=== PATIENT | male | born 1940 | race Caucasian/White ===

== ENCOUNTER 2017-04-06 21:56 | Inpatient (IN) | payer MEDICARE, OTHER, SELFPAY ==
[2017-04-06 21:58] VITALS: BP 147/92; PULSE 63; RESP 14; TEMP 36.4; O2SAT 99; BMI 20.2
--- NOTE | 2017-04-06 22:24 | CT_ITS ---
STUDY: CT ABDOMEN AND PELVIS WITHOUT CONTRAST REASON FOR EXAM: Male, 76 years old. Left flank pain. Kidney stones. RADIATION DOSAGE (If Supplied By Facility): CTDIvol = ( 6.77 ) mGy, DLP = ( 329.99 ) mGycm TECHNIQUE: Transaxial images were obtained from the dome of the diaphragm to the symphysis pubis without oral contrast, and without intravenous contrast. Sagittal and coronal images were reconstructed. COMPARISON: CT November 23, 2015 FINDINGS: The visualized lung bases are unremarkable. The visualized portions of the heart are within normal limits. Normal liver. Normal gallbladder and extrahepatic biliary system. Normal spleen. Normal pancreas. Normal bilateral adrenal glands. 3 calculi in the mid right kidney. These measure 6.1 mm. These are in the right renal calyx. Moderate hydronephrosis and hydroureter caused by 3.4 mm mid ureteral stone and 3 mm mid ureteral stone. Third smaller 1 to 2 mm stone in the right ureter. Moderate hydronephrosis and left hydroureter caused by 9.8 mm left urinary bladder stone. 6.4 mm left renal parenchyma stones. Normal visualized stomach. Normal small intestine. Stool throughout the colon. There is non-visualization of the appendix. There are calcifications of the abdominal aorta and vascular structures. This is consistent for atherosclerotic disease. There is no abdominal aortic aneurysm. Normal inferior vena cava. Subcentimeter mesenteric lymph nodes. Normal urinary bladder. Normal abdominal wall. There are degenerative changes of the osseous structures. Degenerative findings of the hips. Loss of intervertebral disc height at L5-S1. Vacuum disc phenomenon at L5-S1. Compression deformity of T12. This appears old. However, is new since the CT of 2015. CT/Abdomen/Pelvis without Cont IMPRESSION: Moderate hydronephrosis and hydroureter caused by 3.4 mm mid ureteral stone and 3 mm mid ureteral stone. Third smaller 1 to 2 mm stone in the right ureter. Moderate hydronephrosis and hydroureter caused by 9.8 mm left urinary bladder stone. Other findings as above. Electronically Signed: Chinmay Cook MD at 23:43 EST , Service support ,
--- NOTE | 2017-04-06 22:28 | ED.DCSUM_ITS ---
- ER Visit Summary Date of Service: 04/06/17 Chief Complaint: [] Flank pain History of Present Illness: The patient is a 76 M [] complaining of left flank pain with a history of kidney stones and medullary sponge kidneys. Patient denies nausea, vomiting, dysuria, hematuria. Patient reports similar symptoms with previous kidney stones. Reports he sees Dr. Ignacio and Dr. Andrew as his urologist's. Physical Examination: [] Afebrile, vital signs stable. Cardiovascular exam is regular rate and rhythm. Lungs are clear to auscultation. Abdomen is soft with mild left lower quadrant/ left CVA tenderness. Remainder of exam is unremarkable. Test Results: [] CBC normal. BMP normal with exception of a BUN and creatinine of 24 and 1.69, respectively. Urinalysis was not analyzed secondary to the patient provided a sample. CT of the flank reveals right mid ureter 3.4 mm stone with moderate hydro-nephrosis. 9.8 mm stone in the urinary bladder causing left-sided hydronephrosis. Emergency Department Course and Treatment: [] Patient received intravenous morphine and intravenous Phenergan and normal saline bolus upon arrival. On serial exam he was having continued pain and given single dose of intravenous Dilaudid. He was in continued pain and did not feel that he would fare well if he was discharged home. Case was discussed with the on-call urologist Dr. Andrew. The urologist will accept the patient on his service and provide further treatment and evaluation. Patient was counseled regarding his diagnostic and auditory findings and is amenable to admission. Treatment Plan: [] Admission to medical floor. Disposition: [] Admit, stable. Impression: [] Ureterolithiasis History of kidney stones This note was generated with [employer] dictation software. It may contain incorrect words, spelling, and punctuation that were not noted in review of the chart prior to signing ED Disposition - Plan for ED Patient: Chief Complaint: Flank Pain Referrals: Care Physician,No Primary [Primary Care Provider] -
[2017-04-06 22:38] LABS: Absolute Lymphocyte Count 1.71 X10^3/ul (0.83-4.51); Absolute Neutrophil Count 3.3 X10^3/uL (2.0-7.7); Basophil# 0.04 X10^3/uL; Basophil% 0.6 % (0-1); Eosinophil# 0.37 X10^3/uL; Eosinophils% 5.8 % (0-5); Hematocrit 39.6 % (40-54); Hemoglobin 13.1 g/dl (13.0-16.5); Lymphocyte # 1.71 X10^3/ul (4.0); Lymphocyte % 26.9 % (19-41); Mean Corp Hgb Conc 33.1 g/gl (32-36); Mean Corpuscular Hgb 29.4 pg (27.0-32.0); Mean Platelet Vol. 9.7 fl (6.2-12.0); Monocyte# 0.91 X10^3/uL; Monocyte% 14.3 % (0-10); Neutrophil # 3.32 X10^3/uL (2.7-7.7); Neutrophil % 52.2 % (47-70); POSITIVE COUNT NO; POSITIVE DIFFERENTIAL NO; POSITIVE MORPHOLOGY NO; Platelet Count 265 K/mm3 (150-450); RBC Distribution Width CV 14.2 % (11.6-14.6); RBC Distribution Width SD 46.7 fl (35.1-43.9); Red Blood Count 4.45 M/mm3 (4.6-6.2); White Blood Count 6.4 K/mm3 (4.4-11.0)
[2017-04-06 22:46] LABS: Anion Gap 6 (5-15); BUN 24 mg/dL (7-18); BUN/Creat Ratio 14.2 RATIO (10-20); Calcium,Total 7.9 mg/dL (8.5-10.1); Chloride 110 mmol/L (98-107); Creatinine, Serum 1.69 mg/dL (0.70-1.30); EST Glomerular Filtration Rate 42 mL/min (>60); Est Glom Filt Rate - Afr Amer 51 mL/min (>60); Estimated Creatinine Clearance 34.19 ml/min; Glucose 104 mg/dL (74-106); Sodium Level 140 mmol/L (136-145)
[2017-04-06] MEDS: 0.9% Normal Saline 1,000 ML 1000 ML IV (22:52)
[2017-04-06] MEDS: HYDROmorphone 1 MG/ML Syringe 0.5 MG IV (23:40)
[2017-04-07] VITALS (13 sets, daily range): BP systolic 92–143; BP diastolic 64–88; PULSE 71–85; RESP 16–18; TEMP 36.6–37.7; O2SAT 92–100; BMI 20.2; BMI 20.3
[2017-04-07 01:00] LABS: Mucous, Urine 0 SEEN /hpf (<or=2+); Red Blood Cells-Urine 0 SEEN /hpf (0-5); Squamous Epithelial Cells - UA 0 SEEN /hpf (0-5)
[2017-04-07 01:02] LABS: Color, Urine Yellow (Yellow); Glucose, Dipstick Normal (Normal); Ketone-Dipstick Negative (Negative); Leukocyte Esterase-Dipstick 500 /ul (Negative); Nitrite-Dipstick Positive (Negative); Occult Blood-Urine 25 /ul (Negative); Protein-Dipstick 15 mg/dl (Negative); Specific Gravity, Urine 1.015 (1.002-1.030); Urine Bilirubin Dipstick Negative (Negative); Urine Clarity Sl. Cloudy (Clear); Urine Urobilinogen Normal (Normal)
[2017-04-07 01:10] LABS: Bacteria 3+ /hpf (None Seen); White Blood Cells >100 SEEN /hpf (0-5)
[2017-04-07] MEDS: 0.9% Normal Saline 1,000 ML 75 ML IV (01:45)
--- NOTE | 2017-04-07 07:35 | PCM.HP.STD ---
Problem List (1) Intractable pain Status: Acute (2) Bilateral kidney stones Status: Acute (3) Bilateral hydronephrosis Status: Acute (4) Acute renal insufficiency Status: Acute History of Present Illness Date of Admission: 04/06/17 Chief Complaint: 76-year-old male presents to the hospital with bilateral kidney stones, acute renal insufficiency and intractable pain. The emergency room called me states that could not get his pain under control and recommended admission, patient was admitted to the hospital for pain control and his kidney stones renal insufficiency and hydronephrosis. The patient is a 76 year old M [] Past Medical History Past Medical History (Chronic Problems): Chronic Problems Hypertension (Chronic) Allergies No Known Allergies Allergy (Verified 11/23/15 15:41) Home Medications: Ambulatory Orders Medication Instructions Recorded Atenolol [Tenormin (beta mayda)] 25 mg PO DAILY 09/05/14 Doxycycline 50 mg PO DAILY 04/06/17 Simvastatin [Zocor] 20 mg PO QHS 04/07/17 Surgical History: - - Radical prostatectomy Psychiatric History: No pertinent psych hx Lives: Spouse/ Significant Other Smoking Status: Never smoker Tobacco Use: Non-smoker Alcohol: None Drugs: None - *Family History Maternal History Items: No pertinent history, - - No coronary artery disease Paternal History Items: - - No coronary artery disease Review of Systems Constitutional: Denies: Chills, Fever, Weight Change HEENT: Denies: Head Aches, Sinus Congestion, Sinus Drainage Cardiovascular: Denies: Chest Pain, Palpitations Respiratory: Denies: Cough, Shortness of breath at rest, Sputum production Gastrointestinal: Reports: Abdominal Pain. Denies: Nausea, Vomiting Genitourinary: Denies: Dysuria Musculoskeletal: Reports: Back Pain. Denies: Joint Pain, Joint Tenderness Skin: Denies: Rash, Wounds Neurological: Denies: Numbness, Tingling, Focal weakness Psychiatric: Denies: Anxiety, Depression, Homicidal Ideations, Suicidal Ideations Hematologic/ Lymphatic: Denies: Easy Bruising, Easy Bleeding VTE Information - Inpt Only VTE Present on Admission: No VTE Mechan Device Prophylaxis: SCD's Patient Problems: Active and Suspected Problems Intractable pain (Acute) Bilateral kidney stones (Acute) Bilateral hydronephrosis (Acute) Acute renal insufficiency (Acute) - Physical Exam General: Alert, Oriented x3, Cooperative HEENT: Atraumatic, PERRLA, EOMI, Normocephalic Neck: Supple, No JVD, Negative Carotid Bruits Lungs: Clear to auscultation, Normal air movement Cardiovascular: Regular rate, No murmurs Abdomen: Bowel Sounds Present, Soft, Non Tender Extremities: No edema, Capillary Refill Less than 3 Seconds Skin: No rashes, No breakdown Musculoskeletal: No Tenderness to Palpation of Joints or Extremities Neurological: Cranial nerves II-XII grossly intact Psych/Mental Status: Normal Affect, Appropriate Vital Signs Temp Pulse Resp BP Pulse Ox 99.0 F 84 18 101/64 98 04/07/17 07:25 04/07/17 07:25 04/07/17 07:25 04/07/17 07:25 04/07/17 07:25 Oxygen Delivery Method Room Air Weight: 64.1 kg Body Mass Index (BMI) 20.2 Intake and Output for Last 24 Hours 04/05/17 04/06/17 04/07/17 23:59 23:59 23:59 Intake Total 337 / 337 Output Total 650 / 650 Balance -313 / -313 Assessment/Plan Active and Suspected Problems Intractable pain (Acute) Bilateral kidney stones (Acute) Bilateral hydronephrosis (Acute) Acute renal insufficiency (Acute) Admit the patient for pain control, may have to take the surgery for placement of the stent will see if the stones will pass. He does have a fairly significantly large stone on the one side probably will not pass.
--- NOTE | 2017-04-07 07:46 | PCM.PROGNOTE ---
Patient Problems: Active and Suspected Problems Intractable pain (Acute) Bilateral kidney stones (Acute) Bilateral hydronephrosis (Acute) Acute renal insufficiency (Acute) Subjective: 76-year-old male admitted for bilateral kidney stones this morning he did pass a very large stone probably the stone on the left side in the distal left ureter.He still has some stones on the right ureter causing obstruction of the right kidney is also some stones up in both kidneys. - Physical Exam General: Alert, Oriented x3, Cooperative HEENT: Atraumatic, PERRLA, EOMI, Normocephalic Neck: Supple, No JVD, Negative Carotid Bruits Lungs: Clear to auscultation, Normal air movement Cardiovascular: Regular rate, No murmurs Abdomen: Bowel Sounds Present, Soft, Non Tender Extremities: No edema, Capillary Refill Less than 3 Seconds Skin: No rashes, No breakdown Musculoskeletal: No Tenderness to Palpation of Joints or Extremities Neurological: Cranial nerves II-XII grossly intact Psych/Mental Status: Normal Affect, Appropriate Vital Signs Temp Pulse Resp BP Pulse Ox 99.0 F 84 18 101/64 98 04/07/17 07:25 04/07/17 07:25 04/07/17 07:25 04/07/17 07:25 04/07/17 07:25 Oxygen Delivery Method Room Air Weight: 64.1 kg Body Mass Index (BMI) 20.2 Intake and Output for Last 24 Hours 04/05/17 04/06/17 04/07/17 23:59 23:59 23:59 Intake Total 337 / 337 Output Total 650 / 650 Balance -313 / -313 Assessment/Plan Active and Suspected Problems Intractable pain (Acute) Bilateral kidney stones (Acute) Bilateral hydronephrosis (Acute) Acute renal insufficiency (Acute) N.p.o. for surgery planted taken to surgery today for stent placement on the right side and left retrograde. Wide amount of the surgery scheduled then in about a week and a half to go and laser stones on both sides may play stents on both sides.
--- NOTE | 2017-04-07 07:50 | RAD_ITS ---
STUDY: X-RAY - ABDOMEN/PELVIS REASON FOR EXAM: Male, 76 years old. History of bilateral renal calculi and medullary screws in the. Acute renal failure. TECHNIQUE: Two AP supine views of the abdomen and pelvis. COMPARISON: Comparison is made with prior study dated December 30, 2016. FINDINGS: Mild increased markings at the lung bases suggesting scarring slightly worse on the left side. Gas and fecal material are seen throughout the colon. Mildly distended small bowel loops in the abdomen. This marrow present in the ileus pattern. Stable calcifications in the left kidney. The visualized liver, spleen and kidneys are grossly normal in size and morphology. Normal soft tissue structures. There are diffuse degenerative changes of the visualized lumbar spine. Levoscoliosis. RAD/Abdomen Single View IMPRESSION: Findings suggestive of an ileus gas pattern. Stable left renal calculi. Electronically Signed: Dragan Ansari MD at 8:43 EST Tel [phone], Service support ,
[2017-04-07] MEDS: 0.9% NaCl Peripheral Flush Adult/Peds IV ×2 (07:57→08:34)
[2017-04-07] MEDS: Atenolol 25 MG Tablet PO (08:34)
--- NOTE | 2017-04-07 11:03 | EKG12_ITS ---
Test Reason : PRE OP Blood Pressure : / mmHG Vent. Rate : 068 BPM Atrial Rate : 068 BPM P-R Int : 160 ms QRS Dur : 116 ms QT Int : 412 ms P-R-T Axes : 023 262 048 degrees QTc Int : 438 ms Normal sinus rhythm Right bundle branch block Abnormal ECG Confirmed by MODE JIMÉNEZ, NII ([id number]), medical editor GADIEL REECE ([id number] on 04/09/2017 2:52:20 PM Referred By: Confirmed By:NII COELLO MD
[2017-04-07] MEDS: Lidocaine Jelly 2% 20 ML Syringe (URO-JET) 20 APPLIC (12:12)
--- NOTE | 2017-04-07 12:30 | OP.PCM_ITS ---
Problem List (1) Intractable pain Status: Acute (2) Bilateral kidney stones Status: Acute (3) Bilateral hydronephrosis Status: Acute (4) Acute renal insufficiency Status: Acute Report of Operation Date of Procedure: 04/07/17 Pre-Operative Diagnosis: Left renal calculi and ureteral calculi, right renal calculi and renal calculi. Post-Operative Diagnosis: Same Surgery/Procedure Performed:: Cystoscopy and bilateral stent placement, left side and right side Description of Surgical Findings:: Patient was taken back to the operating room after smooth induction of general anesthesia he was placed in dorsal lithotomy position went into the bladder with a 21 [place] rigid cystourethroscope the entire length of the urethra is normal the sphincter was normal and intact he still had the Maria E but prostate was missing I then cannulated the left ureteral orifice looked like the stone in the distal left ureter had passed a stone there was still fairly large stone in the left kidney, so I placed a stent in anticipation of treat his large stone. Then went to the right side place a wire up the right ureter looked at the wire coiled in the proximal ureter but was beyond area of stones and then advanced a stent on the right side and left stent coil proximal ureter and distal ureter and in the bladder drain the bladder patient anesthetic was reversed plan to see him on Friday for shockwave treatment of the stones. Type of Anesthesia:: Local MAC - Admit VTE Documentation VTE Present on Admission: No VTE Mechan Device Prophylaxis: SCD's VTE Pharm Prophylaxis ordered?: No Reason prophylaxis not ordered:: Treatment Not Indicated
--- NOTE | 2017-04-07 12:32 | DCINST_ITS ---
Discharge Diet: Light diet - advance as tolerated Discharge Activity: May not drive while taking narcotic pain medications. Allergies/Adverse Reactions: Allergies No Known Allergies Allergy (Verified 11/23/15 15:41) Medications to take at Discharge Atenolol [Tenormin (beta mayda)] 25 mg PO DAILY 09/05/14 Doxycycline 50 mg PO DAILY 04/06/17 Ciprofloxacin [Cipro] 500 mg PO BID #6 tab 04/07/17 Hydrocodone/Acetaminophen [[place] 5-325 Tablet] 1 ea PO Q4H PRN PRN 5 Days #20 tab 04/07/17 Simvastatin [Zocor] 20 mg PO QHS 04/07/17 The following prescriptions were given: Hydrocodone/Acetaminophen [[facility] [place] 5-325 Tablet] 1 ea PO Q4H PRN PRN 5 Days #20 tab PRN Reason: Pain Ciprofloxacin [Cipro] 500 mg PO BID #6 tab Primary Care Physician: Care Physician,No Primary [Primary Care Provider] - Please Follow Up With: Rene Andrew MD When: surgery this friday for stones
--- NOTE | 2017-04-07 12:33 | PCM.DC.SUM ---
Discharge Date and Diagnosis - Problem List Patient Problems: Active and Suspected Problems Intractable pain (Acute) Bilateral kidney stones (Acute) Bilateral hydronephrosis (Acute) Acute renal insufficiency (Acute) Date of Admission: 04/06/17 Date of Discharge: 04/07/17 - Primary Discharge Diagnosis Active and Suspected Problems Intractable pain (Acute) Bilateral kidney stones (Acute) Bilateral hydronephrosis (Acute) Acute renal insufficiency (Acute) - Secondary Discharge Diagnosis Chronic Problems Hypertension (Chronic) Hospital Course and Treatment Imaging Results: 04/07/17 07:50 KUB [Abdomen Single View] [RAD] Urgent 04/07/17 12:00 O.R. Fluoro for C-Arm [RAD] Urgent Operations: - - Cystoscopy and bilateral stent placement Procedures: None Summary of Care Provided: The patient is a 76 year old male admitted for large ureteral calculi and bilateral kidney stones. He did pass a fragment while in the hospital. Today were taken to the operating room placed stents on both sides. Plan to treat the stones as an outpatient. His pain is now under control will discharge her home. Discharge Diet: Light diet - advance as tolerated Discharge Activity: May not drive while taking narcotic pain medications. Home Medications: Medications to take at Discharge Atenolol [Tenormin (beta mayda)] 25 mg PO DAILY 09/05/14 Doxycycline 50 mg PO DAILY 04/06/17 Ciprofloxacin [Cipro] 500 mg PO BID #6 tab 04/07/17 Hydrocodone/Acetaminophen [[place] 5-325 Tablet] 1 ea PO Q4H PRN PRN 5 Days #20 tab 04/07/17 Simvastatin [Zocor] 20 mg PO QHS 04/07/17 Following Prescrptions Were Given to Patient: Hydrocodone/Acetaminophen [[place] 5-325 Tablet] 1 ea PO Q4H PRN PRN 5 Days #20 tab PRN Reason: Pain Ciprofloxacin [Cipro] 500 mg PO BID #6 tab Primary Care Physician: Care Physician,No Primary [Primary Care Provider] - Please Follow Up With: Rene Andrew MD When: surgery this friday for stones Meaningful Use Info Meaningful Use Diagnoses (Choose all that apply): None applicable
--- NOTE | 2017-04-07 13:12 | CASEMGMT ---
RN AMY Face to Face with patient for initial transition planning/care coordination assessment. RN CM introduced self and role at [facility]. Patient lying in bed, alert and oriented. Patient willing to participate in assessment and is able to answer all questions appropriately. Care providers, pharmacy, and demographics verified. See link attached. Patient wishes to discharge home, denies need for home health at this time. Patient states he has no further needs or concerns at this time. CM to follow for discharge planning needs that may arise. Disposition Plan: Patient to discharge home with family support and follow-up plans in place.
== END 2017-04-07 14:46 | disposition home or self-care (01) | DRG 694 ==
LOC: ED 22:31 → MS3 04-07 00:15
PROVIDERS: Admitting Provider Urology; Emergency Provider Emergency Medicine; Visit Provider Urology
PROC: 0T788DZ Dilation of Bilateral Ureters with Intraluminal Device, Via Natural or Artificial Opening Endoscopic (ICD-10-PCS; principal; 2017-04-07 11:50)
DX: N13.2 Hydronephrosis with renal and ureteral calculous obstruction (principal); I10 Essential (primary) hypertension; Z87.442 Personal history of urinary calculi; N21.0 Calculus in bladder; Z90.79 Acquired absence of other genital organ(s); N28.9 Disorder of kidney and ureter, unspecified
CPT/HCPCS: 74018; 74176; 76000; 80048; 81001; 85025; 93005; 99285; J7030; A4216; C1769; C2617

== ENCOUNTER 2017-04-11 07:02 | Day surgery (SDC) | payer MEDICARE, OTHER, SELFPAY ==
[2016-07-16 11:15] VITALS: BP 94/61
[2017-04-07 09:09] VITALS: BMI 20.2
[2017-04-07 13:23] VITALS: BP 103/66
--- NOTE | 2017-04-11 06:50 | RAD_ITS ---
STUDY: X-RAY - ABDOMEN/PELVIS REASON FOR EXAM: Male, 76 years old. Pain. Kidney stones TECHNIQUE: Two AP supine views of the abdomen and pelvis. COMPARISON: X-ray of the abdomen on April 07, [address] of the abdomen on April 06, 2017. FINDINGS: Normal visualized lung bases. There are bilateral JJ ureteral stents since last examination There is mild intestinal dilatation consistent with adynamic ileus There is no demonstrated free abdominal air. Again noted are bilateral renal calculi unchanged in position since the prior study . Right ureteral calculus at the level of the right sacroiliac joint is noted unchanged in position from the prior examination. Second right ureteral calculus I believe has migrated distally Normal soft tissue structures. There is osteoporosis and degenerative disease of the lumbar spine with levoscoliosis RAD/Abdomen Single View IMPRESSION: Bilateral renal calculi and right ureteral calculi as described above. Status post bilateral JJ stents. Adynamic ileus. Electronically Signed: Luis Antonio Christiansen MD, FACR at 7:17 EST , Service support ,
[2017-04-11 07:24] VITALS: BP 108/76; PULSE 62; RESP 16; TEMP 37.3; O2SAT 99; BMI 19.7
--- NOTE | 2017-04-11 09:47 | PCM.DC.URO ---
Discharge Diet: Light diet - advance as tolerated Discharge Activity: Return to Normal Activity, May not drive while taking narcotic pain medications. Call your doctor if your incision/area has: Continuous Slow Oozing, Sudden Increased Bleeding, Increased Pain/ Swelling, Increased Redness, Foul Smelling Discharge, Swelling at the incision site Suture Line Care: Avoid Pulling/Pushing, Avoid Pinching/Bending Instructions: Shock Wave Lithotripsy Allergies/Adverse Reactions: Allergies ciprofloxacin [From Cipro] Allergy (Verified 04/11/17 07:29) sweating, n/v Medications to take at Discharge Atenolol [Tenormin (beta mayda)] 12.5 mg PO DAILY 09/05/14 Doxycycline 50 mg PO DAILY 04/06/17 Hydrocodone/Acetaminophen [[place] 5-325 Tablet] 1 ea PO Q4H PRN PRN 5 Days #20 tab 04/07/17 Simvastatin [Zocor] 20 mg PO QHS 04/07/17 Cephalexin [Keflex] 500 mg PO Q8 #15 cap 04/11/17 Hydrocodone/Acetaminophen [[place] 5-325 Tablet] 1 ea PO Q4H PRN PRN 5 Days #20 tab 04/11/17 The following prescriptions were given: Hydrocodone/Acetaminophen [[place] 5-325 Tablet] 1 ea PO Q4H PRN PRN 5 Days #20 tab PRN Reason: Pain Cephalexin [Keflex] 500 mg PO Q8 #15 cap Primary Care Physician: Care Physician,No Primary [Primary Care Provider] - Please Follow Up With: Rene Andrew MD When: FridayApr 28 at 8:30 am, get xray before appt.
--- NOTE | 2017-04-11 09:53 | DCINST_ITS ---
Discharge Diet: Light diet - advance as tolerated Discharge Activity: Return to Normal Activity, May not drive while taking narcotic pain medications. Call your doctor if your incision/area has: Continuous Slow Oozing, Sudden Increased Bleeding, Increased Pain/ Swelling, Increased Redness, Foul Smelling Discharge, Swelling at the incision site Suture Line Care: Avoid Pulling/Pushing, Avoid Pinching/Bending Instructions: Shock Wave Lithotripsy Allergies/Adverse Reactions: Allergies ciprofloxacin [From Cipro] Allergy (Verified 04/11/17 07:29) sweating, n/v Medications to take at Discharge Atenolol [Tenormin (beta mayda)] 12.5 mg PO DAILY 09/05/14 Doxycycline 50 mg PO DAILY 04/06/17 Hydrocodone/Acetaminophen [[place] 5-325 Tablet] 1 ea PO Q4H PRN PRN 5 Days #20 tab 04/07/17 Simvastatin [Zocor] 20 mg PO QHS 04/07/17 Cephalexin [Keflex] 500 mg PO Q8 #15 cap 04/11/17 Hydrocodone/Acetaminophen [[place] 5-325 Tablet] 1 ea PO Q4H PRN PRN 5 Days #20 tab 04/11/17 The following prescriptions were given: Hydrocodone/Acetaminophen [[place] 5-325 Tablet] 1 ea PO Q4H PRN PRN 5 Days #20 tab PRN Reason: Pain Cephalexin [Keflex] 500 mg PO Q8 #15 cap Primary Care Physician: Care Physician,No Primary [Primary Care Provider] - Please Follow Up With: Rene Andrew MD When: FridayApr 28 at 8:30 am, get xray before appt.
[2017-04-11 11:44] VITALS: BP 108/76; BP 122/89; PULSE 65; RESP 20; TEMP 35.8; O2SAT 100
[2017-04-11 12:00] VITALS: BP 108/76; BP 136/86; PULSE 73; RESP 16; O2SAT 95
[2017-04-11 12:15] VITALS: BP 108/76; BP 117/80; PULSE 82; RESP 16; O2SAT 100
--- NOTE | 2017-04-11 12:15 | OP.PCM_ITS ---
Problem List (1) Bilateral kidney stones Status: Acute (2) Bilateral hydronephrosis Status: Acute Report of Operation Date of Procedure: 04/11/17 Pre-Operative Diagnosis: Left renal calculi, right ureteral calculi, right hydronephrosis and tortuous ureter, right renal calculi Post-Operative Diagnosis: . Same Surgery/Procedure Performed:: left ESWL left stent removal, right ureteroscopy laser of stone and right stent placement and right ESWL Description of Surgical Findings:: 76-year-old male taken back to the operating room, After smooth induction of general anesthesia we then positioned the patient supine on the lithotripter table, we found a stone in the lower pole of the left kidney and treated this with shockwave lithotripsy and then removed the stent from the left side. We then went to the right side and there was some stones in the distal right ureter I tried to manipulate and move the stones up in the kidney but the ureter was too tortuous and dilated and had some areas of narrowing so after performing cystoscopy and retrograde pyelogram and attempted stone manipulation was unable to do this so I put a wire in place I went next to the wire first with a flexible ureteroscope was able to get into the distal ureter and found the stones and use a laser 270 ?m laser fiber and laser the stones and the little tiny pieces. Had some difficulty in reaching the stones with the flexible ureteroscope so I then switched over to the semirigid ureteroscope and then was able to get into the stones in the distal ureter quite more easily. I then lasered some more the stones we then used the basket to basket out these fragments. I then put a wire up into the kidney very tortuous ureter dilated tortuous ureter finding the ureter straightened out and advanced a stent 6 [place] by 28 cm stent on the right side once stent was in good position then we treated the stones in the kidney with shockwave lithotripsy stones were treated with 3000 shockwaves at a rate of 90 power up to 6 and 7. At the end of the treatment cycle stones in the kidney lipids are broken up well stone in the mid right ureter was treated with laser and the stone in the left kidney was all treated with shockwave broken up well he only had a right stent in place plan to see him back in a few weeks with a KUB and possibly get the stent out. Type of Anesthesia:: General Drains: Right stent - Admit VTE Documentation VTE Present on Admission: No VTE Mechan Device Prophylaxis: SCD's
[2017-04-11 12:33] VITALS: BP 108/62; BP 108/76; PULSE 82; RESP 16; TEMP 36.6; O2SAT 93
[2017-04-11 13:51] VITALS: BP 108/76
== END 2017-04-11 14:06 | disposition home or self-care (01) ==
LOC: SDC 07:04 → AC 07:04
PROVIDERS: Visit Provider Urology
PROC: (CPT 50590; principal; 2017-04-11 08:40)
DX: N13.2 Hydronephrosis with renal and ureteral calculous obstruction (principal); N13.8 Other obstructive and reflux uropathy; N28.9 Disorder of kidney and ureter, unspecified; Q61.5 Medullary cystic kidney; I10 Essential (primary) hypertension; I25.10 Atherosclerotic heart disease of native coronary artery without angina pectoris; I45.10 Unspecified right bundle-branch block; E78.00 Pure hypercholesterolemia, unspecified; Z79.899 Other long term (current) drug therapy
CPT/HCPCS: 50590; 52356; 74018; J7120; C1769; J2405

== ENCOUNTER → 2017-04-25 08:09 | Outpatient (CLI) | payer MEDICARE, OTHER, SELFPAY | PROVIDERS: Visit Provider Urology | DX: N20.0 Calculus of kidney (principal) ==

== ENCOUNTER → 2017-04-28 07:45 | Outpatient (CLI) | payer MEDICARE, OTHER, SELFPAY ==
[2016-07-16 11:15] VITALS: BP 94/61
[2017-04-11 07:24] VITALS: BMI 19.7
[2017-04-11 12:33] VITALS: BP 108/62
--- NOTE | 2017-04-28 07:50 | RAD_ITS ---
STUDY: X-RAY - ABDOMEN/PELVIS REASON FOR EXAM: Male, 76 years old. History of kidney stones following ESWL. TECHNIQUE: Two AP supine views of the abdomen and pelvis. COMPARISON: Comparison is made with prior examination dated April 11, 2017. FINDINGS: Normal visualized lung bases. There is a moderate amount of colonic fecal material. Slightly dilated small bowel loops in the right mid abdomen. The left-sided double-J stent catheter is not seen at this time. Stable appearance of the right double-J stent catheter. The previously seen bilateral renal calcifications have decreased in size and have become fragmented. Normal soft tissue structures. There are diffuse degenerative changes of the visualized lumbar spine. Levoscoliosis. RAD/Abdomen Single View IMPRESSION: The previously seen bilateral renal calcifications are smaller in size and fragment. The left double ureteral stent catheter has been removed. Electronically Signed: Dragan Ansari MD at 13:47 EST Tel [phone], Service support ,
== END ==
PROVIDERS: Visit Provider Urology
DX: N20.0 Calculus of kidney (principal)
CPT/HCPCS: 74018

== ENCOUNTER 2017-05-30 08:56 | Day surgery (SDC) | payer MEDICARE, OTHER, SELFPAY ==
[2017-05-30 09:11] VITALS: BP 127/82; PULSE 58; RESP 16; TEMP 36.1; O2SAT 99; BMI 19.3
--- NOTE | 2017-05-30 11:06 | COLBX_PTH ---
PATIENT: ADEEL POST LOC: EN U#:[id number] AGE/SX: 76/M ROOM: RE05/30/[address]: Dr. Sami Jones MD : [id number] BED: DIS: 05/30/2017 SPEC #: [id number] RECD: 05/30/17 12:19 STATUS: JEAN CARLOS SHAHID #: [id number] KOKO: 05/30/17 11:[address]: Sami Jones DEPT: SURGICAL PATHOLOGY RECD BY: Tim Crane ENTERED: 05/30/17 12:34 SP TYPE: COLON BX OTHR DR: No Primary Care Phys Tissues: A - Transverse colon B - Transverse colon C - Descending colon D - Descending colon Procedures: Surgery Specimen Level IV HEADER OPERATION: Colonoscopy PRE-OP DIAGNOSIS: Screening TISSUE SUBMITTED: A. Proximal transverse polyps, B. Mid transverse polyp, C. Proximal descending polyp, D. Mid descending polyp MICROSCOPIC DIAGNOSIS A. Proximal transverse colon polyp, biopsy: Fragments of tubular adenoma. B. Mid transverse colon polyp, biopsy: Fragments of tubular adenoma. C. Proximal descending colon polyp, biopsy: Fragments of tubular adenoma. D. Mid descending colon polyp, biopsy: Fragments of tubular adenoma. SJ:michell 06/02/17 MICROSCOPIC DESCRIPTION Slides are reviewed. GROSS DESCRIPTION A - Received in fixative is one container labeled with the patient's name and designated proximal transverse polyp. The specimen consists of a pedroza-pink polyp measuring 1.2 x 1 x 0.6 cm. The polyp is bisected. Also present in the container are multiple fragments of pedroza soft tissue that in aggregate measure 1.5 x 0.5 x 0.1 cm. The entire specimen is submitted in one cassette. B - Received in fixative is one container labeled with the patient's name and designated mid transverse polyp. The specimen consists of multiple irregular fragments of light pedroza soft tissue that in aggregate measure 0.6 x 0.3 x 0.1 cm. The specimen is totally submitted in one cassette. C - Received in fixative is one container labeled with the patient's name and designated proximal descending polyp. The specimen consists of a piece of pedroza-pink polyp measuring 0.6 x 0.5 x 0.3 cm. Also present in the container is a small piece of pedroza-pink soft tissue measuring 0.2 x 0.2 x 0.1 cm. The entire specimen is submitted in one cassette. D - Received in fixative is one container labeled with the patient's name and designated mid descending polyp. The specimen consists of multiple irregular fragments of light pedroza soft tissue that in aggregate measure 0.5 x 0.5 x 0.1 cm. The specimen is totally submitted in one cassette. / PAIGE:michell 05/30/17 TC:1 CPT: 32406 x4
--- NOTE | 2017-05-30 11:34 | PCM.OPRPT ---
Problem List (1) Screen for colon cancer Status: Acute (2) History of colon polyps Status: Acute Report of Operation Date of Procedure: 05/30/17 Pre-Operative Diagnosis: Screening colonoscopy and history of colon polyps Post-Operative Diagnosis: Several polyps. Diverticulosis. Hemorrhoids Surgery/Procedure Performed:: Colonoscopy with 7 snare polypectomies Specimen's removed: See pathology sheet Description of Procedure: The major risks and benefits associated with the procedure were explained to the patient in detail. The patient verbalized understanding and agreement with the same. The patient was brought to the endoscopy suite. After adequate sedation was achieved, the patient was placed in the left lateral decubitus position and a digital rectal exam was performed. This examination was within normal limits. A well-lubricated colonoscope was then inserted into the rectum and advanced under direct visualization to the level of the cecum. The bowel prep was good. The cecum was identified by both visual and anatomic landmarks. A photograph was taken of the end of the cecum. The scope was then fully withdrawn while examining the color, texture, anatomy and integrity of the mucosa from the cecum to the anal canal. The patient had several polyps. He had 3 polyps in the ascending colon which were taken with cautery snare. These were sent together as they were in the same area of the colon. The patient also had a proximal colon polyp and mid transverse colon polyp. These were both taken with cautery snare. The patient also had several descending colon polyps. These were also taken with cautery snare. All of these polyps appeared small and angulated with no cancerous features. Otherwise, the findings were consistent with normal colonic mucosa. The patient did have sigmoid diverticulosis. Over 6 minutes were taken to examine the colonic mucosa. Upon reaching the rectum the scope was retroflexed to examine the distal rectal vault. The scope was then straightened and was completely retrieved upon exiting the anal canal and the procedure was terminated. The patient was then transferred to the recovery room in stable condition. Recommendations for follow up: Dependent on pathology
[2017-05-30 11:36] VITALS: BP 115/83; BP 127/82; PULSE 62; RESP 16; TEMP 35.9; O2SAT 97
[2017-05-30 11:40] VITALS: BP 111/71; BP 127/82; PULSE 52; RESP 16; O2SAT 99
[2017-05-30 11:45] VITALS: BP 122/87; BP 127/82; PULSE 54; RESP 16; O2SAT 99
[2017-05-30 11:50] VITALS: BP 116/92; BP 127/82; PULSE 54; RESP 18; TEMP 36.6; O2SAT 99
[2017-05-30 12:10] VITALS: BP 127/82
== END 2017-05-30 12:15 | disposition home or self-care (01) ==
LOC: EN 08:56 → AC 08:57
PROVIDERS: Visit Provider Surgery
PROC: 0DJD8ZZ Inspection of Lower Intestinal Tract, Via Natural or Artificial Opening Endoscopic (ICD-10-PCS; CPT 45378; principal; 2017-05-30 09:55)
DX: D12.4 Benign neoplasm of descending colon (principal); K57.30 Diverticulosis of large intestine without perforation or abscess without bleeding; K64.9 Unspecified hemorrhoids; D12.3 Benign neoplasm of transverse colon; I10 Essential (primary) hypertension; E78.5 Hyperlipidemia, unspecified; N13.2 Hydronephrosis with renal and ureteral calculous obstruction; Q61.5 Medullary cystic kidney; I45.10 Unspecified right bundle-branch block; Z87.440 Personal history of urinary (tract) infections; Z87.891 Personal history of nicotine dependence; Z79.899 Other long term (current) drug therapy; Z79.891 Long term (current) use of opiate analgesic
CPT/HCPCS: 45380; 88305; J7120

== ENCOUNTER → 2017-06-14 07:12 | Outpatient (CLI) | payer MEDICARE, OTHER, SELFPAY ==
[2017-06-14 08:43] LABS: AST(SGOT) 36 U/L (15-37); Alanine Aminotransfer ALT/SGPT 36 U/L (16-61); Albumin, Serum 3.3 g/dL (3.2-5.0); Alkaline Phosphatase 156 U/L (45-117); Bilirubin, Direct 0.21 mg/dL (0.00-0.30); Cholesterol 97 mg/dL (200); Globulin 3.9 g/dL (2.2-4.2); High Density Lipoprotein 27 mg/dL; Protein, Total 7.2 g/dL (6.4-8.2); Triglycerides 92 mg/dL; Very Low Density Lipoprotein 18 mg/dL (5-40)
== END ==
PROVIDERS: Visit Provider Internal Medicine Cardiovascular Disease
DX: E78.5 Hyperlipidemia, unspecified (principal); Z79.899 Other long term (current) drug therapy
CPT/HCPCS: 80061; 80076

== ENCOUNTER → 2017-08-21 07:43 | Outpatient (CLI) | payer MEDICARE, OTHER, SELFPAY ==
--- NOTE | 2017-08-21 07:45 | ECHOD_ITS ---
Reason For Study: CAD/ASHD Procedure This was a 2D Doppler, Color Flow transthoracic echocardiogram. The exam was of adequate technical quality. Exam performed in department. Left Ventricle Normal LV size. Left ventricular systolic function is normal. The estimated ejection fraction is 65 %. Normal diastology for age. No regional wall motion abnormalities noted. Right Ventricle Normal RV size. Normal systolic function. Atria The left atrium is mildly enlarged. Normal right atrium. No doppler evidence for ASD. Mitral Valve There is no mitral annular calcification. Mild diffuse mitral valve thickening. Mild mitral valve prolapse. Mild (1+) eccentric mitral valve insufficiency. Tricuspid Valve Myxomatous appearing tricuspid valve. Mild diffuse thickening of the tricuspid valve. Mild tricuspid valve insufficiency. Aortic Valve Trisinus/trileaflet aortic valve. Mild focal aortic valve thickening. Pulmonic Valve The pulmonic valve is not well visualized. Great Vessels Normal sized aortic root. Pericardium/Pleural No pericardial effusion. MMode/2D Measurements & Calculations LVIDd: 4.1 cm IVSd: 0.88 cm Ao root diam: 3.7 cm LVIDs: 2.2 cm LVPWd: 1.2 cm LA dimension: 4.0 cm FS: 45.5 % LAV(MOD-bp): 64.0 ml LA A4 area: 20.0 cm2 RA A4 area: 15.3 cm2 LAV(MOD-bp) Indexed: 36.2 ml/m2 LAV(MOD-sp2): 67.3 ml LAV(MOD-sp4): 57.1 ml Time Measurements MV dec time: 0.25 sec Doppler Measurements & Calculations MV E max guy: 79.8 cm/sec Lat Peak E' Guy: 6.0 cm/sec Med Peak E' Guy: 7.5 cm/sec MV A max guy: 101.9 cm/sec E/E' lat: 13.2 E/E' med: 10.7 MV E/A: 0.78 MV V2 max: 109.1 cm/sec MV P1/2t max guy: 82.2 cm/sec Ao V2 max: 105.2 cm/sec MV max P.8 mmHg MV P1/2t: 132.3 msec Ao max P.4 mmHg MV V2 mean: 54.4 cm/sec MV dec slope: 182.0 cm/sec2 Ao V2 mean: 75.2 cm/sec MV mean P.4 mmHg MVA(P1/2t): 1.7 cm2 Ao mean P.4 mmHg MV V2 VTI: 37.9 cm Ao V2 VTI: 23.0 cm LV V1 max: 68.4 cm/sec PA V2 max: 53.1 cm/sec LV V1 max P.9 mmHg LV V1 mean P.1 mmHg LV V1 mean: 49.9 cm/sec LV V1 VTI: 17.2 cm Interpretation Summary Left ventricular systolic function is normal. The estimated ejection fraction is 65 %. The left atrium is mildly enlarged. Mild mitral valve prolapse. Mild diffuse mitral valve thickening. Mild (1+) eccentric mitral valve insufficiency. Myxomatous appearing tricuspid valve. Mild diffuse thickening of the tricuspid valve. Mild tricuspid valve insufficiency. Mild focal aortic valve thickening. Normal diastology for age. 2D echocardiographic images c/w mobile objects and linear echodensities in the subtricuspid valve area c/w redundant chordae tendonae. Ordering Physician: Julio Cesar Hope Referring Physician: Julio Cesar Hope Performed By: Theo Porter RCS
== END ==
PROVIDERS: Visit Provider Internal Medicine Cardiovascular Disease
DX: I25.10 Atherosclerotic heart disease of native coronary artery without angina pectoris (principal)
CPT/HCPCS: 93306

== ENCOUNTER → 2018-01-30 10:59 | Outpatient (CLI) | payer MEDICARE, OTHER, SELFPAY ==
[2018-01-30 10:59] VITALS: BMI 19.7
[2018-01-30 11:44] LABS: Mucous, Urine 0 SEEN /hpf (<or=2+); Red Blood Cells-Urine 0 SEEN /hpf (0-5)
[2018-01-30 12:45] LABS: Color, Urine Yellow (Yellow); Glucose, Dipstick Normal (Normal); Ketone-Dipstick Negative (Negative); Leukocyte Esterase-Dipstick 500 /ul (Negative); Nitrite-Dipstick Positive (Negative); Occult Blood-Urine 10 /ul (Negative); Protein-Dipstick 30 mg/dl (Negative); Specific Gravity, Urine 1.015 (1.002-1.030); Urine Bilirubin Dipstick Negative (Negative); Urine Clarity Sl. Cloudy (Clear); Urine Urobilinogen Normal (Normal)
[2018-01-30 12:55] LABS: Bacteria RARE /hpf (None Seen); Squamous Epithelial Cells - UA 0-5 SEEN /hpf (0-5); White Blood Cells 25-50 SEEN /hpf (0-5)
[2018-01-30 13:22] LABS: Anion Gap 8 (5-15); BUN 18 mg/dL (7-18); Calcium,Total 8.3 mg/dL (8.5-10.1); Chloride 108 mmol/L (98-107); Creatinine, Serum 1.63 mg/dL (0.70-1.30); EST Glomerular Filtration Rate 44 mL/min (>60); Est Glom Filt Rate - Afr Amer 53 mL/min (>60); Glucose 83 mg/dL (74-106); PSA,Total- Diagnostic < 0.01 ng/mL (0.0-4.0); Potassium 4.1 mmol/L (3.5-5.1); Sodium Level 139 mmol/L (136-145)
--- OUTSIDE RECORDS SUMMARY | 2018-03-27 09:00 | XMS RPT_ITS ---
:1940 Author Organization OHIP Support Name Relationship Address Phone SEJALANA CRISTINA PartidaTAMMY Unavailable [address] + [place] [address] R Unavailable Unavailable Unavailable SEJAL, TAMMY Unavailable [address] + [place] [address] R Unavailable Unavailable Unavailable SEJAL, TAMMY Unavailable [address] + [place] [address] R Unavailable Unavailable Unavailable SEJAL, TAMMY Unavailable [address] + [place] [address] R Unavailable Unavailable Unavailable SEJAL, TAMMY Unavailable [address] + [place] [address] R Unavailable Unavailable Unavailable SEJAL, TAMMY Unavailable [address] + [place] [address] R Unavailable Unavailable Unavailable SEJAL, TAMMY Unavailable [address] + [place] [address] R Unavailable Unavailable Unavailable SEJAL, TAMMY Unavailable [address] + [place] [address] R Unavailable Unavailable Unavailable SEJAL, Tammy Unavailable [address] + [place] [address] R Unavailable Unavailable Unavailable SEJAL, CORRIE Unavailable [address] + [place] [address] R Unavailable Unavailable Unavailable SEJAL, CORRIE Unavailable [address] + [place] [address] R Unavailable Unavailable Unavailable SEJAL, CORRIE Unavailable [address] + [place] [address] R Unavailable Unavailable Unavailable SEJAL, TAMMY Unavailable [address] + [place] [address] R Unavailable Unavailable Unavailable SEJAL, CORRIE Unavailable [address] + [place] [address] R Unavailable Unavailable Unavailable Care Team Providers Name Role Phone Primay Care Physicia, No Primary Care Unavailable Lorrie, Rene Burris Admitting Unavailable Lorrie, Rene Burris Attending Unavailable Lorrie, Rene Burris Attending Unavailable Lorrie, Rene Burris Referring Unavailable Primay Care Physicia, No Primary Care Unavailable Lorrie, Rene Burris Attending Unavailable Primay Care Physicia, No Primary Care Unavailable [place], Rene Burris Referring Unavailable Lorrie, Rene Burris Attending Unavailable Primay Care Physicia, No Primary Care Unavailable Calabretta, Sami Attending Unavailable Primay Care Physicia, No Referring Unavailable Primay Care Physicia, No Primary Care Unavailable Calab[place], Sami Attending Unavailable [place], Sami Referring Unavailable Primay Care Physicia, No Primary Care Unavailable Calabretta, Sami Attending Unavailable Calab[place], Sami Referring Unavailable Primay Care Physicia, No Primary Care Unavailable Cal[place], Sami Consulting Unavailable [place], Julio Cesar Attending Unavailable [place], Rene Burris Referring Unavailable [place], Julio Cesar Attending Unavailable [place], Julio Cesar Referring Unavailable Primay Care Physicia, No Primary Care Unavailable Shweta Kenney Attending Unavailable [place], Julio Cesar Attending Unavailable Primay Care Physicia, No Referring Unavailable Primay Care Physicia, No Primary Care Unavailable [place], Julio Cesar Attending Unavailable [place], Julio Cesar Referring Unavailable Primay Care Physicia, No Primary Care Unavailable [place], Julio Cesar Attending Unavailable [place], Rene Burrsi Attending Unavailable [place], Rene Burris Referring Unavailable Primay Care Physicia, No Primary Care Unavailable PROBLEMS PROBLEMS DATE TYPE CONDITION / CODE ATTENDING STATUS SOURCE 08/13/2017 Unknown I25.10 - [place], Active [place] Atherosclerotic heart [facility] disease [facility] coronary artery Repository without angina pectoris / I25.10(ICD-10) 08/12/2017 Unknown E78.5 - [place], Active [place] Hyperlipidemia, [facility] unspecified / Hospital E78.5(ICD-10) Repository 05/26/2017 Unknown Z86.010 - Personal Calabretta, Active [place] history of colonic Sami [facility] polyps / Hospital Z86.010(ICD-10) Repository 04/11/2017 Unknown Z87.442 - Personal Rene Andrew Active [place] history of urinary [place] [facility] calculi / Hospital Z87.442(ICD-10) Repository 06/04/2017 Unknown R94.31 - Abnormal [place], Active [place] electrocardiogram [facility] [ECG] [EKG] / Hospital R94.31(ICD-10) Repository PROCEDURES PROCEDURES No Procedure Records FoundRESULTS RESULTS URINALYSIS, COMPLETE Collected: 01/30/2018 Status: F Source: [place] 11:42 AM [facility] REPOSITORY Order Comment: How was Urine Obtained? CLEAN CATCH TYPE CODE TESTS RESULT OUT OF RANGE REFERENCE UNITS LAB L400.3000 Yellow COLOR Normal Yellow LAB L400.3050 Clear Normal CLARITY Sl. Cloudy LAB L400.3200 Normal mg/dl Normal GLUCOSE, UR Normal LAB L400.3300 Negative mg/dL Normal BILIRUBIN URINE Negative LAB L400.3400 Negative mg/dl Normal KETONE UR Negative LAB L400.3465 1.002-1.030 Normal SP.GR. DIPSTX 1.015 LAB L400.3550 5.0 - 8.0 pH UR Normal 6.0 LAB L400.3600 Negative mg/dl High PROT 30 DIPSTX LAB L400.3700 Normal mg/dl Normal UROBILI Normal LAB L400.3750 Negative High NITRITE UR Positive LAB L400.3780 Negative /ul High 10 OCCULT BLOOD-UR LAB L400.3800 Negative /ul High LEUK ESTERASE 500 LAB L400.4050 0-5 /hpf WBC Normal 25-50 SEEN LAB L400.4100 0-5 /hpf 0 Normal RBC-UA SEEN LAB L400.4150 0-5 /hpf SQUAM Normal EPI 0-5 SEEN LAB L400.4300 None Seen /hpf Normal BACTERIA RARE LAB L400.4350 <or=2+ /hpf 0 Normal MUCUS, URINE SEEN Performed By: #### L400.0001 #### [facility] [address] [place], [place], [id number] BASIC METABOLIC Collected: 01/30/2018 Status: F Source: [place] PROFILE (BMP) 11:42 AM [facility] REPOSITORY TYPE CODE TESTS RESULT OUT OF RANGE REFERENCE UNITS LAB L501.0100 74-106 mg/dL Normal GLU 83 Result Comment: Please note revised GLUCOSE reference range effective 2017. LAB L501.1000 7-18 mg/dL Normal BUN 18 LAB L501.1100 0.70-1.30 mg/dL High CREAT,SERUM 1.63 Result Comment: The validity of the calculated GFR AND GFRAA in patients over 70 years has not been determined. Clinical correlation is essential. LAB L501.1110 >60 mL/min Low EST GFR 44 Result Comment: Non- GFR Calc LAB L501.1115 >60 mL/min Low EST GFR - AA 53 Result Comment: GFR Calc LAB L501.1300 10-20 RATIO Normal BUN/CRE 11.0 LAB L501.2200 8.5-10.1 mg/dL Low CA 8.3 LAB L501.5300 136-145 mmol/L NA Normal 139 LAB L501.5600 3.5-5.1 mmol/L K Normal 4.1 LAB L501.5900 98-107 mmol/L High CL 108 LAB L501.6100 21.0-32.0 mmol/L Normal CO2 23.0 LAB L501.6200 5-15 Normal GAP 8 Performed By: #### L500.2500, L501.9940 #### [facility] [address] [facility] [place], [place], [address] PSA,TOTAL- DIAGNOSTIC Collected: 01/30/2018 Status: F Source: [place] 11:42 AM [facility] REPOSITORY TYPE CODE TESTS RESULT OUT OF RANGE REFERENCE UNITS LAB L501.9940 0.0-4.0 ng/mL PSA, Normal DIAGNOSTIC < 0.01 Result Comment: This test was performed using the TPSA assay method for the [employer] chemistry system. Values obtained with different assay methods cannot be used interchangably. When changing PSA assays in the course of monitoring a patient, additional sequential testing should be carried out to confirm baseline values. Performed By: #### L500.2500, L501.9940 #### [facility] [address] [place], [address] Observed: 01/30/2018 Status: F Source: [place] CULTURE, URINE 11:42 AM [facility] REPOSITORY Urine Culture ORGANISM 1: Escherichia coli [place] Count 11,000-25,000 Escherichia coli: REACTION Amoxacillin/Clavulanic Acid $ 8 S Ampicillin $ >=32 R Ampicillin/Sulbactam $ 16 I Cefazolin $ <=4 S Cefepime $ <=1 S Ceftriaxone $ <=1 S Ciprofloxacin $ 1 S ESBL - Ertapenim $$$ <=0.5 S Gentamicin $ >=16 R Imipenem *NF <=0.25 S Levofloxacin $ 1 S Nitrofurantoin $ <=16 S Piperacillin/Tazobactam $$ <=4 S Tobramycin $ >=16 R Trimethoprim/Sulfametho $ >=320 R (NF) indicates non-formulary drug at [facility]. Approval by Infectious Disease Specialist required before non-formulary drugs may be ordered and/or dispensed. Performed By: #### M100.0650 #### [facility] [address] [place], [address] ECHOCARDIOGRAM COMPLETE Observed: 08/25/2017 Status: F Source: [place] 8:23 AM [facility] REPOSITORY [facility] Cardiovascular Services [address] [place] [address] Echo Complete 08/21/17 0802 MR#: [id number] Acct: [id number] Name: KIMANI POST Rep #: [id number] : 1940 76 From: Julio Cesar Coello MD Attending Dr: Julio Cesar Coello MD Status: REG CLI Ordering Dr: Julio Cesar Coello MD Date: 08/21/17 Location: [facility] Sex: M C Admitted: Reason For Study: CAD/ASHD Procedure This was a 2D Doppler, Color Flow transthoracic echocardiogram. The exam was of adequate technical quality. Exam performed in department. Left Ventricle Normal LV size. Left ventricular systolic function is normal. The estimated ejection fraction is 65 %. Normal diastology for age. No regional wall motion abnormalities noted. Right Ventricle Normal RV size. Normal systolic function. Atria The left atrium is mildly enlarged. Normal right atrium. No doppler evidence for ASD. Mitral Valve There is no mitral annular calcification. Mild diffuse mitral valve thickening. Mild mitral valve prolapse. Mild (1+) eccentric mitral valve insufficiency. Tricuspid Valve Myxomatous appearing tricuspid valve. Mild diffuse thickening of the tricuspid valve. Mild tricuspid valve insufficiency. Aortic Valve Trisinus/trileaflet aortic valve. Mild focal aortic valve thickening. Pulmonic Valve The pulmonic valve is not well visualized. Great Vessels Normal sized aortic root. Pericardium/Pleural No pericardial effusion. MMode/2D Measurements AND Calculations LVIDd: 4.1 cm IVSd: 0.88 cm Ao root diam: 3.7 cm LVIDs: 2.2 cm LVPWd: 1.2 cm LA dimension: 4.0 cm FS: 45.5 % LAV(MOD-bp): 64.0 ml LA A4 area: 20.0 cm2 RA A4 area: 15.3 cm2 LAV(MOD-bp) Indexed: 36.2 ml/m2 LAV(MOD-sp2): 67.3 ml LAV(MOD-sp4): 57.1 ml Time Measurements MV dec time: 0.25 sec Doppler Measurements AND Calculations MV E max guy: 79.8 cm/sec Lat Peak E' Guy: 6.0 cm/sec Med Peak E' Guy: 7.5 cm/sec MV A max guy: 101.9 cm/sec E/E' lat: 13.2 E/E' med: 10.7 MV E/A: 0.78 MV V2 max: 109.1 cm/sec MV P1/2t max guy: 82.2 cm/sec Ao V2 max: 105.2 cm/sec MV max P.8 mmHg MV P1/2t: 132.3 msec Ao max P.4 mmHg MV V2 mean: 54.4 cm/sec MV dec slope: 182.0 cm/sec2 Ao V2 mean: 75.2 cm/sec MV mean P.4 mmHg MVA(P1/2t): 1.7 cm2 Ao mean P.4 mmHg MV V2 VTI: 37.9 cm Ao V2 VTI: 23.0 cm LV V1 max: 68.4 cm/sec PA V2 max: 53.1 cm/sec LV V1 max P.9 mmHg LV V1 mean P.1 mmHg LV V1 mean: 49.9 cm/sec LV V1 VTI: 17.2 cm Interpretation Summary Left ventricular systolic function is normal. The estimated ejection fraction is 65 %. The left atrium is mildly enlarged. Mild mitral valve prolapse. Mild diffuse mitral valve thickening. Mild (1+) eccentric mitral valve insufficiency. Myxomatous appearing tricuspid valve. Mild diffuse thickening of the tricuspid valve. Mild tricuspid valve insufficiency. Mild focal aortic valve thickening. Normal diastology for age. 2D echocardiographic images c/w mobile objects and linear echodensities in the subtricuspid valve area c/w redundant chordae tendonae. Ordering Physician: Julio Cesar Coello Referring Physician: Julio Cesar Coello Performed By: Theo Porter RCS 08/25/17821 Date Julio Cesar Coello MD CC: No Primary Care Physician; Julio Cesar Coello MD Date Dictated: 08/21/17 0802 Date Transcribed: 08/25/17821 Tap Grinder: Signed CARDIOLOGY VISIT Observed: 08/15/2017 Status: F Source: [place] REPORT 5:13 PM [facility] REPOSITORY [facility] [address] [place] [place] [address] OFFICE VISIT Date of Service: 08/13/17 MR#: [id number] Acct: [id number] Name: KIMANI POST Rep #: [id number] : 1940 Provider: Julio Cesar Coello MD Age/Sex: 76/M Location: 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 Overall since his last visit of 12/13/2016 he states he has been doing well. He is not complaining of any ongoing symptoms of classic angina pectoris at rest or with activity. There is been no episodes of acute CHF or pulmonary edema. There has been no near syncope or syncope. His lipid labs have been evaluated. They appear to be under good control. Intake Vital Signs08/13/17 Height 5 ft 10 in 08/13/17 Weight: 132 lb 08/13/17 Body Mass Index (BMI) 18.9 08/13/17 Blood Pressure 100/60 Intake Visit Reasons: 6 M FU Allergies ciprofloxacin [From Cipro] Allergy (Verified 08/13/17 15:23) sweating, n/v wheat Adverse Reaction (Severe, Verified 08/13/17 15:23) Unknown Medications Atenolol [Tenormin (beta mayda)] 12.5 mg PO DAILY 09/05/14 [History Confirmed 08/13/17] Simvastatin [Zocor] 20 mg PO QHS 04/07/17 [History Confirmed 08/13/17] nitroglycerin 0.4 mg sublingual tablet 0.4 mg SUBLINGUAL Q5- 15M PRN 08/12/17 [History Confirmed 08/13/17] doxycycline monohydrate 100 mg capsule 50 mg PO DAILY PRN 08/13/17 [History Confirmed 08/13/17] PFSH Medical History Atherosclerotic heart disease of [place] coronary artery without angina pectoris (Chronic) Nonrheumatic mitral valve disorder (Chronic) Nonrheumatic tricuspid valve regurgitation (Chronic) Bilateral hydronephrosis (Acute) Bilateral kidney stones (Acute) Recurrent right inguinal hernia (Acute) Right bundle branch block (Acute) Hypertension (Chronic) Hyperlipidemia (Chronic) Ureteral stone with hydronephrosis (Acute) Acute renal insufficiency (Inactive) Intractable pain (Inactive) UTI (urinary tract infection) (Inactive) Surgical History History of prostatectomy (Resolved) History of right inguinal hernia repair (Resolved) history lithrotripsy for kidney stones (Resolved) Family History Father CAD (coronary artery disease) Hx of CABG Brother Hypertension Social History Smoking Status: Never smoker alcohol intake: never substance use type: does not use ROS Const Const: Negative for fatigue, weakness, weight gain, weight loss, frequent falls or excessive sweating Eyes Eyes: Negative for change in vision, blurry vision or transient loss of vision ENT ENT: Negative for dizziness or balance problems Cardio Chest Pain: No Palpitations: No Edema: None Muscle aches with walking: None Resp Respiratory: Negative for SOB with activity or SOB at rest GI GI: Negative vomiting or vomiting blood/hematemesis : Negative for hematuria Musc Musc: Negative for balance problems, muscle aches/ myalgia, muscle weakness or joint pain Skin Skin: Negative non-healing lesions or rash Neuro Neuro: Negative for weakness, blurry vision, dizziness, lightheadedness, frequent falls or orthostatic symptoms Jefry Hematologic/Lymphatic: Negative for easy bleeding Endo Endo: Negative for fatigue or excessive sweating Psych Psych: Negative for anxiety or depression Allergy Allergy/Immunology: Negative for hives, Negative for rash Cardiology Exam Const Appearance: cooperative, comfortable, no acute distress, well developed and well groomed Nutritional Appearance: thin Orientation: alert, awake and oriented x3 Head Head: normal to inspection and normocephalic Ears: hearing grossly normal bilaterally Nose: external nose normal Face and Sinus: face symmetric Mouth: oral mucosae normal Eyes Eyelids: eyelids normal Conjunctivae: conjunctivae normal Pupils: PERRL EOM: EOM intact bilaterally Neck Neck: normal visual inspection and full ROM Carotids: normal carotid upstroke Chest Chest inspection: normal inspection of the chest Auscultation: Bilateral: Clear to Auscultation Cardio Palpation: normal PMI Rate: regular rate Rhythm: regular rhythm Heart sounds: S1 normal and S2 normal GI GI: normal to inspection, bowel sounds present, soft and no hepatosplenomegaly Neuro General: alert, awake, oriented x3 and moves all extremities Skin Skin: no rashes or lesions noted Extremities Pulses: Normal: Right Radial Pulse, Left Radial Pulse Lower Extremity Edema: None: Bilateral Psych Psychological: normal affect Assessment AND Plan 1. Atherosclerosis of [place] coronary artery of [place] heart without angina pectoris I25.10 Plan At the present time he appears to be doing well. He will continue risk factor modification and medical management. Orders Orders: 2. Nonrheumatic mitral valve disorder I34.9 Plan He does have a history of mitral valve prolapse/regurgitation. He will be followed with echocardiographic studies. 3. 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 Again this can be followed noninvasively with echocardiographic studies. 4. Hyperlipidemia E78.5 Plan His lipid labs have been reviewed. They appear to be under good control. He will continue medical management and follow-up. 5. Hypertension I10 Plan His blood pressure is been reviewed as well. It appears well- controlled at this time. He will continue his antihypertensive therapy. Plan Detail Additional Comments He will be scheduled for future outpatient follow-up. He will notify us of any concerns in the interim. Thank you for allowing me to participate in the care of your patient. Please don't hesitate to call if any issues arise. This note was generated using a voice recognition system and there may be incorrect words, spelling or punctuation that were not noted when reviewing the office note prior to saving. Follow Up 9 Months Coding Level of Care Code Off vis,est,level 4 Diagnoses Atherosclerosis of [place] coronary artery of [place] heart without angina pectoris I25.10 [place] vs. 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 TYPE CODE TESTS RESULT OUT OF RANGE REFERENCE UNITS LAB L501.1500 6.4-8.2 g/dL Normal T PROT 7.2 LAB L501.1800 3.2-5.0 g/dL Normal ALB 3.3 LAB L501.1950 2.2-4.2 g/dL Normal GLOB 3.9 LAB L501.4100 15-37 U/L Normal AST 36 LAB L501.4305 45-117 U/L High ALK P 156 LAB L501.4405 16-61 U/L Normal ALT 36 LAB L501.4600 0.20-1.00 mg/dL Normal T BILI 0.80 LAB L501.4700 0.00-0.30 mg/dL Normal D BILI 0.21 Performed By: #### L500.3400 #### [facility] [address] [place], [address] LIPID PROFILE Collected: 06/14/2017 Status: F Source: [place] 7:39 AM [facility] REPOSITORY Order Comment: Order Date: 12/10/16 Order Info: [id number] - *Hepatic Function Panel Order Info: [id number] - *Lipid Profile CC PCP Comments: 12 hours fasting, may have water. TYPE CODE TESTS RESULT OUT OF RANGE REFERENCE UNITS LAB L501.4900 200 mg/dL Normal CHOL 97 Result Comment: <200 mg/dL Desirable 200-240 mg/dL Borderline >240 mg/dL High Risk LAB L501.5000 mg/dL Normal TRIG 92 Result Comment: The drugs N-Acetylcysteine and Metamizole may falsely depress this assay. Serum Triglycerides Reference Interval Normal <150 mg/dL Borderline high 150 - 199 mg/dL High 200 - 499 mg/dL Very High > or = 500 mg/dL LAB L501.6400 mg/dL Low HDL 27 Result Comment: The drugs N-Acetylcysteine and Metamizole may falsely depress this assay. Reference Range HDL <40 mg/dL Low HDL Cholesterol HDL >or= 60 mg/dL High HDL Cholesterol LAB L501.6500 0-130 mg/dL Normal LDL 52 LAB L501.6600 5-40 mg/dL Normal VLDL 18 Performed By: #### L500.4100 #### [facility] [address] [place], [address] OPERATIVE REPORT Observed: 05/30/2017 Status: F Source: [place] 11:37 AM [facility] REPOSITORY [facility] Medical Records Department [address] [place] [address] Operative Report 05/30/17 1134 MR#: [id number] Acct: [id number] Name: KIMANI POST Rep #: [id number] : 1940 76 From: Sami Jones MD PCP: Care Physician, No Primary Status: REG [facility] Location: [place] [address] Problem List (1) Screen for colon cancer Status: Acute (2) History of colon polyps Status: Acute Report of Operation Date of Procedure: 05/30/17 Pre-Operative Diagnosis: Screening colonoscopy and history of colon polyps Post-Operative Diagnosis: Several polyps. Diverticulosis. Hemorrhoids Surgery/Procedure Performed:: Colonoscopy with 7 snare polypectomies Specimen's removed: See pathology sheet Description of Procedure: The major risks and benefits associated with the procedure were explained to the patient in detail. The patient verbalized understanding and agreement with the same. The patient was brought to the endoscopy suite. After adequate sedation was achieved, the patient was placed in the left lateral decubitus position and a digital rectal exam was performed. This examination was within normal limits. A well- lubricated colonoscope was then inserted into the rectum and advanced under direct visualization to the level of the cecum. The bowel prep was good. The cecum was identified by both visual and anatomic landmarks. A photograph was taken of the end of the cecum. The scope was then fully withdrawn while examining the color, texture, anatomy and integrity of the mucosa from the cecum to the anal canal. The patient had several polyps. He had 3 polyps in the ascending colon which were taken with cautery snare. These were sent together as they were in the same area of the colon. The patient also had a proximal colon polyp and mid transverse colon polyp. These were both taken with cautery snare. The patient also had several descending colon polyps. These were also taken with cautery snare. All of these polyps appeared small and angulated with no cancerous features. Otherwise, the findings were consistent with normal colonic mucosa. The patient did have sigmoid diverticulosis. Over 6 minutes were taken to examine the colonic mucosa. Upon reaching the rectum the scope was retroflexed to examine the distal rectal vault. The scope was then straightened and was completely retrieved upon exiting the anal canal and the procedure was terminated. The patient was then transferred to the recovery room in stable condition. Recommendations for follow up: Dependent on pathology 05/30/17 1137 <Electronically signed by Sami Jones MD> Date Sami Jones MD CC: No Primary Care Physician; Sami Jones MD Signed COLON BIOPSY (CHOOSE Observed: 05/30/2017 Status: F Source: [place] SITE) 11:06 AM [facility] REPOSITORY Patient: KIMANI POST : 1940 (76/M) Acct Num: [id number] Phys: Karen JIMÉNEZ,Sami Unit Num: [id number] Loc: EN Specimen: [id number] Received: 05/30/171218 Spec Type: COLON BX TISSUES TISSUES: A. Transverse colon B. Transverse colon C. Descending colon D. Descending colon GROSS DESCRIPTION A - Received in fixative is one container labeled with the patient's name and designated proximal transverse polyp. The specimen consists of a pedroza-pink polyp measuring 1.2 x 1 x 0.6 cm. The polyp is bisected. Also present in the container are multiple fragments of pedroza soft tissue that in aggregate measure 1.5 x 0.5 x 0.1 cm. The entire specimen is submitted in one cassette. B - Received in fixative is one container labeled with the patient's name and designated mid transverse polyp. The specimen consists of multiple irregular fragments of light pedroza soft tissue that in aggregate measure 0.6 x 0.3 x 0.1 cm. The specimen is totally submitted in one cassette. C - Received in fixative is one container labeled with the patient's name and designated proximal descending polyp. The specimen consists of a piece of pedroza -pink polyp measuring 0.6 x 0.5 x 0.3 cm. Also present in the container is a small piece of pedroza-pink soft tissue measuring 0.2 x 0.2 x 0.1 cm. The entire specimen is submitted in one cassette. D - Received in fixative is one container labeled with the patient's name and designated mid descending polyp. The specimen consists of multiple irregular fragments of light pedroza soft tissue that in aggregate measure 0.5 x 0.5 x 0.1 cm. The specimen is totally submitted in one cassette. / PAIGE:michell 05/30/17 TC:1 CPT: 17156 x4 HEADER OPERATION: Colonoscopy PRE-OP DIAGNOSIS: Screening TISSUE SUBMITTED: A. Proximal transverse polyps, B. Mid transverse polyp, C. Proximal descending polyp, D. Mid descending polyp MICROSCOPIC DESCRIPTION Slides are reviewed. MICROSCOPIC DIAGNOSIS A. Proximal transverse colon polyp, biopsy: Fragments of tubular adenoma. B. Mid transverse colon polyp, biopsy: Fragments of tubular adenoma. C. Proximal descending colon polyp, biopsy: Fragments of tubular adenoma. D. Mid descending colon polyp, biopsy: Fragments of tubular adenoma. PAIGE:michell 06/02/17 Signed Robert Amin 06/02/17 <signature on file> Performed By: #### PCOLBX #### [facility] [address] [place], [address] SURGERY VISIT REPORT Observed: 05/26/2017 Status: F Source: [place] 8:40 AM [facility] REPOSITORY [facility] [address] [place] [address] OFFICE VISIT Date of Service: 05/26/17 MR#: [id number] Acct: [id number] Name: KIMANI POST Rep #: [id number] : 1940 Provider: Sami Jones MD Age/Sex: 76/M Location: [facility] Status: Signed Intake Vital Signs05/26/17 Height 5 ft 10 in 05/26/17 Weight: 138 lb Intake Visit Reasons: C-SCOPE Screening Chief Complaint: kidney stone Allergies ciprofloxacin [From Cipro] Allergy (Verified 05/26/17 08:39) sweating, n/v Medications Atenolol [Tenormin (beta mayda)] 12.5 mg PO DAILY 09/05/14 [History Confirmed 04/08/17] Doxycycline 50 mg PO DAILY 04/06/17 [History Confirmed 04/08/17] Hydrocodone/Acetaminophen [Arlington 5-325 Tablet] 1 ea PO Q4H PRN PRN 5 Days #20 tab 04/07/17 [Rx Confirmed 04/08/17] Simvastatin [Zocor] 20 mg PO QHS 04/07/17 [History Confirmed 04/08/17] Cephalexin [Keflex] 500 mg PO Q8 #15 cap 04/11/17 [Rx] Hydrocodone/Acetaminophen [Arlington 5-325 Tablet] 1 ea PO Q4H PRN PRN 5 Days #20 tab 04/11/17 [Rx] PFSH Medical History Bilateral hydronephrosis (Acute) Bilateral kidney stones (Acute) Intractable pain (Acute) Acute renal insufficiency (Acute) Recurrent right inguinal hernia (Acute) Right bundle branch block (Acute) Hypertension (Chronic) Hyperlipidemia (Acute) Ureteral stone with hydronephrosis (Acute) UTI (urinary tract infection) (Acute) Surgical History History of prostatectomy (Acute) History of right inguinal hernia repair (Acute) history lithrotripsy for kidney stones (Acute) Social History Smoking Status: Former smoker alcohol intake: never substance use type: does not use HPI HPI HPI: KIMANI POST, is a 76 M who presents to the office today for colonoscopy. The patient has a history of colon polyps on his last colonoscopy. The patient does not remember exactly when his last colonoscopy was be says it was over 10 years ago. He is not having any abdominal pain or blood in his stools. He is not having any unintentional weight loss. ROS General General: No weight change, appetite, fatigue, colon cancer, breast cancer or weakness HEENT HEENT: No difficulty swallowing, eye injury, eye surgery, swollen glands or hoarseness Endo Endocrine: No thyroid disease, diabetes mellitus, thyroid cancer, Hair loss, heat intolerance or cold intolerance Skin Skin: No rash or changing moles Breast Breast: No left breast lump, right breast lump, nipple discharge, breast pain, abnormal mammogram, abnormal US or breast enlargement Musc Musculoskeletal: No back problems, arthritis, rheumatoid arthritis, gout or joint pain Cardio Cardiovascular: Yes heart disease; no murmur, pacemaker, atrial fibrillation, high blood pressure, heart attack, heart stent, palpitations, shortness of breat with exertion or chest pain Additional Details: high cholesterol Psych Psychiatric: No depression, anxiety or hearing voices Resp Respiratory: No shortness of breath, Yes sleep apnea, No cough, No COPD, No asthma, No emphysema, No wheezing Gastro Gastrointestinal: No abdominal pain, No nausea or vomiting, No diarrhea, No constipation, No blood in stool, No acid reflux, No hemorrhoids, No ulcers, No gallbladder problem, No black,tarry stools Jefry Hematologic: No blood thinners, No blood disorders, No bleeding, No anemia, No blood clots Neuro Neurologic: No system reviewed and no additional complaints, except as docu, No as per HPI, No abnormal walking, No abnormal hearing, No abnormal movements, No abnormal speech, No behavioral changes, No burning sensations, No confusion, No seizure-like activity, No unsteadiness, No dizziness, No localized weakness, No frequent falls, No headache(s), No lack of coordination, No loss of vision, No memory loss, No numbness, No other visual disturbances, No radiating pain, No restless legs, No sensory deficit, No fainting, No tingling, No tremor(s), No weakness, No other Exam Const General: cooperative, comfortable Orientation: oriented x3, alert Chest Breast Palpation: No nipple discharge Resp Effort AND Inspection: normal respiratory effort Auscultation: clear to auscultation bilaterally Cardio Rate: regular rate Rhythm: regular rhythm Heart Sounds: no murmurs GI Inspection: normal to inspection, non-distended Palpation: soft, nontender Assessment AND Plan Problems 1. History of colon polyps Z86.010 Plan 1. Patient reports his last colonoscopy was over 10 years ago and there were polyps present. He does not murmur who or where the procedure was done. He is not having any issues at this time. 2. Patient has an artificial heart valve but he is not on any anticoagulation and reports that he does not need cardiac clearance before procedures. His field secretary is Dr. Coello. 3. I explained endoscopy in detail to the patient. I explained the risks including but not limited to stroke or heart attack with anesthesia, perforation of the GI tract, bleeding, infection. I explained that any of these could necessitate further emergency surgery. The patient understands and all questions were answered sufficiently. The patient wishes to proceed with procedure. Sami Jones MD Pager: [facility] [address] [place] [address] Office: Orders Orders: Coding Level of Care Code Off vis,est,level 2 Diagnoses History of colon polyps Z86.010 05/26/17 0840 <Electronically signed by Sami Jones MD> Date Sami Jones MD Cosigner Signature: Date (if applicable) CC: ABDOMEN SINGLE VIEW Observed: 04/28/2017 Status: F Source: [place] 7:50 AM [facility] REPOSITORY [facility] Imaging Services [address] [place] [address] Abdomen Single View MR#: [id number] Acct: [id number] Name: KIMANI POST Rep #: [id number] : 1940 M 76 From: Dragan Ansari MD PCP: Care Physician, No Primary Status: REG CLI Study: Abdomen Single View Date of Exam: 04/28/17 Exam# [id number] Ordering Dr: Rene Andrew MD STUDY: X-RAY - ABDOMEN/PELVIS REASON FOR EXAM: Male, 76 years old. History of kidney stones following ESWL. TECHNIQUE: Two AP supine views of the abdomen and pelvis. COMPARISON: Comparison is made with prior examination dated April 11, 2017. FINDINGS: Normal visualized lung bases. There is a moderate amount of colonic fecal material. Slightly dilated small bowel loops in the right mid abdomen. The left-sided double-J stent catheter is not seen at this time. Stable appearance of the right double-J stent catheter. The previously seen bilateral renal calcifications have decreased in size and have become fragmented. Normal soft tissue structures. There are diffuse degenerative changes of the visualized lumbar spine. Levoscoliosis. RAD/Abdomen Single View IMPRESSION: The previously seen bilateral renal calcifications are smaller in size and fragment. The left double ureteral stent catheter has been removed. Electronically Signed: Dragan Ansari MD at 13:47 EST Tel [phone], Service support , CC: No Primary Care Physician; Rene Andrew MD Tap Grinder: Signed OPERATIVE REPORT Observed: 04/11/2017 Status: F Source: [place] 12:15 PM [facility] REPOSITORY [facility] Medical Records Department [facility] [place] [address] Operative Report 04/11/17 1209 MR#: [id number] Acct: [id number] Name: KIMANI POST Rep #: [id number] : 1940 76 From: Rene Andrew MD PCP: Care Physician, No Primary Status: REG SDC Y Location: [place] [address] Problem List (1) Bilateral kidney stones Status: Acute (2) Bilateral hydronephrosis Status: Acute Report of Operation Date of Procedure: 04/11/17 Pre-Operative Diagnosis: Left renal calculi, right ureteral calculi, right hydronephrosis and tortuous ureter, right renal calculi Post-Operative Diagnosis: . Same Surgery/Procedure Performed:: left ESWL left stent removal, right ureteroscopy laser of stone and right stent placement and right ESWL Description of Surgical Findings:: 76-year-old male taken back to the operating room, After smooth induction of general anesthesia we then positioned the patient supine on the lithotripter table, we found a stone in the lower pole of the left kidney and treated this with shockwave lithotripsy and then removed the stent from the left side. We then went to the right side and there was some stones in the distal right ureter I tried to manipulate and move the stones up in the kidney but the ureter was too tortuous and dilated and had some areas of narrowing so after performing cystoscopy and retrograde pyelogram and attempted stone manipulation was unable to do this so I put a wire in place I went next to the wire first with a flexible ureteroscope was able to get into the distal ureter and found the stones and use a laser 270 m laser fiber and laser the stones and the little tiny pieces. Had some difficulty in reaching the stones with the flexible ureteroscope so I then switched over to the semirigid ureteroscope and then was able to get into the stones in the distal ureter quite more easily. I then lasered some more the stones we then used the basket to basket out these fragments. I then put a wire up into the kidney very tortuous ureter dilated tortuous ureter finding the ureter straightened out and advanced a stent 6 Togolese by 28 cm stent on the right side once stent was in good position then we treated the stones in the kidney with shockwave lithotripsy stones were treated with 3000 shockwaves at a rate of 90 power up to 6 and 7. At the end of the treatment cycle stones in the kidney lipids are broken up well stone in the mid right ureter was treated with laser and the stone in the left kidney was all treated with shockwave broken up well he only had a right stent in place plan to see him back in a few weeks with a KUB and possibly get the stent out. Type of Anesthesia:: General Drains: Right stent - Admit VTE Documentation VTE Present on Admission: No VTE Mechan Device Prophylaxis: SCD's 04/11/17 1215 <Electronically signed by Rene Andrew MD> Date Rene Andrew MD CC: No Primary Care Physician; Rene Andrew MD Signed DISCHARGE INSTRUCTION Observed: 04/11/2017 Status: F Source: [place] 9:53 AM [facility] REPOSITORY [facility] Medical Records Department [address] [place] [address] Instructions for Home/Discharge Instructions 04/11/17 0947 MR#: [id number] Acct: [id number] Name: KIMANI POST Rep #: [id number] : 1940 76 From: Rene Andrew MD PCP: Care Physician, No Primary Status: REG [facility] Discharge Diet: Light diet - advance as tolerated Discharge Activity: Return to Normal Activity, May not drive while taking narcotic pain medications. Call your doctor if your incision/area has: Continuous Slow Oozing, Sudden Increased Bleeding, Increased Pain/ Swelling, Increased Redness, Foul Smelling Discharge, Swelling at the incision site Suture Line Care: Avoid Pulling/Pushing, Avoid Pinching/Bending Instructions: Shock Wave Lithotripsy Allergies/Adverse Reactions: Allergies ciprofloxacin [From Cipro] Allergy (Verified 04/11/17 07:29) sweating, n/v Medications to take at Discharge Atenolol [Tenormin (beta mayda)] 12.5 mg PO DAILY 09/05/14 Doxycycline 50 mg PO DAILY 04/06/17 Hydrocodone/Acetaminophen [Ar[place] 5-325 Tablet] 1 ea PO Q4H PRN PRN 5 Days #20 tab 04/07/17 Simvastatin [Zocor] 20 mg PO QHS 04/07/17 Cephalexin [Keflex] 500 mg PO Q8 #15 cap 04/11/17 Hydrocodone/Acetaminophen [Ar[place] 5-325 Tablet] 1 ea PO Q4H PRN PRN 5 Days #20 tab 04/11/17 The following prescriptions were given: Hydrocodone/Acetaminophen [Arlington 5-325 Tablet] 1 ea PO Q4H PRN PRN 5 Days #20 tab PRN Reason: Pain Cephalexin [Keflex] 500 mg PO Q8 #15 cap Primary Care Physician: Care Physician,No Primary [Primary Care Provider] - Please Follow Up With: Rene Andrew MD When: FridayApr 28 at 8:30 am, get xray before appt. 04/11/17 0953 <Electronically signed by Rene Andrew MD> Date Rene Andrew MD CC: No Primary Care Physician ABDOMEN SINGLE VIEW Observed: 04/11/2017 Status: F Source: [place] 12:00 AM [facility] REPOSITORY [facility] Imaging Services [address] [place] [address] Abdomen Single View MR#: [id number] Acct: [id number] Name: KIMANI POST Rep #: [id number] : 1940 M 76 From: Luis Antonio Christiansen MD PCP: Care Physician, No Primary Status: REG [facility] Study: Abdomen Single View Date of Exam: 04/11/17 Exam# [id number] Ordering Dr: Rene Andrew MD STUDY: X-RAY - ABDOMEN/PELVIS REASON FOR EXAM: Male, 76 years old. Pain. Kidney stones TECHNIQUE: Two AP supine views of the abdomen and pelvis. COMPARISON: X-ray of the abdomen on April 07, [address] of the abdomen on April 06, 2017. FINDINGS: Normal visualized lung bases. There are bilateral JJ ureteral stents since last examination There is mild intestinal dilatation consistent with adynamic ileus There is no demonstrated free abdominal air. Again noted are bilateral renal calculi unchanged in position since the prior study . Right ureteral calculus at the level of the right sacroiliac joint is noted unchanged in position from the prior examination. Second right ureteral calculus I believe has migrated distally Normal soft tissue structures. There is osteoporosis and degenerative disease of the lumbar spine with levoscoliosis RAD/Abdomen Single View IMPRESSION: Bilateral renal calculi and right ureteral calculi as described above. Status post bilateral JJ stents. Adynamic ileus. Electronically Signed: Luis Antonio Christiansen MD, FACR at 7:17 EST , Service support , CC: No Primary Care Physician; Rene Andrew MD Tap Grinder: Signed 12 LEAD ELECTROCARDIOGRAM Observed: 04/09/2017 Status: F Source: [place] 2:52 PM [facility] REPOSITORY [facility] Cardiovascular Services [address] [place] [address] 12 Lead EKG 04/07/17 1139 MR#: [id number] Acct: [id number] Name: KIMANI POST Rep #: [id number] : 1940 76 From: Julio Cesar Coello MD Attending Dr: Lorrie JIMÉNEZ,Rene Burris Status: DIS IN Ordering Dr: Carlos Bakre MD Date: 04/07/17 Location: [facility] Sex: M C Admitted: 04/06/17 Test Reason : PRE OP Blood Pressure : / mmHG Vent. Rate : 068 BPM Atrial Rate : 068 BPM P-R Int : 160 ms QRS Dur : 116 ms QT Int : 412 ms P-R-T Axes : 023 262 048 degrees QTc Int : 438 ms Normal sinus rhythm Right bundle branch block Abnormal ECG Confirmed by MODE JIMÉNEZ, JULIO CESAR ([id number]), proposal editor GADIEL REECE ([id number]) on 04/09/2017 2:52:20 PM Referred By: Confirmed By:JULIO CESAR COELLO MD 04/09/17 1452 Date Julio Cesar Coello MD CC: No Primary Care Physician; Carlos Baker MD Signed DISCHARGE SUMMARY Observed: 04/07/2017 Status: F Source: [place] 12:34 PM [facility] REPOSITORY [facility] Medical Records Department [address] [place] [address] Discharge Summary 04/07/17 1233 MR#: [id number] Acct: [id number] Name: KIMANI POST Rep #: [id number] : 1940 76 From: Rene Andrew MD PCP: Care Physician, No Primary Status: ADM IN Y Location: [facility] HQ472-3 Discharge Date and Diagnosis - Problem List Patient Problems: Active and Suspected Problems Intractable pain (Acute) Bilateral kidney stones (Acute) Bilateral hydronephrosis (Acute) Acute renal insufficiency (Acute) Date of Admission: 04/06/17 Date of Discharge: 04/07/17 - Primary Discharge Diagnosis Active and Suspected Problems Intractable pain (Acute) Bilateral kidney stones (Acute) Bilateral hydronephrosis (Acute) Acute renal insufficiency (Acute) - Secondary Discharge Diagnosis Chronic Problems Hypertension (Chronic) Hospital Course and Treatment Imaging Results: 04/07/17 07:50 KUB [Abdomen Single View] [RAD] Urgent 04/07/17 12:00 O.R. Fluoro for C-Arm [RAD] Urgent Operations: - - Cystoscopy and bilateral stent placement Procedures: None Summary of Care Provided: The patient is a 76 year old male admitted for large ureteral calculi and bilateral kidney stones. He did pass a fragment while in the hospital. Today were taken to the operating room placed stents on both sides. Plan to treat the stones as an outpatient. His pain is now under control will discharge her home. Discharge Diet: Light diet - advance as tolerated Discharge Activity: May not drive while taking narcotic pain medications. Home Medications: Medications to take at Discharge Atenolol [Tenormin (beta mayda)] 25 mg PO DAILY 09/05/14 Doxycycline 50 mg PO DAILY 04/06/17 Ciprofloxacin [Cipro] 500 mg PO BID #6 tab 04/07/17 Hydrocodone/Acetaminophen [Ar[place] 5-325 Tablet] 1 ea PO Q4H PRN PRN 5 Days #20 tab 04/07/17 Simvastatin [Zocor] 20 mg PO QHS 04/07/17 Following Prescrptions Were Given to Patient: Hydrocodone/Acetaminophen [Ar[place] 5-325 Tablet] 1 ea PO Q4H PRN PRN 5 Days #20 tab PRN Reason: Pain Ciprofloxacin [Cipro] 500 mg PO BID #6 tab Primary Care Physician: Care Physician,No Primary [Primary Care Provider] - Please Follow Up With: Rene Andrew MD When: surgery this friday for stones Meaningful Use Info Meaningful Use Diagnoses (Choose all that apply): None applicable 04/07/17 1234 <Electronically signed by Rene Andrew MD> Date Rene Andrew MD Cosigner Signature (if applicable): Date CC: No Primary Care Physician; Rene Andrew MD Signed DISCHARGE INSTRUCTION Observed: 04/07/2017 Status: F Source: [place] 12:32 PM [facility] REPOSITORY [facility] Medical Records Department [address] [place] [address] Instructions for Home/Discharge Instructions 04/07/17 1230 MR#: [id number] Acct: [id number] Name: KIMANI POST Rep #: [id number] : 1940 76 From: Rene Andrew MD PCP: Care Physician, No Primary Status: ADM IN Discharge Diet: Light diet - advance as tolerated Discharge Activity: May not drive while taking narcotic pain medications. Allergies/Adverse Reactions: Allergies No Known Allergies Allergy (Verified 11/23/15 15:41) Medications to take at Discharge Atenolol [Tenormin (beta mayda)] 25 mg PO DAILY 09/05/14 Doxycycline 50 mg PO DAILY 04/06/17 Ciprofloxacin [Cipro] 500 mg PO BID #6 tab 04/07/17 Hydrocodone/Acetaminophen [Ar[place] 5-325 Tablet] 1 ea PO Q4H PRN PRN 5 Days #20 tab 04/07/17 Simvastatin [Zocor] 20 mg PO QHS 04/07/17 The following prescriptions were given: Hydrocodone/Acetaminophen [Ar[place] 5-325 Tablet] 1 ea PO Q4H PRN PRN 5 Days #20 tab PRN Reason: Pain Ciprofloxacin [Cipro] 500 mg PO BID #6 tab Primary Care Physician: Care Physician,No Primary [Primary Care Provider] - Please Follow Up With: Rene Andrew MD When: surgery this friday for stones 04/07/17 1232 <Electronically signed by Rene Andrew MD> Date Rene Andrew MD CC: No Primary Care Physician OPERATIVE REPORT Observed: 04/07/2017 Status: F Source: [place] 12:30 PM [facility] REPOSITORY [facility] Medical Records Department [address] [place] [address] Operative Report 04/07/17 1227 MR#: [id number] Acct: [id number] Name: KIMANI POST Rep #: [id number] : 1940 76 From: Rene Andrew MD PCP: Care Physician, No Primary Status: ADM IN Location: [address] Problem List (1) Intractable pain Status: Acute (2) Bilateral kidney stones Status: Acute (3) Bilateral hydronephrosis Status: Acute (4) Acute renal insufficiency Status: Acute Report of Operation Date of Procedure: 04/07/17 Pre-Operative Diagnosis: Left renal calculi and ureteral calculi, right renal calculi and renal calculi. Post-Operative Diagnosis: Same Surgery/Procedure Performed:: Cystoscopy and bilateral stent placement, left side and right side Description of Surgical Findings:: Patient was taken back to the operating room after smooth induction of general anesthesia he was placed in dorsal lithotomy position went into the bladder with a 21 Togolese rigid cystourethroscope the entire length of the urethra is normal the sphincter was normal and intact he still had the Maria E but prostate was missing I then cannulated the left ureteral orifice looked like the stone in the distal left ureter had passed a stone there was still fairly large stone in the left kidney, so I placed a stent in anticipation of treat his large stone. Then went to the right side place a wire up the right ureter looked at the wire coiled in the proximal ureter but was beyond area of stones and then advanced a stent on the right side and left stent coil proximal ureter and distal ureter and in the bladder drain the bladder patient anesthetic was reversed plan to see him on Friday for shockwave treatment of the stones. Type of Anesthesia:: Local MAC - Admit VTE Documentation VTE Present on Admission: No VTE Mechan Device Prophylaxis: SCD's VTE Pharm Prophylaxis ordered?: No Reason prophylaxis not ordered:: Treatment Not Indicated 04/07/17 1230 <Electronically signed by Rene Andrew MD> Date Rene Andrew MD CC: No Primary Care Physician; Rene Andrew MD Signed ABDOMEN SINGLE VIEW Observed: 04/07/2017 Status: F Source: [place] 7:50 AM [facility] REPOSITORY [facility] Imaging Services [address] [place] [address] Abdomen Single View MR#: [id number] Acct: [id number] Name: KIMANI POST Rep #: [id number] : 1940 M 76 From: Dragan Ansari MD PCP: Care Physician, No Primary Status: ADM IN Study: Abdomen Single View Date of Exam: 04/07/17 Exam# [id number] Ordering Dr: Rene Andrew MD STUDY: X-RAY - ABDOMEN/PELVIS REASON FOR EXAM: Male, 76 years old. History of bilateral renal calculi and medullary screws in the. Acute renal failure. TECHNIQUE: Two AP supine views of the abdomen and pelvis. COMPARISON: Comparison is made with prior study dated December 30, 2016. FINDINGS: Mild increased markings at the lung bases suggesting scarring slightly worse on the left side. Gas and fecal material are seen throughout the colon. Mildly distended small bowel loops in the abdomen. This marrow present in the ileus pattern. Stable calcifications in the left kidney. The visualized liver, spleen and kidneys are grossly normal in size and morphology. Normal soft tissue structures. There are diffuse degenerative changes of the visualized lumbar spine. Levoscoliosis. RAD/Abdomen Single View IMPRESSION: Findings suggestive of an ileus gas pattern. Stable left renal calculi. Electronically Signed: Dragan Ansari MD at 8:43 EST Tel [phone], Service support , CC: No Primary Care Physician; Rene Andrew MD Tap Grinder: Signed HISTORY AND PHYSICAL Observed: 04/07/2017 Status: F Source: [place] EXAM 7:38 AM [facility] REPOSITORY [facility] Medical Records Department [address] [place] [address] History and Physical 04/07/17 0735 MR#: [id number] Acct: [id number] Name: KIMANI POST Rep #: [id number] : 1940 76 From: Rene Andrew MD PCP: Care Physician, No Primary Status: ADM [place] Location: [address] Problem List (1) Intractable pain Status: Acute (2) Bilateral kidney stones Status: Acute (3) Bilateral hydronephrosis Status: Acute (4) Acute renal insufficiency Status: Acute History of Present Illness Date of Admission: 04/06/17 Chief Complaint: 76-year-old male presents to the hospital with bilateral kidney stones, acute renal insufficiency and intractable pain. The emergency room called ca states that could not get his pain under control and recommended admission, patient was admitted to the hospital for pain control and his kidney stones renal insufficiency and hydronephrosis. The patient is a 76 year old M [] Past Medical History Past Medical History (Chronic Problems): Chronic Problems Hypertension (Chronic) Allergies No Known Allergies Allergy (Verified 11/23/15 15:41) Home Medications: Ambulatory Orders Medication Instructions Recorded Atenolol [Tenormin (beta mayda)] 25 mg PO DAILY 09/05/14 Doxycycline 50 mg PO DAILY 04/06/17 Simvastatin [Zocor] 20 mg PO QHS 04/07/17 Surgical History: - - Radical prostatectomy Psychiatric History: No pertinent psych hx Lives: Spouse/ Significant Other Smoking Status: Never smoker Tobacco Use: Non-smoker Alcohol: None Drugs: None - *Family History Maternal History Items: No pertinent history, - - No coronary artery disease Paternal History Items: - - No coronary artery disease Review of Systems Constitutional: Denies: Chills, Fever, Weight Change HEENT: Denies: Head Aches, Sinus Congestion, Sinus Drainage Cardiovascular: Denies: Chest Pain, Palpitations Respiratory: Denies: Cough, Shortness of breath at rest, Sputum production Gastrointestinal: Reports: Abdominal Pain. Denies: Nausea, Vomiting Genitourinary: Denies: Dysuria Musculoskeletal: Reports: Back Pain. Denies: Joint Pain, Joint Tenderness Skin: Denies: Rash, Wounds Neurological: Denies: Numbness, Tingling, Focal weakness Psychiatric: Denies: Anxiety, Depression, Homicidal Ideations, Suicidal Ideations Hematologic/ Lymphatic: Denies: Easy Bruising, Easy Bleeding VTE Information - Inpt Only VTE Present on Admission: No VTE Mechan Device Prophylaxis: SCD's Patient Problems: Active and Suspected Problems Intractable pain (Acute) Bilateral kidney stones (Acute) Bilateral hydronephrosis (Acute) Acute renal insufficiency (Acute) - Physical Exam General: Alert, Oriented x3, Cooperative HEENT: Atraumatic, PERRLA, EOMI, Normocephalic Neck: Supple, No JVD, Negative Carotid Bruits Lungs: Clear to auscultation, Normal air movement Cardiovascular: Regular rate, No murmurs Abdomen: Bowel Sounds Present, Soft, Non Tender Extremities: No edema, Capillary Refill Less than 3 Seconds Skin: No rashes, No breakdown Musculoskeletal: No Tenderness to Palpation of Joints or Extremities Neurological: Cranial nerves II-XII grossly intact Psych/Mental Status: Normal Affect, Appropriate Vital Signs Temp Pulse Resp BP Pulse Ox 99.0 F 84 18 101/64 98 04/07/17 07:25 04/07/17 07:25 04/07/17 07:25 04/07/17 07:25 04/07/17 07:25 Oxygen Delivery Method Room Air Weight: 64.1 kg Body Mass Index (BMI) 20.2 Intake and Output for Last 24 Hours Intake Total 337 / 337 Output Total 650 / 650 Balance -313 / -313 Assessment/Plan Active and Suspected Problems Intractable pain (Acute) Bilateral kidney stones (Acute) Bilateral hydronephrosis (Acute) Acute renal insufficiency (Acute) Admit the patient for pain control, may have to take the surgery for placement of the stent will see if the stones will pass. He does have a fairly significantly large stone on the one side probably will not pass. 04/07/17 0738 <Electronically signed by Rene Andrew MD> Date Rene Andrew MD Cosigner Signature: Date (if applicable) CC: No Primary Care Physician; Rene Andrew MD Signed EMERGENCY DEPARTMENT Observed: 04/07/2017 Status: F Source: [place] SUMMARY 12:06 AM [facility] REPOSITORY [facility] Medical Records Department [address] [place] [address] Emergency Department Summary 04/06/17 2227 MR#: [id number] Acct: [id number] Name: KIMANI POST Rep #: [id number] : 1940 76 From: Antonieta Darnell DO PCP: Care Physician, No Primary Status: REG ER - ER Visit Summary Date of Service: 04/06/17 Chief Complaint: [] Flank pain History of Present Illness: The patient is a 76 M [] complaining of left flank pain with a history of kidney stones and medullary sponge kidneys. Patient denies nausea, vomiting, dysuria, hematuria. Patient reports similar symptoms with previous kidney stones. Reports he sees Dr. Ignacio and Dr. Andrew as his urologist's. Physical Examination: [] Afebrile, vital signs stable. Cardiovascular exam is regular rate and rhythm. Lungs are clear to auscultation. Abdomen is soft with mild left lower quadrant/left CVA tenderness. Remainder of exam is unremarkable. Test Results: [] CBC normal. BMP normal with exception of a BUN and creatinine of 24 and 1.69, respectively. Urinalysis was not analyzed secondary to the patient provided a sample. CT of the flank reveals right mid ureter 3.4 mm stone with moderate hydro- nephrosis. 9.8 mm stone in the urinary bladder causing left-sided hydronephrosis. Emergency Department Course and Treatment: [] Patient received intravenous morphine and intravenous Phenergan and normal saline bolus upon arrival. On serial exam he was having continued pain and given single dose of intravenous Dilaudid. He was in continued pain and did not feel that he would fare well if he was discharged home. Case was discussed with the on-call urologist Dr. Andrew. The urologist will accept the patient on his service and provide further treatment and evaluation. Patient was counseled regarding his diagnostic and auditory findings and is amenable to admission. Treatment Plan: [] Admission to medical floor. Disposition: [] Admit, stable. Impression: [] Ureterolithiasis History of kidney stones This note was generated with [employer] dictation software. It may contain incorrect words, spelling, and punctuation that were not noted in review of the chart prior to signing ED Disposition - Plan for ED Patient: Chief Complaint: Flank Pain Referrals: Care Physician,No Primary [Primary Care Provider] - What to do if you have Problems For any increased pain, shortness of breath, bleeding, nausea or vomiting, chest pain, or any unexpected problems, contact your Primary Care Provider. Call [facility] ([phone]) or report to the closest Emergency Room. Call 911 if necessary. 04/07/17 0006 <Electronically signed by Antonieta Darnell DO> Date Antonieta Darnell DO Cosigner Signature (If Indicated): Date CC: No Primary Care Physician ABDOMEN/PELVIS WITHOUT Observed: 04/06/2017 Status: F Source: [place] CONT 10:26 PM [facility] REPOSITORY [facility] Imaging Services [facility] [place] [address] Abdomen/Pelvis without Cont MR#: [id number] Acct: [id number] Name: KIMANI POST Rep #: [id number] : 1940 M 76 From: Chinmay Cook MD PCP: Care Physician, No Primary Status: REG ER Study: Abdomen/Pelvis without Cont Date of Exam: 04/06/17 Exam# [id number] Ordering Dr: Antonieta Darnell DO STUDY: CT ABDOMEN AND PELVIS WITHOUT CONTRAST REASON FOR EXAM: Male, 76 years old. Left flank pain. Kidney stones. RADIATION DOSAGE (If Supplied By Facility): CTDIvol = ( 6.77 ) mGy, DLP = ( 329.99 ) mGycm TECHNIQUE: Transaxial images were obtained from the dome of the diaphragm to the symphysis pubis without oral contrast, and without intravenous contrast. Sagittal and coronal images were reconstructed. COMPARISON: CT November 23, 2015 FINDINGS: The visualized lung bases are unremarkable. The visualized portions of the heart are within normal limits. Normal liver. Normal gallbladder and extrahepatic biliary system. Normal spleen. Normal pancreas. Normal bilateral adrenal glands. 3 calculi in the mid right kidney. These measure 6.1 mm. These are in the right renal calyx. Moderate hydronephrosis and hydroureter caused by 3.4 mm mid ureteral stone and 3 mm mid ureteral stone. Third smaller 1 to 2 mm stone in the right ureter. Moderate hydronephrosis and left hydroureter caused by 9.8 mm left urinary bladder stone. 6.4 mm left renal parenchyma stones. Normal visualized stomach. Normal small intestine. Stool throughout the colon. There is non-visualization of the appendix. There are calcifications of the abdominal aorta and vascular structures. This is consistent for atherosclerotic disease. There is no abdominal aortic aneurysm. Normal inferior vena cava. Subcentimeter mesenteric lymph nodes. Normal urinary bladder. Normal abdominal wall. There are degenerative changes of the osseous structures. Degenerative findings of the hips. Loss of intervertebral disc height at L5-S1. Vacuum disc phenomenon at L5-S1. Compression deformity of T12. This appears old. However, is new since the CT of 2015. CT/Abdomen/Pelvis without Cont IMPRESSION: Moderate hydronephrosis and hydroureter caused by 3.4 mm mid ureteral stone and 3 mm mid ureteral stone. Third smaller 1 to 2 mm stone in the right ureter. Moderate hydronephrosis and hydroureter caused by 9.8 mm left urinary bladder stone. Other findings as above. Electronically Signed: Chinmay Cook MD at 23:43 EST , Service support , CC: No Primary Care Physician; Antonieta Darnell DO Tap Grinder: Signed CBC W/DIFF, AUTOMATED Collected: 04/06/2017 Status: F Source: [place] 10:10 PM [facility] REPOSITORY TYPE CODE TESTS RESULT OUT OF RANGE REFERENCE UNITS LAB L100.1000 4.4-11.0 K/mm3 Normal WBC 6.4 LAB L100.1200 4.6-6.2 M/mm3 Low RBC 4.45 LAB L100.1300 13.0-16.5 g/dl Normal HGB 13.1 LAB L100.1400 40-54 % Low HCT 39.6 LAB L100.1500 80-94 fL Normal MCV 89.0 LAB L100.1600 27.0-32.0 pg Normal MCH 29.4 LAB L100.1700 32-36 g/gl Normal MCHC 33.1 LAB L100.1810 11.6-14.6 % Normal RDW CV 14.2 LAB L100.1820 35.1-43.9 fl High RDW SD 46.7 LAB L100.1900 150-450 K/mm3 Normal PLT 265 LAB L100.2000 6.2-12.0 fl Normal MPV 9.7 LAB L100.2100 47-70 % Normal NEUT% 52.2 LAB L100.2200 19-41 % Normal LY% 26.9 LAB L100.2300 0-10 % High MONO% 14.3 LAB L100.2400 0-5 % High EO% 5.8 LAB L100.2500 0-1 % Normal BASO% 0.6 LAB L100.2550 0.0-0.9 % Normal IM GRAN % 0.200 Result Comment: IG% - Immature Granulocytes (promyelocytes, myelocytes and metamyelocytes) > 1% indicates that a LEFT SHIFT is Present. LAB L100.2620 2.0-7.7 X10 3/uL Normal Absolute Neut 3.3 LAB L100.2720 0.83-4.51 X10 3/ul Normal Absolute Lymph 1.71 Performed By: #### L100.0100 #### [facility] [address] [place], [address] BASIC METABOLIC Collected: 04/06/2017 Status: F Source: [place] PROFILE (BMP) 10:10 PM [facility] REPOSITORY TYPE CODE TESTS RESULT OUT OF RANGE REFERENCE UNITS LAB L501.0100 74-106 mg/dL Normal GLU 104 LAB L501.1000 7-18 mg/dL High BUN 24 LAB L501.1100 0.70-1.30 mg/dL High 1.69 CREAT,SERUM Result Comment: The validity of the calculated GFR AND GFRAA in patients over 70 years has not been determined. Clinical correlation is essential. LAB L501.1110 >60 mL/min Low EST GFR 42 Result Comment: Non- GFR Calc LAB L501.1115 >60 mL/min Low EST GFR - AA 51 Result Comment: GFR Calc LAB L501.1255 ml/min Normal Estimated CRCL 34.19 LAB L501.1300 10-20 RATIO Normal BUN/CRE 14.2 LAB L501.2200 8.5-10 mg/dL Low .1 CA 7.9 LAB L501.5300 136-14 mmol/L Normal 5 NA 140 LAB L501.5600 3.5-5. mmol/L Normal 1 K 4.0 LAB L501.5900 98-107 mmol/L High CL 110 LAB L501.6100 21.0-3 mmol/L Normal 2.0 CO2 24.0 LAB L501.6200 5-15 Normal GAP 6 Performed By: #### L500.2500 #### [facility] [address] [place], [address] URINALYSIS, COMPLETE Collected: 04/06/2017 Status: F Source: [place] 12:56 AM [facility] REPOSITORY Order Comment: How was Urine Obtained? CLEAN CATCH TYPE CODE TESTS RESULT OUT OF RANGE REFERENCE UNITS LAB L400.3000 Yellow COLOR Normal Yellow LAB L400.3050 Clear Normal CLARITY Sl. Cloudy LAB L400.3200 Normal mg/dl Normal GLUCOSE, UR Normal LAB L400.3300 Negative mg/dL Normal BILIRUBIN URINE Negative LAB L400.3400 Negative mg/dl Normal KETONE UR Negative LAB L400.3465 1.002-1.030 Normal SP.GR. DIPSTX 1.015 LAB L400.3550 5.0 - 8.0 pH UR Normal 6.0 LAB L400.3600 Negative mg/dl High PROT 15 DIPSTX LAB L400.3700 Normal mg/dl Normal UROBILI Normal LAB L400.3750 Negative High NITRITE UR Positive LAB L400.3780 Negative /ul High 25 OCCULT BLOOD-UR LAB L400.3800 Negative /ul High LEUK ESTERASE 500 LAB L400.4050 0-5 /hpf WBC Normal >100 SEEN LAB L400.4100 0-5 /hpf 0 Normal RBC-UA SEEN LAB L400.4150 0-5 /hpf SQUAM 0 Normal EPI SEEN LAB L400.4300 None Seen /hpf 3+ Normal BACTERIA LAB L400.4350 <or=2+ /hpf 0 Normal MUCUS, URINE SEEN Performed By: #### L400.0001 #### [facility] [address] [place], [place] [address]jes[address]s [address]. [place], [place], [address] ALLERGIES ALLERGIES DATE TYPE / CODE NAME / CODE REACTION SEVERITY SOURCE 08/13/2017 Drug ciprofloxacin sweating, n/v Unknown [facility] Allergy/4160 /[id number](R Hospital 07379(SNOMED XNORM) Repository CT) 08/13/2017 Drug wheat/[id number] Unknown SV [facility] Allergy/4160 412(RXNORM) Hospital 94274(SNOMED Repository CT) 11/23/2015 Drug No Known Unknown [facility] Allergy/4160 Allergies/F00 Hospital 59122(SNOMED 1431936(RXNOR Repository CT) M) ENCOUNTERS ENCOUNTERS ADMIT/DISCHARGE ACCOUNT ADMITTING ENCOUNTER LOCATION SOURCE NUMBER CLASS 01/30/2018 [id number] Ambulatory [facility] 7 [facility] ing:LAB Repository 08/21/2017 [id number] Ambulatory [facility] 0 [facility] ing:[facility] Repository 08/21/2017 [id number] Ambulatory BMSBuilding:W [place] 2 [facility] Repository 08/13/2017/ [id number] Ambulatory BMSBuilding:B [place] 8 1 [facility] Repository 08/12/2017 [id number] Ambulatory BMSBuilding:B [place] 9 MS.[facility] Repository 06/14/2017 [id number] Ambulatory [place] 1 [facility] ing:LAB Repository 05/30/2017/ [id number] Ambulatory [place] 8 5 [facility] ing:EN Repository 05/30/2017 [id number] Ambulatory BMSBuilding:B [place] 0 MS.[facility] Repository 05/26/2017/ [id number] Ambulatory BMSBuilding:B [place] 8 7 [facility] Repository 04/28/2017 [id number] Ambulatory [place] 4 [facility] ing:RAD.FUTUR Repository E 04/25/2017 [id number] Ambulatory [place] 4 [facility] ing:RAD.FUTUR Repository E 04/11/2017/ [id number] Ambulatory [place] 8 2 [facility] ing:SDCRoom: Repository AC05 04/07/2017/ [id number] Ambulatory BMSBuilding:W [place] 8 4 [facility] Repository 04/06/2017/ [id number] Rene Andrew Inpatient [place] 8 3 [facility] ing:ZH2Wksa: Repository YZ663Hsq: 1 PAYERS PAYERS ENCOUNTER GUARANTOR PAYER SUBSCRIBER SOURCE 01/30/2018 MAX G [id number] Primary MAX G HORSTDOB: [place] [address] Insurance:MEDICARE [id number] [address]Bax: (419) Number: Repository [phone] (HP) [id number] Date:2018-01-30 01/30/2018 Secondary MAX G HORSTDOB: [place] Insurance:AARPPolicy [id number] [facility] Number: Hospital [id number] Repository Date:2528-83-75YN [address], [place] [address]VJ: 01/30/2018 Tertiary NOT GIVENUNK [place] Insurance:SELF PAY [facility]: Effective Repository Date:2018-01-30 08/21/2017 MAX G [id number] Primary MAX G HORSTDOB: [place] [address] Insurance:MEDICARE [id number] [address]Jdr: (419) Number: Repository [phone] () [id number] Date:2017-08-13 08/21/2017 Secondary MAX G HORSTDOB: [place] Insurance:AARPPolicy [id number] [facility] Number: Hospital [id number] Repository Date:1358-82-52[address], [place] [address]PI: 08/21/2017 Tertiary NOT GIVENUNK [place] Insurance:SELF PAY [facility] Number: Effective Repository Date:2017-08-13 08/21/2017 MAX G [id number] Primary MAX G HORSTDOB: [place] [address] Insurance:MEDICARE [id number] [address]Flc: (419) Number: Repository [phone] () [id number] Date:2017-08-13 08/21/2017 Secondary MAX G HORSTDOB: [place] Insurance:AARPPolicy [id number] [facility] Number: Hospital [id number] Repository Date:2910-65-28JT [address], [place] [address]YP: 08/21/2017 Tertiary NOT GIVENUNK [place] Insurance:SELF PAY Community [facility] Number: Effective Repository Date:2017-08-21 08/13/2017 MAX G [id number] Primary MAX G HORSTDOB: [place] [address] Insurance:MEDICARE [id number] [address]Fbt: (419) Number: Repository [phone] () [id number] Date:2017-02-20 08/13/2017 Secondary MAX G HORSTDOB: [place] Insurance:AARPPolicy [id number] Community Number: Hospital [id number] Repository Date:1473-27-12GF [facility] [address], [place] [address]CB: 08/13/2017 Tertiary NOT GIVENUNK [place] Insurance:SELF PAY [facility] Number: Effective Repository Date:2017-02-20 08/12/2017 MAX G [id number] Primary MAX G HORSTDOB: [place] [address] Insurance:MEDICARE [id number] [facility] [address]Ipr: (419) Number: Repository [phone] () [id number] Date:2017-08-12 08/12/2017 Secondary MAX G HORSTDOB: [place] Insurance:AARPPolicy [id number] Community Number: Hospital [id number] Repository Date:4116-14-41VQ [facility] [address], [place] [address]XD: 08/12/2017 Tertiary NOT GIVENUNK [place] Insurance:SELF PAY [facility] Number: Effective Repository Date:2017-08-12 06/14/2017 MAX G [id number] Primary MAX G HORSTDOB: [place] [address] Insurance:MEDICARE [id number] [facility] [address]Sye: (419) Number: Repository [phone] () [id number] Date:2017-06-14 06/14/2017 Secondary MAX G HORSTDOB: [place] Insurance:AARPPolicy [id number] Community Number: Hospital [id number] Repository Date:3811-34-60IO [address], [place] [address]DI: 06/14/2017 Tertiary NOT GIVENUNK [place] Insurance:SELF PAY [facility] Number: Effective Repository Date:2017-06-14 05/30/2017 MAX G [id number] Primary MAX G HORSTDOB: [place] [address] Insurance:MEDICARE [id number] [facility] Medical [facility] [address]Bxv: (419) Number: Repository [phone] () [id number] Date:2017-05-26 05/30/2017 Secondary MAX G HORSTDOB: [place] Insurance:AARPPolicy [id number] Community Number: Hospital [id number] Repository Date:0338-14-98XN [address], [place] [address]BR: 05/30/2017 Tertiary NOT GIVENUNK [place] Insurance:SELF PAY [facility] Number: Effective Repository Date:2017-05-26 05/30/2017 MAX G [id number] Primary MAX G HORSTDOB: [place] [address] Insurance:MEDICARE [id number] [facility] [address]Bae: (419) Number: Repository [phone] () [id number] Date:2017-05-26 05/30/2017 Secondary MAX G HORSTDOB: [place] Insurance:AARPPolicy [id number] Community Number: Hospital [id number] Repository Date:8542-26-66PP [address]FT, [place] [address]FG: 05/30/2017 Tertiary NOT GIVENUNK [place] Insurance:SELF PAY [facility] Number: Effective Repository Date:2017-05-30 05/26/2017 MAX G [id number] Primary MAX G HORSTDOB: [place] [address] Insurance:MEDICARE [id number] [facility] Medical [facility] [address]Kqe: (419) Number: Repository [phone] () [id number] Date:2017-05-13 05/26/2017 Secondary MAX G HORSTDOB: [place] Insurance:AARPPolicy [id number] Community Number: Hospital [id number] Repository Date:3496-75-66XS [facility] [address], [place] [address]JE: 05/26/2017 Tertiary NOT GIVENUNK [place] Insurance:SELF PAY Community [facility] Number: Effective Repository Date:2017-05-26 04/28/2017 Max G [id number] Primary Max G HorstDOB: [place] [address] Insurance:MEDICARE [id number] [facility] [address]Yot: (419) Number: Repository [phone] () [id number] Date:2017-04-11 04/28/2017 Secondary Max G HorstDOB: [place] Insurance:AARPPolicy [id number] [facility] Number: [facility] [id number] Repository Date:3872-99-51IF [facility] [address], [place] [address]HU: 04/28/2017 Tertiary NOT GIVENUNK [place] Insurance:SELF PAY [facility] Number: Effective Repository Date:2017-04-11 04/25/2017 Max G [id number] Primary Max G HorstDOB: [place] [address] Insurance:MEDICARE [id number] [facility] [address]Xes: Number: Repository [phone] [id number] (HP) Date:2017-04-25 04/25/2017 Secondary Max G HorstDOB: [place] Insurance:AARPPolicy [id number] Community Number: [facility] [id number] Repository Date:9425-35-86JY [address]BRGG, [place] [address]VI: 04/25/2017 Tertiary NOT GIVENUNK [place] Insurance:SELF PAY [facility] Number: Effective Repository Date:2017-04-25 04/11/2017 Max G [id number] Primary Max G HorstDOB: [place] [address] Insurance:MEDICARE [id number] PART [place] [facility] [address]Lvq: Number: Repository [phone] [id number] (HP) Date:2017-04-07 04/11/2017 Secondary Max G HorstDOB: [place] Insurance:AARPPolicy [id number] Community Number: Hospital [id number] Repository Date:4522-38-10HY [address], [place] [address]KY: 04/11/2017 Tertiary NOT GIVENUNK [place] Insurance:SELF PAY Community [facility] Number: Effective Repository Date:2017-04-07 04/07/2017 KIMANI [id number] Primary MAX G HORSTDOB: [place] [address] Insurance:MEDICARE [id number] [facility] [address]Ixh: (419) Number: Repository [id number] () [id number] Date:2017-04-06 04/07/2017 Secondary MAX G HORSTDOB: [place] Insurance:AARPPolicy [id number] Community Number: Hospital [id number] Repository Date:4567-11-50FL [facility] [id number], [place] [address]CB: 04/07/2017 Tertiary NOT GIVENUNK [place] Insurance:SELF PAY [facility]: Effective Repository Date:2017-04-07 04/06/2017 Kimani Costello [id number] Primary Kimani Costello HorstDOB: [place] [address] Insurance:MEDICARE [id number] [id number]: Number: Repository [phone]~[facility] [id number] () Date:2017-04-06 04/06/2017 Secondary Max G HorstDOB: [place] Insurance:AARPPolicy [id number] Community Number: Hospital [id number] Repository Date:4233-19-11ZB [facility] [id number], [place] [address]RP: 04/06/2017 Tertiary NOT GIVENUNK [place] Insurance:SELF PAY [facility] Number: Effective Repository Date:2017-04-06
== END ==
PROVIDERS: Referring Provider Urology; Visit Provider Urology
DX: C61 Malignant neoplasm of prostate (principal); R82.998 Other abnormal findings in urine
CPT/HCPCS: 80048; 81001; 84153; 87077; 87086; 87088; 87186

== ENCOUNTER → 2018-05-09 07:35 | Outpatient (CLI) | payer MEDICARE, OTHER, SELFPAY ==
[2018-05-07 16:00] VITALS: BMI 19.7
[2018-05-09 10:05] LABS: AST(SGOT) 25 U/L (15-37); Alanine Aminotransfer ALT/SGPT 25 U/L (16-61); Albumin, Serum 3.5 g/dL (3.2-5.0); Alkaline Phosphatase 171 U/L (45-117); Bilirubin, Direct 0.15 mg/dL (0.00-0.30); Cholesterol 120 mg/dL (200); Globulin 3.7 g/dL (2.2-4.2); High Density Lipoprotein 32 mg/dL; Protein, Total 7.2 g/dL (6.4-8.2); Triglycerides 106 mg/dL; Very Low Density Lipoprotein 21 mg/dL (5-40)
== END ==
PROVIDERS: Referring Provider Nurse Practitioner Family; Visit Provider Nurse Practitioner Family
DX: E78.5 Hyperlipidemia, unspecified (principal)
CPT/HCPCS: 36415; 80061; 80076

== ENCOUNTER → 2018-06-15 | Outpatient (CLI) | payer MEDICARE, OTHER, SELFPAY ==
[2018-06-09 15:44] VITALS: BMI 19.7
--- NOTE | 2018-06-15 13:00 | RAD_ITS ---
STUDY: X-RAY - ABDOMEN/PELVIS REASON FOR EXAM: Male, 77 years old. Flank pain TECHNIQUE: Single AP view of the abdomen / pelvis. COMPARISON: 04/28/2017 FINDINGS: There are multiple dilated loops of small bowel which likely represents a small bowel obstruction. The visualized osseous structures are within normal limits. RAD/Abdomen Single View IMPRESSION: Multiple dilated loops of small bowel which likely represents an obstruction. Further evaluation with CT is recommended. Electronically Signed: James Ram, at 14:12 EDT Tel , Service support ,
--- NOTE | 2018-06-15 14:08 | CT_ITS ---
STUDY: CT ABDOMEN AND PELVIS WITHOUT CONTRAST REASON FOR EXAM: Male, 77 years old. Right lower quadrant pain. Hematuria. History of stones. Status post prostatectomy. RADIATION DOSAGE (If Supplied By Facility): CTDIvol = ( 6.36 ) mGy, DLP = ( 308.19 ) mGycm TECHNIQUE: Transaxial images were obtained from the dome of the diaphragm to the symphysis pubis without oral contrast, and without intravenous contrast. Sagittal and coronal images were reconstructed. Individualized dose optimization techniques were used for this CT. COMPARISON: Comparison is made with prior study dated April 06, 2017. FINDINGS: Stable minimal degree of increased markings at the lung bases suggestive mild scarring and/or atelectasis. The visualized portions of the heart are within normal limits. Normal liver. There are multiple small gallstones. There is a benign calcified granuloma of the spleen. Normal pancreas. Normal bilateral adrenal glands. Normal right kidney. There are 2 nonobstructive calculi in the lower pole calyx of the left kidney. The larger measures 3.3 mm. Normal visualized stomach. Normal small intestine. Moderate amount of fecal material is seen in the colon. There is non-visualization of the appendix. Normal abdominal aorta. Normal inferior vena cava. Normal retroperitoneum. Diffusely thickened urinary bladder wall. Normal abdominal wall. There are diffuse degenerative changes of the visualized lumbar spine. Levoscoliosis. 50% loss of height of the T12 vertebrae. CT/Abdomen/Pelvis without Cont IMPRESSION: Moderate amount of fecal material is seen in the colon. 2. Nonobstructive left intrarenal calculi. Multiple small gallstones. Electronically Signed: Dragan Ansari, at 14:59 EDT , Service support ,
== END | disposition home or self-care (01) ==
PROVIDERS: Referring Provider Nurse Practitioner Adult Health; Visit Provider Nurse Practitioner Adult Health
DX: N20.0 Calculus of kidney (principal); R31.9 Hematuria, unspecified; R10.9 Unspecified abdominal pain
CPT/HCPCS: 74018; 74176

== ENCOUNTER 2018-06-16 08:47 | Inpatient (IN) | payer MEDICARE, OTHER, SELFPAY ==
[2018-06-09 15:44] VITALS: BMI 19.7
[2018-06-16] VITALS (12 sets, daily range): BP systolic 84–104; BP diastolic 48–73; PULSE 56–95; RESP 13–18; TEMP 36.3–37; O2SAT 93–99; BMI 20.3; BMI 19.3
--- NOTE | 2018-06-16 | COL_PTH ---
PATIENT: ADEEL POST LOC: MS3 U#:[id number] AGE/SX: 77/M ROOM: IN322 RE06/16/[address]: Dr. Sami Jones MD : [id number] BED: 1 DIS: 06/22/2018 SPEC #: [id number] RECD: 06/17/18 07:19 STATUS: JEAN CARLOS REQ #: [id number] KOKO: 06/16/18 00:[address]: Sami Jones DEPT: SURGICAL PATHOLOGY RECD BY: Israel Gore ENTERED: 06/17/18 14:19 SP TYPE: COLON OTHR DR: Kathy Primary Care Phys JORGE Hathaway Tissues: Colon, NOS Procedures: Surgery Specimen Level V HEADER OPERATION: Laparoscopic converted to open right hemicolectomy PRE-OP DIAGNOSIS: Ruptured appendix TISSUE SUBMITTED: Right colon MICROSCOPIC DIAGNOSIS Right colon, hemicolectomy: Appendix with marked periappendiceal acute and chronic and reactive changes, minimal acute mucosal inflammation. Donut, no pathologic diagnosis. One lymph node with reactive changes. SJ:rg 06/22/18 COMMENT Obvious area of the ruptured in the appendix is not identified in the sections examined. Inflammation predominantly is noted in the periappendiceal tissue. The entire appendix is submitted. Case has been reviewed in consultation with Dr. Borrero who concurs with the above diagnosis. IDC:HAROON MICROSCOPIC DESCRIPTION Slides are reviewed. GROSS DESCRIPTION Received in fixative is one container labeled with the patient's name and designated right colon. The specimen consists of a right hemicolectomy specimen consisting of cecum with ascending colon and attached segment of small intestine. The cecum with ascending colon measures 24?cm in length and up to 9 cm in diameter and segment of small intestine measures 8 cm in length and 4?cm in diameter. . The appendix including periappendiceal adipose tissue is markedly indurated and forming a mass which measures 6 x 4 x 3 cm. Sectioning of this area reveals an appendix measuring 6 cm in length and 1 cm in diameter. The serosal surface of the appendix is congested, dusky and hemorrhagic Sections will be submitted after overnight fixation. / SJ:rg 06/17/18 Also present in the container is a donut-shaped piece of tissue previously opened measuring 3 x 3 x 0.5 cm. Multiple marlene are noted. No fecalith is identified in the appendicular lumen. The mucosal fold in the cecum and ascending colon is markedly flattened. No mucosal lesion is identified. Sections of pericolonic adipose tissue reveal one lymph node measuring 1.5 cm in greatest dimension. [employer] sections are submitted in ten cassettes as follows: 1 - donut, 2 - proximal and distal resection margins, 3-5 - appendix (3 contains the tip and most proximal portion), 6 & 7 - cecum adjacent to the appendicular opening, 8 - ileocecal valve, 9 - [employer] sections of small and large intestine, 10 - lymph node and pericolonic adipose tissue. / SJ:rg 06/18/18 More sections are submitted in cassettes 11-15 - rest of the appendix and adjacent periappendiceal tissue . / 06/19/18 TC: CPT: 03422
--- NOTE | 2018-06-16 09:05 | CT_ITS ---
STUDY: CT ABDOMEN AND PELVIS WITH CONTRAST REASON FOR EXAM: Male, 77 years old. Right lower quadrant and right flank pain. History of medullary sponge kidneys. RADIATION DOSAGE (If Supplied By Facility): CTDIvol = ( 11.48 ) mGy, DLP = ( 1015.89 ) mGycm TECHNIQUE: Transaxial images were obtained from the dome of the diaphragm to the symphysis pubis without oral contrast. 75mL IV Isovue 370 was administered. Sagittal and coronal images were reconstructed. Individualized dose optimization techniques were used for this CT. COMPARISON: Comparison is made with prior study dated June 15, 2018. FINDINGS: Increased markings at the lung bases suggest bibasilar atelectasis and/or infiltrates. This has progressed as compared to prior study. The visualized portions of the heart are within normal limits. Small amount of perihepatic and perisplenic fluid. Fluid is also seen in the pararenal space as well as the paracolic gutters. There is evidence of a 5.6 cm x 5.1 cm x 7.8 cm complex solid and cystic mass/inflammatory process in the region of the cecum and terminal ileum. A neoplastic mass should be ruled out. This may also represent complicated ruptured appendicitis. Mild degree of the dilated intrahepatic biliary ducts. There are multiple small gallstones. Normal spleen. Normal pancreas. Normal bilateral adrenal glands. Normal right kidney. There are 2 small nonobstructive calculi in the lower pole cortex of left kidney. Cortical thinning in the inferior pole of the left kidney. Normal visualized stomach. Mild degree of edema seen in the distal small bowel loops although they are not adequately distended with oral contrast. Sigmoid diverticulosis. Normal abdominal aorta. Normal inferior vena cava. Normal retroperitoneum. Diffuse bladder wall thickening. The patient is status post prostatectomy. Normal abdominal wall. There are diffuse degenerative changes of the visualized lumbar spine. Stable loss of height of the T12 vertebrae. Levoconvex scoliosis. CT/Abdomen/Pelvis WITH Contrast IMPRESSION: Bibasilar atelectasis. Dilated intrahepatic biliary ducts. Multiple gallstones. Perisplenic fluid as well as perihepatic and fluid in the paracolic gutters. Complex mass in the right lower quadrant as described. The differential diagnosis should include either a colonic mass or complicated ruptured appendicitis. N.B. : The above information has been verbally conveyed by Dragan Ansari to Dr Karen MD, on 06/16/2018 12:37:33 (ET). Electronically Signed: Dragan Ansari, at 12:38 EDT , Service support ,
[2018-06-16] MEDS: Ondansetron 4 MG/2 ML Vial IV (09:18)
[2018-06-16] MEDS: Morphine 4 MG/ML Syringe IV (09:18)
[2018-06-16] MEDS: 0.9% Normal Saline 1,000 ML 125 ML IV ×3 (09:18→21:31)
[2018-06-16 09:20] LABS: Absolute Lymphocyte Count 1.14 X10^3/ul (0.83-4.51); Absolute Neutrophil Count 6.6 X10^3/uL (2.0-7.7); Basophil# 0.02 X10^3/uL; Basophil% 0.2 % (0-1); Eosinophil# 0.04 X10^3/uL; Eosinophils% 0.5 % (0-5); Hematocrit 39.6 % (40-54); Hemoglobin 13.4 g/dl (13.0-16.5); Lymphocyte # 1.14 X10^3/ul (4.0); Lymphocyte % 14.1 % (19-41); Mean Corp Hgb Conc 33.8 g/gl (32-36); Mean Corpuscular Hgb 30.5 pg (27.0-32.0); Mean Corpuscular Volume 90.2 fL (80-94); Mean Platelet Vol. 8.9 fl (6.2-12.0); Monocyte% 3.7 % (0-10); Neutrophil # 6.59 X10^3/uL (2.7-7.7); Neutrophil % 81.3 % (47-70); Platelet Count 379 K/mm3 (150-450); RBC Distribution Width CV 14.4 % (11.6-14.6); RBC Distribution Width SD 47.2 fl (35.1-43.9); Red Blood Count 4.39 M/mm3 (4.6-6.2); White Blood Count 8.1 K/mm3 (4.4-11.0)
[2018-06-16 09:22] LABS: POSITIVE COUNT NO; POSITIVE DIFFERENTIAL NO; POSITIVE MORPHOLOGY NO
[2018-06-16 09:35] LABS: ALB/GLOB Ratio 0.7 RATIO (0.9-2.4); AST(SGOT) 24 U/L (15-37); Alanine Aminotransfer ALT/SGPT 21 U/L (16-61); Alkaline Phosphatase 187 U/L (45-117); Anion Gap 7 (5-15); BUN 25 mg/dL (7-18); BUN/Creat Ratio 13.2 RATIO (10-20); Chloride 105 mmol/L (98-107); Creatinine, Serum 1.89 mg/dL (0.70-1.30); EST Glomerular Filtration Rate 37 mL/min (>60); Est Glom Filt Rate - Afr Amer 45 mL/min (>60); Estimated Creatinine Clearance 29.44 ml/min; Globulin 4.4 g/dL (2.2-4.2); Glucose 148 mg/dL (74-106); Potassium 3.5 mmol/L (3.5-5.1); Protein, Total 7.4 g/dL (6.4-8.2); Sodium Level 134 mmol/L (136-145)
[2018-06-16] MEDS: 0.9% Normal Saline 1,000 ML 999 ML IV ×2 (09:38→10:38)
--- NOTE | 2018-06-16 09:43 | ED.VISSUMM ---
- ER Visit Summary Date of Service: 06/16/18 Chief Complaint: Abdominal pain History of Present Illness: The patient is a 77 M who presents the emergency department with right lower quadrant abdominal pain. Patient has seen Dr. Oliva from general surgery in the past. He saw him about 2 weeks ago with pain near his inguinal hernia repair site. He states that on Friday he thought maybe he was developing a kidney stone on the right. He states that Friday evening he began to have worsening right lower quadrant pain and went to see urology on Friday (yesterday). He has had a history of ureterolithiasis and felt that this was similar. A KUB was ordered but indeterminant and a CT flank was ordered. This did not demonstrate any obvious source for the patient's right lower quadrant pain. Noted that there was no hydronephrosis or hydroureter. There is also nonvisualization of the appendix. Family states he did not have much to eat or drink yesterday. Patient states that 3 hours prior to arrival all hell broke loose and his pain became severe. No vomiting but continued anorexia. Patient states the pain is continued and he came to the emergency department because of the pain. Patient states that anything he does makes the abdomen hurt worse including walking and adjusting in the bed. Patient states his blood pressure usually runs low around 95-100 systolic. Physical Examination: Initial blood pressure 85/48 temperature 97.5 heart rate of 86 respirations are 18 pulse ox is 95% on room air. Gen: Well-nourished well-developed Head: Normocephalic atraumatic Eyes: Perrl EOMI ENT: TMs clear no rhinorrhea moist mucous membranes Neck: Supple no lymphadenopathy no JVD nontender CVS: Regular rate rhythm no murmurs normal S1-S2 Respiratory: No distress clear to auscultation bilaterally chest nontender Abdomen: Patient's abdomen is firm and he has guarding and rebound in the right lower quadrant. There are hypoactive but tympanitic like bowel sounds. Back: Nontender Extremity: Nontender no edema Skin: Normal color no rash I specifically do not see any herpetic-like rash in the area of pain. Neuro: alert orientated ?3 CN II-XII intact normal strength sensation Psych: Patient appears uncomfortable in the bed. Test Results: White count 8.1 with 81.3 segs. BUN [address] the abdomen pelvis with oral and IV contrast is concerning for ruptured appendicitis. Emergency Department Course and Treatment: Patient received IV fluids morphine and Zofran. I spoke with on-call surgery Dr. Sloan. A CT of the abdomen pelvis with p.o. and IV contrast was ordered. Patient received a dose of Zosyn. Dr. Jones has come to the emergency department evaluated the patient. Plan will be to take him to the operating room. EKG and coags were asked to be obtained by surgery and ordered. Impression: 1. Perforated appendicitis This note was generated with [employer] dictation software. It may contain incorrect words, spelling, and punctuation that were not noted in review of the chart prior to signing ED Disposition - Plan for ED Patient: Referrals: Care Physician,No Primary [Primary Care Provider] -
[2018-06-16] MEDS: HYDROmorphone 0.5 MG/0.5 ML SYRINGE IV ×2 (10:42→12:59)
--- NOTE | 2018-06-16 10:53 | HP.PCM_ITS ---
<Zora Sloan - Last Filed: 06/16/18 10:53> History of Present Illness Date of Admission: 06/16/18 The patient is a 77 year old M presented to the ER due to right lower quadrant pain. Patient states this started on Friday and he thought it was a kidney stone so he did see Dr. Jacques on had a CAT scan without contrast yesterday which only showed left nonobstructing kidney stone, the appendix was not visualized. Patient states that the right lower quadrant pain has gotten worse denies any nausea, vomiting, fever, chills. Patient did have a decreased appetite yesterday was only able to eat a little bit of vegetable soup at 7 PM. Patient did have some diarrhea this morning. Patient's white blood count is 8 with left shift 81% neutrophils. Patient's systolic blood pressure is 85 on admit up to 92 and currently is 101 patient is on a beta-mayda and states he normally runs in the 90s-100s. Patient has a CT abdomen pelvis with PO contrast pending. Patient's last colonoscopy was in May [address] Jones and he also had previously seen Dr. Jones last week for some right groin pain however no recurrent hernia was detected on exam. 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) Hypertension (Chronic) Hyperlipidemia (Chronic) Medical History: Medical History (Last Reviewed 06/09/18 @ 15:42 by Farida East) Atherosclerotic heart disease of [place] coronary artery without angina pectoris (Chronic) I25.10 Nonrheumatic mitral valve disorder (Chronic) I34.9 Nonrheumatic tricuspid valve regurgitation (Chronic) I36.1 Bilateral hydronephrosis (Acute) N13.30 Bilateral kidney stones (Acute) N20.0 Recurrent right inguinal hernia (Acute) K40.91 Right bundle branch block (Acute) I45.10 Hypertension (Chronic) I10 Hyperlipidemia (Chronic) E78.5 Ureteral stone with hydronephrosis (Acute) N13.2 Acute renal insufficiency (Inactive) N28.9 Intractable pain (Inactive) R52 UTI (urinary tract infection) (Inactive) N39.0 Allergies ciprofloxacin [From Cipro] Allergy (Verified 06/16/18 08:51) sweating, n/v wheat Adverse Reaction (Severe, Verified 06/16/18 08:51) Unknown Home Medications: Ambulatory Orders Medication Instructions Recorded Atenolol [Tenormin (beta mayda)] 12.5 mg PO DAILY 09/05/14 simvastatin 20 mg tablet 20 mg PO QHS #90 tab 05/07/18 Surgical History: Surgical History (Last Reviewed 06/09/18 @ 15:42 by Farida East) History of prostatectomy Z90.79 History of right inguinal hernia repair Z98.890, Z87.19 history lithrotripsy for kidney stones Surgical History: - - Radical prostatectomy Psychiatric History: No pertinent psych hx Smoking Status: Never smoker - *Family History Maternal Family History: Family History (Last Reviewed 06/09/18 @ 15:42 by Farida East) Father CAD (coronary artery disease) Hx of CABG Brother Hypertension History Items: No pertinent history, - - No coronary artery disease Paternal Family History: Family History (Last Reviewed 06/09/18 @ 15:42 by Farida East) Father CAD (coronary artery disease) Hx of CABG Brother Hypertension History Items: - - No coronary artery disease Review of Systems Constitutional: Reports: Anorexia. Denies: Fever HEENT: Denies: Difficulty Swallowing Cardiovascular: Denies: Chest Pain Respiratory: Denies: Shortness of breath at rest Gastrointestinal: Reports: Abdominal Pain, Diarrhea. Denies: Nausea, Vomiting VTE Information - Inpt Only VTE Present on Admission: Yes VTE Mechan Device Prophylaxis: SCD's - Physical Exam General: Alert, Oriented x3, Cooperative Lungs: Normal air movement Cardiovascular: Regular rate Abdomen: Soft, Distended - Moderate, Tender - Right lower quadrant, voluntary guarding, mild rebound Extremities: No clubbing, No cyanosis, No edema Neurological: Cranial nerves II-XII grossly intact Psych/Mental Status: Normal Affect Vital Signs Temp Pulse Resp BP Pulse Ox 97.4 F L 56 L 18 92/43 L 94 06/16/18 09:24 06/16/18 09:24 06/16/18 09:24 06/16/18 09:24 06/16/18 09:24 Oxygen Delivery Method Room Air Weight: 138 lb Body Mass Index (BMI) 20.3 Laboratory Tests Past 24 Hrs 06/16/18 06/16/18 09:10 09:10 WBC 8.1 RBC 4.39 L Hgb 13.4 Hct 39.6 L MCV 90.2 MCH 30.5 MCHC 33.8 RDW 14.4 RDW Differential 47.2 H Plt Count 379 MPV 8.9 Immature Gran % (Auto) 0.200 Neut % (Auto) 81.3 H Lymph % (Auto) 14.1 L [place] % (Auto) 3.7 Eos % (Auto) 0.5 Baso % (Auto) 0.2 Absolute Neuts (auto) 6.6 Absolute Lymphs (auto) 1.14 Total Counted Not Reportable Sodium 134 L Potassium 3.5 Chloride 105 Carbon Dioxide 22.0 Anion Gap 7 BUN 25 H Creatinine 1.89 H Estim Creat Clear Calc 29.44 Est GFR (MDRD) Af Amer 45 L Est GFR (MDRD) Non-Af 37 L BUN/Creatinine Ratio 13.2 Glucose 148 H Calcium 8.0 L Total Bilirubin 0.90 AST 24 ALT 21 Alkaline Phosphatase 187 H Total Protein 7.4 Albumin 3.0 L Globulin 4.4 H Albumin/Globulin Ratio 0.7 L Assessment/Plan All Active Problems (Last Reviewed 06/09/18 @ 15:42 by Farida East) Screen for colon cancer (Acute) History of colon polyps (Acute) Bilateral hydronephrosis (Acute) Bilateral kidney stones (Acute) Recurrent right inguinal hernia (Acute) Right bundle branch block (Acute) Ureteral stone with hydronephrosis (Acute) 77-year-old male with right lower quadrant pain, possible appendicitis 1. Will review CT abdomen pelvis with p.o. contrast. Patient and family did request Dr. Jones surgery was needed, this has been discussed with Dr. Jones as well will await CAT scan results. Zora Sloan M.D. Pager: [phone] [facility] [address] [place] [address], Outpatient [facility], [address] [place] [id number] Office: [phone] <Sami Jones - Last Filed: 06/16/18 13:43> History of Present Illness The patient is a 77 year old M [] Past Medical History Medical History: Medical History (Last Reviewed 06/09/18 @ 15:42 by Farida East) Atherosclerotic heart disease of [place] coronary artery without angina pectoris (Chronic) I25.10 Nonrheumatic mitral valve disorder (Chronic) I34.9 Nonrheumatic tricuspid valve regurgitation (Chronic) I36.1 Bilateral hydronephrosis (Acute) N13.30 Bilateral kidney stones (Acute) N20.0 Recurrent right inguinal hernia (Acute) K40.91 Right bundle branch block (Acute) I45.10 Hypertension (Chronic) I10 Hyperlipidemia (Chronic) E78.5 Ureteral stone with hydronephrosis (Acute) N13.2 Acute renal insufficiency (Inactive) N28.9 Intractable pain (Inactive) R52 UTI (urinary tract infection) (Inactive) N39.0 Allergies ciprofloxacin [From Cipro] Allergy (Verified 06/16/18 08:51) sweating, n/v wheat Adverse Reaction (Severe, Verified 06/16/18 08:51) Unknown Surgical History: Surgical History (Last Reviewed 06/09/18 @ 15:42 by Farida East) History of prostatectomy Z90.79 History of right inguinal hernia repair Z98.890, Z87.19 history lithrotripsy for kidney stones - *Family History Maternal Family History: Family History (Last Reviewed 06/09/18 @ 15:42 by Farida East) Father CAD (coronary artery disease) Hx of CABG Brother Hypertension Paternal Family History: Family History (Last Reviewed 06/09/18 @ 15:42 by Farida East) Father CAD (coronary artery disease) Hx of CABG Brother Hypertension - Physical Exam Vital Signs Temp Pulse Resp BP Pulse Ox 97.4 F L 95 13 95/73 93 06/16/18 09:24 06/16/18 12:11 06/16/18 12:11 06/16/18 12:11 06/16/18 12:11 Oxygen Delivery Method Room Air Weight: 135 lb Body Mass Index (BMI) 19.3 Laboratory Tests Past 24 Hrs 06/16/18 06/16/18 06/16/18 09:10 09:10 11:35 WBC 8.1 RBC 4.39 L Hgb 13.4 Hct 39.6 L MCV 90.2 MCH 30.5 MCHC 33.8 RDW 14.4 RDW Differential 47.2 H Plt Count 379 MPV 8.9 Immature Gran % (Auto) 0.200 Neut % (Auto) 81.3 H Lymph % (Auto) 14.1 L [place] % (Auto) 3.7 Eos % (Auto) 0.5 Baso % (Auto) 0.2 Absolute Neuts (auto) 6.6 Absolute Lymphs (auto) 1.14 Total Counted Not Reportable Sodium 134 L Potassium 3.5 Chloride 105 Carbon Dioxide 22.0 Anion Gap 7 BUN 25 H Creatinine 1.89 H Estim Creat Clear Calc 29.44 Est GFR (MDRD) Af Amer 45 L Est GFR (MDRD) Non-Af 37 L BUN/Creatinine Ratio 13.2 Glucose 148 H Calcium 8.0 L Total Bilirubin 0.90 AST 24 ALT 21 Alkaline Phosphatase 187 H Total Protein 7.4 Albumin 3.0 L Globulin 4.4 H Albumin/Globulin Ratio 0.7 L Urine Color Yellow Urine Clarity Sl. Cloudy Urine pH 5.0 Ur Specific [place] 1.015 Urine Protein 30 H Urine Glucose (UA) Normal Urine Ketones Negative Urine Occult Blood 10 H Urine Nitrite Positive H Urine Bilirubin Negative Urine Urobilinogen Normal Ur Leukocyte Esterase 500 H Urine RBC 0-5 SEEN Urine WBC 25-50 SEEN Ur Squamous Epith Cells 0-5 SEEN Urine Bacteria 1+ Urine Mucus 0 SEEN Assessment/Plan I saw the patient and agree with Dr Sloan. Patient is very tender in the RLQ. CT shows fluid in the abdomen and inflammation in the RLQ. Recommend surgical exploration. I discussed laparoscopy, possible open, possible bowel resection. I believe he has perforated appendicitis but I discussed possible ileocecectomy if needed. I discussed the risks of surgery including bleeding, infection, injury to surrounding organs. I discussed that he would likely have a postoperative ileus. Patient appears to have UTI on UA. urine culture will be sent. Patient receiving abx in ER. Sami Jones MD
[2018-06-16 11:38] LABS: Mucous, Urine 0 SEEN /hpf (<or=2+)
--- NOTE | 2018-06-16 11:50 | EKG12_ITS ---
Test Reason : PREOP Blood Pressure : / mmHG Vent. Rate : 090 BPM Atrial Rate : 090 BPM P-R Int : 152 ms QRS Dur : 140 ms QT Int : 416 ms P-R-T Axes : 041 239 035 degrees QTc Int : 508 ms Normal sinus rhythm Right bundle branch block Abnormal ECG Confirmed by MALENA JIMÉNEZ, RAMY ([id number]), assignment desk editor GADIEL REECE ([id number]) on 06/18/2018 9:13:26 AM Referred By: Sami Jones Confirmed By:RAMY GUY MD
[2018-06-16 12:07] LABS: Color, Urine Yellow (Yellow); Glucose, Dipstick Normal (Normal); Ketone-Dipstick Negative (Negative); Leukocyte Esterase-Dipstick 500 /ul (Negative); Nitrite-Dipstick Positive (Negative); Occult Blood-Urine 10 /ul (Negative); Protein-Dipstick 30 mg/dl (Negative); Specific Gravity, Urine 1.015 (1.002-1.030); Urine Bilirubin Dipstick Negative (Negative); Urine Clarity Sl. Cloudy (Clear); Urine Urobilinogen Normal (Normal)
[2018-06-16 12:17] LABS: Bacteria 1+ /hpf (None Seen); Red Blood Cells-Urine 0-5 SEEN /hpf (0-5); Squamous Epithelial Cells - UA 0-5 SEEN /hpf (0-5); White Blood Cells 25-50 SEEN /hpf (0-5)
--- NOTE | 2018-06-16 12:31 | CASEMGMT ---
RN CM Assessment Introduced role of RN CM to patient, and family at bedside.? Patient is alert, oriented and able?to participate in RN CM Assessment. ?Care providers, pharmacy, and demographics verified. Presentation: RLQ Abd Pain, Seen Dr Jones x2 weeks ago with pain near his inguinal hernia repair site. Re-Admit: No Barriers/Issues: None PCP: None, States Dr Morris in the past, denies PCP list, states records were sent to [facility] a couple years ago and per will try to see if her PCP there is accepting new patients. Specialists: General Surgeon- Karen, Cardio- Dr Hope, Uro- Dr Andrew Preferred Pharmacy: [facility] Insurance: Medicare A&B, AARP Rx Benefit:?No ?LNOK: Rosibel Rose LW/HPOA: No, Declined offered Info Living Arrangements:?Lives with in a SS Home, 4-5 steps to enter. ADL?s: Independent with ambulation and ADL's Transportation: Drives, to transport on DC DME: None HHC: None SNF: None Goal: Home, does not anticipate needing any help. DC PLAN: Home with no anticipated needs identified at this time. Possible HH RN if surgery done. Leroy Avina RNCM
--- NOTE | 2018-06-16 12:47 | NURSING ---
Blair PERFORATED APPENDICITIS KATRIN
--- NOTE | 2018-06-16 17:12 | OP.PCM_ITS ---
Problem List (1) Perforated appendicitis Status: Acute Report of Operation Date of Procedure: 06/16/18 Pre-Operative Diagnosis: Perforated appendicitis Post-Operative Diagnosis: Perforated appendicitis with necrosis of the cecum Surgery/Procedure Performed:: Exploratory laparoscopy with conversion to laparotomy and right hemicolectomy Type of Anesthesia:: General Specimen's removed: Right hemicolon Estimated Blood Loss (mL): 50-100 Description of Procedure: The patient was brought back to the operating room and general anesthesia was induced. Abdomen was prepped and draped in the usual sterile fashion. An incision was made superior to the umbilicus and deepened to the fascia. The fascia was elevated and incised and a 12 mm port was placed into the abdomen. The abdomen was insufflated to 15 mmHg and the camera was placed into the abdomen. There is a copious amount of purulent material throughout the abdomen. The bowels were dilated and erythematous. In the right lower quadrant there was a necrotic appearing mass. This is likely the appendix but it is hard to decipher and the appendix was not easily identified. The culture of the fluid was performed. The fluid was suctioned and the right colon was followed down to the mass. This was unable to be removed from the abdominal sidewall. It appeared very necrotic and I was unable to determine if I was finding the appendix or getting into the colon. At that point I decided to convert to a laparotomy. The cameras were removed from the abdomen and a midline incision was made from the superior midline incision to the suprapubic area. The fascia was elevated and incised and a wound protector was placed into the abdomen. The abdomen was inspected and the patient had a firm mass in the right lower quadrant with necrosis and copious purulent material. The right colon was divided from its lateral attachments to the abdominal sidewall and then the dissection worked itself inferior using manual separation of tissue. Once the necrotic mass was delivered into the incision the colon was traced superiorly. As I was unable to determine if this was malignant or if it was appendicitis I decided to perform a right hemicolectomy instead of an ileocecectomy. The hepatic flexure was released from its attachments. The right middle colic was identified and just proximal to this a window was made in the colon and a 75 mm stapler was placed across the proximal transverse colon and this was divided. Next using the Enseal device the mesentery to the right hemicolon was taken to the right colic vessel. The right colic vessel was identified and suture- ligated with 2-0 silk suture. The mesenteric dissection continued with the Ense al until the terminal ileum was reached. The terminal ileum was divided in the same manner with the 75 JOEL stapler. The specimen was sent for pathology. Next the abdomen was copiously irrigated in all 4 quadrants with over 3 L of fluid. NG tube was then placed and confirmed in the stomach. Next an anastomosis was fashioned. The antimesenteric corner of the staple line of the small bowel was taken with scissors and a stapler was placed into the terminal ileum. Next the staple line in the transverse colon was incised with scissors and a stapler was placed into the transverse colon. These were approximated in an antimesenteric tenia fashion and the stapler was fired. A 3-0 silk crotch suture was placed. Next the enterotomy was closed in a transverse fashion with the 60 TL stapler. The staple line was inspected for bleeding and there was none. There was a good opening to the lumen. This was placed back into the abdomen and the abdomen was irrigated once more and suctioned. Next the wound retractor was removed and the staff changed gown and gloves. Next the midline fascia was reapproximated with running 0 PDS suture starting at either end and meeting in the middle. The w ound was then irrigated and Telfa chloe were placed into the incision and the skin was stapled around the Telfa chloe. There were 4 chloe placed. The left lower quadrant incision used for the 5 mm port was also closed with a staple. Bandages were then applied. At the end of the case a Espinosa catheter was placed. Patient was taken to PACU in stable condition with a Espinosa catheter and NG tube in place. - Admit VTE Documentation VTE Present on Admission: No VTE Mechan Device Prophylaxis: SCD's
[2018-06-16] MEDS: Morphine 2 MG/ML Syringe IV ×2 (19:10→23:19)
[2018-06-16] MEDS: 0.9% NaCl Peripheral Flush Adult/Peds IV (23:19)
[2018-06-17 05:17] VITALS: BP 122/68; PULSE 83; RESP 14; TEMP 36.6; O2SAT 95
[2018-06-17] MEDS: 0.9% NaCl Peripheral Flush Adult/Peds IV (05:24)
[2018-06-17] MEDS: Morphine 2 MG/ML Syringe IV ×3 (05:24→17:50)
[2018-06-17] MEDS: 0.9% Normal Saline 1,000 ML 125 ML IV ×2 (05:24→13:03)
[2018-06-17 06:23] LABS: Anion Gap 8 (5-15); BUN 26 mg/dL (7-18); BUN/Creat Ratio 14.5 RATIO (10-20); Calcium,Total 7.4 mg/dL (8.5-10.1); Chloride 115 mmol/L (98-107); Creatinine, Serum 1.79 mg/dL (0.70-1.30); EST Glomerular Filtration Rate 39 mL/min (>60); Est Glom Filt Rate - Afr Amer 48 mL/min (>60); Estimated Creatinine Clearance 30.41 ml/min; Glucose 95 mg/dL (74-106); Magnesium 2.1 mg/dL (1.6-2.6); Phosphorus 4.3 mg/dL (2.5-4.9); Potassium 4.5 mmol/L (3.5-5.1); Sodium Level 141 mmol/L (136-145)
[2018-06-17 06:42] LABS: Absolute Lymphocyte Count 0.63 X10^3/ul (0.83-4.51); Absolute Neutrophil Count 12.6 X10^3/uL (2.0-7.7); Basophil# 0.01 X10^3/uL; Basophil% 0.1 % (0-1); Hematocrit 37.2 % (40-54); Hemoglobin 12.6 g/dl (13.0-16.5); Lymphocyte # 0.63 X10^3/ul (4.0); Lymphocyte % 4.4 % (19-41); Mean Corp Hgb Conc 33.9 g/gl (32-36); Mean Corpuscular Hgb 29.9 pg (27.0-32.0); Mean Corpuscular Volume 88.2 fL (80-94); Mean Platelet Vol. 9.3 fl (6.2-12.0); Monocyte# 1.05 X10^3/uL; Monocyte% 7.3 % (0-10); Neutrophil # 12.56 X10^3/uL (2.7-7.7); Neutrophil % 87.6 % (47-70); Platelet Count 439 K/mm3 (150-450); RBC Distribution Width CV 14.4 % (11.6-14.6); RBC Distribution Width SD 45.6 fl (35.1-43.9); Red Blood Count 4.22 M/mm3 (4.6-6.2); White Blood Count 14.3 K/mm3 (4.4-11.0)
[2018-06-17 06:53] LABS: Differential Indicated SCAN CRITERIA MET; POSITIVE COUNT NO; POSITIVE DIFFERENTIAL NO; POSITIVE MORPHOLOGY YES
--- NOTE | 2018-06-17 09:15 | PCM.PN.SRG ---
Patient Problems: Active and Suspected Problems (Last Reviewed 06/09/18 @ 15:42 by Farida East) Perforated appendicitis (Acute) Subjective: Patient is doing well and sitting in the chair this morning. He complains of pain at his incision site. No flatus. No nausea or vomiting. - Physical Exam General: Alert, Oriented x3, Cooperative Neck: No JVD Lungs: Normal air movement Cardiovascular: Regular rate, Regular Rhythm Abdomen: Soft, Non-Distended, Tender, - - Incision clean dry and intact Vital Signs Temp Pulse Resp BP Pulse Ox 98 F 83 14 122/68 H 95 06/17/18 05:17 06/17/18 05:17 06/17/18 05:17 06/17/18 05:17 06/17/18 05:17 Oxygen Delivery Method Room Air Weight: 135 lb Body Mass Index (BMI) 19.3 Intake and Output for Last 24 Hours 06/15/18 06/16/18 06/17/18 23:59 23:59 23:59 Intake Total 2649 / 2649 834 / 834 Output Total 375 / 375 550 / 550 Balance 2274 / 2274 284 / 284 Laboratory Tests Past 24 Hrs 06/16/18 06/16/18 06/16/18 09:10 09:10 11:35 WBC 8.1 RBC 4.39 L Hgb 13.4 Hct 39.6 L MCV 90.2 MCH 30.5 MCHC 33.8 RDW 14.4 RDW Differential 47.2 H Plt Count 379 MPV 8.9 Immature Gran % (Auto) 0.200 Neut % (Auto) 81.3 H Lymph % (Auto) 14.1 L [place] % (Auto) 3.7 Eos % (Auto) 0.5 Baso % (Auto) 0.2 Absolute Neuts (auto) 6.6 Absolute Lymphs (auto) 1.14 Total Counted Not Reportable PT INR APTT Sodium 134 L Potassium 3.5 Chloride 105 Carbon Dioxide 22.0 Anion Gap 7 BUN 25 H Creatinine 1.89 H Estim Creat Clear Calc 29.44 Est GFR (MDRD) Af Amer 45 L Est GFR (MDRD) Non-Af 37 L BUN/Creatinine Ratio 13.2 Glucose 148 H Calcium 8.0 L Phosphorus Magnesium Total Bilirubin 0.90 AST 24 ALT 21 Alkaline Phosphatase 187 H Total Protein 7.4 Albumin 3.0 L Globulin 4.4 H Albumin/Globulin Ratio 0.7 L Urine Color Yellow Urine Clarity Sl. Cloudy Urine pH 5.0 Ur Specific [place] 1.015 Urine Protein 30 H Urine Glucose (UA) Normal Urine Ketones Negative Urine Occult Blood 10 H Urine Nitrite Positive H Urine Bilirubin Negative Urine Urobilinogen Normal Ur Leukocyte Esterase 500 H Urine RBC 0-5 SEEN Urine WBC 25-50 SEEN Ur Squamous Epith Cells 0-5 SEEN Urine Bacteria 1+ Urine Mucus 0 SEEN 06/16/18 06/17/18 06/17/18 14:10 05:30 05:30 WBC 14.3 H RBC 4.22 L Hgb 12.6 L Hct 37.2 L MCV 88.2 MCH 29.9 MCHC 33.9 RDW 14.4 RDW Differential 45.6 H Plt Count 439 MPV 9.3 Immature Gran % (Auto) 0.600 Neut % (Auto) 87.6 H Lymph % (Auto) 4.4 L [place] % (Auto) 7.3 Eos % (Auto) 0.0 Baso % (Auto) 0.1 Absolute Neuts (auto) 12.6 H Absolute Lymphs (auto) 0.63 L Total Counted Not Reportable PT Cancelled INR Cancelled APTT Cancelled Sodium 141 Potassium 4.5 Chloride 115 H Carbon Dioxide 18.0 L Anion Gap 8 BUN 26 H Creatinine 1.79 H Estim Creat Clear Calc 30.41 Est GFR (MDRD) Af Amer 48 L Est GFR (MDRD) Non-Af 39 L BUN/Creatinine Ratio 14.5 Glucose 95 Calcium 7.4 L Phosphorus 4.3 Magnesium 2.1 Total Bilirubin AST ALT Alkaline Phosphatase Total Protein Albumin Globulin Albumin/Globulin Ratio Urine Color Urine Clarity Urine pH Ur Specific [place] Urine Protein Urine Glucose (UA) Urine Ketones Urine Occult Blood Urine Nitrite Urine Bilirubin Urine Urobilinogen Ur Leukocyte Esterase Urine RBC Urine WBC Ur Squamous Epith Cells Urine Bacteria Urine Mucus Medical Necessity - Tobacco Use Smoking Status: Never smoker Assessment/Plan All Active Problems (Last Reviewed 06/09/18 @ 15:42 by Farida East) Perforated appendicitis (Acute) Screen for colon cancer (Acute) History of colon polyps (Acute) Bilateral hydronephrosis (Acute) Bilateral kidney stones (Acute) Recurrent right inguinal hernia (Acute) Right bundle branch block (Acute) Ureteral stone with hydronephrosis (Acute) 77-year-old male status post laparotomy and right demi-colectomy 1. Patient had perforated appendicitis with necrotic cecum. He had a right hemicolectomy. He is not passing any flatus and has a postoperative ileus. Continue NG tube. Patient is having good urine output and I will DC Espinosa. Continue antibiotics for perforation of right colon until WBC normalizes. 2. Encouraged ambulation. I will start Lovenox and PPI. Sami Jones MD Pager: [facility] [address] [place] [address] [address] [place] [address] Office:
[2018-06-17] MEDS: Enoxaparin 40 MG/0.4 ML Syringe SC (09:40)
[2018-06-17 11:17] VITALS: BP 106/66; PULSE 89; RESP 16; TEMP 36.8; O2SAT 96
[2018-06-17 16:52] VITALS: BP 143/96; PULSE 82; RESP 18; TEMP 36.7; O2SAT 97
[2018-06-17 21:10] VITALS: BP 137/87; PULSE 84; RESP 16; TEMP 36.6; O2SAT 95
[2018-06-18] MEDS: 0.9% Normal Saline 1,000 ML 125 ML IV ×3 (02:18→19:40)
[2018-06-18 02:19] VITALS: BP 132/82; PULSE 87; RESP 18; TEMP 37.1; O2SAT 94
[2018-06-18 06:31] LABS: Anion Gap 8 (5-15); BUN 28 mg/dL (7-18); BUN/Creat Ratio 16.2 RATIO (10-20); Calcium,Total 7.9 mg/dL (8.5-10.1); Chloride 120 mmol/L (98-107); Creatinine, Serum 1.73 mg/dL (0.70-1.30); EST Glomerular Filtration Rate 41 mL/min (>60); Est Glom Filt Rate - Afr Amer 50 mL/min (>60); Estimated Creatinine Clearance 31.45 ml/min; Glucose 77 mg/dL (74-106); Potassium 4.2 mmol/L (3.5-5.1); Sodium Level 147 mmol/L (136-145)
[2018-06-18 06:42] LABS: Absolute Lymphocyte Count 0.64 X10^3/ul (0.83-4.51); Absolute Neutrophil Count 12.5 X10^3/uL (2.0-7.7); Basophil# 0.01 X10^3/uL; Basophil% 0.1 % (0-1); Hematocrit 34.2 % (40-54); Hemoglobin 11.8 g/dl (13.0-16.5); Lymphocyte # 0.64 X10^3/ul (4.0); Lymphocyte % 4.5 % (19-41); Mean Corp Hgb Conc 34.5 g/gl (32-36); Mean Corpuscular Hgb 30.2 pg (27.0-32.0); Mean Corpuscular Volume 87.5 fL (80-94); Monocyte# 1.04 X10^3/uL; Monocyte% 7.3 % (0-10); Neutrophil # 12.54 X10^3/uL (2.7-7.7); Neutrophil % 87.5 % (47-70); Platelet Count 425 K/mm3 (150-450); RBC Distribution Width CV 14.6 % (11.6-14.6); RBC Distribution Width SD 46.1 fl (35.1-43.9); Red Blood Count 3.91 M/mm3 (4.6-6.2); White Blood Count 14.3 K/mm3 (4.4-11.0)
[2018-06-18 06:44] LABS: Differential Comment SCANNED; Differential Indicated SCAN CRITERIA MET; POSITIVE COUNT NO; POSITIVE DIFFERENTIAL NO; POSITIVE MORPHOLOGY YES
[2018-06-18 08:19] VITALS: BP 152/107; PULSE 85; RESP 16; TEMP 36.6; O2SAT 95
[2018-06-18] MEDS: Enoxaparin 40 MG/0.4 ML Syringe SC (09:34)
[2018-06-18 14:20] VITALS: BP 140/100; PULSE 83; RESP 16; TEMP 36.4; O2SAT 98
[2018-06-18] MEDS: Atenolol 25 MG Tablet 12.5 MG PO (17:26)
[2018-06-18 20:12] VITALS: BP 142/93; PULSE 66; RESP 18; TEMP 36.4; O2SAT 95
[2018-06-18] MEDS: Atorvastatin Calcium 10 MG Tablet PO (21:22)
[2018-06-19 02:25] VITALS: BP 130/82; PULSE 55; RESP 18; TEMP 37.1; O2SAT 96
[2018-06-19] MEDS: 0.9% Normal Saline 1,000 ML 125 ML IV ×3 (05:22→21:56)
[2018-06-19 05:57] LABS: Absolute Neutrophil Count 12.8 X10^3/uL (2.0-7.7); Basophil# 0.01 X10^3/uL; Basophil% 0.1 % (0-1); Hematocrit 34.4 % (40-54); Hemoglobin 11.5 g/dl (13.0-16.5); Lymphocyte % 4.1 % (19-41); Mean Corp Hgb Conc 33.4 g/gl (32-36); Mean Corpuscular Hgb 29.9 pg (27.0-32.0); Mean Corpuscular Volume 89.4 fL (80-94); Monocyte# 0.97 X10^3/uL; Monocyte% 6.7 % (0-10); Neutrophil # 12.84 X10^3/uL (2.7-7.7); Neutrophil % 88.6 % (47-70); Platelet Count 410 K/mm3 (150-450); RBC Distribution Width CV 15.1 % (11.6-14.6); RBC Distribution Width SD 49.1 fl (35.1-43.9); Red Blood Count 3.85 M/mm3 (4.6-6.2); White Blood Count 14.5 K/mm3 (4.4-11.0)
[2018-06-19 06:04] LABS: Anion Gap 10 (5-15); BUN 36 mg/dL (7-18); BUN/Creat Ratio 18.2 RATIO (10-20); Calcium,Total 8.1 mg/dL (8.5-10.1); Chloride 121 mmol/L (98-107); Creatinine, Serum 1.98 mg/dL (0.70-1.30); EST Glomerular Filtration Rate 35 mL/min (>60); Est Glom Filt Rate - Afr Amer 42 mL/min (>60); Estimated Creatinine Clearance 27.47 ml/min; Glucose 101 mg/dL (74-106); Sodium Level 150 mmol/L (136-145)
[2018-06-19 06:05] LABS: Differential Indicated SCAN CRITERIA MET; POSITIVE COUNT NO; POSITIVE DIFFERENTIAL YES; POSITIVE MORPHOLOGY NO
[2018-06-19 06:22] LABS: Differential Comment SCANNED
[2018-06-19 08:54] VITALS: BP 112/73; PULSE 60; RESP 18; TEMP 36.7; O2SAT 95
--- NOTE | 2018-06-19 08:54 | PN.SURG_ITS ---
Patient Problems: Active and Suspected Problems (Last Reviewed 06/09/18 @ 15:42 by Farida East) Perforated appendicitis (Acute) Subjective: Patient reports he is still belching and not having any flatus. He says his abdominal pain is well controlled and he has been getting up and walking several times a day. - Physical Exam General: Alert, Oriented x3 Neck: No JVD Lungs: Normal air movement Cardiovascular: Regular rate, Regular Rhythm Abdomen: Soft, Distended Vital Signs Temp Pulse Resp BP Pulse Ox 98.7 F 55 L 18 130/82 H 96 06/19/18 02:25 06/19/18 02:25 06/19/18 02:25 06/19/18 02:25 06/19/18 02:25 Oxygen Delivery Method Room Air Weight: 134 lb 14.766 oz Body Mass Index (BMI) 19.3 Intake and Output for Last 24 Hours 06/17/18 06/18/18 06/19/18 23:59 23:59 23:59 Intake Total 2555 / 2555 3965 / 3965 950 / 950 Output Total 2550 / 2550 3550 / 3550 900 / 900 Balance 5 / 5 415 / 415 50 / 50 Microbiology Past 72 Hours 06/16/18 15:23 Gram Stain - Final Wound Abcess - Abdominal Wound Culture - Final Escherichia coli Anaerobic Culture - Preliminary Checking for anaerobes, further studies to follow. 06/16/18 08:00 Urine Culture - Final Urine, Random Mixed Gram Pos & Gram Neg Org 06/16/18 11:35 Urine Culture - Final Urine, Clean Catch Mixed Gram Pos & Gram Neg Org Laboratory Tests Past 24 Hrs 06/19/18 06/19/18 05:35 05:35 WBC 14.5 H RBC 3.85 L Hgb 11.5 L Hct 34.4 L MCV 89.4 MCH 29.9 MCHC 33.4 RDW 15.1 H RDW Differential 49.1 H Plt Count 410 MPV 9.0 Immature Gran % (Auto) 0.500 Neut % (Auto) 88.6 H Lymph % (Auto) 4.1 L [place] % (Auto) 6.7 Eos % (Auto) 0.0 Baso % (Auto) 0.1 Absolute Neuts (auto) 12.8 H Absolute Lymphs (auto) 0.60 L Total Counted Not Reportable Differential Comment SCANNED Sodium 150 H Potassium 4.0 Chloride 121 H Carbon Dioxide 19.0 L Anion Gap 10 BUN 36 H Creatinine 1.98 H Estim Creat Clear Calc 27.47 Est GFR (MDRD) Af Amer 42 L Est GFR (MDRD) Non-Af 35 L BUN/Creatinine Ratio 18.2 Glucose 101 Calcium 8.1 L Medical Necessity - Tobacco Use Smoking Status: Never smoker Assessment/Plan All Active Problems (Last Reviewed 06/09/18 @ 15:42 by Farida East) Perforated appendicitis (Acute) Screen for colon cancer (Acute) History of colon polyps (Acute) Bilateral hydronephrosis (Acute) Bilateral kidney stones (Acute) Recurrent right inguinal hernia (Acute) Right bundle branch block (Acute) Ureteral stone with hydronephrosis (Acute) 77-year-old male status post right demi-colectomy for perforated appendicitis 1. Patient has a postoperative ileus. He has an NG tube in place and he is not having any bowel function yet. He seemed mildly distended this morning. I [place]ney [place] his dressing and remove the chloe from his incision. His incision is clean dry and intact with no erythema or purulent material. Patient has a persistent white count of 14 and he is still on Zosyn. Surgery was performed 3 days ago. If he gets a postoperative day [address] function [address] CT would be warranted. His NG output is nonbilious so I believe things are moving forward but he is s till distended with no flatus. Sami Jones MD Pager: [facility] [address] [place] [address], [address] [place] [address] Office:
[2018-06-19] MEDS: Atenolol 25 MG Tablet 12.5 MG PO (10:10)
[2018-06-19] MEDS: Enoxaparin 40 MG/0.4 ML Syringe SC (10:10)
[2018-06-19] MEDS: Morphine 2 MG/ML Syringe IV (11:21)
[2018-06-19] MEDS: 0.9% NaCl Peripheral Flush Adult/Peds IV (11:22)
[2018-06-19 16:00] VITALS: BP 113/76; PULSE 55; RESP 18; TEMP 36.8; O2SAT 98
[2018-06-19 20:45] VITALS: BP 110/75; PULSE 58; RESP 16; TEMP 36.6; O2SAT 98
[2018-06-19] MEDS: Atorvastatin Calcium 10 MG Tablet PO (21:02)
[2018-06-20 02:35] VITALS: BP 118/75; PULSE 57; RESP 18; TEMP 36.6; O2SAT 97
[2018-06-20] MEDS: 0.9% Normal Saline 1,000 ML 125 ML IV (05:59)
[2018-06-20] MEDS: Ibuprofen 400 MG Tablet 800 MG PO (05:59)
[2018-06-20 07:59] LABS: Absolute Lymphocyte Count 0.65 X10^3/ul (0.83-4.51); Absolute Neutrophil Count 10.4 X10^3/uL (2.0-7.7); Basophil# 0.02 X10^3/uL; Basophil% 0.2 % (0-1); Hematocrit 34.6 % (40-54); Hemoglobin 11.4 g/dl (13.0-16.5); Lymphocyte # 0.65 X10^3/ul (4.0); Lymphocyte % 5.3 % (19-41); Mean Corp Hgb Conc 32.9 g/gl (32-36); Mean Corpuscular Hgb 29.8 pg (27.0-32.0); Mean Corpuscular Volume 90.3 fL (80-94); Mean Platelet Vol. 9.3 fl (6.2-12.0); Monocyte# 1.05 X10^3/uL; Monocyte% 8.6 % (0-10); Neutrophil # 10.41 X10^3/uL (2.7-7.7); Neutrophil % 85.2 % (47-70); Platelet Count 430 K/mm3 (150-450); RBC Distribution Width CV 15.3 % (11.6-14.6); RBC Distribution Width SD 50.6 fl (35.1-43.9); Red Blood Count 3.83 M/mm3 (4.6-6.2); White Blood Count 12.2 K/mm3 (4.4-11.0)
[2018-06-20 08:00] LABS: POSITIVE COUNT NO; POSITIVE DIFFERENTIAL NO; POSITIVE MORPHOLOGY NO
[2018-06-20 08:20] VITALS: BP 115/82; PULSE 48; RESP 16; TEMP 36.8; O2SAT 98
[2018-06-20 08:34] LABS: Anion Gap 8 (5-15); BUN 43 mg/dL (7-18); BUN/Creat Ratio 21.1 RATIO (10-20); Calcium,Total 7.4 mg/dL (8.5-10.1); Chloride 127 mmol/L (98-107); Creatinine, Serum 2.04 mg/dL (0.70-1.30); EST Glomerular Filtration Rate 34 mL/min (>60); Est Glom Filt Rate - Afr Amer 41 mL/min (>60); Estimated Creatinine Clearance 26.67 ml/min; Glucose 103 mg/dL (74-106); Potassium 3.3 mmol/L (3.5-5.1); Sodium Level 153 mmol/L (136-145)
[2018-06-20] MEDS: Lactated Ringers 1,000 ML 100 ML IV ×2 (10:00→21:48)
--- NOTE | 2018-06-20 10:33 | PCM.PN.SRG ---
Patient Problems: Active and Suspected Problems (Last Reviewed 06/09/18 @ 15:42 by Farida East) Perforated appendicitis (Acute) Subjective: Significant improvement today. Patient has had small loose bowel movements his pain is fairly well controlled. He is tolerating ice chips and I will advance him to full liquids. Objective: Abdomen is soft incision is clean without signs of infection - Physical Exam Vital Signs Temp Pulse Resp BP Pulse Ox 97.9 F 57 L 18 118/75 97 06/20/18 02:35 06/20/18 02:35 06/20/18 02:35 06/20/18 02:35 06/20/18 02:35 Oxygen Delivery Method Room Air Weight: 134 lb 14.766 oz Body Mass Index (BMI) 19.3 Intake and Output for Last 24 Hours 06/18/18 06/19/18 06/20/18 23:59 23:59 23:59 Intake Total 3965 / 3965 2984 / 2984 1942 / 1942 Output Total 3550 / 3550 3075 / 3075 1100 / 1100 Balance 415 / 415 -91 / -91 842 / 842 Microbiology Past 72 Hours 06/16/18 15:23 Gram Stain - Final Wound Abcess - Abdominal Wound Culture - Final Escherichia coli Anaerobic Culture - Final Presumptive B. fragilis group 06/16/18 08:00 Urine Culture - Final Urine, Random Mixed Gram Pos & Gram Neg Org 06/16/18 11:35 Urine Culture - Final Urine, Clean Catch Mixed Gram Pos & Gram Neg Org Laboratory Tests Past 24 Hrs 06/20/18 06/20/18 07:01 07:01 WBC 12.2 H RBC 3.83 L Hgb 11.4 L Hct 34.6 L MCV 90.3 MCH 29.8 MCHC 32.9 RDW 15.3 H RDW Differential 50.6 H Plt Count 430 MPV 9.3 Immature Gran % (Auto) 0.700 Neut % (Auto) 85.2 H Lymph % (Auto) 5.3 L [place] % (Auto) 8.6 Eos % (Auto) 0.0 Baso % (Auto) 0.2 Absolute Neuts (auto) 10.4 H Absolute Lymphs (auto) 0.65 L Total Counted Not Reportable Sodium 153 H Potassium 3.3 L Chloride 127 H* Carbon Dioxide 18.0 L Anion Gap 8 BUN 43 H Creatinine 2.04 H Estim Creat Clear Calc 26.67 Est GFR (MDRD) Af Amer 41 L Est GFR (MDRD) Non-Af 34 L BUN/Creatinine Ratio 21.1 H Glucose 103 Calcium 7.4 L Medical Necessity - Tobacco Use Smoking Status: Never smoker Assessment/Plan All Active Problems (Last Reviewed 06/09/18 @ 15:42 by Farida East) Perforated appendicitis (Acute) Screen for colon cancer (Acute) History of colon polyps (Acute) Bilateral hydronephrosis (Acute) Bilateral kidney stones (Acute) Recurrent right inguinal hernia (Acute) Right bundle branch block (Acute) Ureteral stone with hydronephrosis (Acute) Patient is currently on appropriate antibiotics. Okay for him to get into a shower. I have adjusted his IV fluids to lactated Ringer's.
[2018-06-20] MEDS: Enoxaparin 40 MG/0.4 ML Syringe SC (10:45)
[2018-06-20] MEDS: 0.9% NaCl Peripheral Flush Adult/Peds IV (14:26)
[2018-06-20 15:50] VITALS: BP 126/74; PULSE 51; RESP 16; TEMP 36.3; O2SAT 96
[2018-06-20] MEDS: Atorvastatin Calcium 10 MG Tablet PO (21:44)
[2018-06-20 21:50] VITALS: BP 103/72; PULSE 50; RESP 16; TEMP 36.3; O2SAT 94
[2018-06-21 03:01] VITALS: BP 98/68; PULSE 45; RESP 16; TEMP 36.4; O2SAT 94
[2018-06-21 08:12] LABS: Absolute Lymphocyte Count 0.91 X10^3/ul (0.83-4.51); Absolute Neutrophil Count 5.8 X10^3/uL (2.0-7.7); Basophil# 0.02 X10^3/uL; Basophil% 0.3 % (0-1); Eosinophils% 1.3 % (0-5); Hematocrit 30.5 % (40-54); Hemoglobin 10.3 g/dl (13.0-16.5); Lymphocyte # 0.91 X10^3/ul (4.0); Lymphocyte % 11.4 % (19-41); Mean Corp Hgb Conc 33.8 g/gl (32-36); Mean Corpuscular Hgb 29.9 pg (27.0-32.0); Mean Corpuscular Volume 88.7 fL (80-94); Mean Platelet Vol. 9.2 fl (6.2-12.0); Monocyte# 1.03 X10^3/uL; Neutrophil # 5.78 X10^3/uL (2.7-7.7); Neutrophil % 72.6 % (47-70); Platelet Count 360 K/mm3 (150-450); RBC Distribution Width CV 14.9 % (11.6-14.6); Red Blood Count 3.44 M/mm3 (4.6-6.2)
[2018-06-21 08:13] LABS: POSITIVE COUNT NO; POSITIVE DIFFERENTIAL NO; POSITIVE MORPHOLOGY NO
[2018-06-21 08:20] VITALS: BP 95/68; PULSE 47; RESP 16; TEMP 36.4; O2SAT 97
--- NOTE | 2018-06-21 08:40 | PN.SURG_ITS ---
Patient Problems: Active and Suspected Problems (Last Reviewed 06/09/18 @ 15:42 by Farida East) Perforated appendicitis (Acute) Subjective: Patient feels more distended today. Still passing flatus. Objective: Abdomen is slightly distended but there is no rebound guarding or peritoneal signs identified. He has hypoactive bowel sounds. - Physical Exam Vital Signs Temp Pulse Resp BP Pulse Ox 97.6 F L 45 L 16 98/68 94 06/21/18 03:01 06/21/18 03:01 06/21/18 03:01 06/21/18 03:01 06/21/18 03:01 Oxygen Delivery Method Room Air Weight: 134 lb 14.766 oz Body Mass Index (BMI) 19.3 Intake and Output for Last 24 Hours 06/19/18 06/20/18 06/21/18 23:59 23:59 23:59 Intake Total 2984 / 2984 4263 / 4263 1770 / 1770 Output Total 3075 / 3075 1100 / 1100 Balance -91 / -91 3163 / 3163 1770 / 1770 Microbiology Past 72 Hours 06/16/18 15:23 Gram Stain - Final Wound Abcess - Abdominal Wound Culture - Final Escherichia coli Anaerobic Culture - Final Presumptive B. fragilis group Laboratory Tests Past 24 Hrs 06/21/18 06/21/18 08:04 08:04 WBC 8.0 RBC 3.44 L Hgb 10.3 L Hct 30.5 L MCV 88.7 MCH 29.9 MCHC 33.8 RDW 14.9 H RDW Differential 47.0 H Plt Count 360 MPV 9.2 Immature Gran % (Auto) 1.400 H Neut % (Auto) 72.6 H Lymph % (Auto) 11.4 L [place] % (Auto) 13.0 H Eos % (Auto) 1.3 Baso % (Auto) 0.3 Absolute Neuts (auto) 5.8 Absolute Lymphs (auto) 0.91 Total Counted Not Reportable Sodium Pending Potassium Pending Chloride Pending Carbon Dioxide Pending Anion Gap Pending BUN Pending Creatinine Pending Est GFR (MDRD) Af Amer Pending Est GFR (MDRD) Non-Af Pending BUN/Creatinine Ratio Pending Glucose Pending Calcium Pending Medical Necessity - Tobacco Use Smoking Status: Never smoker Assessment/Plan All Active Problems (Last Reviewed 06/09/18 @ 15:42 by Farida East) Perforated appendicitis (Acute) Screen for colon cancer (Acute) History of colon polyps (Acute) Bilateral hydronephrosis (Acute) Bilateral kidney stones (Acute) Recurrent right inguinal hernia (Acute) Right bundle branch block (Acute) Ureteral stone with hydronephrosis (Acute) We have made improvements in his white count. However I need to have his electrolytes rechecked. Unlikely he is ready for discharge today.
[2018-06-21 08:41] LABS: Anion Gap 6 (5-15); BUN 29 mg/dL (7-18); BUN/Creat Ratio 15.6 RATIO (10-20); Calcium,Total 6.9 mg/dL (8.5-10.1); Chloride 121 mmol/L (98-107); Creatinine, Serum 1.86 mg/dL (0.70-1.30); EST Glomerular Filtration Rate 38 mL/min (>60); Est Glom Filt Rate - Afr Amer 46 mL/min (>60); Estimated Creatinine Clearance 29.25 ml/min; Glucose 106 mg/dL (74-106); Potassium 3.3 mmol/L (3.5-5.1); Sodium Level 145 mmol/L (136-145)
[2018-06-21] MEDS: Ibuprofen 400 MG Tablet 800 MG PO (08:47)
[2018-06-21] MEDS: Enoxaparin 40 MG/0.4 ML Syringe SC (08:47)
[2018-06-21] MEDS: Lactated Ringers 1,000 ML 100 ML IV ×2 (11:07→23:04)
[2018-06-21 15:20] VITALS: BP 118/87; PULSE 47; RESP 16; TEMP 36.3; O2SAT 99
[2018-06-21 20:16] VITALS: BP 107/71; PULSE 46; RESP 16; TEMP 37.2; O2SAT 94
[2018-06-21] MEDS: Atorvastatin Calcium 10 MG Tablet PO (21:13)
[2018-06-22 02:16] VITALS: BP 102/67; PULSE 51; RESP 16; TEMP 36.7; O2SAT 95
[2018-06-22] MEDS: Ibuprofen 400 MG Tablet 800 MG PO (04:14)
[2018-06-22 08:16] VITALS: BP 109/72; PULSE 53; RESP 16; TEMP 36.6; O2SAT 94
[2018-06-22 08:21] VITALS: PULSE 53
[2018-06-22] MEDS: Enoxaparin 40 MG/0.4 ML Syringe SC (10:26)
[2018-06-22] MEDS: Lactated Ringers 1,000 ML 100 ML IV (10:26)
[2018-06-22] MEDS: Atenolol 25 MG Tablet 12.5 MG PO (10:26)
[2018-06-22 14:16] VITALS: BP 100/66; PULSE 54; RESP 16; TEMP 36.6; O2SAT 95
--- NOTE | 2018-06-22 18:32 | DCINST_ITS ---
Discharge Diet: Light diet - advance as tolerated - if you have questions about your diet instructions, please talk to you doctor. Discharge Activity: May Not Drive - for 3-5 days or while taking narcotic pain meds. May shower in (days): 1 Call your doctor if your incision/area has: Continuous Slow Oozing, Sudden Increased Bleeding, Increased Pain/ Swelling, Increased Redness, Foul Smelling Discharge Call your doctor if you observe: Fever of 101 or Higher Suture Line Care: Avoid Pulling/Pushing, Avoid Pinching/Bending Additional Dressing/Incision Instructions:: Keep dressing clean and dry. Change or remove dressing in 2 days. Leave steri strips for 1 week. May protect with a gauze bandaid. Medications to take at Discharge Atenolol [Tenormin (beta mayda)] 12.5 mg PO DAILY 09/05/14 simvastatin 20 mg tablet 20 mg PO QHS #90 tab 05/07/18 Allergies/Adverse Reactions: Allergies ciprofloxacin [From Cipro] Allergy (Verified 06/16/18 08:51) sweating, n/v wheat Adverse Reaction (Severe, Verified 06/16/18 08:51) Unknown Primary Care Physician: Care Physician,No Primary [Primary Care Provider] - Test Results: Test results from this visit will be discussed in further detail at your follow- up appointment, if applicable. Please Follow Up With: Ga Thornton MD - [phone] When: Call to make a follow up appointment with your doctor in 1 week.
--- NOTE | 2018-06-23 13:31 | CASEMGMT ---
CRIS ERYES DC PHONE CALL DC DATE: 06/22/18 DC Disposition: Home LACE/STRATA: 02/03 Intro role of CM to patient via phone. Pt states he does not have questions re: prescriptions, f/u or instructions. Pt had antibiotic ordered, is aware to take prescription until finished. Pt will be f/u with Dr. Jones. Appt is made. Call to Dr. Jones's office- verified pt has made appt. No care improvement suggestions were given. Donis FLORES RN ACM
--- NOTE | 2018-06-25 14:32 | PCM.DC.SUM ---
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 scan demonstrated complex mass in the right lower quadrant. Dr. Jones performed a Exploratory laparoscopy with conversion to laparotomy and right hemicolectomy on 06/16/18. Patient tolerated the procedure well. Patient had an uneventful hospitalization. Upon discharge, patient notes minimal amount of abdominal discomfort. Denies nausea, vomiting. Positive flatus, BM. - Physical Exam General: Alert, Oriented x3, Cooperative Abdomen: Bowel Sounds Present, Soft, Distended - slightly, Tender - generalized, - - Incisions c/d/i. No erythema or infection noted Vital Signs Temp Pulse Resp BP Pulse Ox 97.9 F 54 L 16 100/66 95 06/22/18 14:16 06/22/18 14:16 06/22/18 14:16 06/22/18 14:16 06/22/18 14:16 Oxygen Delivery Method Room Air Weight: 134 lb 14.766 oz Body Mass Index (BMI) 19.3 Discharge Diet: Light diet - advance as tolerated - if you have questions about your diet instructions, please talk to you doctor. Discharge Activity: May Not Drive - for 3-5 days or while taking narcotic pain meds. May shower in (days): 1 Call your doctor if your incision/area has: Continuous Slow Oozing, Sudden Increased Bleeding, Increased Pain/ Swelling, Increased Redness, Foul Smelling Discharge Call your doctor if you observe: Fever of 101 or Higher Suture Line Care: Avoid Pulling/Pushing, Avoid Pinching/Bending Additional Dressing/Incision Instructions:: Keep dressing clean and dry. Change or remove dressing in 2 days. Leave steri strips for 1 week. May protect with a gauze bandaid. Home Medications: Medications to take at Discharge Atenolol [Tenormin (beta mayda)] 12.5 mg PO DAILY 09/05/14 simvastatin 20 mg tablet 20 mg PO QHS #90 tab 05/07/18 Amoxicillin/Potassium Clav [Augmentin 875-125 Tablet] 1 ea PO BID #10 tab 06/22/18 Oxycodone HCl/Acetaminophen [Percocet 5/325] 1 - 2 tab PO Q4H PRN PRN 6 Days #30 tab 06/22/18 Following Prescrptions Were Given to Patient: Oxycodone HCl/Acetaminophen [Percocet 5/325] 1 - 2 tab PO Q4H PRN PRN 6 Days #30 tab PRN Reason: Pain Amoxicillin/Potassium Clav [Augmentin 875-125 Tablet] 1 ea PO BID #10 tab Primary Care Physician: Care Physician,No Primary [Primary Care Provider] - Please Follow Up With: Ga Thornton MD - [phone] When: Call to make a follow up appointment with your doctor in 1 week. Disposition: Home Patient Condition:: Stable Medical Necessity - Tobacco Use Smoking Status: Never smoker Meaningful Use Info Meaningful Use Diagnoses (Choose all that apply): None applicable Code Visit Inpatient E&M: 00545 Disch Hosp - No charge
--- NOTE | 2018-06-25 14:37 | DS.PCM_ITS ---
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 scan demonstrated complex mass in the right lower quadrant. Dr. Jones performed a Exploratory laparoscopy with conversion to laparotomy and right hemicolectomy on 06/16/18. Patient tolerated the procedure well. Patient had an uneventful hospitalization. Upon discharge, patient notes minimal amount of abdominal discomfort. Denies nausea, vomiting. Positive flatus, BM. - Physical Exam General: Alert, Oriented x3, Cooperative Abdomen: Bowel Sounds Present, Soft, Distended - slightly, Tender - generalized, - - Incisions c/d/i. No erythema or infection noted Vital Signs Temp Pulse Resp BP Pulse Ox 97.9 F 54 L 16 100/66 95 06/22/18 14:16 06/22/18 14:16 06/22/18 14:16 06/22/18 14:16 06/22/18 14:16 Oxygen Delivery Method Room Air Weight: 134 lb 14.766 oz Body Mass Index (BMI) 19.3 Discharge Diet: Light diet - advance as tolerated - if you have questions about your diet instructions, please talk to you doctor. Discharge Activity: May Not Drive - for 3-5 days or while taking narcotic pain meds. May shower in (days): 1 Call your doctor if your incision/area has: Continuous Slow Oozing, Sudden Increased Bleeding, Increased Pain/ Swelling, Increased Redness, Foul Smelling Discharge Call your doctor if you observe: Fever of 101 or Higher Suture Line Care: Avoid Pulling/Pushing, Avoid Pinching/Bending Additional Dressing/Incision Instructions:: Keep dressing clean and dry. Change or remove dressing in 2 days. Leave steri strips for 1 week. May protect with a gauze bandaid. Home Medications: Medications to take at Discharge Atenolol [Tenormin (beta mayda)] 12.5 mg PO DAILY 09/05/14 simvastatin 20 mg tablet 20 mg PO QHS #90 tab 05/07/18 Amoxicillin/Potassium Clav [Augmentin 875-125 Tablet] 1 ea PO BID #10 tab 06/22/18 Oxycodone HCl/Acetaminophen [Percocet 5/325] 1 - 2 tab PO Q4H PRN PRN 6 Days #30 tab 06/22/18 Following Prescrptions Were Given to Patient: Oxycodone HCl/Acetaminophen [Percocet 5/325] 1 - 2 tab PO Q4H PRN PRN 6 Days #30 tab PRN Reason: Pain Amoxicillin/Potassium Clav [Augmentin 875-125 Tablet] 1 ea PO BID #10 tab Primary Care Physician: Care Physician,No Primary [Primary Care Provider] - Please Follow Up With: Ga Thornton MD - [phone] When: Call to make a follow up appointment with your doctor in 1 week. Disposition: Home Patient Condition:: Stable Medical Necessity - Tobacco Use Smoking Status: Never smoker Meaningful Use Info Meaningful Use Diagnoses (Choose all that apply): None applicable Code Visit Inpatient E&M: 33139 Disch Hosp - No charge
== END 2018-06-22 19:50 | disposition home or self-care (01) | DRG 329 ==
LOC: ED 11:45 → SDC 12:03 → AC 12:05 → MS3 15:49 → SDC 17:23
PROVIDERS: Surgery; Admitting Provider Surgery; Emergency Provider Emergency Medicine; Referring Provider Surgery; Visit Provider Surgery
PROC: 0DTJ4ZZ Resection of Appendix, Percutaneous Endoscopic Approach (ICD-10-PCS; CPT 44970; principal; 2018-06-16 14:10)
DX: K35.32 Acute appendicitis with perforation, localized peritonitis, and gangrene, without abscess (principal); K55.049 Acute infarction of large intestine, extent unspecified; K56.7 Ileus, unspecified; E44.0 Moderate protein-calorie malnutrition; Z68.1 Body mass index [BMI] 19.9 or less, adult; Z53.31 Laparoscopic surgical procedure converted to open procedure; N20.0 Calculus of kidney; R31.9 Hematuria, unspecified; R10.9 Unspecified abdominal pain; I25.10 Atherosclerotic heart disease of native coronary artery without angina pectoris; I36.1 Nonrheumatic tricuspid (valve) insufficiency; E78.5 Hyperlipidemia, unspecified; I12.9 Hypertensive chronic kidney disease with stage 1 through stage 4 chronic kidney disease, or unspecified chronic kidney disease; N18.3 Chronic kidney disease, stage 3 (moderate)
CPT/HCPCS: 36415; 74018; 74176; 74177; 80048; 80053; 81001; 83735; 84100; 85025; 87070; 87075; 87077; 87086; 87088; 87186; 87205; 88307; 93005; 99285; 99406; J7030; J7040; J7120; Q9967; A4216; C1760; J2405

== ENCOUNTER 2018-08-12 06:02 | Day surgery (SDC) | payer MEDICARE, OTHER, SELFPAY ==
--- NOTE | 2018-07-31 02:36 | HP_ITS ---
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 (Chronic) Bilateral hydronephrosis (Acute) Bilateral kidney stones (Acute) Recurrent right inguinal hernia (Acute) Right bundle branch block (Acute) Hypertension (Chronic) Hyperlipidemia (Chronic) Ureteral stone with hydronephrosis (Acute) Acute renal insufficiency (Inactive) Intractable pain (Inactive) UTI (urinary tract infection) (Inactive) Surgical History History of prostatectomy (Resolved) History of right inguinal hernia repair (Resolved) history lithrotripsy for kidney stones (Resolved) Family History Father CAD (coronary artery disease) Hx of CABG Brother Hypertension Social History Smoking Status: Never smoker alcohol intake: never substance use type: does not use HPI HPI HPI: ADEEL POST, is a 77 M who presents to the office today for HPI HPI Surgical H&P: Yes HPI: ADEEL POST, is a 77 M who presents to the office today for left groin pain. Patient reports that for the last few weeks his left groin is been bulging and he has been pain. He is also been having lower abdominal cramping that started 3 hours ago. He describes no nausea or vomiting. He is having normal gas and has been having normal bowel movements. He has no right lower quadrant pain. ROS General General: No weight change, appetite, fatigue, colon cancer, breast cancer or weakness HEENT HEENT: No difficulty swallowing, eye injury, eye surgery, swollen glands or hoarseness Endo Endocrine: No thyroid disease, diabetes mellitus, thyroid cancer, Hair loss, heat intolerance or cold intolerance Skin Skin: No rash or changing moles Breast Breast: No left breast lump, right breast lump, nipple discharge, breast pain, abnormal mammogram, abnormal US or breast enlargement Musc Musculoskeletal: No back problems, arthritis, rheumatoid arthritis, gout or joint pain Cardio Cardiovascular: Yes heart disease; no murmur, pacemaker, atrial fibrillation, high blood pressure, heart attack, heart stent, palpitations, shortness of breat with exertion or chest pain Psych Psychiatric: No depression, anxiety or hearing voices Resp Respiratory: No shortness of breath, No sleep apnea, No cough, No COPD, No asthma, No emphysema, No wheezing Gastro Gastrointestinal: No abdominal pain, No nausea or vomiting, No diarrhea, No constipation, No blood in stool, No acid reflux, No hemorrhoids, No ulcers, No gallbladder problem, No black,tarry stools Additional Details: Right groin pain Jefry Hematologic: No blood thinners, No blood disorders, No bleeding, No anemia, No blood clots Neuro Neurologic: No weakness Exam Const General: cooperative Orientation: alert, oriented x3 Chest Breast Palpation: No nipple discharge Resp Effort & Inspection: normal respiratory effort Auscultation: clear to auscultation bilaterally Cardio Rate: regular rate Rhythm: regular rhythm Heart Sounds: no murmurs GI Other: Patient's abdomen is soft and nondistended. He is having some lower abdominal tenderness but he relates this to his hernia. It is not reproducible on palpation. He does have a reducible left inguinal hernia. Assessment & Plan Problems 1. Left inguinal hernia K40.90 Plan The patient has a left inguinal hernia which is bothering him. The may be the cause of his abdominal cramping or could be related to his recurrent UTIs. I explained that if he had any signs of bowel obstruction such as ongoing pain or nausea or vomiting or bloating that he should present to the emergency room as soon as possible. The patient does have a reducible left inguinal hernia. I offer the patient open left inguinal hernia repair with mesh. I explained the risks of the procedure including but not limited to bleeding, infection, chronic groin pain, spermatic cord injury. Patient accepts the risks and is willing to proceed. Sami Jones MD Pager: [facility] [address] [place] [address], [address] [place] [phone] Office: Coding Level of Care Code Global Post Op Diagnoses Left inguinal hernia K40.90 07/31/18 1436 <Electronically signed by Sami Jones MD> Date Sami Jones MD I have re-examined the patient. There are no clinical changes since date of exam.
[2018-07-31 14:02] VITALS: BMI 19.3
[2018-08-12 06:42] VITALS: BP 110/82; PULSE 63; RESP 18; TEMP 36.5; O2SAT 99; BMI 17.6
[2018-08-12 07:04] LABS: Anion Gap 6 (5-15); BUN 14 mg/dL (7-18); BUN/Creat Ratio 9.8 RATIO (10-20); Calcium,Total 8.2 mg/dL (8.5-10.1); Chloride 112 mmol/L (98-107); Creatinine, Serum 1.43 mg/dL (0.70-1.30); EST Glomerular Filtration Rate 51 mL/min (>60); Est Glom Filt Rate - Afr Amer 62 mL/min (>60); Estimated Creatinine Clearance 34.81 ml/min; Glucose 82 mg/dL (74-106); Potassium 4.5 mmol/L (3.5-5.1); Sodium Level 140 mmol/L (136-145)
[2018-08-12] MEDS: Cefazolin 2 GM in 0.9% Normal Saline 100 ML IV (07:25)
--- NOTE | 2018-08-12 07:30 | HERN_PTH ---
PATIENT: ADEEL POST LOC: [facility] [place] U#:[id number] AGE/SX: 77/M ROOM: RE08/12/[address]: Dr. Sami Jones MD : 1940 BED: DIS: 08/12/2018 SPEC #: [id number] RECD: 08/12/18 10:11 STATUS: JEAN CARLOS SHAHID #: [id number] KOKO: 08/12/18 07:[address]: Sami Jones DEPT: SURGICAL PATHOLOGY RECD BY: Brandin Mckinney ENTERED: 08/12/18 11:45 SP TYPE: Hernia OTHR DR: Dr. Raissa Rayo MD Tissues: HERNIA Procedures: Surgery Specimen Level II HEADER OPERATION: Open inguinal hernia repair with poss mesh PRE-OP DIAGNOSIS: Left inguinal hernia TISSUE SUBMITTED: Hernia sac MICROSCOPIC DIAGNOSIS Hernia sac: Mesothelial-lined fibroadipose and fibroconnective tissue, consistent with hernia sac with chronic inflammation, granulation tissue reaction and reactive changes. PAIGE:michell 08/13/18 MICROSCOPIC DESCRIPTION Slides are reviewed. GROSS DESCRIPTION Received in fixative is one container labeled with the patient's name and designated hernia sac. The specimen consists of a single irregular fragment of saccular pink-pedroza soft tissue measuring 3.2 x 1.5 x 0.5 cm. The specimen is sectioned and totally submitted in one cassette. / AM:michell 08/12/18 TC:5 CPT: 07304
[2018-08-12] MEDS: Bupivacaine Mpf 0.5% 30 ML VIAL (07:45)
--- NOTE | 2018-08-12 08:22 | OP.PCM_ITS ---
Problem List (1) Left inguinal hernia Status: Acute Report of Operation Date of Procedure: 08/12/18 Pre-Operative Diagnosis: Left inguinal hernia Post-Operative Diagnosis: Left inguinal hernia Surgery/Procedure Performed:: Left inguinal hernia repair with mesh Specimen's removed: Inguinal hernia sac Description of Procedure: Patient was brought back to the operating room and MAC anesthesia was induced. Patient was still moving so general anesthesia was induced. The left inguinal region was prepped and draped in the usual sterile fashion. An incision was m arked and then anesthetized with Marcaine. An incision was made with a scalpel and 2 superficial veins were ligated with 3-0 Vicryl ties. Dissection was carried down to the external aponeurosis using electrocautery. The external aponeurosis was incised with a scalpel and hemostats were used to elevated as it was incised with scissors down to the external ring. The inguinal canal was inspected and the spermatic cord was identified and elevated and a Norman was used to encircle and elevated. All contents were elevated including the vas. Spermatic cord was inspected and an indirect sac was located and dissected free. The sac was opened and contents were reduced into the abdomen. The sac was then suture ligated using a 2-0 silk suture. The remnant of the hernia sac was reduced back into the abdomen. Next keyhole mesh was tacked to the pubic tubercle using 2-0 PDS suture. It was then tacked to the shelving portion of the inguinal ligament using interrupted 2-0 PDS sutures. The mesh was then tacked to the conjoined tendon using interrupted 2-0 PDS sutures. The tails were wrapped around the spermatic cord and tacked to themselves using a 2-0 PDS suture allowing for the tip of the pinky finger to insert adjacent to the cord. The tails were then tucked under the external aponeurosis. The inguinal canal was inspected and irrigated and suctioned dry. There is good hemostasis. The external aponeurosis was closed with a running 3-0 Vicryl suture. The Alessandro's fascia was also closed with interrupted 3-0 Vicryl sutures. The skin was closed with a running 4-0 Monocryl suture as well as glue. Scrotum was inspected after the surgery and both testicles were present. Patient was awoken and taken to PACU in stable condition. Patient tolerated the procedure well. Grafts/Implants Used: Bard keyhole mesh - Admit VTE Documentation VTE Mechan Device Prophylaxis: SCD's
--- NOTE | 2018-08-12 08:25 | DCINST_ITS ---
Discharge Diet: Light diet - advance as tolerated Discharge Activity: Return to Normal Activity, May Not Drive - for 2-3 days or while taking narcotic pain meds., May Shower - tomorrow Lifting Restrictions: 20 pounds for 4-6 weeks. Additional Activity Instructions:: Climbing stairs is fine, walking is encouraged. Sitting in bed may be uncomfortable. Sitting up using your lateral muscles (sitting up sideways) is usually more comfortable. Do not drive, work heavy equipment of sign legal documents for 24 hours. If your hernia repair was an ingunial repair, you may have scrotal swelling, an ice pack and/or athletic support can provide more comfort. Pain medications may cause nausea, you should typically eat light foods as you take your pain medications. Pain medications may also cause constipation. If you have difficulty with this, discuss with your doctor. Call your doctor if your incision/area has: Continuous Slow Oozing, Sudden Increased Bleeding, Increased Pain/ Swelling, Increased Redness, Foul Smelling Discharge Call your doctor if you observe: Fever of 101 or Higher Suture Line Care: Avoid Pulling/Pushing, Avoid Pinching/Bending Cleanse incision/area with: Soap & Water Allergies/Adverse Reactions: Allergies ciprofloxacin [From Cipro] Allergy (Verified 08/07/18 09:58) sweating, n/v wheat Adverse Reaction (Severe, Verified 08/07/18 09:58) Unknown Medications to take at Discharge Atenolol [Tenormin (beta mayda)] 12.5 mg PO DAILY 09/05/14 simvastatin 20 mg tablet 20 mg PO QHS #90 tab 05/07/18 Nitrofurantoin Monohyd/M-Cryst [Macrobid 100 mg Capsule] 100 mg PO PRN PRN 08/07/18 Hydrocodone Bitart/Apap 5-325 [[place] 5MG-325MG] 1 tablet PO Q6H PRN PRN 2 Days #10 tablet 08/12/18 The following prescriptions were given: Hydrocodone Bitart/Apap 5-325 [[place] 5MG-325MG] 1 tablet PO Q6H PRN PRN 2 Days #10 tablet PRN Reason: Pain Primary Care Physician: Raissa Rayo MD [Primary Care Provider] - Test Results: Test results from this visit will be discussed in further detail at your follow- up appointment, if applicable. Please Follow Up With: Sami Jones MD When: Please call to schedule 2 week follow up appointment. [phone]
[2018-08-12 08:28] VITALS: BP 110/82; BP 125/96; PULSE 78; RESP 16; TEMP 36.5; O2SAT 100
[2018-08-12 08:30] VITALS: BP 110/82; BP 124/91; PULSE 76; RESP 16; O2SAT 100
[2018-08-12 08:44] VITALS: BP 110/82; BP 134/84; PULSE 75; RESP 16; O2SAT 99
[2018-08-12 09:00] VITALS: BP 110/82; BP 130/90; PULSE 72; RESP 16; TEMP 36.6; O2SAT 99
[2018-08-12] MEDS: HYDROcodone Bitartrate/Apap 5/325 Tablet PO (10:34)
[2018-08-12 11:15] VITALS: BP 110/82; BP 139/95; PULSE 76; RESP 16; TEMP 36.3; O2SAT 96
== END 2018-08-12 11:31 | disposition home or self-care (01) ==
LOC: SDC 06:03 → AC 06:03
PROVIDERS: Family Provider Family Medicine; PCP Family Medicine; Referring Provider Surgery; Visit Provider Surgery
PROC: (CPT 49505; principal; 2018-08-12 07:15)
DX: K40.90 Unilateral inguinal hernia, without obstruction or gangrene, not specified as recurrent (principal); I25.10 Atherosclerotic heart disease of native coronary artery without angina pectoris; I10 Essential (primary) hypertension; E78.5 Hyperlipidemia, unspecified; Z87.442 Personal history of urinary calculi; Z87.440 Personal history of urinary (tract) infections; Z79.899 Other long term (current) drug therapy
CPT/HCPCS: 00830; 49505; 36415; 80048; 88302; J7120; C1781; J2405

== ENCOUNTER → 2019-05-15 07:50 | Outpatient (CLI) | payer MEDICARE, OTHER, SELFPAY ==
[2019-05-12 14:46] VITALS: BMI 19.6
[2019-05-15 08:51] LABS: AST(SGOT) 25 U/L (15-37); Alanine Aminotransfer ALT/SGPT 26 U/L (16-61); Albumin, Serum 3.5 g/dL (3.2-5.0); Alkaline Phosphatase 144 U/L (45-117); Bilirubin, Direct 0.23 mg/dL (0.00-0.30); Cholesterol 101 mg/dL (200); Globulin 3.7 g/dL (2.2-4.2); High Density Lipoprotein 35 mg/dL; Protein, Total 7.2 g/dL (6.4-8.2); Triglycerides 74 mg/dL; Very Low Density Lipoprotein 15 mg/dL (5-40)
== END ==
PROVIDERS: Referring Provider Internal Medicine Cardiovascular Disease; Visit Provider Internal Medicine Cardiovascular Disease
DX: E78.00 Pure hypercholesterolemia, unspecified (principal)
CPT/HCPCS: 36415; 80061; 80076

== ENCOUNTER → 2019-06-29 12:55 | Outpatient (CLI) | payer MEDICARE, OTHER, SELFPAY ==
[2019-05-12 14:46] VITALS: BMI 19.6
--- NOTE | 2019-06-29 12:57 | ECHOD_ITS ---
Reason For Study: MVP Procedure This was a 2D Doppler, Color Flow transthoracic echocardiogram. The exam was of adequate technical quality. Exam performed in department. Left Ventricle Normal LV size. Left ventricular systolic function is normal. The estimated ejection fraction is 60 %. No evidence for diastolic dysfunction. No regional wall motion abnormalities noted. Right Ventricle Normal RV size. Normal systolic function. Atria The left atrium is mildly enlarged. Normal right atrium. No doppler evidence for ASD. Mitral Valve There is no mitral annular calcification. Mild diffuse mitral valve thickening. Myxomatous mitral valve. Mild mitral valve prolapse. Mild-Moderate (1-2+) mitral valve insufficiency. Tricuspid Valve Myxomatous appearing tricuspid valve. Mild tricuspid valve insufficiency. Right ventricular systolic pressure estimated to be 25 mmHg. Aortic Valve Trisinus/trileaflet aortic valve. Mild diffuse aortic valve thickening. Trivial aortic valve insufficiency. Pulmonic Valve The pulmonic valve is not well visualized. Great Vessels Normal sized aortic root. Pericardium/Pleural No pericardial effusion. MMode/2D Measurements & Calculations LVIDd: 4.5 cm IVSd: 0.91 cm Ao root diam: 3.6 cm LVIDs: 2.8 cm LVPWd: 0.92 cm RVDd: 3.1 cm FS: 36.0 % LAV(MOD-bp): 50.3 ml LA A4 area: 17.9 cm2 LA dimension(2D): 3.9 cm LAV(MOD-bp) Indexed: 28.3 ml/m2 LAV(MOD-sp2): 49.5 ml LAV(MOD-sp4): 49.4 ml RA A4 area: 13.8 cm2 Time Measurements MV dec time: 0.27 sec Doppler Measurements & Calculations MV E max guy: 58.1 cm/sec Lat Peak E' Guy: 5.4 cm/sec Med Peak E' Guy: 5.1 cm/sec MV A max guy: 98.9 cm/sec E/E' lat: 10.7 E/E' med: 11.4 MV E/A: 0.59 Ao V2 max: 116.0 cm/sec LV V1 max: 97.8 cm/sec PA V2 max: 56.0 cm/sec Ao max P.4 mmHg LV V1 max P.8 mmHg TR max guy: 235.9 cm/sec TR max P.3 mmHg Interpretation Summary Left ventricular systolic function is normal. The estimated ejection fraction is 60 %. The left atrium is mildly enlarged. Myxomatous mitral valve. Mild mitral valve prolapse. Mild diffuse mitral valve thickening. Mild-Moderate (1-2+) mitral valve insufficiency. Myxomatous appearing tricuspid valve. Mild tricuspid valve insufficiency. Mild diffuse aortic valve thickening. Right ventricular systolic pressure estimated to be 25 mmHg. No evidence for diastolic dysfunction. 2D echocardiographic images c/w mobile objects and linear echodensities in the subtricuspid valve area c/w redundant chordae tendonae. Ordering Physician: Julio Cesar Hope Referring Physician: Raissa Rayo Performed By: Farida Miller, CARLOS ALBERTO, RVT
== END ==
PROVIDERS: PCP Family Medicine; Referring Provider Internal Medicine Cardiovascular Disease; Visit Provider Internal Medicine Cardiovascular Disease
DX: I25.10 Atherosclerotic heart disease of native coronary artery without angina pectoris (principal)
CPT/HCPCS: 93306

== ENCOUNTER → 2019-09-13 14:17 | Outpatient (CLI) | payer MEDICARE, OTHER, SELFPAY ==
[2019-05-12 14:46] VITALS: BMI 19.6
[2019-09-13 15:49] LABS: PSA,Total- Diagnostic < 0.01 ng/mL (0.0-4.0)
== END ==
PROVIDERS: PCP Family Medicine; Referring Provider Urology; Visit Provider Urology
DX: Z85.46 Personal history of malignant neoplasm of prostate (principal)
CPT/HCPCS: 36415; 84153

== ENCOUNTER → 2019-11-06 08:07 | Outpatient (CLI) | payer MEDICARE, OTHER, SELFPAY ==
[2019-05-12 14:46] VITALS: BMI 19.6
[2019-11-06 08:35] LABS: Absolute Lymphocyte Count 1.41 X10^3/uL (0.83-4.51); Basophil# 0.06 X10^3/uL; Eosinophil# 0.57 X10^3/uL; Eosinophils% 9.5 % (0-5); Hematocrit 42.2 % (40-54); Hemoglobin 13.7 g/dL (13.0-16.5); Lymphocyte # 1.41 X10^3/ul (4.0); Lymphocyte % 23.6 % (19-41); Mean Corp Hgb Conc 32.5 g/dL (32-36); Mean Corpuscular Hgb 30.2 pg (27.0-32.0); Mean Corpuscular Volume 93.2 fL (80-94); Mean Platelet Vol. 9.6 fl (6.2-12.0); Monocyte% 15.1 % (0-10); NRBC Flagged by Analyzer 0 % (0-5); Neutrophil # 3.04 X10^3/uL (2.7-7.7); Neutrophil % 50.8 % (47-70); Platelet Count 300 K/mm3 (150-450); RBC Distribution Width CV 13.7 % (11.6-14.6); RBC Distribution Width SD 47.3 fl (35.1-43.9); Red Blood Count 4.53 M/mm3 (4.6-6.2)
[2019-11-06 08:57] LABS: ALB/GLOB Ratio 0.9 RATIO (0.9-2.4); AST(SGOT) 22 U/L (15-37); Alanine Aminotransfer ALT/SGPT 25 U/L (16-61); Albumin, Serum 3.7 g/dL (3.2-5.0); Alkaline Phosphatase 119 U/L (45-117); Anion Gap 4 (5-15); BUN 20 mg/dL (7-18); BUN/Creat Ratio 12.6 RATIO (10-20); Calcium,Total 8.6 mg/dL (8.5-10.1); Chloride 108 mmol/L (98-107); Cholesterol 138 mg/dL (200); Creatinine, Serum 1.59 mg/dL (0.70-1.30); EST Glomerular Filtration Rate 45 mL/min (>60); Est Glom Filt Rate - Afr Amer 54 mL/min (>60); Globulin 3.9 g/dL (2.2-4.2); Glucose 89 mg/dL (74-106); High Density Lipoprotein 39 mg/dL; Potassium 5.2 mmol/L (3.5-5.1); Protein, Total 7.6 g/dL (6.4-8.2); Sodium Level 139 mmol/L (136-145); Triglycerides 92 mg/dL; Very Low Density Lipoprotein 18 mg/dL (5-40)
== END ==
PROVIDERS: PCP Family Medicine; Referring Provider Family Medicine; Visit Provider Family Medicine
DX: N18.3 Chronic kidney disease, stage 3 (moderate) (principal); E78.5 Hyperlipidemia, unspecified
CPT/HCPCS: 36415; 80053; 80061; 85025

== ENCOUNTER 2020-05-01 16:48 | Outpatient (RCR) | payer MEDICARE, OTHER, SELFPAY ==
[2019-11-11 13:12] VITALS: BMI 19.2
== END 2020-05-01 23:59 ==
LOC: IMMUN 16:48
PROVIDERS: PCP Family Medicine; Visit Provider Family Medicine
DX: Z23 Encounter for immunization (principal)
CPT/HCPCS: 0011A; 0012A

== ENCOUNTER → 2020-10-25 08:48 | Outpatient (CLI) | payer MEDICARE, OTHER, SELFPAY ==
[2020-08-21 13:33] VITALS: BMI 19.4
[2020-10-25 09:45] LABS: PSA,Total- Diagnostic 0.01 ng/mL (0.0-4.0)
== END ==
PROVIDERS: PCP Family Medicine; Referring Provider Urology; Visit Provider Urology
DX: Z85.46 Personal history of malignant neoplasm of prostate (principal)
CPT/HCPCS: 36415; 84153

== ENCOUNTER → 2020-11-13 08:03 | Outpatient (CLI) | payer MEDICARE, OTHER, SELFPAY ==
[2020-11-13 09:27] LABS: Absolute Lymphocyte Count 1.39 X10^3/uL (0.83-4.51); Absolute Neutrophil Count 3.5 X10^3/uL (2.0-7.7); Basophil# 0.04 X10^3/uL; Basophil% 0.7 % (0-1); Eosinophil# 0.46 X10^3/uL; Eosinophils% 7.5 % (0-5); Hematocrit 41.8 % (40-54); Hemoglobin 13.5 g/dL (13.0-16.5); Lymphocyte # 1.39 X10^3/ul (0.83-4.51); Lymphocyte % 22.8 % (19-41); Mean Corp Hgb Conc 32.3 g/dL (32-36); Mean Corpuscular Hgb 30.3 pg (27.0-32.0); Mean Corpuscular Volume 93.9 fL (80-94); Mean Platelet Vol. 10.4 fl (6.2-12.0); Monocyte# 0.75 X10^3/uL; Monocyte% 12.3 % (0-10); NRBC Flagged by Analyzer 0 % (0-5); Neutrophil # 3.45 X10^3/uL (2.7-7.7); Neutrophil % 56.5 % (47-70); Platelet Count 265 K/mm3 (150-450); RBC Distribution Width CV 14.1 % (11.6-14.6); RBC Distribution Width SD 48.6 fl (35.1-43.9); Red Blood Count 4.45 M/mm3 (4.6-6.2); White Blood Count 6.1 K/mm3 (4.4-11.0)
[2020-11-13 10:07] LABS: ALB/GLOB Ratio 0.9 RATIO (0.9-2.4); AST(SGOT) 24 U/L (15-37); Alanine Aminotransfer ALT/SGPT 29 U/L (16-61); Albumin, Serum 3.2 g/dL (3.2-5.0); Alkaline Phosphatase 92 U/L (45-117); Anion Gap 7 (5-15); BUN 18 mg/dL (7-18); Calcium,Total 8.5 mg/dL (8.5-10.1); Chloride 108 mmol/L (98-107); Cholesterol 140 mg/dL (200); EST Glomerular Filtration Rate 48 mL/min (>60); Est Glom Filt Rate - Afr Amer 58 mL/min (>60); Globulin 3.7 g/dL (2.2-4.2); Glucose 88 mg/dL (74-106); High Density Lipoprotein 37 mg/dL; Potassium 3.8 mmol/L (3.5-5.1); Protein, Total 6.9 g/dL (6.4-8.2); Sodium Level 139 mmol/L (136-145); Triglycerides 86 mg/dL; Very Low Density Lipoprotein 17 mg/dL (5-40)
== END ==
PROVIDERS: PCP Family Medicine; Visit Provider Family Medicine
DX: N18.30 Chronic kidney disease, stage 3 unspecified (principal); E78.5 Hyperlipidemia, unspecified
CPT/HCPCS: 36415; 80053; 80061; 85025

== ENCOUNTER 2021-06-05 10:36 | Outpatient (CLI) | payer MEDICARE, OTHER, SELFPAY ==
--- NOTE | 2021-06-05 10:41 | ECHOD_ITS ---
Reason For Study: ASHD, MV DISORDER Procedure This was a 2D Doppler, Color Flow transthoracic echocardiogram. The exam was of adequate technical quality. Exam performed in department. Left Ventricle Normal LV size. Left ventricular systolic function is normal. The estimated ejection fraction is 65 %. No evidence for diastolic dysfunction. No regional wall motion abnormalities noted. Right Ventricle Normal RV size. Normal systolic function. Atria The left atrium is mildly enlarged. Normal right atrium. No doppler evidence for ASD. Mitral Valve There is no mitral annular calcification. Mild diffuse mitral valve thickening. Mild mitral valve prolapse. Mild-Moderate (1-2+) eccentric mitral valve insufficiency. Tricuspid Valve Myxomatous appearing tricuspid valve. Mild to moderate (1-2+) eccentric tricuspid valve insufficiency. Right ventricular systolic pressure estimated to be 26 mmHg. Aortic Valve Trisinus/trileaflet aortic valve. Mild diffuse aortic valve thickening. Pulmonic Valve The pulmonic valve is not well visualized. Trivial pulmonic valve insufficiency. Great Vessels Normal sized aortic root. Pericardium/Pleural No pericardial effusion. MMode/2D Measurements & Calculations LVIDd: 4.6 cm IVSd: 0.97 cm Ao root diam: 3.8 cm LVIDs: 2.8 cm LVPWd: 1.0 cm RVDd: 3.0 cm FS: 38.8 % LAV(MOD-bp): 54.0 ml LA A4 area: 18.4 cm2 LA dimension(2D): 4.3 cm LAV(MOD-bp) Indexed: 30.1 ml/m2 LAV(MOD-sp2): 52.2 ml LAV(MOD-sp4): 52.3 ml RA A4 area: 14.9 cm2 Time Measurements MV dec time: 0.27 sec Doppler Measurements & Calculations MV E max guy: 67.8 cm/sec Lat Peak E' Guy: 5.9 cm/sec Med Peak E' Ugy: 6.6 cm/sec MV A max guy: 109.0 cm/sec E/E' lat: 11.4 E/E' med: 10.2 MV E/A: 0.62 Ao V2 max: 110.6 cm/sec LV V1 max: 106.9 cm/sec PA V2 max: 57.1 cm/sec Ao max P.9 mmHg LV V1 max P.6 mmHg TR max guy: 241.5 cm/sec TR max P.3 mmHg ECHO/Echo Complete Interpretation Summary Left ventricular systolic function is normal. The estimated ejection fraction is 65 %. The left atrium is mildly enlarged. Mild diffuse mitral valve thickening. Mild mitral valve prolapse. Mild-Moderate (1-2+) eccentric mitral valve insufficiency. Myxomatous appearing tricuspid valve. Mild to moderate (1-2+) eccentric tricuspid valve insufficiency. Mild diffuse aortic valve thickening. Trivial pulmonic valve insufficiency. Right ventricular systolic pressure estimated to be 26 mmHg. No evidence for diastolic dysfunction. 2D echocardiographic images c/w mobile objects and linear echodensities in the subtricuspid valve area c/w redundant chordae tendonae. Ordering Physician: Julio Cesar Hope Referring Physician: Raissa Rayo Performed By: Farida Miller, CARLOS ALBERTO, RVT
== END 2021-06-05 23:59 | disposition home or self-care (01) ==
LOC: CVS 10:40
PROVIDERS: PCP Family Medicine; Referring Provider Internal Medicine Cardiovascular Disease; Visit Provider Internal Medicine Cardiovascular Disease
DX: I25.10 Atherosclerotic heart disease of native coronary artery without angina pectoris (principal); I34.9 Nonrheumatic mitral valve disorder, unspecified; I36.1 Nonrheumatic tricuspid (valve) insufficiency
CPT/HCPCS: 93306

== ENCOUNTER 2021-06-12 07:58 | Outpatient (CLI) | payer MEDICARE, OTHER, SELFPAY ==
[2021-06-12 08:32] LABS: AST(SGOT) 23 U/L (15-37); Alanine Aminotransfer ALT/SGPT 23 U/L (16-61); Albumin, Serum 3.6 g/dL (3.2-5.0); Alkaline Phosphatase 91 U/L (45-117); Bilirubin, Direct 0.23 mg/dL (0.00-0.30); Cholesterol 160 mg/dL (200); Globulin 3.7 g/dL (2.2-4.2); High Density Lipoprotein 39 mg/dL; Protein, Total 7.3 g/dL (6.4-8.2); Triglycerides 98 mg/dL; Very Low Density Lipoprotein 20 mg/dL (5-40)
== END 2021-06-12 23:59 | disposition home or self-care (01) ==
LOC: LAB 07:59
PROVIDERS: PCP Family Medicine; Referring Provider Internal Medicine Cardiovascular Disease; Visit Provider Internal Medicine Cardiovascular Disease
DX: E78.00 Pure hypercholesterolemia, unspecified (principal)
CPT/HCPCS: 36415; 80061; 80076

== ENCOUNTER → 2021-07-02 | Outpatient (CLI) | payer MEDICARE, OTHER, SELFPAY ==
--- NOTE | 2021-07-02 09:48 | CDU_ITS ---
Reason For Study: dizziness Rt. Velocities/BP Lt. Velocities/BP Prox CCA 109.9/23.9 cm/sec. Prox CCA 99.5/18.6 cm/sec. Mid CCA 70.8/17.3 cm/sec. Mid CCA 78.6/13.4 cm/sec. Dist CCA 85.2/22.6 cm/sec. Dist CCA 66.9/16.0. cm/sec. Prox ICA 66.9/14.7 cm/sec. Prox ICA 35.5/10.2 cm/sec. Mid ICA 48.6/17.3 cm/sec. Mid ICA 36.6/11.3 cm/sec. Dist ICA 69.5/22.6 cm/sec. Dist ICA 70.6/23.4 cm/sec. Rt. ICA/CCA = 1.0. Lt. ICA/CCA = .9. Prox ECA 70.8/12.1 cm/sec. Prox ECA 78.6/10.8 cm/sec. Rt. Vert. 44.7/14.7 cm/sec. Lt. Vert. 50.9/15.7 cm/sec. Right Extracranial There is intimal thickening but no significant atherosclerotic plaque noted in the right common carotid artery. There is intimal thickening but no significant atherosclerotic plaque noted in the right internal carotid artery. There is intimal thickening but no significant atherosclerotic plaque noted in the right external carotid artery. Antegrade flow is noted in the right vertebral artery. Left Extracranial There is intimal thickening but no significant atherosclerotic plaque noted in the left common carotid artery. There is intimal thickening but no significant atherosclerotic plaque noted in the left internal carotid artery. There is intimal thickening but no significant atherosclerotic plaque noted in the left external carotid artery. Antegrade flow is noted in the left vertebral artery. Procedure Carotid Duplex [id number]. This is a Carotid Duplex examination using B-mode, color flow and specral Doppler. The exam was diagnostic. Exam performed in department. VL/Carotid Duplex Ultrasound Interpretation Summary Mild (<50%) stenosis right extracranial internal carotid. Mild (<50%) stenosis left extracranial internal carotid. Flow within the vertebral arteries is antegrade bilaterally. Ordering Physician: Julio Cesar Hope Performed By: Jan Sosa RVT
== END | disposition home or self-care (01) ==
LOC: CVS 09:46
PROVIDERS: PCP Family Medicine; Referring Provider Internal Medicine Cardiovascular Disease; Visit Provider Internal Medicine Cardiovascular Disease
DX: R42 Dizziness and giddiness (principal); I10 Essential (primary) hypertension; E78.5 Hyperlipidemia, unspecified; I25.10 Atherosclerotic heart disease of native coronary artery without angina pectoris
CPT/HCPCS: 93880

== ENCOUNTER → 2021-08-02 | Outpatient (CLI) | payer MEDICARE, OTHER, SELFPAY ==
--- NOTE | 2021-08-02 09:05 | RAD_ITS ---
STUDY: X-RAY - RIGHT SHOULDER REASON FOR EXAM: Male, 80 years old. Lump over AC joint. TECHNIQUE: 4 view(s) of the shoulder. COMPARISON: None. FINDINGS: Osteopenia. Moderate arthrosis of the glenohumeral joint. Moderate arthrosis of the AC joint. Normal acromion. Normal humeral head and visualized proximal humerus. Focal soft tissue prominence of the distal clavicle. Normal visualized pulmonary apex. 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 Focal soft tissue prominence over the distal clavicle. No acute osseous abnormality. Electronically Signed: Oneal Villeda MD at 9:50 EDT ,
== END | disposition home or self-care (01) ==
LOC: MTRAD 09:01
PROVIDERS: PCP Family Medicine; Referring Provider Family Medicine; Visit Provider Family Medicine
DX: M24.9 Joint derangement, unspecified (principal)
CPT/HCPCS: 73030

== ENCOUNTER → 2021-08-04 | Outpatient (CLI) | payer MEDICARE, OTHER, SELFPAY ==
--- NOTE | 2021-08-04 08:49 | US_ITS ---
STUDY: SUPERFICIAL ULTRASOUND - SOFT TISSUE OVER THE RIGHT CLAVICLE REASON FOR EXAM: Male, 80 years old. Lump TECHNIQUE: A superficial ultrasound was performed with real-time and static meng-scale imaging. COMPARISON: None. FINDINGS: Sonographic evaluation of the subcutaneous tissue near the right clavicle shows 2 cystic nodules noted. One is a cyst with debris measuring 1.3 x 1.4 x 1.0 cm, the other is a complex cyst measuring 2.2 x 1.8 x 1.4 cm. Demonstrated blood flow within the structures or hyperemia around them, no connection to the skin is identified. US/Ext Non Vasc Limited/Soft Tiss IMPRESSION: Follow-up corresponds to 2 separate subcutaneous cystic structures, one has echogenic debris, the other is a complex cyst. No sinus tract to the skin visualized, no blood flow. Electronically Signed: Nick Morrissey MD at 12:04 EDT ,
== END | disposition home or self-care (01) ==
LOC: US 08:47
PROVIDERS: PCP Family Medicine; Referring Provider Family Medicine; Visit Provider Family Medicine
DX: M24.9 Joint derangement, unspecified (principal)
CPT/HCPCS: 76882

== ENCOUNTER 2021-08-11 08:41 | Emergency (ER) | payer MEDICARE, OTHER, SELFPAY ==
[2021-08-11 08:42] VITALS: BP 112/92; PULSE 58; RESP 14; TEMP 36.6; O2SAT 95; BMI 21.2
--- NOTE | 2021-08-11 09:34 | RAD_ITS ---
STUDY: X-RAY - RIGHT HAND, ATTENTION FOURTH FINGER REASON FOR EXAM: Male, 80 years old. pain and swelling since this morning right ring finger, no injury TECHNIQUE: 3 view(s) of the finger were obtained. COMPARISON: None. FINDINGS: Diffuse demineralization of the bony structures. No visualized acute fracture or displaced bony fragment. Mild to moderate narrowing of the IP joints with cortical spurring seen in the IP. Mild to moderate bulbous soft tissue swelling is present around the PIP joint of the fourth digit. Normal metacarpal head. Normal metacarpophalangeal joint. Normal proximal phalanx. Normal middle phalanx. Normal distal phalanx. RAD/Finger(s) Min 2 Views IMPRESSION: 1. Degenerative changes and mild to moderate soft tissue swelling around the fourth PIP joint. Electronically Signed: Armond Olivarez MD at 10:14 EDT ,
--- NOTE | 2021-08-11 09:34 | EX.ED.UPPERE ---
HPI History of Present Illness Chief Complaint: Upper Extremity Injury Detail of Chief Complaint: Pain and swelling to right ring finger for about 10 days. Informant: patient and spouse/S.O. Narrative Narrative: Patient presents with pain and swelling to right ring finger that started 10 days ago. Patient has not had any injury or trauma to the finger. Patient states pain was a 10 out of 10 last night. Patient states it swollen and difficult to move because of the pain. He has had no fevers. No cuts or puncture wound to the finger. PFSH [facility] Medical History (Updated 08/11/21 @ 10:[address] 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 Perforated appendicitis Recurrent right inguinal hernia Right bundle branch block Shingles Ureteral stone with hydronephrosis UTI (urinary tract infection) Home Medications simvastatin 20 mg tablet 20 mg PO QHS #90 tab 11/11/19 [Rx Last Taken Unknown] atenolol 25 mg tablet 12.5 mg PO DAILY #45 tab 03/09/21 [Rx Last Taken Unknown] valacyclovir 1 gram tablet 1,000 mg PO TID #21 tab 07/18/21 [Rx Last Taken Unknown] cephalexin 500 mg PO Q6 #40 capsule 08/11/21 [Rx Last Taken Unknown] hydrocodone-acetaminophen 1 tab PO Q4H PRN PRN 2 Days #10 tablet 08/11/21 [Rx Last Taken Unknown] prednisone 20 mg PO BID #20 tab 08/11/21 [Rx Last Taken Unknown] Allergy/AdvReac Type Severity Reaction Status Date / Time ciprofloxacin [From Cipro] Allergy sweating, Verified 08/11/21 08:44 n/v wheat AdvReac Severe Unknown Verified 08/11/21 08:44 Family History Father CAD (coronary artery disease) Hx of CABG Brother Hypertension Surgical History history lithrotripsy for kidney stones History of appendectomy History of left inguinal hernia repair (~08/2018) History of partial surgical removal of colon History of prostatectomy History of right inguinal hernia repair Social History Smoking Status: Never smoker alcohol intake: never substance use type: does not use ROS ROS ED Constitutional Constitutional ED: Reports systems reviewed and no addt'l complaints, except as documented; Denies body ache(s), change in weight or chills Eyes Eyes: Denies acute decrease in peripheral vision, change in vision, double vision or loss of vision ENT ENT ED: Reports none; Denies ear pain, lip swelling, loss taste/smell, neck pain, otalgia or sore throat Cardiovascular Cardiovascular: Reports none; Denies abdominal pain, chest pain with activity, leg edema, lightheadedness, palpitations, rapid heart rate or syncope Respiratory/Chest Respiratory/Chest: Reports none; Denies change in mental status, dry cough, dyspnea, hemoptysis, shortness of breath at rest or shortness of breath with exertion Gastrointestinal Gastrointestinal: Reports none; Denies abdominal pain, change in stool character, diarrhea, hematemesis, hematochezia, melena, rectal bleeding or vomiting Genitourinary Genitourinary ED: Reports none; Denies abdominal discomfort, anuria, dysuria, genital pain or polyuria Musculoskeletal Musculoskeletal: Reports none and other Details: Pain and swelling to the right ring finger ; Denies arthralgias, back pain, difficulty walking, extremity pain, muscle weakness or myalgias Integumentary Reports none; Denies abscess or rash Neurologic Neurologic: Reports none; Denies abnormal gait, confusion, focal weakness, frequent falls, headache(s), loss of vision, numbness, paresthesias, radicular pain, vertigo or weakness Psychiatric Psychiatric: Reports systems reviewed and no addt'l complaints, except as documented and none; Denies behavioral changes, confusion, difficulty concentrating, hallucinations, suicidal ideation, tactile hallucinations or visual hallucinations Endocrine Endocrinology: Denies none, cold intolerance, excessive sweating, fatigue or heat intolerance Hematologic/Lymphatic Hematologic/Lymphatic: Reports none; Denies anemia, easy bleeding or easy bruising Allergic/Immunologic Allergic/Immunologic ED: Denies as per HPI, none, lip swelling, mouth swelling, throat swelling, tongue swelling or hives EXAM Physical Exam Const Vital Signs: 08/11/21 08:42 Temperature 97.9 F Temperature Source Temporal Pulse Rate 58 L Respiratory Rate 14 Blood Pressure 112/92 H Blood Pressure Mean 98 Pulse Ox 95 Oxygen Delivery Method Room Air Positive well nourished and well developed General Appearance ED: well developed and NAD HEENT Reports TM's clear and moist mucous membranes normocephalic and atraumatic; Negative for trauma or tenderness Tympanic Membrane ED: Yes TM's clear Eyes PERRL and EOMs intact bilaterally General Eye ED: Negative for pale conjunctiva or scleral icterus Neck no lymphadenopathy, supple and no JVD General: Negative for tenderness Chest Wall inspection of chest normal and palpation of chest normal Chest: Negative for tenderness Resp normal respiratory effort and clear to auscultation bilaterally Effort and Inspection: Negative for respiratory distress or pain with movement Auscultation: Negative for rhonchi, wheezes or diminished lung sounds Cardio regular rate, regular rhythm, S1 normal heart sound, S2 normal heart sound and no murmurs Peripheral Pulses: pulses 2+ throughout GI normal to inspection, nondistended, normoactive bowel sounds, soft to palpation, non-tender, non-distended and no masses Back/Spine no CVA tenderness and no thoracic nor lumbar tenderness Extremity Extremity Narrative: Evaluation of the right ring finger does reveal diffuse soft tissue swelling over the PIP joint. Patient has some faint ecchymosis over the dorsal aspect of the PIP joint. Patient has some faint erythema to the volar aspect of the PIP joint. Patient has limited flexion secondary to pain and swelling. He is neurovascular intact distally. General Extremety ED: Negative for edema General Extremity: Negative for edema Neuro oriented x3, CN's II-XII intact bilaterally, no sensory deficits noted and gait normal Sensorium / Orientation: awake, alert, oriented to person, oriented to place and oriented to time Motor Exam: strength 5/5 throughout and strength abnormal Psych mental status grossly normal Skin no rashes or lesions noted and no wounds MDM MDM MDM Narrative Medical decision making narrative: X-rays of the right ring finger obtained 3 views interpreted by myself as no acute fractures or foreign bodies. Radiology felt there was degenerative changes otherwise some mild soft tissue swelling and nothing acute otherwise. Patient will be placed in aluminum splint. Patient will be given a prescription for prednisone and Keflex as well as a few [place] for pain. Etiology of the pain and swelling unclear. He has no history of gout. Patient advised to follow-up with primary care physician within next 3 to 5 days. Discharge Plan Triage Chief Complaint: Upper Extremity Injury ED Provider: Amanda Desai Dx/Rx/DC Orders Clinical Impression: Finger pain, right Instructions: ED Pain, Acute, Uncertain Cause Prescriptions: New cephalexin [cephalexin] 500 MG capsule 500 mg PO Q6 Qty: 40 RF: 0 prednisone 20 mg tablet 20 mg PO BID Qty: 20 RF: 0 hydrocodone-acetaminophen [hydrocodone-acetaminophen] 1 TABLET tablet 1 tab PO Q4H PRN PRN (Reason: Pain) 2 Days Qty: 10 RF: 0 No Action simvastatin 20 mg tablet 20 mg PO QHS Qty: 90 RF: 3 valacyclovir [Valtrex] 1 gram tablet 1,000 mg PO TID Qty: 21 RF: 0 atenolol 25 mg tablet 12.5 mg PO DAILY Qty: 45 RF: 3 Primary Care Provider: Raissa Rayo Referrals: Raissa Rayo MD [Primary Care Provider] - 3-5 Days Disposition Disposition: Home, Self Care
== END 2021-08-11 10:44 | disposition home or self-care (01) ==
PROVIDERS: Emergency Provider Emergency Medicine; PCP Family Medicine; Visit Provider Emergency Medicine
DX: M79.644 Pain in right finger(s) (principal); I10 Essential (primary) hypertension; I25.10 Atherosclerotic heart disease of native coronary artery without angina pectoris; Z79.899 Other long term (current) drug therapy
CPT/HCPCS: 73140; 99283

== ENCOUNTER → 2021-08-16 | Outpatient (CLI) | payer MEDICARE, OTHER, SELFPAY ==
--- NOTE | 2021-08-15 13:00 | FLU_PTH ---
PATIENT: ADEEL POST LOC: [facility] U#:[id number] AGE/SX: 80/M ROOM: RE08/16/[address]: Dr. Sami Jones MD : 1940 BED: DIS: 08/16/2021 SPEC #: [id number] RECD: 08/15/21 16:25 STATUS: JEAN CARLOS SHAHID #: [id number] KOKO: 08/15/21 13:[address]: Sami Jones DEPT: CYTOLOGY RECD BY: Sandy De ENTERED: 08/16/21 13:24 SP TYPE: Fluid OTHR DR: Dr. Raissa Rayo MD Tissues: Shoulder, NOS Procedures: Special Stain Group II Surgery Specimen Level IV Cytospin Fluid HEADER OPERATION: Right shoulder cyst, fine needle aspiration PRE-OP DIAGNOSIS: Right shoulder cyst TISSUE SUBMITTED: Right shoulder cyst DIAGNOSIS CYTOLOGY Right shoulder cyst, fine needle aspiration (cytospin and cell block): Negative for malignant cells. See comment. PAIGE:michell 08/17/2021 COMMENT Clinical correlation and appropriate follow up are necessary. CYTOLOGY STUDY Slides are reviewed. CYTOLOGY GROSS Received is 4 ml of thick red cloudy fluid labeled with the patient's name and and designated per the requisition as right shoulder cyst. Submitted for cytology preparation including cell block. / michell 08/16/2021 TC:5 CPT: 80711, 97437
== END | disposition home or self-care (01) ==
LOC: LABSPEC 13:10
PROVIDERS: PCP Family Medicine; Visit Provider Surgery
DX: L72.9 Follicular cyst of the skin and subcutaneous tissue, unspecified (principal)
CPT/HCPCS: 88108; 88305; 88313

== ENCOUNTER 2021-10-12 06:31 | Day surgery (SDC) | payer MEDICARE, OTHER, SELFPAY ==
[2021-10-12] VITALS (8 sets, daily range): BP systolic 90–123; BP diastolic 65–81; PULSE 48–55; RESP 16–18; TEMP 36–36.2; O2SAT 94–100; BMI 18.3
--- NOTE | 2021-10-12 06:47 | HP.PCM_ITS ---
History and Physical Date of Admission: 10/12/21 Intake Vital Signs ? 06/08/2213:37 08/12/2207:42 08/15/2212:07 Height 5 ft 10 in 5 ft 8 in 5 ft 10 in Weight: ? 140 lb 131 lb 6 oz BMI ? 21.2 18.8 BP ? 112/92 H 106/64 Blood Pressure Location ? ? Rt brachial Position ? ? Sitting Respiration ? 14 16 Pulse ? 58 L 61 Pulse Source ? ? Monitor Temp ? 97.9 F 97.8 F Temp Source ? Temporal Temporal Pulse Oximetry (%) ? 95 95 Oxygen Delivery Method ? ? room air Intake Visit Reasons:?CYST RIGHT SHOULDER Chief Complaint: cyst right shoulder Associate Store Manager Required: No Accompanied by: Is patient in pain?: No Allergies ciprofloxacin [From Cipro] Allergy (Verified 08/15/21 13:10) sweating, n/vwheat Adverse Reaction (Severe, Verified 08/15/21 13:10) Unknown Medications simvastatin 20 mg tablet 20 mg PO QHS cholesterol? #90 tabs 11/11/19 [Rx Confirmed 08/15/21] atenolol 25 mg tablet 12.5 mg PO DAILY heart rate #45 tabs 03/09/21 [Rx Confirmed 08/15/21] valacyclovir 1 gram tablet (Valtrex) 1,000 mg PO TID #21 tabs 07/18/21 [Rx Confirmed 08/15/21] cephalexin 500 mg capsule 500 mg PO Q6 #40 CAPSULES 08/11/21 [Rx Confirmed 08/15/21] hydrocodone-acetaminophen 5-325mg 5mg-325mg 1 tab PO Q4H PRN PRN Pain 2 days #10 TABLETS 08/11/21 [Rx Confirmed 08/15/21] prednisone 20 mg tablet 20 mg PO BID #20 tabs 08/11/21 [Rx Confirmed 08/15/21] PFSH Medical History?(Updated 08/15/21 @ 13:[address] 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 history lithrotripsy for kidney stones History of appendectomy History of left inguinal hernia repair (~08/2018) History of partial surgical removal of colon History of prostatectomy History of right inguinal hernia repair Family History? Father?? CAD (coronary artery disease) Hx of CABGBrother Hypertension Social History? Smoking Status:? Never smoker alcohol intake:? never substance use type:? does not use HPI HPI HPI: ADEEL POST, is a 80 M who presents to the office today for cyst on the right older.? The patient reports is been there for several months and is growing more firm and bothering him occasionally.? It is never drained.? He is not having fevers or chills.? There is no erythema.? Patient also notes that he is due for colonoscopy.? His last colonoscopy was in 2018 he had 7 polyps removed and was recommended to repeat in 3.? He is not having any abdominal pain or blood in the stool. ROS General General: No weight change, appetite, fatigue, colon cancer, breast cancer or weakness HEENT HEENT: No difficulty swallowing, eye injury, eye surgery, swollen glands or hoarseness Endo Endocrine: No thyroid disease, diabetes mellitus, thyroid cancer, Hair loss, heat intolerance or cold intolerance Skin Skin: No rash or changing moles Breast Breast: No left breast lump, right breast lump, nipple discharge, breast pain, abnormal mammogram, abnormal US or breast enlargement Musc Musculoskeletal: Yes arthritis; No back problems, rheumatoid arthritis, gout or joint pain Psych Psychiatric: No depression, anxiety or hearing voices Resp Respiratory: No shortness of breath, No sleep apnea, No cough, No COPD, No asthma, No emphysema and No wheezing Gastro Gastrointestinal: No abdominal pain, No nausea or vomiting, No diarrhea, No constipation, No blood in stool, No acid reflux, No hemorrhoids, No ulcers, No gallbladder problem and No black,tarry stools Jefry Hematologic: No blood thinners, No blood disorders, No bleeding, No anemia and No blood clots Neuro Neurologic: No system reviewed and no additional complaints, except as documented, No as per HPI, No abnormal gait, No abnormal hearing, No abnormal movements, No abnormal speech, No behavioral changes, No burning sensations, No confusion, No convulsions, No disequilibrium, No dizziness, No localized weakness, No frequent falls, No headache(s), No lack of coordination, No loss of vision, No memory loss, No numbness, No other visual disturbances, No radicular pain, No restless legs, No sensory deficit, No syncope, No tingling, No tremor(s), No weakness and No other Exam Const General: cooperative Orientation: alert and oriented x3 HENMT Head: normal to inspection Neck Neck: normal visual inspection and full ROM Chest Chest palpation & inspection: normal inspection of the chest Resp Effort & Inspection: normal respiratory effort Auscultation: clear to auscultation bilaterally Cardio Rate: regular rate Rhythm: regular rhythm GI Inspection: non-distended Palpation: soft and nontender Skin General: no rashes or lesions noted Neuro General: patient alert and patient oriented x3 Extrem General: full ROM Other: Patient has a cyst on the right shoulder Psych Appearance: grossly normal Mental Status: mental status grossly normal Plan The patient had a cyst in the right shoulder which I believed to be possibly related to the shoulder joint.? I did aspirate this and there was gelatinous material which was sent for pathology.? I advised him that if this did recur or get worse that he should follow-up with an orthopedic surgeon. The patient is overdue for surveillance colonoscopy due to multiple polyps on his last colonoscopy in 2018. I explained endoscopy in detail to the patient.? I explained the risks including but not limited to stroke or heart attack with anesthesia, perforation of the GI tract, bleeding, infection.? I explained that any of these could necessitate further emergency surgery.? The patient understands and all questions were answered sufficiently.? The patient wishes to proceed with procedure. Sami Jones MD Pager: [facility] [address] [place] [address], [address] [place] [address] Office: I have seen and reexamined the patient and there were no changes
[2021-10-12] MEDS: Lactated Ringers 1,000 ML 15 ML IV (07:11)
--- NOTE | 2021-10-12 07:47 | OP.COLON_ITS ---
Patient Name: Kimani Rose Procedure Date: 10/12/2021 7:21 AM Date of : 1940 Age: 80 Procedure: Colonoscopy Indications: High risk colon cancer surveillance: Personal history of colonic polyps Providers: Sami Jones MD Medicines: Monitored Anesthesia Care Patient Profile: This is a 80 year old male. Refer to note in patient chart for documentation of history and physical. Last Colonoscopy: 3 years ago. Complications: No immediate complications. Procedure: Pre-Anesthesia Assessment: - Prior to the procedure, a History and Physical was performed, and patient medications and allergies were reviewed. The patient's tolerance of previous anesthesia was also reviewed. The risks and benefits of the procedure and the sedation options and risks were discussed with the patient. All questions were answered, and informed consent was obtained. Prior Anticoagulants: The patient has taken no previous anticoagulant or antiplatelet agents. After reviewing the risks and benefits, the patient was deemed in satisfactory condition to undergo the procedure. After I obtained informed consent, the scope was passed under direct vision. Throughout the procedure, the patient's blood pressure, pulse, and oxygen saturations were monitored continuously. The colonoscope was introduced through the anus and advanced to the ileocolonic anastomosis. The colonoscopy was performed without difficulty. The patient tolerated the procedure well. The quality of the bowel preparation was good. Scope In: 7:30:05 AM Scope Withdrawal Time 0 hours 5 minutes 53 seconds Scope Out: 7:44:13 AM Total Procedure Duration Time 0 hours 14 minutes 8 seconds Findings: The entire examined colon appeared normal on direct and retroflexion views. Impression: - The entire examined colon is normal on direct and retroflexion views. - No specimens collected. Recommendation: - Discharge patient to home. - Resume previous diet. - Continue present medications. - Repeat colonoscopy is not recommended due to current age (66 years or older) for screening purposes. Procedure Code(s): --- Professional --- 63917, Colonoscopy, flexible; diagnostic, including collection of specimen(s) by brushing or washing, when performed (separate procedure) Diagnosis Code(s): --- Professional --- Z86.010, Personal history of colonic polyps CPT copyright 2017 [employer]. All rights reserved. The codes documented in this report are preliminary and upon roller operator review may be revised to meet current compliance requirements. Sami Jones MD 10/12/2021 7:46:59 AM This report has been signed electronically. Number of Addenda: 0 Note Initiated On: 10/12/2021 7:21 AM
--- NOTE | 2021-10-12 07:48 | OP.CCLET_ITS ---
10/12/2021 Raissa Rayo [place] [id number] [address] Re : Colonoscopy procedure for Kimani Rose Dear Dr. Rayo This procedure was performed on Tuesday, October 12, 2021. My impressions and recommendations are as follows: Impressions : - The entire examined colon is normal on direct and retroflexion views. - No specimens collected. Recommendations : - Discharge patient to home. - Resume previous diet. - Continue present medications. - Repeat colonoscopy is not recommended due to current age (66 years or older) for screening purposes. My findings are described in the full procedure note, which is enclosed. If I can be of further assistance, please feel free to contact me at Doctor phone number(s): , Work: . Sincerely, Sami Jones MD 10/12/2021 7:46:59 AM This report has been signed electronically.
== END 2021-10-12 08:42 | disposition home or self-care (01) ==
LOC: EN 06:33 → AC 06:34
PROVIDERS: PCP Family Medicine; Referring Provider Family Medicine; Visit Provider Surgery
PROC: 0DJD8ZZ Inspection of Lower Intestinal Tract, Via Natural or Artificial Opening Endoscopic (ICD-10-PCS; CPT 45378; principal; 2021-10-12 07:25)
DX: Z12.11 Encounter for screening for malignant neoplasm of colon (principal); I25.10 Atherosclerotic heart disease of native coronary artery without angina pectoris; I10 Essential (primary) hypertension; Z79.899 Other long term (current) drug therapy; Z86.010 Personal history of colon polyps
CPT/HCPCS: 45378; J7120; J2405

== ENCOUNTER → 2021-10-16 | Outpatient (CLI) | payer MEDICARE, OTHER, SELFPAY ==
[2021-10-16 11:52] LABS: PSA,Total- Diagnostic 0.02 ng/mL (0.0-4.0)
== END | disposition home or self-care (01) ==
PROVIDERS: PCP Family Medicine; Referring Provider Urology; Visit Provider Urology
DX: C61 Malignant neoplasm of prostate (principal); N30.00 Acute cystitis without hematuria
CPT/HCPCS: 36415; 84153; 87077; 87086; 87088; 87186

== ENCOUNTER → 2021-11-21 | Outpatient (CLI) | payer MEDICARE, OTHER, SELFPAY ==
[2021-11-21 10:48] LABS: Absolute Lymphocyte Count 1.35 X10^3/uL (0.83-4.51); Absolute Neutrophil Count 4.6 X10^3/uL (2.0-7.7); Basophil# 0.06 X10^3/uL; Basophil% 0.8 % (0-1); Eosinophil# 0.29 X10^3/uL; Eosinophils% 4.1 % (0-5); Hematocrit 43.9 % (40-54); Hemoglobin 14.3 g/dL (13.0-16.5); Lymphocyte # 1.35 X10^3/ul (0.83-4.51); Lymphocyte % 18.9 % (19-41); Mean Corp Hgb Conc 32.6 g/dL (32-36); Mean Corpuscular Hgb 32.2 pg (27.0-32.0); Mean Corpuscular Volume 98.9 fL (80-94); Mean Platelet Vol. 10.5 fl (6.2-12.0); Monocyte# 0.85 X10^3/uL; Monocyte% 11.9 % (0-10); NRBC Flagged by Analyzer 0 % (0-5); Neutrophil # 4.58 X10^3/uL (2.7-7.7); Neutrophil % 64.2 % (47-70); Platelet Count 261 K/mm3 (150-450); RBC Distribution Width CV 13.2 % (11.6-14.6); RBC Distribution Width SD 48.2 fl (35.1-43.9); Red Blood Count 4.44 M/mm3 (4.6-6.2); White Blood Count 7.1 K/mm3 (4.4-11.0)
[2021-11-21 11:16] LABS: AST(SGOT) 22 U/L (15-37); Alanine Aminotransfer ALT/SGPT 27 U/L (16-61); Albumin, Serum 3.6 g/dL (3.2-5.0); Alkaline Phosphatase 89 U/L (45-117); Anion Gap 7 (5-15); BUN 21 mg/dL (7-18); BUN/Creat Ratio 13.3 RATIO (10-20); Calcium,Total 8.9 mg/dL (8.5-10.1); Chloride 108 mmol/L (98-107); Cholesterol 158 mg/dL (200); Creatinine, Serum 1.58 mg/dL (0.70-1.30); EST Glomerular Filtration Rate 45 mL/min (>60); Est Glom Filt Rate - Afr Amer 55 mL/min (>60); Globulin 3.7 g/dL (2.2-4.2); Glucose 85 mg/dL (74-106); High Density Lipoprotein 46 mg/dL; Potassium 4.8 mmol/L (3.5-5.1); Protein, Total 7.3 g/dL (6.4-8.2); Sodium Level 140 mmol/L (136-145); Triglycerides 70 mg/dL; Very Low Density Lipoprotein 14 mg/dL (5-40)
== END | disposition home or self-care (01) ==
LOC: LAB 09:32
PROVIDERS: PCP Family Medicine; Referring Provider Family Medicine; Visit Provider Family Medicine
DX: N18.30 Chronic kidney disease, stage 3 unspecified (principal); E78.5 Hyperlipidemia, unspecified
CPT/HCPCS: 36415; 80053; 80061; 85025

== ENCOUNTER 2022-04-16 06:01 | Day surgery (SDC) | payer MEDICARE, OTHER, SELFPAY ==
[2022-04-16] VITALS (7 sets, daily range): BP systolic 90–149; BP diastolic 64–123; PULSE 46–57; RESP 16–18; TEMP 36–36.6; O2SAT 92–100; BMI 19.3
[2022-04-16] MEDS: Lactated Ringers 1,000 ML 15 ML IV ×2 (06:20→09:35)
--- NOTE | 2022-04-16 07:22 | PCM.HP.BLA ---
History and Physical Date of Admission: 04/16/22 [facility] [address] [place] [address] OFFICE VISIT Date of Service:? 03/13/22 MR#: [id number] Acct: [id number] Name:ADEEL KIRKPATRICK Rep #: [id number] : 1940 ? ? Provider: Dr. Hasmukh Longoria, DO Age/Sex:? 81/M ? ? Location: [email or web address] Status: Signed Intake Vital Signs ? 10/12/2206:00 Height 5 ft 10 in Intake Visit Reasons:?RIGHT SHOULDER Chief Complaint: cyst right shoulder Is patient in pain?: Yes (right shoulder ) Pain scale (1-10): 5 Allergies ciprofloxacin [From Cipro] Allergy (Verified 03/13/22 13:18) sweating, n/vwheat Adverse Reaction (Severe, Verified 03/13/22 13:18) Unknown Medications atenolol 25 mg tablet 12.5 mg PO DAILY heart rate #45 tabs 03/09/21 [Rx Confirmed 03/13/22] PFSH Medical History? Acute renal insufficiency Atherosclerotic heart disease of [place] coronary artery without angina pectoris Bilateral hydronephrosis Bilateral kidney stones Cardiology follow-up encounter Essential hypertension History of colon polyps History of echocardiogram Hyperlipidemia Intractable pain Left inguinal hernia Medullary sponge kidney Nonrheumatic mitral valve disorder Nonrheumatic tricuspid valve regurgitation Perforated appendicitis Recurrent right inguinal hernia Right bundle branch block Shingles Ureteral stone with hydronephrosis UTI (urinary tract infection) Wears dentures Wears glasses Surgical History? history lithrotripsy for kidney stones History of appendectomy History of left inguinal hernia repair (~08/2018) History of partial surgical removal of colon History of prostatectomy History of right inguinal hernia repair Family History? Father?? CAD (coronary artery disease) Hx of CABGBrother Hypertension Social History? Smoking Status:? Never smoker alcohol intake:? never substance use type:? does not use HPI RIGHT SHOULDER Chief Complaint: right shoulder cyst Details: Parts of this documentation were recorded by a scribe, this documentation accurately reflects the service provided and the decisions made by me, Dr. Hasmukh Longoria, DO 03/13/22 0805. ADEEL POST is a 81 year old M here today for right shoulder cyst which he had drained in January 2022. Pt. advises the cyst has filled with fluid again. Pt. states it painful 5/10 especially with movement. He would like to proceed with surgical option.? Ortho Exam General General: Yes no acute distress Neurologic: Yes alert and Yes oriented x3 Psychologic: Yes reasonable and appropriate Right Shoulder Skin/Wound: Yes CDI, No ecchymosis, No erythema and No swelling Testing: Positive AROM-Forward Elevation 0-180 (170) and lift off (intact); Negative Hawkin's, TTP Biceps, TTP AC Joint or belly press normal SHOULDER: palpable fluid cyst over AC joint this is the location of his pain. 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 M12.819 AC (acromioclavicular) joint arthritis? M19.019 Synovial cyst of shoulder? M71.319 Assessment and Plan Assessment and Plan (1) Rotator cuff arthropathy: ?Status:?Acute ?Comment: . (2) AC (acromioclavicular) joint arthritis: ?Status:?Acute (3) Synovial cyst of shoulder: ?Status:?Acute Plan Spoke with the patient about his shoulder.? he has had multiples aspirations and the cyst has returned, I explained he does have rotator cuff arthropathy and this surgery will not address that however given the fact that the cyst appears to arise directly from the AC joint and that is the only location of his pain I am okay proceeding with surgical excision of the cyst and distal clavicle excision open.? . Explained there is a chance the cyst may return, and risk of continued pain in light of his underlying rotator cuff arthropathy . He should not take any ibuprofen 7 days prior to surgery.? In addition there is other risk of surgery including infection nerve artery tissue damage bleeding continued pain recurrence of cyst anesthesia complications. Given his age and history of cardiac disease will need medical/cardiac clearance.? Plan for same-day surgery tentative surgery date 04/16/2022.? No NSAIDs 7 days prior to surgery. Follow up for 2 week post op or sooner if pain, swelling, numbness or associated symptoms, or concerns develop.? All questions answered. Patient in agreement of plan. 03/13/22 1414 <Electronically signed by Hasmukh Longoria DO> Date Hasmukh Longoria DO Cosigner Signature: Date (if applicable) ? CC:? Dr. Raissa Rayo MD ~ I have examined the patient the following changes are noted:
[2022-04-16] MEDS: Cefazolin 2 GM in 0.9% Normal Saline 100 ML IV (07:28)
--- NOTE | 2022-04-16 07:35 | CYST_PTH ---
PATIENT: ADEEL POST LOC: [facility] [place][id number] AGE/SX: 81/M ROOM: RE04/16/[address]: Dr. Hasmukh Longoria DO : 1940 BED: DIS: 04/16/2022 SPEC #: [id number] RECD: 04/16/22 10:38 STATUS: JEAN CARLOS REBrittney #: [id number] KOKO: 04/16/22 07:[address]: Hasmukh Longoria DEPT: SURGICAL PATHOLOGY RECD BY: Sandy De ENTERED: 04/16/22 11:16 SP TYPE: Cyst OTHR DR: Dr. Raissa Rayo MD Tissues: A - CYST B - Clavicle, NOS Procedures: Decalcification bone/plaque Surgery Specimen Level III HEADER OPERATION: Shoulder open excision of cyst, distal clavicle excision PRE-OP DIAGNOSIS: Synovial cyst of shoulder, AC joint arthritis, rotator cuff arthropathy TISSUE SUBMITTED: A ? Right shoulder cyst, AC joint, B ? Distal clavicle right MICROSCOPIC DIAGNOSIS A. Right shoulder cyst, AC joint: Consistent with ganglion cyst. B. Distal clavicle right, excision: A piece of bone with focal changes consistent with degenerative osteoarthritis. See comment. SJ:michell 04/19/2022 COMMENT Trilineage hematopoiesis is also noted. MICROSCOPIC DESCRIPTION Slides are reviewed. GROSS DESCRIPTION A - Received in fixative is one container labeled with the patient's name and designated right shoulder cyst. The specimen consists of an irregular fragment of pink-pedroza soft tissue measuring 3.5 x 2.5 x 0.6 cm. Serial sections reveal a cystic cavity measuring approximately 2.0 cm in greatest dimension. The cyst contains minimal mucoid material. The cyst wall averages 0.2 cm in thickness. Material Specialist sections are submitted in two cassettes. B - Received in fixative is one container labeled with the patient's name and designated distal clavicle right. The specimen consists of an irregular fragment of pedroza bone measuring 3.5 x 2.2 x 1.0 cm. No mass lesion is identified. Material Specialist sections are submitted in one cassette after decalcification. / AM:michell 04/16/2022 TC:5 CPT: 03784 x2, 22192
[2022-04-16] MEDS: Bupiv/Epi 0.25% 30 ML Vial (08:46)
--- NOTE | 2022-04-16 09:02 | PCM.OP.BLANK ---
Operative Report Date of Procedure: 04/16/22 Preoperative diagnosis: Right AC joint arthrosis with ganglion cyst Postoperative diagnosis: Same Procedure: Excision of cyst open distal clavicle excision Anesthesia: General EBL: 25 Complications: None Condition: Able to PACU Specimen: Cyst and distal clavicle Indication for procedure: 81-year-old male patient who has known rotator cuff arthropathy who has recurrent cyst from his AC joint he has had multiple aspirations and injections and the cyst has returned and he did wish to have it removed, patient never had joint effusion of the shoulder and cyst originates directly above the AC joint and it is tender at the AC joint with known AC joint arthrosis therefore we discussed open excision of cyst and removal and open distal clavicle excision risk benefits and alternatives were reviewed including risk of bleeding infection nerve, artery, bone, tissue damage, blood clot need for further surgery and continued pain recurrence of cyst, progression of symptoms from advanced rotator cuff arthropathy. Procedure: Patient was met in the preoperative holding area the operative extremity was identified both by both patient and physician was marked. Patient was met by anesthesia and brought back to the operating room wheeled cart transfer the operative table supine position. Anesthesia was started. Patient was positioned in a beachchair configuration with a bump underneath the scapula all bony prominences were well-padded he was prepped and draped in the usual sterile fashion a timeout was called ensure the proper patient procedure and extremity were being contemplated. The cyst was located directly superior to the AC joint a 15 blade scalpel was used to incise through the skin and Metzenbaum and Littler tenotomy scissors were used to dissect around the cyst until the base was reached at the AC joint the cyst was excised in its entirety and sent for pathology this point we then dissected the capsule off of the AC joint with electrocautery in line with the clavicle we then placed Hohmann retractors anterior and posterior to the distal clavicle and with use of a TPS saw 1 cm distal clavicle was excised rasp was used to soften the undersurface of the clavicle cut. The wound was thoroughly irrigated the joint capsule was closed with 0 Vicryl [id number] followed by 3-0 Vicryl in the subcutaneous tissue of note he had very thin skin and the cyst had also stretched and thinned the skin in the area. We did then proceed with horizontal mattress 3-0 nylon stitches and placed 10 cc of 0.25% Marcaine with epinephrine into the incisional area and the AC joint. Dressing was applied the form of Xeroform 4 x 4 ABD and Ioban. Counts were correct patient was brought back to PACU in stable condition.
--- NOTE | 2022-04-16 09:08 | DCINST_ITS ---
Discharge Instructions Dressing / Incision Call your doctor if you observe: Shortness of breath and Chest pain Additional Dressing/Incision Instructions:: Leave dressing intact do not disturb and keep clean and dry for next 5 days then may remove prior to for shower and may wash with antibacterial soap that was provided by the office. Place dry dressing over top or large Band-Aids if draining. May, out of sling but no strenuous activity. Call with any questions or concerns. Follow-up with Dr. Longoria in 2 weeks Follow Up Care Please Follow Up With: Hasmukh Longoria DO When: 2 weeks Test Results: Test results from this visit will be discussed in further detail at your follow- up appointment, if applicable. Discharge Plan Admission Primary Reason for Your Visit: Right distal clavicle excision excision of cyst Attending Provider: Hasmukh Longoria Primary Care Provider: Raissa Rayo Discharge Orders/Prescriptions Prescriptions: New oxycodone 5 mg tablet 5 - 10 mg PO Q4H PRN (Reason: pain) 3 Days Qty: 25 0RF acetaminophen [acetaminophen] 500 mg tablet 1,000 mg PO Q6H PRN Qty: 50 0RF No Action atenolol 25 mg tablet 12.5 mg PO DAILY Qty: 45 4RF Referrals / Follow Up: Raissa Rayo MD [Primary Care Provider] - Disposition Discharge Orders: Discharge Patient (Routine); Ordered 04/16/22 Ordered By: Dr. Hasmukh Longoria
[2022-04-16] MEDS: Acetaminophen 500 MG Tablet 1000 MG PO (09:52)
[2022-04-16] MEDS: Cefazolin 1 GM/50 ML BAG IV (10:34)
== END 2022-04-16 11:37 | disposition home or self-care (01) ==
LOC: SDC 06:01 → AC 06:02
PROVIDERS: PCP Family Medicine; Referring Provider Orthopaedic Surgery; Visit Provider Orthopaedic Surgery
PROC: (CPT 23120; principal; 2022-04-16 07:10)
DX: M67.411 Ganglion, right shoulder (principal); M71.311 Other bursal cyst, right shoulder; M12.811 Other specific arthropathies, not elsewhere classified, right shoulder; I25.10 Atherosclerotic heart disease of native coronary artery without angina pectoris; I10 Essential (primary) hypertension; Z79.899 Other long term (current) drug therapy; Z86.010 Personal history of colon polyps
CPT/HCPCS: 23140; 23120; 00450; 88304; 88305; 88311; J7120; J2405

== ENCOUNTER 2022-05-13 16:42 | Observation (INO) | payer MEDICARE, OTHER, SELFPAY ==
[2022-05-13 16:43] VITALS: BP 126/80; PULSE 52; RESP 16; TEMP 35.7; O2SAT 97; BMI 21.1
--- NOTE | 2022-05-13 17:12 | CT_ITS ---
EXAM: CT ANGIOGRAPHY HEAD AND NECK WITH INTRAVENOUS CONTRAST CLINICAL INDICATION: vertigo, vision changes TECHNIQUE: [place]/head and neck CT angiography protocol performed with intravenous contrast. This CT exam was performed using one or more of the following dose reduction techniques: automated exposure control, adjustment of the mA and/or kV according to patient size, and/or use of iterative reconstruction technique. This report was created using Paralloc[employer] report generation technology. MIP reconstructed images were created and reviewed. CONTRAST: IV 100mL Isovue-370 RADIATION DOSE: CTDIvol = 33.86 mGy, DLP = 1507.09 mGy-cm COMPARISON: 7.6.15 FINDINGS: HEAD: RIGHT ANTERIOR CEREBRAL ARTERY: Unremarkable. No significant stenosis at the visualized segments. Anterior communicating artery is present. No aneurysm. RIGHT MIDDLE CEREBRAL ARTERY: Unremarkable. No significant stenosis at the visualized segments. No aneurysm. RIGHT POSTERIOR CEREBRAL ARTERY: Unremarkable. No occlusion or significant stenosis. No aneurysm. RIGHT INTRACRANIAL INTERNAL CAROTID ARTERY: Unremarkable. No significant stenosis. No dissection or occlusion. RIGHT INTRACRANIAL VERTEBRAL ARTERY: Unremarkable. No significant stenosis. No dissection or occlusion. LEFT ANTERIOR CEREBRAL ARTERY: Unremarkable. No significant stenosis at the visualized segments. No aneurysm. LEFT MIDDLE CEREBRAL ARTERY: Unremarkable. No significant stenosis at the visualized segments. No aneurysm. LEFT POSTERIOR CEREBRAL ARTERY: Unremarkable. No occlusion or significant stenosis. No aneurysm. LEFT INTRACRANIAL INTERNAL CAROTID ARTERY: Unremarkable. No significant stenosis. No dissection or occlusion. LEFT INTRACRANIAL VERTEBRAL ARTERY: Unremarkable. No significant stenosis. No dissection or occlusion. BASILAR ARTERY: Unremarkable. No significant stenosis. No aneurysm. OTHER VASCULATURE: There are no acute findings of the right and left internal carotid artery. ALL ABOVE CRITERIA BY NASCET. No vascular malformation. NECK: RIGHT COMMON CAROTID ARTERY: Unremarkable. No significant stenosis. No dissection or occlusion. RIGHT EXTRACRANIAL INTERNAL CAROTID ARTERY: Unremarkable. No significant stenosis. No dissection or occlusion. RIGHT EXTERNAL CAROTID ARTERY: Unremarkable. No occlusion. RIGHT EXTRACRANIAL VERTEBRAL ARTERY: Unremarkable. No significant stenosis. No dissection or occlusion. LEFT COMMON CAROTID ARTERY: Unremarkable. No significant stenosis. No dissection or occlusion. LEFT EXTRACRANIAL INTERNAL CAROTID ARTERY: Unremarkable. No significant stenosis. No dissection or occlusion. LEFT EXTERNAL CAROTID ARTERY: Unremarkable. No occlusion. LEFT EXTRACRANIAL VERTEBRAL ARTERY: Unremarkable. No significant stenosis. No dissection or occlusion. BRACHIOCEPHALIC AND SUBCLAVIAN ARTERIES: Unremarkable as visualized. No occlusion or significant stenosis. LUNG APICES: Unremarkable as visualized. HEAD and NECK: BONES/JOINTS: There are degenerative findings of the cervical spine. 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 No discrete lytic or blastic abnormalities. SOFT TISSUES: Unremarkable. OTHER FINDINGS: There are no acute findings of the [place] of [place] without a demonstrated aneurysm or hemodynamically significant stenosis. ALL ABOVE CRITERIA BY NASCET. CAROTID STENOSIS REFERENCE USING NASCET CRITERIA: % ICA stenosis = (1 - narrowest ICA diameter/diameter of distal cervical ICA) x 100. Mild - <50% stenosis. Moderate - 50-69% stenosis. Severe - 70-94% stenosis. Near occlusion - 95-99% stenosis. Occluded - 100% stenosis. CT/CTA Head AND Neck W/ Contrast IMPRESSION: 1. There are no acute findings of the [place] of [place] without a demonstrated aneurysm or hemodynamically significant stenosis. ALL ABOVE CRITERIA BY NASCET. 2. There are no acute findings of the right and left internal carotid artery. ALL ABOVE CRITERIA BY NASCET. 3. 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 Electronically Signed: Chinmay Cook MD at 19:10 EDT ,
--- NOTE | 2022-05-13 17:13 | EKG12_ITS ---
Test Reason : DIZZY Blood Pressure : / mmHG Vent. Rate : 048 BPM Atrial Rate : 048 BPM P-R Int : 164 ms QRS Dur : 130 ms QT Int : 498 ms P-R-T Axes : 000 270 029 degrees QTc Int : 444 ms Sinus bradycardia Low voltage QRS Right bundle branch block Abnormal ECG Confirmed by MODE JIMÉNEZ, NII ([id number]), writer editor DANE SUN ([id number]) on 05/15/2022 9:50:12 AM Referred By: Confirmed By:NII COELLO MD
--- NOTE | 2022-05-13 17:14 | EX.ED.DYSGE1 ---
HPI History of Present Illness Chief Complaint: Dizziness Informant: patient Onset/Context/Timing Onset: Today Narrative Narrative: Patient reports having several brief episodes that were concerning today at home. He initially noted double vision from his right eye. He states he was seeing 2 objects in his right eye [id number]. He took his glasses off but this did not change his symptoms. This lasted only a minute or so and then resolved. At the same time he was slightly diaphoretic. He states a short time later he was sitting at the table doing a puzzle when he broke out in a sweat and became vertiginous. He states the dizziness seemed to improve but in the squat he became nauseated and vomited once. He states at this time he feels pretty much back to baseline. 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 Perforated appendicitis Preoperative cardiovascular examination Recurrent right inguinal hernia Right bundle branch block Shingles Ureteral stone with hydronephrosis UTI (urinary tract infection) Wears dentures Wears glasses Home Medications atenolol 25 mg tablet 12.5 mg PO DAILY heart rate #45 tabs 03/21/22 [Rx Last Taken 04/16/22 05:05] acetaminophen 500 mg tablet 1,000 mg PO Q6H PRN #50 tabs 04/16/22 [Rx Last Taken Unknown] azithromycin 250 mg tablet 250 mg PO QDAY #6 tabs 05/01/22 [Rx Last Taken Unknown] benzonatate 150 mg capsule 150 mg PO TID PRN cough #20 caps 05/01/22 [Rx Last Taken Unknown] Allergy/AdvReac Type Severity Reaction Status Date / Time ciprofloxacin [From Cipro] Allergy sweating, Verified 05/13/22 16:45 n/v wheat AdvReac Severe Unknown Verified 05/13/22 16:45 Family History Father CAD (coronary artery disease) Hx of CABG Brother Hypertension Surgical History history lithrotripsy for kidney stones History of appendectomy History of left inguinal hernia repair (~08/2018) History of partial surgical removal of colon History of prostatectomy History of right inguinal hernia repair Hx of colonoscopy Social History Smoking Status: Never smoker alcohol intake: never substance use type: does not use ROS ROS ED Constitutional Constitutional ED: Denies chills or fever(s) Eyes Eyes: Reports change in vision; Denies discharge from eye(s) ENT ENT ED: Denies discharge from eye(s), rhinorrhea or sore throat Cardiovascular Cardiovascular: Denies chest pain or palpitations Respiratory/Chest Respiratory/Chest: Denies cough or dyspnea Gastrointestinal Gastrointestinal: Reports nausea and vomiting; Denies abdominal pain or diarrhea Genitourinary Genitourinary ED: Denies dysuria Musculoskeletal Musculoskeletal: Denies back pain or extremity pain Integumentary Denies Abrasions or rash Neurologic Neurologic: Reports other Details: Vertigo ; Denies headache(s) or weakness Psychiatric Psychiatric: Denies anxiety or depression Endocrine Endocrinology: Denies polydipsia or polyuria Allergic/Immunologic Allergic/Immunologic ED: Denies lip swelling or urticaria EXAM Physical Exam Const Vital Signs: 05/13/22 16:43 05/13/22 16:53 Temperature 96.2 F L Temperature Source Temporal Pulse Rate 52 L Respiratory Rate 16 Respiratory Pattern Normal Blood Pressure 126/80 H Blood Pressure Mean 95 Pulse Ox 97 Oxygen Delivery Method Room Air Positive well nourished and well developed General Appearance ED: well developed HEENT Reports normocephalic and head/scalp atraumatic Eyes PERRL and EOMs intact bilaterally Neck supple Chest Wall inspection of chest normal and palpation of chest normal Resp normal respiratory effort and clear to auscultation bilaterally Cardio regular rhythm Rate: bradycardia GI normal to inspection, nondistended, normoactive bowel sounds Palpation: soft Extremity normal to inspection Neuro oriented x3 and no sensory deficits noted Neuro Narrative: NIH equals 0 at 17:15 Sensorium / Orientation: alert Motor Exam: strength 5/5 throughout Psych mental status grossly normal Skin no rashes or lesions noted MDM MDM MDM Narrative Medical decision making narrative: Patient placed on practice specialist to observe for arrhythmia. Lab work obtained to evaluate for leukocytosis, anemia, electrolyte derangement. Troponin obtained to evaluate for cardiac ischemia. EKG obtained. Chest x-ray ordered to evaluate for cardiac silhouette size or any acute lung pathology. CTA of the head and neck obtained given his intermittent neuro symptoms. History & Record Review Discussion w/independent historian: EMS personnel, Patient and Family Lab Data Attestation: I reviewed the patient's lab results. Labs: Laboratory Results - last 24 hr 05/13/22 05/13/22 16:50 16:50 WBC 7.8 RBC 4.38 L Hgb 13.5 Hct 42.3 MCV 96.6 H MCH 30.8 MCHC 31.9 L RDW Std Deviation 52.8 H RDW Coeff of Sebastian 14.7 H Plt Count 340 MPV 9.4 Immature Gran % (Auto) 0.400 Neut % (Auto) 60.1 Lymph % (Auto) 22.8 [place] % (Auto) 11.4 H Eos % (Auto) 4.7 Baso % (Auto) 0.6 Absolute Neuts (auto) 4.7 Absolute Lymphs (auto) 1.78 Nucleated RBC % 0 Sodium 139 Potassium 4.1 Chloride 109 H Carbon Dioxide 25.0 Anion Gap 5 BUN 13 Creatinine 1.51 H Estim Creat Clear Calc 35.82 Est GFR (MDRD) Af Amer 57 L Est GFR (MDRD) Non-Af 47 L BUN/Creatinine Ratio 8.6 L Glucose 105 Calcium 8.2 L Troponin I High Sens 5 Radiography Chest X-Ray - ED: 1 View, Read by ED Physician and Chronic Changes Diagnostic Testing: Clinical Impression(s) from Imaging Studies Head/Neck CTA 05/13/22 17:12 IMPRESSION: 1. There are no acute findings of the [place] without a demonstrated aneurysm or hemodynamically significant stenosis. ALL ABOVE CRITERIA BY NASCET. 2. There are no acute findings of the right and left internal carotid artery. ALL ABOVE CRITERIA BY NASCET. 3. 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 Electronically Signed: Chinmay Cook MD at 19:10 EDT , ADDENDUM: 03/13/23 1934 IMPRESSION: undefined Chest X-Ray 05/13/22 18:20 IMPRESSION: No radiographic evidence of acute cardiopulmonary disease. Electronically Signed: Chinmay Cook MD at 18:50 EDT , EKG Initial EKG: Attestation: I personally reviewed and interpreted this EKG as follows: Interpretation: Sinus Bradycardia (Sinus bradycardia at 48 bpm. Right bundle branch block present.) Differential Diagnosis Chest pain/SOB: ACS ACS: Positive for no evidence of ACS based on cardiac biomarkers and EKG without ischemia Differential Diagnosis: CVA Why less likely: Symptoms currently resolved. Management Discussion w/another healthcare provider: Hospitalist Treatment and Re-Evaluation :: CBC is unremarkable. Chemistry studies are normal other than a creatinine of 1.51. Troponin is normal at 5. EKG reveals no acute ischemia. Patient is bradycardic but this is consistent with his prior visits as well. He has a known right bundle branch block that is unchanged on today's visit. Chest x-ray per my interpretation reveals chronic changes with no acute findings. Radiology interpretation is reviewed and agrees. CTA of the head and neck reveals microvascular disease with no acute abnormalities. Patient did have multiple neurologic symptoms including double vision and vertigo associated with diaphoresis and vomiting. I think it is appropriate to observe him overnight for full TIA work-up. I will speak with the hospitalist. Discharge Plan Triage Chief Complaint: Dizziness ED Provider: Jammie Corbett Dx/Rx/DC Orders Clinical Impression: Vertigo, Double vision Prescriptions: No Action atenolol 25 mg tablet 12.5 mg PO DAILY Qty: 45 4RF azithromycin 250 mg tablet 250 mg PO QDAY Qty: 6 0RF Rx Instructions: 2 tablets today, then 1 tablet daily on days 2 through 5 benzonatate 150 mg capsule 150 mg PO TID PRN (Reason: cough) Qty: 20 0RF acetaminophen [acetaminophen] 500 mg tablet 1,000 mg PO Q6H PRN Qty: 50 0RF Primary Care Provider: Raissa Rayo Referrals: Raissa Rayo MD [Primary Care Provider] - Disposition Disposition: Acute Care [facility]
[2022-05-13] MEDS: 0.9% Normal Saline 1,000 ML 150 ML IV (17:35)
[2022-05-13 17:39] LABS: Absolute Lymphocyte Count 1.78 X10^3/uL (0.83-4.51); Absolute Neutrophil Count 4.7 X10^3/uL (2.0-7.7); Basophil# 0.05 X10^3/uL; Basophil% 0.6 % (0-1); Eosinophil# 0.37 X10^3/uL; Eosinophils% 4.7 % (0-5); Hematocrit 42.3 % (40-54); Hemoglobin 13.5 g/dL (13.0-16.5); Lymphocyte # 1.78 X10^3/ul (0.83-4.51); Lymphocyte % 22.8 % (19-41); Mean Corp Hgb Conc 31.9 g/dL (32-36); Mean Corpuscular Hgb 30.8 pg (27.0-32.0); Mean Corpuscular Volume 96.6 fL (80-94); Mean Platelet Vol. 9.4 fl (6.2-12.0); Monocyte# 0.89 X10^3/uL; Monocyte% 11.4 % (0-10); NRBC Flagged by Analyzer 0 % (0-5); Neutrophil % 60.1 % (47-70); Platelet Count 340 K/mm3 (150-450); RBC Distribution Width CV 14.7 % (11.6-14.6); RBC Distribution Width SD 52.8 fl (35.1-43.9); Red Blood Count 4.38 M/mm3 (4.6-6.2); White Blood Count 7.8 K/mm3 (4.4-11.0)
[2022-05-13 17:58] LABS: Anion Gap 5 (5-15); BUN 13 mg/dL (7-18); BUN/Creat Ratio 8.6 RATIO (10-20); Calcium,Total 8.2 mg/dL (8.5-10.1); Chloride 109 mmol/L (98-107); Creatinine, Serum 1.51 mg/dL (0.70-1.30); EST Glomerular Filtration Rate 47 mL/min (>60); Est Glom Filt Rate - Afr Amer 57 mL/min (>60); Estimated Creatinine Clearance 35.82 ml/min; Glucose 105 mg/dL (74-106); Potassium 4.1 mmol/L (3.5-5.1); Sodium Level 139 mmol/L (136-145); Troponin-I HS 5 pg/mL (3.0-78.0)
--- NOTE | 2022-05-13 18:20 | RAD_ITS ---
EXAM: XR CHEST, 1 VIEW CLINICAL INDICATION: sob TECHNIQUE: Frontal view of the chest. This report was created using [employer] report generation technology. COMPARISON: 05.01.22 FINDINGS: LUNGS AND PLEURAL SPACES: Unremarkable. No consolidation or edema. No pneumothorax. No effusion. HEART: Unremarkable. Cardiac silhouette not enlarged. MEDIASTINUM: Central airways and mediastinal contour are unremarkable. BONES/JOINTS: Unremarkable. SOFT TISSUES: Unremarkable. RAD/Chest 1 View (Portable) IMPRESSION: No radiographic evidence of acute cardiopulmonary disease. Electronically Signed: Chinmay Cook MD at 18:50 EDT ,
[2022-05-13 20:22] VITALS: BP 114/78; PULSE 73; RESP 16; TEMP 36.6; O2SAT 98
--- NOTE | 2022-05-13 20:25 | PCM.HP.STD ---
[facility] Date of Admission: 05/13/22 Date of Service: 05/13/22 Chief Complaint: Dizziness, diaphoresis and Diplopia afternoon today. [facility] Narrative ADEEL POST, is a 81 M is brought to ED by EMS for dizziness, diplopia and diaphoresis today afternoon. This happened around 4 PM while doing puzzle. Patient said he was seeing 2 objects from right eye and he took off his glasses but he was still seeing to objects. He has transient diplopia for last 4 to 5 months as per but this was more symptomatic. He also felt dizzy lightheaded and feeling like to pass out but did not pass out. He was diaphoretic. Patient has URI about 2 weeks ago and went to urgent care and was given Z-Shamar. This is almost resolved with minimal and occasional cough during the night as per the . The patient denies chest pain pressure or tightness or shortness of breath. Patient was also nauseated and threw up once in the ambulance. In ED he is back to normal baseline. Vitals in the ED shows bradycardia heart rate 52 BP normal. His baseline heart rate is also lower side. Most recent 73 beats per twelve-lead EKG shows sinus bradycardia at 48 spiperone, RBBB QTc 444 ms. Previous EKG in June 2018 shows normal sinus rhythm at 90 beats minute, RBBB. 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 He said he never had a stroke or neurological deficit. 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 Perforated appendicitis Preoperative cardiovascular examination Recurrent right inguinal hernia Right bundle branch block Shingles Ureteral stone with hydronephrosis UTI (urinary tract infection) Wears dentures Wears glasses Home Medications atenolol 25 mg tablet 12.5 mg PO DAILY heart rate #45 tabs 03/21/22 [Rx Last Taken 04/16/22 05:05] acetaminophen 500 mg tablet 1,000 mg PO Q6H PRN #50 tabs 04/16/22 [Rx Last Taken Unknown] Allergy/AdvReac Type Severity Reaction Status Date / Time ciprofloxacin [From Cipro] Allergy sweating, Verified 05/13/22 16:45 n/v wheat AdvReac Severe Unknown Verified 05/13/22 16:45 Family History Father CAD (coronary artery disease) Hx of CABG Brother Hypertension Surgical History history lithrotripsy for kidney stones History of appendectomy History of left inguinal hernia repair (~08/2018) History of partial surgical removal of colon History of prostatectomy History of right inguinal hernia repair Hx of colonoscopy Social History Smoking Status: Never smoker alcohol intake: never substance use type: does not use ROS ROS Narrative Constitutional: As mentioned in HPI, dizzy lightheaded. HEENT: Mild short lasting vertigo. Reports systems reviewed and no addt'l complaints, except as documented Respiratory/Chest: Denies chest pain, shortness of breath at rest or with exertion Gastrointestinal: Denies coffee ground emesis, hematemesis. No abdominal pain or GI bleed. Genitourinary: Denies burning urination or new urinary tract symptoms. He states his urine is always dark because he has [place] monitor kidney disease. Musculoskeletal: Chronic bilateral knees and hips joint pain/degenerative arthritis and limited range of motion Neurologic: Denies seizure-like activity. No focal weakness numbness tingling, loss of balance or gait disorder skin: No ulcer. No rash Endocrinology: Reports systems reviewed and no addt'l complaints, except as documented Hematologic/Lymphatic: Reports systems reviewed and no addt'l complaints, except as documented Rest 14 ROS are negative except as mentioned in HPI Vital Signs Vital Signs Vital Signs: 05/13/22 16:43 05/13/22 16:53 05/13/22 20:22 Temperature 96.2 F L 98 F Temperature Source Temporal Temporal Pulse Rate 52 L 73 Respiratory Rate 16 16 Respiratory Pattern Normal Blood Pressure 126/80 H 114/78 Blood Pressure Mean 95 90 Pulse Ox 97 98 Oxygen Delivery Method Room Air Room Air Weight Weight: 143 lb 1.28 oz Body Mass Index (BMI) 21.1 Physical Exam Narrative Physical exam General: Alert, Oriented x3, Cooperative HEENT: Atraumatic, PERRLA, EOMI, Normocephalic Oral: No Gingival or Mucosal Lesions/ Ulcerations Neck: Supple, No JVD, Negative Carotid Bruits Lungs: Air entry diminished in bilateral lung bases. No crepitation/rhonchi Cardiovascular: Regular rate, Regular Rhythm, Normal S1, Normal S2, No murmurs Abdomen: Bowel Sounds Present, Soft, Non Tender, Non-Distended : No renal angle tenderness. No suprapubic tenderness. Extremities: No edema, Capillary Refill Less than 3 Seconds Skin: No rashes, No breakdown Musculoskeletal: No Tenderness to Palpation of Joints or Extremities, muscle strength 5/5 at major joints. ROM intact. Had recent ganglion cyst removal on right shoulder by Dr. Longoria. Surgical scar well-healed. Neurological: Cranial nerves II-XII grossly intact, DTR 2+/4 and Symmetrical, Neuro grossly intact Psych/Mental Status: Normal Affect, Appropriate. Results Lab / Micro Data Result Diagrams: 05/13/22 16:50 05/13/22 16:50 Labs: Laboratory Results - last 24 hr 05/13/22 16:50: WBC 7.8, RBC 4.38 L, Hgb 13.5, Hct 42.3, MCV 96.6 H, MCH 30.8, MCHC 31.9 L, RDW Std Deviation 52.8 H, RDW Coeff of Sebastian 14.7 H, Plt Count 340, MPV 9.4, Immature Gran % (Auto) 0.400, Neut % (Auto) 60.1, Lymph % (Auto) 22.8, [place] % (Auto) 11.4 H, Eos % (Auto) 4.7, Baso % (Auto) 0.6, Absolute Neuts (auto) 4.7, Absolute Lymphs (auto) 1.78, Nucleated RBC % 0 05/13/22 16:50: Sodium 139, Potassium 4.1, Chloride 109 H, Carbon Dioxide 25.0, Anion Gap 5, BUN 13, Creatinine 1.51 H, Estim Creat Clear Calc 35.82, Est GFR (MDRD) Af Amer 57 L, Est GFR (MDRD) Non-Af 47 L, BUN/Creatinine Ratio 8.6 L, Glucose 105, Calcium 8.2 L, Troponin I High Sens 5 Radiology Impression Head/Neck CTA 05/13/22 17:12 IMPRESSION: 1. There are no acute findings of the [place] without a demonstrated aneurysm or hemodynamically significant stenosis. ALL ABOVE CRITERIA BY NASCET. 2. There are no acute findings of the right and left internal carotid artery. ALL ABOVE CRITERIA BY NASCET. 3. 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 Electronically Signed: Chinmay Cook MD at 19:10 EDT , ADDENDUM: 05/13/22 193 IMPRESSION: undefined Chest X-Ray 05/13/22 18:20 IMPRESSION: No radiographic evidence of acute cardiopulmonary disease. Electronically Signed: Chinmay Cook MD at 18:50 EDT , Assessment & Plan Assessment/Plan (1) Vertigo: (2) Double vision: PLAN: Plan This 81-year-old gentleman who is being admitted for evaluation of near syncope symptoms and diplopia. 1. Near syncope and diplopia most likely peripheral vertigo, BPPV, rule out stroke: Patient is being admitted in PCU. The patient had CTA head and neck which did not show acute findings of false pass of [place] without demonstrated aneurysm or hemodynamically significant stenosis. No acute findings of right and left ICA. Follow stroke protocol with MRI brain without contrast. NIH stroke scale, PT OT speech/swallow evaluation, BP and glucose control as per stroke protocol. If MRI brain is positive for stroke, can do limited echo for bubble contrast study. 2. 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 LA mildly enlargement. Patient follows Dr. Hope last seen in March,. Home medications reconciliation done. 3. Recent synovial cyst of right shoulder excision.Patient had excision of right shoulder on April 2022. It is well-healed. 4. Hypertension and dyslipidemia: Home medication reconciliation done. 5. Other multiple chronic comorbidities include history of medullary sponge kidney, nonoperative small aneurysm of brain as per history, bilateral kidney stones:Although patient states he had an EGD which was bleeding in 2003 but it is not reported in today's CTA head and neck. Reported no aneurysm or hemodynamically significant history. DVT prophylaxis: Heparin 5000 subcutaneous twice daily. Living will/advanced directive/end of life care: Patient does not have living will or advanced directive. Patient does not have designated power of real estate associate attorney for health. After discussion of benefits/risks procedures involved with full code, DNR CC arrest and DNR CC, the patient, his and daughter opted for full code. Patient does want artificial life support including intubation, tube feed, ventilator and/chest compression, central venous catheter, vasopressor and DC shock if needed Total time spent in [id number] encounter in discussion of advanced directive 17 minutes. Clinical Impression(s) from Imaging Studies Head/Neck CTA 05/13/22 17:12 IMPRESSION: 1. There are no acute findings of the [place] without a demonstrated aneurysm or hemodynamically significant stenosis. ALL ABOVE CRITERIA BY NASCET. 2. There are no acute findings of the right and left internal carotid artery. ALL ABOVE CRITERIA BY NASCET. 3. 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 Electronically Signed: Chinmay Cook MD at 19:10 EDT Reading Location ID and State: [facility] / [place] , Service support , ADDENDUM: 05/13/22 193 IMPRESSION: undefined Chest X-Ray 05/13/22 18:20 IMPRESSION: No radiographic evidence of acute cardiopulmonary disease. Charges/Coding Visit Charges Inpatient E&M: 21994 Init Hosp L3 Procedures Hospitalists Procedures: 06684 Advncd Care Plan 30 Min
[2022-05-13 20:29] LABS: Magnesium 2.2 mg/dL (1.6-2.6)
[2022-05-13 21:10] VITALS: BP 139/88; PULSE 56; RESP 18; TEMP 36.3; O2SAT 97
--- NOTE | 2022-05-13 21:10 | MRI_ITS ---
STUDY: MRI BRAIN WITHOUT CONTRAST REASON FOR EXAM: Male, 81 years old. TIA TECHNIQUE: Standardized multiplanar fat and water weighted pulse sequences were obtained. COMPARISON: Head CT dated May 13, 2022 FINDINGS: There is mild cerebral atrophy with widening of the extra-axial spaces and ventricular dilatation. There are a limited number of small white matter hyperintensities, distributed throughout the deep white matter tracts of the cerebral hemispheres, consistent with mild chronic white matter ischemic changes. There is no evidence for recent intracranial ischemia or other cause of cytotoxic edema on diffusion weighted imaging (DWI). An old small focus of petechial microhemorrhages is present in the left periventricular/frontal lobe junction most likely is sequela from old trauma or prior focal ischemia. There is no demonstrated acute intracranial hemorrhage. Normal bilateral basal ganglia. Normal thalami. There is no extra-axial fluid accumulation. Normal flow voids within the major intracranial circulation suggesting patency by spin echo criteria. Normal sella turcica, pituitary gland, infundibular stalk, optic chiasm and hypothalamus. Normal tectal plate and pineal gland. Normal midbrain, ragini and medulla. Normal cerebellum. Normal basal cisterns. Normal bilateral temporal bones. Normal bilateral internal auditory canals. No demonstrated orbital abnormality, within the constraints of a routine brain study. There is mucoperiosteal inflammatory disease of the paranasal sinuses consistent with moderate chronic sinusitis. Normal calvarium and skull base. Normal visualized soft tissue structures. Normal visualized upper cervical spine. MRI/Brain without Contrast IMPRESSION: 1. Involutional and chronic ischemic changes of the brain, as described above. 2. No demonstrated acute infarct 3. An old small focus of petechial microhemorrhages is present in the left periventricular/frontal lobe junction most likely is sequela from old trauma or prior focal ischemia. There is no demonstrated acute intracranial hemorrhage. Electronically Signed: Armond Olivarez MD at 11:16 EDT Reading Location ID and State: [facility] / [place] , Service support ,
[2022-05-13 21:11] VITALS: BMI 19.9
[2022-05-13] MEDS: 0.9% Normal Saline 1,000 ML 100 ML IV (22:06)
[2022-05-13] MEDS: Atorvastatin Calcium 80 MG Tablet PO (22:39)
[2022-05-13] MEDS: Heparin Injection (Vial) 5,000 UNIT/ML VIAL 5000 UNIT SC (22:39)
[2022-05-13 23:02] LABS: Troponin-I HS 8 pg/mL (3.0-78.0)
[2022-05-14] VITALS (7 sets, daily range): BP systolic 106–142; BP diastolic 78–86; PULSE 58–62; RESP 16–18; TEMP 36.3–36.8; O2SAT 96–100; BMI 21.1; BMI 20.9
[2022-05-14 00:08] LABS: Troponin-I HS 7 pg/mL (3.0-78.0)
[2022-05-14 05:50] LABS: Anion Gap 8 (5-15); BUN 13 mg/dL (7-18); BUN/Creat Ratio 9.6 RATIO (10-20); Calcium,Total 7.9 mg/dL (8.5-10.1); Chloride 110 mmol/L (98-107); Cholesterol 125 mg/dL (200); Creatinine, Serum 1.35 mg/dL (0.70-1.30); EST Glomerular Filtration Rate 54 mL/min (>60); Est Glom Filt Rate - Afr Amer 65 mL/min (>60); Estimated Creatinine Clearance 40.06 ml/min; Glucose 81 mg/dL (74-106); High Density Lipoprotein 36 mg/dL; Potassium 4.2 mmol/L (3.5-5.1); Sodium Level 139 mmol/L (136-145); Thyroid Stim Hormone (TSH) 1.03 uIU/mL (0.358-3.74); Triglycerides 64 mg/dL; Very Low Density Lipoprotein 13 mg/dL (5-40)
--- NOTE | 2022-05-14 07:41 | PCM.PN.HOSP ---
Reason for Visit Reason for Visit: Diagnoses Diplopia (05/13/22) Dizziness and giddiness (05/13/22) Subjective Subjective Feels well. No further dizziness. Objective Data Objective Data Vital Signs: Vital Signs Temp Pulse Resp BP Pulse Ox O2 Del Method 36.6 C 62 18 136/85 H 98 Room Air 05/14/22 05:41 05/14/22 05:41 05/14/22 05:41 05/14/22 05:41 05/14/22 05:41 05/14/22 07:40 Oxygen Delivery Method Room Air Weight: 64.2 kg Body Mass Index (BMI) 20.9 Intake & Output: Intake and Output for Last 24 Hours 05/12/22 05/13/22 05/14/22 23:59 23:59 23:59 Output Total 250 / 250 Balance -250 / -250 Lab / Micro Data Result Diagrams: 05/13/22 16:50 05/14/22 04:10 Labs: Laboratory Results - last 24 hr 05/13/22 16:50: WBC 7.8, RBC 4.38 L, Hgb 13.5, Hct 42.3, MCV 96.6 H, MCH 30.8, MCHC 31.9 L, RDW Std Deviation 52.8 H, RDW Coeff of Sebastian 14.7 H, Plt Count 340, MPV 9.4, Immature Gran % (Auto) 0.400, Neut % (Auto) 60.1, Lymph % (Auto) 22.8, [place] % (Auto) 11.4 H, Eos % (Auto) 4.7, Baso % (Auto) 0.6, Absolute Neuts (auto) 4.7, Absolute Lymphs (auto) 1.78, Nucleated RBC % 0 05/13/22 16:50: Sodium 139, Potassium 4.1, Chloride 109 H, Carbon Dioxide 25.0, Anion Gap 5, BUN 13, Creatinine 1.51 H, Estim Creat Clear Calc 35.82, Est GFR (MDRD) Af Amer 57 L, Est GFR (MDRD) Non-Af 47 L, BUN/Creatinine Ratio 8.6 L, Glucose 105, Calcium 8.2 L, Troponin I High Sens 5 05/13/22 16:50: Magnesium 2.2 05/13/22 21:54: Troponin I High Sens 8 05/13/22 23:33: Troponin I High Sens 7 05/14/22 04:10: Sodium 139, Potassium 4.2, Chloride 110 H, Carbon Dioxide 21.0, Anion Gap 8, BUN 13, Creatinine 1.35 H, Estim Creat Clear Calc 40.06, Est GFR (MDRD) Af Amer 65, Est GFR (MDRD) Non-Af 54 L, BUN/Creatinine Ratio 9.6 L, Glucose 81, Calcium 7.9 L, Triglycerides 64, Cholesterol 125, LDL Cholesterol 76, VLDL Cholesterol 13, HDL Cholesterol 36 L, TSH 1.03 Radiography Diagnostic Testing: Radiology Impression Head/Neck CTA 05/13/22 17:12 IMPRESSION: 1. There are no acute findings of the [place] without a demonstrated aneurysm or hemodynamically significant stenosis. ALL ABOVE CRITERIA BY NASCET. 2. There are no acute findings of the right and left internal carotid artery. ALL ABOVE CRITERIA BY NASCET. 3. 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 Electronically Signed: Chinmay Cook MD at 19:10 EDT , ADDENDUM: 05/13/22 1934 IMPRESSION: undefined Chest X-Ray 05/13/22 18:20 IMPRESSION: No radiographic evidence of acute cardiopulmonary disease. Electronically Signed: Chinmay Cook MD at 18:50 EDT , Physical Exam Const alert and no apparent distress Constitutional Narrative: No nystagmus Resp normal respiratory effort and no retractions Cardio regular rate, regular rhythm, S1 normal heart sound and S2 normal heart sound GI normal to inspection, nondistended, normoactive bowel sounds, soft to palpation, non-tender and non-distended Extremity normal to inspection Assessment & Plan Assessment/Plan (1) Vertigo: (2) Double vision: PLAN: Plan Near syncope and diplopia most likely peripheral vertigo, BPPV, rule out stroke: Patient is being admitted in PCU. The patient had CTA head and neck which did not show acute findings of [place] without demonstrated aneurysm or hemodynamically significant stenosis. MRI negative for any acute process though did show chronic ischemic changes and also small focus of petechial microhemorrhage in the left periventricular/frontal lobe junction. Patient does have a known history of chronic intracranial hemorrhage. Symptoms have since resolved. This is highly suspicious of benign paroxysmal positional vertigo. Discharged home with as needed prescription for meclizine. 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 LA mildly enlargement. Patient follows Dr. Hope last seen in March,. Home medications reconciliation done. Recent synovial cyst of right shoulder excision.Patient had excision of right shoulder on April 2022. It is well-healed. Hypertension and dyslipidemia: Home medication reconciliation done. Other multiple chronic comorbidities include history of medullary sponge kidney, nonoperative small aneurysm of brain as per history, bilateral kidney stones:Although patient states he had an EGD which was bleeding in 2003 but it is not reported in today's CTA head and neck. Reported no aneurysm or hemodynamically significant history. DVT prophylaxis: Heparin 5000 subcutaneous twice daily.
[2022-05-14] MEDS: Heparin Injection (Vial) 5,000 UNIT/ML VIAL 5000 UNIT SC ×2 (07:56→14:18)
[2022-05-14] MEDS: Aspirin 81 MG TAB.CHEW PO (10:07)
--- NOTE | 2022-05-14 13:07 | DCINST_ITS ---
Discharge Instructions Diet Discharge Diet: No restrictions Activity Discharge Activity: Return to Normal Activity Dressing / Incision Call your doctor if you observe: Fainting spells and - (Dizziness) Follow Up Care Test Results: Test results from this visit will be discussed in further detail at your follow- up appointment, if applicable. Discharge Plan Admission Admit Date/Time: 05/13/22 19:51 Primary Reason for Your Visit: Vertigo Attending Provider: Larry Carlson Primary Care Provider: Raissa Rayo Consulting Providers: Rober Chanel Discharge Orders/Prescriptions Prescriptions: New meclizine 12.5 mg tablet 12.5 mg PO TID PRN (Reason: dizziness) Qty: 10 0RF Continued atenolol 25 mg tablet 12.5 mg PO DAILY Qty: 45 4RF acetaminophen 500 mg tablet 1,000 mg PO Q6H PRN Qty: 50 0RF Referrals / Follow Up: Raissa Rayo MD [Primary Care Provider] - Within 2 Weeks Disposition Disposition (needs filled in before D/C Order can be placed): Home, Self Care
--- NOTE | 2022-05-14 13:11 | DS.PCM_ITS ---
Providers Date of Admission: 05/13/22 Primary Care Physician: Dr. Raissa Rayo MD Reason For Visit: TIA Diagnosis Discharge Diagnosis (1) Vertigo: Status: Acute Code(s): R42 - Dizziness and giddiness (2) Double vision: Status: Acute Code(s): H53.2 - Diplopia Plan Near syncope and diplopia most likely peripheral vertigo, BPPV, rule out stroke: Patient is being admitted in PCU. The patient had CTA head and neck which did not show acute findings of [place] without demonstrated aneurysm or hemodynamically significant stenosis. MRI negative for any acute process though did show chronic ischemic changes and also small focus of petechial microhemorrhage in the left periventricular/frontal lobe junction. Patient does have a known history of chronic intracranial hemorrhage. Symptoms have since resolved. This is highly suspicious of benign paroxysmal positional vertigo. Discharged home with as needed prescription for meclizine. 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 LA mildly enlargement. Patient follows Dr. Hope last seen in March,. Home medications reconciliation done. * Recent synovial cyst of right shoulder excision.Patient had excision of right shoulder on April 2022. It is well-healed. * Hypertension and dyslipidemia: Home medication reconciliation done. * Other multiple chronic comorbidities include history of medullary sponge kidney, nonoperative small aneurysm of brain as per history, bilateral kidney stones:Although patient states he had an EGD which was bleeding in 2003 but it is not reported in today's CTA head and neck. Reported no aneurysm or hemodynamically significant history. Medications at Discharge Home Medications atenolol 25 mg tablet 12.5 mg PO DAILY heart rate #45 tabs 03/21/22 acetaminophen 500 mg tablet 1,000 mg PO Q6H PRN #50 tabs 04/16/22 meclizine 12.5 mg tablet 12.5 mg PO TID PRN dizziness #10 tabs 05/14/22 Hospital Course Operations None Procedures None Summary of Care Provided Minutes Spent on Discharge: 28 Weight / BMI Weight Weight: 64.2 kg Body Mass Index (BMI) 20.9 ABG / Lab / Microbiology Data Result Diagrams: 05/13/22 16:50 05/14/22 04:10 Laboratory: Laboratory Results - last 24 hr 05/13/22 16:50: WBC 7.8, RBC 4.38 L, Hgb 13.5, Hct 42.3, MCV 96.6 H, MCH 30.8, MCHC 31.9 L, RDW Std Deviation 52.8 H, RDW Coeff of Sebastian 14.7 H, Plt Count 340, MPV 9.4, Immature Gran % (Auto) 0.400, Neut % (Auto) 60.1, Lymph % (Auto) 22.8, [place] % (Auto) 11.4 H, Eos % (Auto) 4.7, Baso % (Auto) 0.6, Absolute Neuts (auto) 4.7, Absolute Lymphs (auto) 1.78, Nucleated RBC % 0 05/13/22 16:50: Sodium 139, Potassium 4.1, Chloride 109 H, Carbon Dioxide 25.0, Anion Gap 5, BUN 13, Creatinine 1.51 H, Estim Creat Clear Calc 35.82, Est GFR (MDRD) Af Amer 57 L, Est GFR (MDRD) Non-Af 47 L, BUN/Creatinine Ratio 8.6 L, Glucose 105, Calcium 8.2 L, Troponin I High Sens 5 05/13/22 16:50: Magnesium 2.2 05/13/22 21:54: Troponin I High Sens 8 05/13/22 23:33: Troponin I High Sens 7 05/14/22 04:10: Sodium 139, Potassium 4.2, Chloride 110 H, Carbon Dioxide 21.0, Anion Gap 8, BUN 13, Creatinine 1.35 H, Estim Creat Clear Calc 40.06, Est GFR (MDRD) Af Amer 65, Est GFR (MDRD) Non-Af 54 L, BUN/Creatinine Ratio 9.6 L, Glucose 81, Calcium 7.9 L, Triglycerides 64, Cholesterol 125, LDL Cholesterol 76, VLDL Cholesterol 13, HDL Cholesterol 36 L, TSH 1.03 Radiography Diagnostic Testing: Radiology Impression Head/Neck CTA 05/13/22 17:12 IMPRESSION: 1. There are no acute findings of the [place] without a demonstrated aneurysm or hemodynamically significant stenosis. ALL ABOVE CRITERIA BY NASCET. 2. There are no acute findings of the right and left internal carotid artery. ALL ABOVE CRITERIA BY NASCET. 3. 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 Electronically Signed: Chinmay Cook MD at 19:10 EDT , ADDENDUM: 05/13/22 1934 IMPRESSION: undefined Chest X-Ray 05/13/22 18:20 IMPRESSION: No radiographic evidence of acute cardiopulmonary disease. Electronically Signed: Chinmay Cook MD at 18:50 EDT , Brain MRI 05/13/22 21:10 IMPRESSION: 1. Involutional and chronic ischemic changes of the brain, as described above. 2. No demonstrated acute infarct 3. An old small focus of petechial microhemorrhages is present in the left periventricular/frontal lobe junction most likely is sequela from old trauma or prior focal ischemia. There is no demonstrated acute intracranial hemorrhage. Electronically Signed: Armond Olivarez MD at 11:16 EDT , D/C Instructions Discharge Diet: No restrictions Call your doctor if you observe: Fainting spells and - (Dizziness) Meaningful Use Info Meaningful Use Diagnoses (Choose all that apply): None applicable Discharge Plan Admission Admit Date/Time: 05/13/22 19:51 Primary Reason for Your Visit: Vertigo Attending Provider: Larry Carlson Primary Care Provider: Raissa Rayo Consulting Providers: Rober Chanel Discharge Orders/Prescriptions Prescriptions: New meclizine 12.5 mg tablet 12.5 mg PO TID PRN (Reason: dizziness) Qty: 10 0RF Continued atenolol 25 mg tablet 12.5 mg PO DAILY Qty: 45 4RF acetaminophen 500 mg tablet 1,000 mg PO Q6H PRN Qty: 50 0RF Referrals / Follow Up: Raissa Rayo MD [Primary Care Provider] - Within 2 Weeks Disposition Disposition (needs filled in before D/C Order can be placed): Home, Self Care Charges/Coding Visit Charges Inpatient E&M: 65631 Disch Hosp
--- NOTE | 2022-05-14 15:38 | CASEMGMT ---
SW did not complete a PHQ 9 as patient did not have a Stroke or TIA. Constance SHEEHAN
--- NOTE | 2022-05-14 15:57 | PHA.DC.MC ---
Pharmacy Service has performed discharge medication reconciliation and counseling for this patient. 1. MECLIZINE 12.5MG PO TID PRN DIZZINESS The patient's discharge medication list was reviewed for discrepancies and discrepancies were resolved. Home Medications atenolol 25 mg tablet 12.5 mg PO DAILY heart rate #45 tabs 03/21/22 acetaminophen 500 mg tablet 1,000 mg PO Q6H PRN #50 tabs 04/16/22 meclizine 12.5 mg tablet 12.5 mg PO TID PRN dizziness #10 tabs 05/14/22 The patient was counseled on the following discharge medications and changes in medications for homegoing were reviewed. The Reason for Use, instructions for use, and potential side effects were reviewed for all new medications. The patient's questions regarding all of their medications were answered. The patient was able to verbally demonstrate an understanding of their discharge medications.
== END 2022-05-14 13:11 | disposition home or self-care (01) ==
LOC: ED 19:49 → PCU 20:23
PROVIDERS: Admitting Provider Internal Medicine; Emergency Provider Emergency Medicine; PCP Family Medicine
DX: R42 Dizziness and giddiness (principal); H53.2 Diplopia; E78.5 Hyperlipidemia, unspecified; R11.2 Nausea with vomiting, unspecified; I25.10 Atherosclerotic heart disease of native coronary artery without angina pectoris; I10 Essential (primary) hypertension; Z79.899 Other long term (current) drug therapy; I45.10 Unspecified right bundle-branch block; R00.1 Bradycardia, unspecified; Q61.5 Medullary cystic kidney
CPT/HCPCS: 36415; 70496; 70498; 70551; 71045; 80048; 80061; 83735; 84443; 84484; 85025; 93005; 96360; 96361; 96372; 97162; 97166; 99221; 99285; 99406; J7030; Q9967; A4216; G0378

== ENCOUNTER → 2022-12-06 | Outpatient (CLI) | payer MEDICARE, OTHER, SELFPAY ==
[2022-12-06 09:40] LABS: Absolute Lymphocyte Count 1.25 X10^3/uL (0.83-4.51); Absolute Neutrophil Count 3.6 X10^3/uL (2.0-7.7); Basophil# 0.08 X10^3/uL; Basophil% 1.3 % (0-1); Eosinophil# 0.46 X10^3/uL; Eosinophils% 7.3 % (0-5); Hemoglobin 13.6 g/dL (13.0-16.5); Lymphocyte # 1.25 X10^3/ul (0.83-4.51); Lymphocyte % 19.8 % (19-41); Mean Corp Hgb Conc 33.2 g/dL (32-36); Mean Corpuscular Hgb 33.3 pg (27.0-32.0); Mean Corpuscular Volume 100.2 fL (80-94); Monocyte% 14.3 % (0-10); NRBC Flagged by Analyzer 0 % (0-5); Platelet Count 205 K/mm3 (150-450); RBC Distribution Width CV 13.6 % (11.6-14.6); RBC Distribution Width SD 49.8 fl (35.1-43.9); Red Blood Count 4.09 M/mm3 (4.6-6.2); White Blood Count 6.3 K/mm3 (4.4-11.0)
[2022-12-06 10:09] LABS: PTHIN 78.8 pg/mL (18.4-80.1)
[2022-12-06 10:20] LABS: ALB/GLOB Ratio 0.9 RATIO (0.9-2.4); AST(SGOT) 25 U/L (15-37); Alanine Aminotransfer ALT/SGPT 31 U/L (16-61); Albumin, Serum 3.4 g/dL (3.2-5.0); Alkaline Phosphatase 116 U/L (45-117); Anion Gap 2 (5-15); BUN 22 mg/dL (7-18); BUN/Creat Ratio 14.6 RATIO (10-20); Calcium,Total 8.5 mg/dL (8.5-10.1); Chloride 113 mmol/L (98-107); Cholesterol 137 mg/dL (200); Creatinine, Serum 1.51 mg/dL (0.70-1.30); EST Glomerular Filtration Rate 47 mL/min (>60); Est Glom Filt Rate - Afr Amer 57 mL/min (>60); Globulin 3.6 g/dL (2.2-4.2); Glucose 89 mg/dL (74-106); High Density Lipoprotein 38 mg/dL; Potassium 4.2 mmol/L (3.5-5.1); Sodium Level 138 mmol/L (136-145); Triglycerides 66 mg/dL; Very Low Density Lipoprotein 13 mg/dL (5-40)
[2022-12-06 10:52] LABS: Ionized Calcium 4.91 mg/dL (4.36-5.20)
[2022-12-06 17:27] LABS: Ionized Calcium Order ORDER TUBE
== END | disposition home or self-care (01) ==
LOC: LAB 09:24
PROVIDERS: PCP Family Medicine; Referring Provider Family Medicine; Visit Provider Family Medicine
DX: Z00.00 Encounter for general adult medical examination without abnormal findings (principal); N18.32 Chronic kidney disease, stage 3b; E78.5 Hyperlipidemia, unspecified; R63.4 Abnormal weight loss
CPT/HCPCS: 36415; 80053; 80061; 82330; 83970; 84134; 85025

== ENCOUNTER → 2023-06-09 | Outpatient (CLI) | payer MEDICARE, OTHER, SELFPAY ==
--- NOTE | 2023-06-09 13:30 | LES_PTH ---
PATIENT: ADEEL POST LOC: BO U#:[id number] AGE/SX: 82/M ROOM: RE06/09/[address]: Dr. Sami Jones MD : 1940 BED: DIS: 06/09/2023 SPEC #: [id number] RECD: 06/09/23 14:08 STATUS: JEAN CARLOS KEY #: [id number] KOKO: 06/09/23 13:[address]: Sami Jones DEPT: SURGICAL PATHOLOGY RECD BY: Sandy De ENTERED: 06/10/23 11:55 SP TYPE: Lesion OTHR DR: Dr. Raissa Rayo MD Tissues: Skin of buttock, NOS Procedures: Surgery Specimen Level IV HEADER OPERATION: Excision of mass right buttock PRE-OP DIAGNOSIS: Right buttock mass TISSUE SUBMITTED: Right buttock mass MICROSCOPIC DIAGNOSIS Right buttock mass, excision: Acute and chronic inflammation and granulation tissue reaction. Negative for malignancy. See comment. SJ/mr 06/11/23 COMMENT Clinical correlation and appropriate follow up are necessary. MICROSCOPIC DESCRIPTION Slides are reviewed. GROSS DESCRIPTION Received in fixative is one container labeled with the patient's name and designated Right buttock mass. The specimen consists of a piece of pedroza soft tissue measuring 1.0 x 1.0 x 0.5cm. The specimen is inked, bisected and submitted entirely in one cassette. PAIGE/ 06/10/23 TC:2 CPT: 92845
== END | disposition home or self-care (01) ==
LOC: LABSPEC 14:10
PROVIDERS: PCP Family Medicine; Referring Provider Surgery; Visit Provider Surgery
DX: L98.9 Disorder of the skin and subcutaneous tissue, unspecified (principal)
CPT/HCPCS: 88305

== ENCOUNTER 2023-10-19 16:03 | Inpatient (IN) | payer MEDICARE, OTHER, SELFPAY ==
[2023-10-19 16:04] VITALS: BP 140/85; PULSE 71; RESP 18; TEMP 36.3; O2SAT 94; BMI 16.8
--- NOTE | 2023-10-19 16:41 | CT_ITS ---
EXAM: CT ABDOMEN AND PELVIS WITHOUT INTRAVENOUS CONTRAST CLINICAL INDICATION: Pain-right flank TECHNIQUE: Helically acquired images were obtained of the abdomen and pelvis without intravenous contrast. This CT exam was performed using one or more of the following dose reduction techniques: automated exposure control, adjustment of the mA and/or kV according to patient size, and/or use of iterative reconstruction technique. COMPARISON: 11/23/2015 FINDINGS: LOWER THORAX: Unremarkable. Lung bases are clear. No cardiomegaly. No significant pericardial effusion. ABDOMEN: LIVER: Unremarkable. Homogeneous. GALLBLADDER AND BILE DUCTS: Unremarkable. No calcified gallstones. No gallbladder distention or wall edema. No intra- or extrahepatic biliary ductal dilation. PANCREAS: Unremarkable. No focal cystic mass. SPLEEN: Unremarkable. Normal size without focal cystic or solid mass. ADRENALS: Unremarkable. No nodules. KIDNEYS AND URETERS: There is right-sided hydronephrosis and hydroureter. There is a 3 mm stone in the mid right ureter. There is a nonobstructing calyceal stone in the left kidney. Normal renal size and position. STOMACH AND BOWEL: There are postsurgical changes from a right hemicolectomy. No stomach or bowel distention. PELVIS: APPENDIX: See above. BLADDER: Unremarkable. REPRODUCTIVE: Unremarkable as visualized. No mass. ABDOMEN and PELVIS: INTRAPERITONEAL SPACE: Unremarkable. No ascites or other fluid collection. No free air. BONES/JOINTS: Unremarkable. No suspicious lytic or blastic abnormality. SOFT TISSUES: Unremarkable. No discrete abdominal or pelvic wall hernia. VASCULATURE: Unremarkable. Abdominal aorta is non-dilated. LYMPH NODES: Unremarkable. No enlarged lymph nodes. CT/Abdomen/Pelvis without Cont IMPRESSION: Obstruction of the right collecting system due to a 3 mm stone in the mid right ureter. There is moderate right-sided hydroureter and hydronephrosis. Electronically Signed: Rambo Echevarria MD at 18:03 EDT ,
--- NOTE | 2023-10-19 16:46 | EX.ED.DYSGE1 ---
HPI <JORGE Hanna - Last Filed: 10/19/23 19:35> History of Present Illness Chief Complaint: Flank Pain Narrative Narrative: 82-year-old male with history of hyperlipidemia, kidney stones, sponge kidneys presenting to the emergency department with severe pain to the right flank for greater than 1 hour. Patient dates the pain is sharp in nature, made him nauseated. Patient denies any fever or chills. Patient states that the last time he had kidney stones was roughly 4 to 5 years ago. He does see Dr. Olsen. Patient denies any falls or injury. PFS <JORGE Hanna - Last Filed: 10/19/23 19:35> [facility] Medical History Subcutaneous mass Cyst of buttocks Scabies Acute bronchitis, unspecified Preoperative cardiovascular examination Synovial cyst of shoulder AC (acromioclavicular) joint arthritis Rotator cuff arthropathy Wears glasses Wears dentures Medullary sponge kidney History of echocardiogram Cardiology follow-up encounter History of colon polyps Shingles Essential hypertension Left inguinal hernia Perforated appendicitis Atherosclerotic heart disease of [place] coronary artery without angina pectoris Nonrheumatic mitral valve disorder Nonrheumatic tricuspid valve regurgitation History of colon polyps Acute renal insufficiency Bilateral hydronephrosis Bilateral kidney stones Intractable pain Recurrent right inguinal hernia UTI (urinary tract infection) Ureteral stone with hydronephrosis Hyperlipidemia Right bundle branch block Home Medications ?Medication ?Instructions ?Recorded ?Last Taken ?Type NK 10/19/23 Unknown History Allergy/AdvReac Type Severity Reaction Status Date / Time ciprofloxacin (From Cipro) Allergy sweating, Verified 10/19/23 16:04 n/v wheat AdvReac Severe Unknown Verified 10/19/23 16:04 Family History Father CAD (coronary artery disease) Hx of CABG Brother Hypertension Surgical History Hx of colonoscopy History of partial surgical removal of colon History of appendectomy History of left inguinal hernia repair (~08/2018) history lithrotripsy for kidney stones History of prostatectomy History of right inguinal hernia repair Social History Smoking Status: Never smoker alcohol intake: never substance use type: does not use ROS <ISRAEL HannaC - Last Filed: 10/19/23 19:35> ROS ED ROS Narrative Constitutional: Negative for fever, chills, weight loss, weakness Eyes: Negative for vision loss, vision change, double vision ENT: Negative for any sore throat, ear pain, congestion Cardiovascular: Negative for any chest pain, tightness, palpitations Respiratory: Negative for any cough, sputum production, hemoptysis, dyspnea, dyspnea on exertion, orthopnea Gastrointestinal: Negative for any abdominal pain vomiting, diarrhea, constipation, blood in stool, blood in vomit. Positive for nausea : Negative for any urinary frequency, dysuria, retention, blood in urine Muscle skeletal: Negative for any neck pain. Positive for right-sided back pain, right-sided flank pain Neurological: Negative for any headache, syncope, dizziness Skin: Negative for any rashes, itching, abrasions, lacerations Psychiatric: Negative for any depression, anxiety, stress, suicidal ideation, homicidal ideation Hematologic: Negative for any excessive bruising, easy bleeding EXAM <JORGE Hanna - Last Filed: 10/19/23 19:35> Physical Exam Narrative Exam Narrative: Vital signs reviewed. HEET: Head normocephalic atraumatic, TMs clear bilaterally. Posterior pharynx is clear, moist mucous membranes. Nares clear bilaterally. Neck: Supple with no lymphadenopathy or tenderness. No signs of meningismus. Cardiac: Regular rate and rhythm no murmurs gallops or rubs, equal peripheral pulses bilaterally. Respiratory: Lungs clear to auscultation bilaterally. No chest tenderness. Abdomen: Soft, nontender, nondistended. No abdominal bruit or pulsatile masses. No hepatosplenomegaly Extremities: No peripheral edema, no signs of gross trauma or deformity. Active full range of motion of all extremities. Neuro: Cranial nerves II through XII intact, no focal neurological deficits. Skin: Clean dry and intact with no rash, purpura, petechiae, vesicles or pustules. Backs/flank: Positive right-sided CVA tenderness. No midline spinal tenderness, no deformity. Psych: Normal mood and affect. No SI, HI or acute psychosis. Const Vital Signs: 10/19/23 16:04 10/19/23 18:03 10/19/23 19:33 Temperature 97.4 F L 100.2 F H 100.7 F H Temperature Source Temporal Oral Pulse Rate 71 110 H 112 H Respiratory Rate 18 18 20 H Blood Pressure 140/85 H 145/77 H 105/70 Blood Pressure Mean 103 99 81 Pulse Ox 94 95 92 Oxygen Delivery Method Room Air Room Air <Dr. Timmy Hill MD - Last Filed: 10/19/23 17:15> Physical Exam Const Vital Signs: 10/19/23 16:04 10/19/23 18:03 10/19/23 19:33 Temperature 97.4 F L 100.2 F H 100.7 F H Temperature Source Temporal Oral Pulse Rate 71 110 H 112 H Respiratory Rate 18 18 20 H Blood Pressure 140/85 H 145/77 H 105/70 Blood Pressure Mean 103 99 81 Pulse Ox 94 95 92 Oxygen Delivery Method Room Air Room Air MDM <JORGE aHnna - Last Filed: 10/19/23 19:35> MDM Lab Data Labs: Laboratory Results - last 24 hr 10/19/23 10/19/23 16:35 17:50 WBC 5.6 RBC 4.43 L Hgb 13.8 Hct 42.2 MCV 95.3 H MCH 31.2 MCHC 32.7 RDW Std Deviation 48.5 H RDW Coeff of Sebastian 13.8 Plt Count 239 MPV 10.6 Immature Gran % (Auto) 0.200 Neut % (Auto) 64.1 Lymph % (Auto) 22.8 Gillespie % (Auto) 8.5 Eos % (Auto) 3.9 Baso % (Auto) 0.5 Absolute Neuts (auto) 3.6 Absolute Lymphs (auto) 1.28 Nucleated RBC % 0 Sodium 138 Potassium 4.1 Chloride 110 H Carbon Dioxide 24.0 Anion Gap 4 L BUN 25 H Creatinine 1.50 H Estim Creat Clear Calc 28.30 Est GFR (MDRD) Af Amer 58 L Est GFR (MDRD) Non-Af 48 L BUN/Creatinine Ratio 16.7 Glucose 93 Calcium 8.5 Total Bilirubin 0.50 AST 23 ALT 23 Alkaline Phosphatase 109 Total Protein 6.9 Albumin 3.3 Globulin 3.6 Albumin/Globulin Ratio 0.9 Lipase 62 Urine Color Yellow Urine Clarity Clear Urine pH 6.0 Ur Specific Rossiter 1.015 Urine Protein 30 H Urine Glucose (UA) Normal Urine Ketones Negative Urine Occult Blood 10 H Urine Nitrite Positive H Urine Bilirubin Negative Urine Urobilinogen Normal Ur Leukocyte Esterase 500 H Urine RBC 0 SEEN Urine WBC 10-25 SEEN Ur Squamous Epith Cells 0-5 SEEN Urine Bacteria 2+ Urine Mucus 0 SEEN Radiography Diagnostic Testing: Clinical Impression(s) from Imaging Studies Abdomen/Pelvis CT 10/19/23 16:41 IMPRESSION: Obstruction of the right collecting system due to a 3 mm stone in the mid right ureter. There is moderate right-sided hydroureter and hydronephrosis. Electronically Signed: Rambo Echevarria MD at 18:03 EDT , Treatment and Re-Evaluation :: Differential diagnosis includes however is not limited to: UTI, pyelonephritis, obstructing uropathy, muscle strain Patient appears to be in no obvious respiratory distress vital signs are stable. Patient presents to the emerged part with complaints of right-sided flank pain that started all of a sudden. Patient does have history of kidney stones. Patient received a CT scan of the abdomen pelvis without contrast. IV fluids Zofran morphine. Laboratory values will be drawn including urinalysis. All radiologic examinations were read, reviewed by the emergency department attending. From these reads, a plan of care will be put in place. Patient CBC was unremarkable, patient's chemistries showed creatinine 1.5 however looking at the patient's past laboratory values for the last 3 years, this seems to be stable. Patient's lipase was negative. No transaminitis. Patient CT scan of the abdomen pelvis showed obstruction of the right collecting system due to a 3 mm stone in the mid right ureter. There is moderate right sided hydroureter, hydronephrosis. Patient's urinalysis was positive for infection, 2+ bacteria, 10-25 white blood cells, 500 leukocytes, positive nitrites. A urine culture will be sent. Secondary to this finding, I am going to run the patient's status by the urologist. To see if this is something they can be discharged home or that he would prefer to be admitted. I spoke with the patient regarding the results. I spoke with urologist, I will speak with the urologist, the patient's condition did not change. Patient became febrile, had some rigors, also became tachycardic. Secondary to these findings, the patient's age, the UTI with a kidney stone, IV Rocephin will be given, urine culture, as well as Tylenol. Patient will now need to be admitted to the hospital. I will speak with the urologist to let him know. Patient will be admitted to medicine. <Dr. Timmy Hill MD - Last Filed: 10/19/23 17:15> [facility] Narrative Medical decision making narrative: I have personally performed a face to face assessment of the patient and have reviewed the GARRY Note. I performed a substantive portion of the visit including all aspects of the following. My stanton findings include: History is 82-year-old male was at home watching [employer] baseball when he had sudden onset right flank pain. He said a history of prior kidney stones he believes he may have another kidney stone. Denies any recent illness. No recent fever or dysuria. No gross hematuria. Denies any fall or trauma. Exam is [well-appearing 82-year-old male. He is already received morphine for pain. Vital signs are stable afebrile. H EENT exam unremarkable. Neck nontender. Lungs clear to auscultation bilaterally. Heart regular rate and rhythm rate about 70 no murmur. Chest wall and ribs nontender. Abdomen soft nontender. Back nontender. He has right flank pain but is not reproducible. There is no rash or trauma. Moving all 4 extremities. Nontender no edema. He is awake and alert. No focal motor deficits.] Medical Decision Making [82-year-old male sudden onset right flank pain. CAT scan labs are pending. Is received morphine for pain. Differential would include kidney stone versus UTI versus other. He is having no abdominal pain or reproducible abdominal pain.] Other additions or changes: [None] Lab Data Labs: Laboratory Results - last 24 hr 10/19/23 10/19/23 16:35 17:50 WBC 5.6 RBC 4.43 L Hgb 13.8 Hct 42.2 MCV 95.3 H MCH 31.2 MCHC 32.7 RDW Std Deviation 48.5 H RDW Coeff of Sebastian 13.8 Plt Count 239 MPV 10.6 Immature Gran % (Auto) 0.200 Neut % (Auto) 64.1 Lymph % (Auto) 22.8 Gillespie % (Auto) 8.5 Eos % (Auto) 3.9 Baso % (Auto) 0.5 Absolute Neuts (auto) 3.6 Absolute Lymphs (auto) 1.28 Nucleated RBC % 0 Sodium 138 Potassium 4.1 Chloride 110 H Carbon Dioxide 24.0 Anion Gap 4 L BUN 25 H Creatinine 1.50 H Estim Creat Clear Calc 28.30 Est GFR (MDRD) Af Amer 58 L Est GFR (MDRD) Non-Af 48 L BUN/Creatinine Ratio 16.7 Glucose 93 Calcium 8.5 Total Bilirubin 0.50 AST 23 ALT 23 Alkaline Phosphatase 109 Total Protein 6.9 Albumin 3.3 Globulin 3.6 Albumin/Globulin Ratio 0.9 Lipase 62 Urine Color Yellow Urine Clarity Clear Urine pH 6.0 Ur Specific [place] 1.015 Urine Protein 30 H Urine Glucose (UA) Normal Urine Ketones Negative Urine Occult Blood 10 H Urine Nitrite Positive H Urine Bilirubin Negative Urine Urobilinogen Normal Ur Leukocyte Esterase 500 H Urine RBC 0 SEEN Urine WBC 10-25 SEEN Ur Squamous Epith Cells 0-5 SEEN Urine Bacteria 2+ Urine Mucus 0 SEEN Radiography Diagnostic Testing: Clinical Impression(s) from Imaging Studies Abdomen/Pelvis CT 10/19/23 16:41 IMPRESSION: Obstruction of the right collecting system due to a 3 mm stone in the mid right ureter. There is moderate right-sided hydroureter and hydronephrosis. Electronically Signed: Rambo Echevarria MD at 18:03 EDT , Discharge Plan Dx/Rx/DC Orders Clinical Impression: Kidney stone on right side, Acute unilateral obstructive uropathy, Acute UTI Disposition Disposition: Acute Care Hospital [facility]
[2023-10-19] MEDS: Morphine 4 MG/ML Syringe IV (16:55)
[2023-10-19] MEDS: 0.9% Normal Saline (1000mL) 1,000 ML 999 ML IV (16:55)
[2023-10-19] MEDS: Ondansetron 4 MG/2 ML Vial IV (16:55)
[2023-10-19 17:04] LABS: Absolute Lymphocyte Count 1.28 X10^3/uL (0.83-4.51); Absolute Neutrophil Count 3.6 X10^3/uL (2.0-7.7); Basophil# 0.03 X10^3/uL; Basophil% 0.5 % (0-1); Eosinophil# 0.22 X10^3/uL; Eosinophils% 3.9 % (0-5); Hematocrit 42.2 % (40-54); Hemoglobin 13.8 g/dL (13.0-16.5); Lymphocyte # 1.28 X10^3/ul (0.83-4.51); Lymphocyte % 22.8 % (19-41); Mean Corp Hgb Conc 32.7 g/dL (32-36); Mean Corpuscular Hgb 31.2 pg (27.0-32.0); Mean Corpuscular Volume 95.3 fL (80-94); Mean Platelet Vol. 10.6 fl (6.2-12.0); Monocyte# 0.48 X10^3/uL; Monocyte% 8.5 % (0-10); NRBC Flagged by Analyzer 0 % (0-5); Neutrophil % 64.1 % (47-70); Platelet Count 239 K/mm3 (150-450); RBC Distribution Width CV 13.8 % (11.6-14.6); RBC Distribution Width SD 48.5 fl (35.1-43.9); Red Blood Count 4.43 M/mm3 (4.6-6.2); White Blood Count 5.6 K/mm3 (4.4-11.0)
[2023-10-19 17:14] LABS: ALB/GLOB Ratio 0.9 RATIO (0.9-2.4); AST(SGOT) 23 U/L (15-37); Alanine Aminotransfer ALT/SGPT 23 U/L (16-61); Albumin, Serum 3.3 g/dL (3.2-5.0); Alkaline Phosphatase 109 U/L (45-117); Anion Gap 4 (5-15); BUN 25 mg/dL (7-18); BUN/Creat Ratio 16.7 RATIO (10-20); Calcium,Total 8.5 mg/dL (8.5-10.1); Chloride 110 mmol/L (98-107); EST Glomerular Filtration Rate 48 mL/min (>60); Est Glom Filt Rate - Afr Amer 58 mL/min (>60); Globulin 3.6 g/dL (2.2-4.2); Glucose 93 mg/dL (74-106); Lipase 62 U/L (13-75); Potassium 4.1 mmol/L (3.5-5.1); Protein, Total 6.9 g/dL (6.4-8.2); Sodium Level 138 mmol/L (136-145)
[2023-10-19 17:57] LABS: Mucous, Urine 0 SEEN /hpf (<or=2+); Red Blood Cells-Urine 0 SEEN /hpf (0-5)
[2023-10-19 17:58] LABS: Color, Urine Yellow (Yellow); Glucose, Dipstick Normal (Normal); Ketone-Dipstick Negative (Negative); Leukocyte Esterase-Dipstick 500 /ul (Negative); Nitrite-Dipstick Positive (Negative); Occult Blood-Urine 10 /ul (Negative); Protein-Dipstick 30 mg/dl (Negative); Specific Gravity, Urine 1.015 (1.002-1.030); Urine Bilirubin Dipstick Negative (Negative); Urine Clarity Clear (Clear); Urine Urobilinogen Normal (Normal)
[2023-10-19 18:03] VITALS: BP 145/77; PULSE 110; RESP 18; TEMP 37.9; O2SAT 95
[2023-10-19 18:06] LABS: Bacteria 2+ /hpf (None Seen); Squamous Epithelial Cells - UA 0-5 SEEN /hpf (0-5); White Blood Cells 10-25 SEEN /hpf (0-5)
[2023-10-19] MEDS: Acetaminophen 500 MG Tablet 1000 MG PO (18:51)
[2023-10-19] MEDS: Ceftriaxone 1 GM/50 ML BAG IV (18:52)
[2023-10-19 19:33] VITALS: BP 105/70; PULSE 112; RESP 20; TEMP 38.2; O2SAT 92
--- NOTE | 2023-10-19 19:33 | HP.PCM.HOS_ITS ---
[facility] - General General Date of Admission: 10/19/23 Date of Service: 10/19/23 Chief Complaint: Fever, Chills and Right Flank Pain. HPI Narrative ADEEL ROSE, is a 82 M with a past medical history of essential hypertension, hyperlipidemia, history of perforated appendicitis, history of bilateral inguinal hernias; s/p repairs, history of colonic polyps; s/p partial colectomy, history of prostatectomy, history of appendectomy, history of nonrheumatic tricuspid valve regurgitation, history of shingles, history of scabies, osteoarthritis and history of bilateral renal calculi with hydronephrosis and UTI with a medullary sponge kidney; with subsequent lithotripsy (with last episode ~5 years ago) followed by Dr. Andrew who presents to [facility] ER complaining of fever, chills and Right flank pain. Mr. Rose reports his symptoms began approximately 1 hour prior to arrival with the abrupt onset of severe pain in his right flank that he describes as sharp, radiating to his groin and was not made better or worse by anything. He admits his symptoms are very similar to his previous obstructive kidney stones. He admits to nausea but he denies denies associated vomiting, diarrhea, constipation, chest pain or shortness of breath. He also denies any recent falls or traumatic injury. In the ER he was noted to have a fever of 100.7 ?F with urinalysis positive for acute cystitis; without hematuria and CT scan of the abdomen pelvis revealing obstruction of the Right collecting system due to a ~3 mm stone in the mid-Right ureter with moderate Right-sided hydroureter and hydronephrosis and he was then admitted to the general medical floor for ongoing care for stay that is expected to extend beyond 2 midnights. [facility] Medical History Subcutaneous mass Cyst of buttocks Scabies Acute bronchitis, unspecified Preoperative cardiovascular examination Synovial cyst of shoulder AC (acromioclavicular) joint arthritis Rotator cuff arthropathy Wears glasses Wears dentures Medullary sponge kidney History of echocardiogram Cardiology follow-up encounter History of colon polyps Shingles Essential hypertension Left inguinal hernia Perforated appendicitis Atherosclerotic heart disease of [place] coronary artery without angina pectoris Nonrheumatic mitral valve disorder Nonrheumatic tricuspid valve regurgitation History of colon polyps Acute renal insufficiency Bilateral hydronephrosis Bilateral kidney stones Intractable pain Recurrent right inguinal hernia UTI (urinary tract infection) Ureteral stone with hydronephrosis Hyperlipidemia Right bundle branch block Home Medications ?Medication ?Instructions ?Recorded ?Last Taken ?Type NK 10/19/23 Unknown History Allergy/AdvReac Type Severity Reaction Status Date / Time ciprofloxacin (From Cipro) Allergy sweating, Verified 10/19/23 16:04 n/v wheat AdvReac Severe Unknown Verified 10/19/23 16:04 Family History Father CAD (coronary artery disease) Hx of CABG Brother Hypertension Surgical History Hx of colonoscopy History of partial surgical removal of colon History of appendectomy History of left inguinal hernia repair (~08/2018) history lithrotripsy for kidney stones History of prostatectomy History of right inguinal hernia repair Social History Smoking Status: Never smoker alcohol intake: never substance use type: does not use Vital Signs Vital Signs Vital Signs: 10/19/23 16:04 10/19/23 18:03 Temperature 97.4 F L 100.2 F H Temperature Source Temporal Oral Pulse Rate 71 110 H Respiratory Rate 18 18 Blood Pressure 140/85 H 145/77 H Blood Pressure Mean 103 99 Pulse Ox 94 95 Oxygen Delivery Method Room Air Room Air Weight Weight: 114 lb 3.2 oz Body Mass Index (BMI) 16.8 Results Lab / Micro Data 10/19/23 16:35 10/19/23 16:35 Labs: Laboratory Results - last 24 hr 10/19/23 16:35: WBC 5.6, RBC 4.43 L, Hgb 13.8, Hct 42.2, MCV 95.3 H, MCH 31.2, MCHC 32.7, RDW Std Deviation 48.5 H, RDW Coeff of Sebastian 13.8, Plt Count 239, MPV 10.6, Immature Gran % (Auto) 0.200, Neut % (Auto) 64.1, Lymph % (Auto) 22.8, [place] % (Auto) 8.5, Eos % (Auto) 3.9, Baso % (Auto) 0.5, Absolute Neuts (auto) 3.6, Absolute Lymphs (auto) 1.28, Nucleated RBC % 0, Sodium 138, Potassium 4.1, Chloride 110 H, Carbon Dioxide 24.0, Anion Gap 4 L, BUN 25 H, Creatinine 1.50 H, Estim Creat Clear Calc 28.30, Est GFR (MDRD) Af Amer 58 L, Est GFR (MDRD) Non-Af 48 L, BUN/Creatinine Ratio 16.7, Glucose 93, Calcium 8.5, Total Bilirubin 0.50, AST 23, ALT 23, Alkaline Phosphatase 109, Total Protein 6.9, Albumin 3.3, Globulin 3.6, Albumin/Globulin Ratio 0.9, Lipase 62 10/19/23 17:50: Urine Color Yellow, Urine Clarity Clear, Urine pH 6.0, Ur Specific [place] 1.015, Urine Protein 30 H, Urine Glucose (UA) Normal, Urine Ketones Negative, Urine Occult Blood 10 H, Urine Nitrite Positive H, Urine Bilirubin Negative, Urine Urobilinogen Normal, Ur Leukocyte Esterase 500 H, Urine RBC 0 SEEN, Urine WBC 10-25 SEEN, Ur Squamous Epith Cells 0-5 SEEN, Urine Bacteria 2+, Urine Mucus 0 SEEN Imaging Radiology Impression Abdomen/Pelvis CT 10/19/23 16:41 IMPRESSION: Obstruction of the right collecting system due to a 3 mm stone in the mid right ureter. There is moderate right-sided hydroureter and hydronephrosis. Electronically Signed: Rambo Echevarria MD at 18:03 EDT , Assessment & Plan Assessment/Plan (1) Acute unilateral obstructive uropathy: (2) Kidney stone on right side: (3) Acute UTI: (4) Hyperlipidemia: QUALIFIERS: Hyperlipidemia type: unspecified Qualified Code(s): E 78.5 - Hyperlipidemia, unspecified PLAN: Plan 1. CT scan of the abdomen pelvis revealing obstruction of the Right collecting system due to a ~3 mm stone in the mid-Right ureter with moderate Right-sided hydroureter and hydronephrosis in the setting of a known history of bilateral renal calculi with hydronephrosis and UTI with a medullary sponge kidney; with subsequent lithotripsy (with last episode ~5 years ago) followed by Dr. Andrew - Admit to general medical floor. Continue empiric IV Rocephin begun in the ER and await culture and sensitivity data. Give Zofran IV as needed for nausea and vomiting. Give Tylenol as needed for [id number] (level 1-5/10) pain or fever. Give morphine IV as needed for severe (level 6-10/10) pain. Hopefully patient will be able to pass this stone spontaneously without urologic intervention. Finally, we will consult Dr. Andrew of the urology service to see this patient on rounds in the a.m. for further recommendations without appreciated in advance. 2. Acute cystitis; without hematuria complicating #1 - Continue empiric IV Rocephin begun in the ER and await culture and sensitivity data. 3. Essential hypertension - Hold scheduled antihypertensives until infection outlined above has been neutralized. Give IV hydralazine as needed for systolic blood pressure greater than 160 mmHg. 4. Hyperlipidemia - Resume statin when patient can tolerate oral intake. 5. History of perforated appendicitis - Noted. 6. History of bilateral inguinal hernias; s/p repairs - Noted. 7. History of colonic polyps; s/p partial colectomy - Noted. 8. History of prostatectomy - Noted. 9. History of appendectomy - Noted. 10. History of nonrheumatic tricuspid valve regurgitation - Apparently stable. 11. History of shingles - Stable with no evidence of recurrence at this time. 12. History of scabies - Noted. 13. Osteoarthritis - Give Tylenol as needed. 14. DVT prophylaxis - Place SCDs. Hold blood thinning agents at this time with impending urologic procedure to minimize risk of potential bleeding complications. Total time: Approximately 55 minutes. Charges/Coding Visit Charges Inpatient E&M: 89847 Init Hosp L2
[2023-10-19 20:36] VITALS: BP 101/63; PULSE 96; RESP 18; TEMP 36.6; O2SAT 93
[2023-10-19 20:38] VITALS: BP 101/63; PULSE 96; RESP 18; TEMP 36.4; O2SAT 93
[2023-10-19 20:40] VITALS: BMI 16.5
[2023-10-19] MEDS: 0.9% Normal Saline (1000mL) 1,000 ML 70 ML IV (21:10)
[2023-10-19] MEDS: 0.9% Saline Lock 10 ML Syringe IV (21:11)
[2023-10-19] MEDS: Lactobacillis Acidophilus 1 CAP PO (21:11)
[2023-10-19] MEDS: MELATONIN 3 MG TABLET PO (21:48)
[2023-10-20] VITALS (14 sets, daily range): BP systolic 89–99; BP diastolic 54–74; PULSE 52–72; RESP 12–18; TEMP 36.5–37.2; O2SAT 93–100; BMI 16.9
[2023-10-20] MEDS: 0.9% Normal Saline (500mL Bag) 500 ML 999 ML IV ×2 (03:02→08:35)
[2023-10-20 05:05] LABS: Absolute Lymphocyte Count 0.44 X10^3/uL (0.83-4.51); Absolute Neutrophil Count 14.3 X10^3/uL (2.0-7.7); Basophil# 0.03 X10^3/uL; Basophil% 0.2 % (0-1); Hematocrit 37.7 % (40-54); Hemoglobin 12.3 g/dL (13.0-16.5); Lymphocyte # 0.44 X10^3/ul (0.83-4.51); Lymphocyte % 2.7 % (19-41); Mean Corp Hgb Conc 32.6 g/dL (32-36); Mean Corpuscular Hgb 31.1 pg (27.0-32.0); Mean Corpuscular Volume 95.4 fL (80-94); Mean Platelet Vol. 10.9 fl (6.2-12.0); NRBC Flagged by Analyzer 0 % (0-5); Neutrophil # 14.28 X10^3/uL (2.7-7.7); Neutrophil % 87.7 % (47-70); POSITIVE DIFFERENTIAL YES; Platelet Count 170 K/mm3 (150-450); RBC Distribution Width CV 13.8 % (11.6-14.6); RBC Distribution Width SD 48.5 fl (35.1-43.9); Red Blood Count 3.95 M/mm3 (4.6-6.2); White Blood Count 16.3 K/mm3 (4.4-11.0)
[2023-10-20 05:44] LABS: ALB/GLOB Ratio 0.9 RATIO (0.9-2.4); AST(SGOT) 30 U/L (15-37); Alanine Aminotransfer ALT/SGPT 23 U/L (16-61); Albumin, Serum 2.5 g/dL (3.2-5.0); Alkaline Phosphatase 76 U/L (45-117); Anion Gap 6 (5-15); BUN 31 mg/dL (7-18); BUN/Creat Ratio 17.2 RATIO (10-20); Calcium,Total 7.7 mg/dL (8.5-10.1); Chloride 113 mmol/L (98-107); EST Glomerular Filtration Rate 39 mL/min (>60); Est Glom Filt Rate - Afr Amer 47 mL/min (>60); Estimated Creatinine Clearance 23.63 ml/min; Globulin 2.9 g/dL (2.2-4.2); Glucose 92 mg/dL (74-106); Magnesium 1.7 mg/dL (1.6-2.6); Phosphorus 3.4 mg/dL (2.5-4.9); Potassium 4.2 mmol/L (3.5-5.1); Protein, Total 5.4 g/dL (6.4-8.2); Sodium Level 138 mmol/L (136-145)
--- NOTE | 2023-10-20 08:14 | CON.PCM.UR_ITS ---
Assessment & Plan Assessment/Plan (1) Acute UTI: (2) Acute unilateral obstructive uropathy: (3) Kidney stone on right side: PLAN: Plan for cystoscopy right stent placement today, and and consent HPI Consult Data Date of Consult: 10/20/23 HPI Narrative Reason for Consultation: Right hydronephrosis and kidney stones HPI Narrative: ADEEL POST, is a 82 M who presentsTo the hospital with a urinary tract infection obstructing stones in the right ureter dilated right ureter and multiple stones inside the ureter not sure if the dilation of the ureters from the kidney stones or if it's somethinng else that causes dilation. He does a history of prostate cancer treated with radical prostatectomy in the past no evidence of recurrence. Presented the hospital fevers and chills UTI right hydronephrosis and right ureteral calculi plan for cystoscopy right stent placement today. [facility] Medical History Subcutaneous mass Cyst of buttocks Scabies Acute bronchitis, unspecified Preoperative cardiovascular examination Synovial cyst of shoulder AC (acromioclavicular) joint arthritis Rotator cuff arthropathy Wears glasses Wears dentures Medullary sponge kidney History of echocardiogram Cardiology follow-up encounter History of colon polyps Shingles Essential hypertension Left inguinal hernia Perforated appendicitis Atherosclerotic heart disease of [place] coronary artery without angina pectoris Nonrheumatic mitral valve disorder Nonrheumatic tricuspid valve regurgitation History of colon polyps Acute renal insufficiency Bilateral hydronephrosis Bilateral kidney stones Intractable pain Recurrent right inguinal hernia UTI (urinary tract infection) Ureteral stone with hydronephrosis Hyperlipidemia Right bundle branch block Home Medications ?Medication ?Instructions ?Recorded ?Last Taken ?Type NK 10/19/23 Unknown History Allergy/AdvReac Type Severity Reaction Status Date / Time ciprofloxacin (From Cipro) Allergy sweating, Verified 10/19/23 16:04 n/v wheat AdvReac Severe Unknown Verified 10/19/23 16:04 Family History Father CAD (coronary artery disease) Hx of CABG Brother Hypertension Surgical History Hx of colonoscopy History of partial surgical removal of colon History of appendectomy History of left inguinal hernia repair (~08/2018) history lithrotripsy for kidney stones History of prostatectomy History of right inguinal hernia repair Social History Smoking Status: Never smoker alcohol intake: never substance use type: does not use Physical Exam Const alert and oriented x3 General Appearance: cooperative HEENT normocephalic, head/scalp atraumatic, EAC's normal and TM's normal bilaterally Eyes PERRL and EOMs intact bilaterally Pupil: sluggish Neck no lymphadenopathy, supple and no JVD General: trachea midline Lymph Lymphatic: no lymphadenopathy noted, lymphedema and lymphadenopathy Resp normal respiratory effort, normal air movement and clear to auscultation bilaterally Cardio regular rate, regular rhythm and peripheral pulses 2+ throughout GI soft to palpation, non-tender and non-distended Extremity normal capillary refill and no clubbing, cyanosis or edema General Extremity: no tenderness to palpation of joints or extremities Skin no rashes or lesions noted General Skin Exam: turgor normal Lesions: no lesions Rashes: no rashes Neuro CN's II-XII intact bilaterally Speech: speech normal Motor Exam: strength 5/5 throughout; Negative for general weakness Psych thought process normal, cooperative and affect normal Appearance: appropriate Lab / Micro Data 10/20/23 03:49 10/20/23 03:49 Labs: Laboratory Results - last 24 hr 10/19/23 16:35: WBC 5.6, RBC 4.43 L, Hgb 13.8, Hct 42.2, MCV 95.3 H, MCH 31.2, MCHC 32.7, RDW Std Deviation 48.5 H, RDW Coeff of Sebastian 13.8, Plt Count 239, MPV 10.6, Immature Gran % (Auto) 0.200, Neut % (Auto) 64.1, Lymph % (Auto) 22.8, [place] % (Auto) 8.5, Eos % (Auto) 3.9, Baso % (Auto) 0.5, Absolute Neuts (auto) 3.6, Absolute Lymphs (auto) 1.28, Nucleated RBC % 0, Sodium 138, Potassium 4.1, Chloride 110 H, Carbon Dioxide 24.0, Anion Gap 4 L, BUN 25 H, Creatinine 1.50 H, Estim Creat Clear Calc 28.30, Est GFR (MDRD) Af Amer 58 L, Est GFR (MDRD) Non-Af 48 L, BUN/Creatinine Ratio 16.7, Glucose 93, Calcium 8.5, Total Bilirubin 0.50, AST 23, ALT 23, Alkaline Phosphatase 109, Total Protein 6.9, Albumin 3.3, Globulin 3.6, Albumin/Globulin Ratio 0.9, Lipase 62 10/19/23 17:50: Urine Color Yellow, Urine Clarity Clear, Urine pH 6.0, Ur Specific [place] 1.015, Urine Protein 30 H, Urine Glucose (UA) Normal, Urine Ketones Negative, Urine Occult Blood 10 H, Urine Nitrite Positive H, Urine Bilirubin Negative, Urine Urobilinogen Normal, Ur Leukocyte Esterase 500 H, Urine RBC 0 SEEN, Urine WBC 10-25 SEEN, Ur Squamous Epith Cells 0-5 SEEN, Urine Bacteria 2+, Urine Mucus 0 SEEN 10/20/23 03:49: WBC 16.3 H, RBC 3.95 L, Hgb 12.3 L, Hct 37.7 L, MCV 95.4 H, MCH 31.1, MCHC 32.6, RDW Std Deviation 48.5 H, RDW Coeff of Sebastian 13.8, Plt Count 170, MPV 10.9, Immature Gran % (Auto) 1.400 H, Neut % (Auto) 87.7 H, Lymph % (Auto) 2.7 L, [place] % (Auto) 8.0, Eos % (Auto) 0.0, Baso % (Auto) 0.2, Absolute Neuts (auto) 14.3 H, Absolute Lymphs (auto) 0.44 L, Nucleated RBC % 0, Sodium 138, Potassium 4.2, Chloride 113 H, Carbon Dioxide 19.0 L, Anion Gap 6, BUN 31 H, C reatinine 1.80 H, Estim Creat Clear Calc 23.63, Est GFR (MDRD) Af Amer 47 L, Est GFR (MDRD) Non-Af 39 L, BUN/Creatinine Ratio 17.2, Glucose 92, Calcium 7.7 L, Phosphorus 3.4, Magnesium 1.7, Total Bilirubin 1.00, AST 30, ALT 23, Alkaline Phosphatase 76, Total Protein 5.4 L, Albumin 2.5 L, Globulin 2.9, Albumin/Globulin Ratio 0.9, TSH 1.010 Imaging Radiology Impression Abdomen/Pelvis CT 10/19/23 16:41 IMPRESSION: Obstruction of the right collecting system due to a 3 mm stone in the mid right ureter. There is moderate right-sided hydroureter and hydronephrosis. Electronically Signed: Rambo Echevarria MD at 18:03 EDT ,
--- NOTE | 2023-10-20 08:25 | PCM.PN.HOSP ---
Reason for Visit Reason for Visit: Diagnoses Hyperlipidemia, unspecified (10/19/23) Obstructive and reflux uropathy, unspecified (10/19/23) Calculus of kidney (10/19/23) Urinary tract infection, site not specified (10/19/23) Subjective Subjective Patient notes feeling significantly improved since his initial ED presentation with resolution of the previous right flank pain and no recent fevers or chills. Discussed plan of care which included cystoscopy and further evaluation by urology to which she is amenable. Patient denies nausea, emesis, abdominal pain, chest pain or dyspnea. Objective Data Objective Data Vital Signs: Vital Signs Temp Pulse Resp BP Pulse Ox O2 Del Method 98.7 F 63 18 89/58 L 95 Room Air 10/20/23 08:01 10/20/23 08:01 10/20/23 08:01 10/20/23 08:01 10/20/23 08:01 10/20/23 08:01 Oxygen Delivery Method Room Air Weight: 114 lb 6.719 oz Body Mass Index (BMI) 16.9 Intake & Output: Intake and Output for Last 24 Hours 10/18/23 10/19/23 10/20/23 23:59 23:59 23:59 Intake Total 1050 / 1050 500 / 500 Output Total 400 / 400 Balance 1050 / 1050 100 / 100 Lab / Micro Data 10/20/23 03:49 10/20/23 03:49 Labs: Laboratory Results - last 24 hr 10/19/23 16:35: WBC 5.6, RBC 4.43 L, Hgb 13.8, Hct 42.2, MCV 95.3 H, MCH 31.2, MCHC 32.7, RDW Std Deviation 48.5 H, RDW Coeff of Sebastian 13.8, Plt Count 239, MPV 10.6, Immature Gran % (Auto) 0.200, Neut % (Auto) 64.1, Lymph % (Auto) 22.8, [place] % (Auto) 8.5, Eos % (Auto) 3.9, Baso % (Auto) 0.5, Absolute Neuts (auto) 3.6, Absolute Lymphs (auto) 1.28, Nucleated RBC % 0, Sodium 138, Potassium 4.1, Chloride 110 H, Carbon Dioxide 24.0, Anion Gap 4 L, BUN 25 H, Creatinine 1.50 H, Estim Creat Clear Calc 28.30, Est GFR (MDRD) Af Amer 58 L, Est GFR (MDRD) Non-Af 48 L, BUN/Creatinine Ratio 16.7, Glucose 93, Calcium 8.5, Total Bilirubin 0.50, AST 23, ALT 23, Alkaline Phosphatase 109, Total Protein 6.9, Albumin 3.3, Globulin 3.6, Albumin/Globulin Ratio 0.9, Lipase 62 10/19/23 17:50: Urine Color Yellow, Urine Clarity Clear, Urine pH 6.0, Ur Specific [place] 1.015, Urine Protein 30 H, Urine Glucose (UA) Normal, Urine Ketones Negative, Urine Occult Blood 10 H, Urine Nitrite Positive H, Urine Bilirubin Negative, Urine Urobilinogen Normal, Ur Leukocyte Esterase 500 H, Urine RBC 0 SEEN, Urine WBC 10-25 SEEN, Ur Squamous Epith Cells 0-5 SEEN, Urine Bacteria 2+, Urine Mucus 0 SEEN 10/20/23 03:49: WBC 16.3 H, RBC 3.95 L, Hgb 12.3 L, Hct 37.7 L, MCV 95.4 H, MCH 31.1, MCHC 32.6, RDW Std Deviation 48.5 H, RDW Coeff of Sebastian 13.8, Plt Count 170, MPV 10.9, Immature Gran % (Auto) 1.400 H, Neut % (Auto) 87.7 H, Lymph % (Auto) 2.7 L, [place] % (Auto) 8.0, Eos % (Auto) 0.0, Baso % (Auto) 0.2, Absolute Neuts (auto) 14.3 H, Absolute Lymphs (auto) 0.44 L, Nucleated RBC % 0, Sodium 138, Potassium 4.2, Chloride 113 H, Carbon Dioxide 19.0 L, Anion Gap 6, BUN 31 H, Creatinine 1.80 H, Estim Creat Clear Calc 23.63, Est GFR (MDRD) Af Amer 47 L, Est GFR (MDRD) Non-Af 39 L, BUN/Creatinine Ratio 17.2, Glucose 92, Calcium 7.7 L, Phosphorus 3.4, Magnesium 1.7, Total Bilirubin 1.00, AST 30, ALT 23, Alkaline Phosphatase 76, Total Protein 5.4 L, Albumin 2.5 L, Globulin 2.9, Albumin/Globulin Ratio 0.9, TSH 1.010 Radiography Diagnostic Testing: Radiology Impression Abdomen/Pelvis CT 10/19/23 16:41 IMPRESSION: Obstruction of the right collecting system due to a 3 mm stone in the mid right ureter. There is moderate right-sided hydroureter and hydronephrosis. Electronically Signed: Rambo Echevarria MD at 18:03 EDT , Physical Exam Narrative Physical Examination: General: Awake, alert, oriented x 3 and cooperative, seated upright in the MS bed, fatigued but notes feeling well and pain is resolved. Skin: Normal color, normal turgor, no icterus, no cyanosis except occasional stage ecchymoses, likely lab draws. HEENT: AT/NC, EOMI, PERRLA, mildly dry MM. Lungs: Mildly diminished, greater bases, appropriate effort, no rales, ronchi or wheezing. Heart: Regular rate and rhythm; no gallop, rub audible, + midsystolic click. Abdomen: Soft, NTTP, ND, mildly hyperactive BS, no discomfort with palpation of the flank bilaterally Extremities: No cyanosis, no clubbing, no marked peripheral edema, evidence of muscle and fat wasting. Neurological: Patient awake, alert, oriented as noted cognitive function intact; pupils equally reactive to light and accommodation, cranial nerves grossly normal, moving all 4 extremities, no focal deficits, strength moderately globally decreased Psychiatric: Affect appears fatigued otherwise normal, no acute evidence of depressive or anxiety feelings. Assessment & Plan Assessment/Plan (1) Acute unilateral obstructive uropathy: (2) Acute UTI: PLAN: Plan The patient is an 82 y/o M w/ PMHx: HTN, HLD, CAD, Hx perforated appendicitis s/p partial colectomy, Chronic anemia, CKD stage III unclear subtype, Hx BL renal calculi with hydronephrosis/complicated UTI with a medullary sponge kidney who presents to the [facility] ED on 10/19/23 with history of onset right flank pain, fevers and chills starting on same day of presentation. #1. Acute Flank Pain secondary to Acute Obstructive Nephrolithiasis with 3 mm mid-right ureteral calculus with associated moderate right sided hydroureter/hydronephrosis with associated Acute Complicated UTI complicated by Medullary sponge kidney: Admitted to MS, will maintain on judicious hydration, maintain on IV Rocephin, maintain NPO for OR with Urology today, pain regimen PRN/anti-emetics PRN, monitor I&Os. #2. CAD: Per records patient with CAD/LAD intramyocardial bridge, will maintain on aspirin therapy once clinically appropriate, per current list does not appear to be on any statin therapy, last fill of beta-mayda atenolol was noted 01/2023, clarifying. #3. 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 #4. Hypertension: Patient with low normal BP likely associate with his acute infectious presentation as noted #1, holding hypertensive regimen, add back once regimen clarified although last fill was noted atenolol 01/2023. #5. Hyperlipidemia: Per current list does not appear to be on regimen, clarifying. #6. Severe protein calorie malnutrition: Significant BMI of 16, obvious muscle and fat loss, nutrition consulted for recommendations #7. DVT prophylaxis: SCDs, hold chemoprophylaxis given OR as noted. Charges/Coding Visit Charges Inpatient E&M: 82766 Subs Hosp L3
[2023-10-20] MEDS: 0.9% Saline Lock 10 ML Syringe IV (08:34)
--- NOTE | 2023-10-20 09:24 | CASEMGMT ---
CRIS REYES Assessment: Face to Face with pt for initial transition planning/care coordination assessment. RN AMY introduced self and role at [facility], pt voices understanding and consents to assessment. Pt is A&O x4 and answers all questions appropriately at this time. Pt lying in bed in no distress. Care providers, pharmacy, and demographics verified/updated. Admitting Dx: R renal calculus and UTI Strata Score: 2 PCP:Perri Specialists:Lorrie, uro; WHG, cardio Preferred Pharmacy: [facility] Retail Insurance: [facility], [employer] Prescription Benefit: yes LNOK: Rosibel Rose, ; Farnazandrea Valencia, dtr Living Arrangements: Pt lives with in a single story home with 3-4 steps to enter with a rail. Pt reports he is I in ADLs and denies concerns at home. Transportation: Pt drives self and denies concerns with transportation. DME:cane- doesn't use HHC/SNF: Denies hx of Pt states no concerns with going home at time of dc. Pt states no further concerns/needs. CM to follow. Advised pt to ask CM if any further question/concerns/needs arise, voices understanding. Pt Goal: Home Plan: Home Julia LYNCH CM
[2023-10-20] MEDS: 0.9% Normal Saline (1000mL) 1,000 ML 15 ML IV (11:17)
--- NOTE | 2023-10-20 11:30 | PCM.PRE.AN2 ---
ASA Classification* ASA Classification ASA Classification: 3 and E Assessment & Plan Anesthesia* Anesthesia Assessment Anesthesia Assessment: Discussed sedation and/or anesthesia options, risks, benefits, and alternatives with patient/parents/legal guardian/POA. Questions invited. The patient/parents/legal guardian/POA seems to understand and agrees to proceed with anesthesia plan. Reviewed the physical assessment, medical history, allergy history and patient home medications list prior to surgery/procedure/anesthetic and documented any changes. Performed airway and anesthesia risk assessments. Anesthesia Type Anesthesia Type: MAC (see written pre anesthesia record for full assessment) Anesthesia Focused Assessment* Temperature: 97.8 F Pulse Rate: 60 Blood Pressure: 92/60 Respiratory Rate: 18 Pulse Ox: 96 Airway Assessment Mouth opens: >3 cm Mallampati Score: II Focused Labs Anesthesia Preop lab: CBC WBC 16.3 K/mm3 (4.4-11.0) H 10/20/23 03:49 RBC 3.95 M/mm3 (4.6-6.2) L 10/20/23 03:49 Hgb 12.3 g/dL (13.0-16.5) L 10/20/23 03:49 Hct 37.7 % (40-54) L 10/20/23 03:49 Plt Count 170 K/mm3 (150-450) 10/20/23 03:49 CHEMISTRY Potassium 4.2 mmol/L (3.5-5.1) 10/20/23 03:49 Sodium 138 mmol/L (136-145) 10/20/23 03:49 Magnesium 1.7 mg/dL (1.6-2.6) 10/20/23 03:49 Phosphorus 3.4 mg/dL (2.5-4.9) 10/20/23 03:49 BUN 31 mg/dL (7-18) H 10/20/23 03:49 Creatinine 1.80 mg/dL (0.70-1.30) H 10/20/23 03:49 Glucose 92 mg/dL (74-106) 10/20/23 03:49 TSH 1.010 uIU/mL (0.358-3.740) 10/20/23 03:49 COAG PT 13.3 SECONDS (11.7-14.9) 09/05/14 10:25 Pre-Assessment Diagnosis/Proposed Procedure Planned Operative Procedure(s): cyst stent Anesthesia History Anesthesia History - vocational coordinator: Anesthesia History - vocational coordinator Hx Hospitalization No 04/09/22 08:22 Any Problems With Anesthesia No 10/19/23 21:47 Cholinesterase deficiency No 10/19/23 21:47 You/Your Family Experience No 10/19/23 21:47 fever (hyperthermia) with Relationship Recent Exposure to Contagious No 10/19/23 21:47 Disease Does patient have nerve No 10/19/23 21:47 stimulator Patient instructed to have No 10/19/23 21:47 device shut off --Does patient have Pacemaker No 10/20/23 10:01 or ICD? When Was Last Pacemaker Check QUESTION #4 FULL TEXT: You/Your Family Experience fever (hyperthermia) with Anesthesia Last Oral Intake Last Oral intake: Last Oral Intake NPO since 00:00 10/20/23 10:01 Meds taken in AM with sips of water? Meds patient instructed to take am of surgery PONV PONV - vocational coordinator: PONV - vocational coordinator Female HX of Motion Sickness HX of N/V After Surgery Non-Smoker Duration of Surgery greater than 60 minutes Number of Risk Factors PONV Score Height & Weight Height & Weight: Anesthesia: Height & Weight Height 5 ft 8.9 in 10/20/23 10:01 Weight: 51.9 kg 10/20/23 10:01 Body Mass Index (BMI) 16.9 10/20/23 10:01 Respiratory Assessment Respiratory Assessment - vocational coordinator: Respiratory Tract Infection Hx - vocational coordinator Hx Respiratory Tract Infection No 10/19/23 21:47 STOP Sleep Apnea STOP Sleep Apnea - vocational coordinator: STOP Sleep Apnea - vocational coordinator Hx Hypertension No 10/19/23 20:47 Hx Sleep Apnea No 10/19/23 20:47 CPAP No 04/16/22 09:10 BIPAP No 04/09/22 08:22 Do you snore loudly (louder No 10/19/23 20:47 than talking or can be heard Do you often feel tired/ No 10/19/23 20:47 fatigued/ sleepy during daytime? Has anyone observed you stop No 10/19/23 20:47 breathing during sleep? STOP Results Negative 10/19/23 20:47 QUESTION #5 FULL TEXT : Do you snore loudly (louder than talking or can be heard through closed doors)? 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 Specify any problems Hx of Preganancy in last 3 N/A 10/19/23 20:47 Months Nurse Filling Out Transfusion CSIGNORIN 10/19/23 20:47 & Questions: Date: 10/19/23 10/19/23 20:47 Time: 20:49 10/19/23 20:47 Patient unable to answer at this time (ie. confused, unrespo /Reproduction History /Reproductive History - vocational coordinator: /Reproductive Hx- vocational coordinator Hx Now Gestational Age (in weeks): EDC: Hx Hx Para Hx Section SAB Active Medications Active Medications: Current Medications Generic Name Dose Route Start Last Admin Trade Name Freq PRN Reason Stop Dose Admin Acetaminophen 650 mg 10/19/23 20:24 Acetaminophen 325 Mg Tablet PO Q6H PRN PRN Pain 1-5/10 Or Fever>100.7 Sodium Chloride 1,000 mls @ 70 mls/hr 10/19/23 19:40 10/20/23 11:14 IV 0 mls/hr .[id number] GUALBERTO Infusion Ceftriaxone Sodium 1 gm in 50 mls @ 100 mls/hr 10/20/23 22:00 Rocephin IV 2200 GUALBERTO Sodium Chloride 250 mls @ 15 mls/hr 10/19/23 20:43 IV .[id number] PRN Additional IVPB Infusion Sodium Chloride 250 mls @ 15 mls/hr 10/19/23 20:43 IV .[id number] PRN Saline Flush Sodium Chloride 1,000 mls @ 15 mls/hr 10/20/23 11:15 10/20/23 11:17 IV 15 mls/hr .Q48H GUALBERTO Administration Melatonin 3 mg 10/19/23 20:24 10/19/23 21:48 Melatonin 3 Mg Tablet PO 3 mg QHS PRN PRN Administration INSOMNIA Morphine Sulfate 2 mg 10/19/23 20:24 Morphine 2 Mg/Ml Syringe IV Q4H PRN PRN Pain Score 6-10 Ondansetron HCl 4 mg 10/19/23 20:24 Ondansetron 4 Mg/2 Ml Vial IV Q8H PRN PRN NAUSEA/VOMITING Sodium Chloride 10 - 40 ml 10/19/23 20:43 10/20/23 08:34 0.9% Saline Lock 10 Ml Syringe IV 10 ml UD PRN Administration SALINE FLUSH PFSH Medical History Subcutaneous mass Cyst of buttocks Scabies Acute bronchitis, unspecified Preoperative cardiovascular examination Synovial cyst of shoulder AC (acromioclavicular) joint arthritis Rotator cuff arthropathy Wears glasses Wears dentures Medullary sponge kidney History of echocardiogram Cardiology follow-up encounter History of colon polyps Shingles Essential hypertension Left inguinal hernia Perforated appendicitis Atherosclerotic heart disease of [place] coronary artery without angina pectoris Nonrheumatic mitral valve disorder Nonrheumatic tricuspid valve regurgitation History of colon polyps Acute renal insufficiency Bilateral hydronephrosis Bilateral kidney stones Intractable pain Recurrent right inguinal hernia UTI (urinary tract infection) Ureteral stone with hydronephrosis Hyperlipidemia Right bundle branch block Home Medications ?Medication ?Instructions ?Recorded ?Last Taken ?Type NK 10/19/23 Unknown History Allergy/AdvReac Type Severity Reaction Status Date / Time ciprofloxacin (From Cipro) Allergy sweating, Verified 10/19/23 16:04 n/v wheat AdvReac Severe Unknown Verified 10/19/23 16:04 Family History Father CAD (coronary artery disease) Hx of CABG Brother Hypertension Surgical History Hx of colonoscopy History of partial surgical removal of colon History of appendectomy History of left inguinal hernia repair (~08/2018) history lithrotripsy for kidney stones History of prostatectomy History of right inguinal hernia repair Social History Smoking Status: Never smoker alcohol intake: never substance use type: does not use Review of Systems (Anesthesia) ROS Narrative System reviewed and no additional complaints, except as documented.
[2023-10-20] MEDS: Cefazolin 2 GM in 0.9% Normal Saline (100mL Bag) 100 ML IV (11:58)
--- NOTE | 2023-10-20 12:26 | OP.PCM_ITS ---
Report of Operation Date of Procedure: 10/20/23 Pre-Operative Diagnosis: Obstructing right ureteral calculus and right hydronep hrosis Post-Operative Diagnosis: The same plus infection Surgery/Procedure Performed:: Cystoscopy and right stent placement Description of Surgical Findings:: Patient was taken back to the operating room after induction of general anesthesia, the patient was placed in dorsolithotomy position. The urethra and genitals were prepped and draped in usual sterile fashion. Using a 21 [place] rigid cystourethroscope the entire length of the urethra was normal then went into the bladder. His prostate had been removed, urine looked very infected and cloudy. Identified the trigone the left and right ureteral orifice. I then cannulated the rigth ureteral orifice and advanced a wire up into the kidney. I then backloaded a 5 [place] open ended catheter over the wire and injected contrast to delineate the anatomy. He had severe right hydro with tortous ureter. After the retrograde was performed I then used fluoroscopic images and guidance to advanced a wire up into the kidney and over the 0.038 glidewire I advanced a 6 [place] by 26 cm double pigtail stent. I then pulled the 0.038 Glidewire off and the stent coiled in the kidney bladder good position. The bladder was then drained. We confirmed the position of the stent by fluoroscopy. Patient anesthetic was reversed and was taken back to the PACU in good condition. Surgeon: Rene Andrew Type of Anesthesia: General Drains: stent right Estimated Blood Loss (mL): 0 Admit VTE Documentation VTE Present on Admission: No VTE Mechan Device Prophylaxis: SCD's VTE Pharm Prophylaxis ordered?: No
--- NOTE | 2023-10-20 12:28 | EKG12_ITS ---
Test Reason : POST SURG Blood Pressure : / mmHG Vent. Rate : 055 BPM Atrial Rate : 055 BPM P-R Int : 156 ms QRS Dur : 122 ms QT Int : 476 ms P-R-T Axes : 000 -77 -23 degrees QTc Int : 455 ms Sinus bradycardia with Premature supraventricular complexes Left axis deviation Right bundle branch block Inferior infarct (cited on or before 20-OCT-2023) Abnormal ECG Confirmed by MAURO JIMÉNEZ, CHELLE ([id number]), metal turner OZZIE AVERY ([id number]) on 10/24/2023 7:15:54 AM Referred By: WOODS Confirmed By:DES WADE MD
--- NOTE | 2023-10-20 12:36 | PCM.POST.ANE ---
Anesthesia: Postop Eval I Current Vital Signs Temperature: 97.8 F Pulse Rate: 62 Blood Pressure: 96/66 Respiratory Rate: 18 Pulse Ox: 97 Oxygen Delivery Method: Room Air Assessment Airway patent: Yes Spontaneous unlabored respirations: Yes Mental status: Awake and Calm nausea: No Vomiting: No Anesthesia Complication: No Fluid Hydration Crystalloid volume administer (ml): 500 Total IV fluid infused: 500 Progress Note Anesthesia document: Postop Eval 1 completed: Yes
--- NOTE | 2023-10-20 13:00 | SUR.PHASEI ---
PATIENT WAITING ON TRANSPORT.
[2023-10-20] MEDS: 0.9% Normal Saline (1000mL) 1,000 ML 70 ML IV (13:32)
[2023-10-20] MEDS: Lactobacillis Acidophilus 1 CAP PO ×3 (13:53→21:15)
--- NOTE | 2023-10-20 13:59 | POSTOPAN2_ITS ---
Anesthesia Postop Eval I Sum Postop Eval Completion status Anesthesia document: Postop Eval 1 completed: Yes Anesthesia Postop Eval I Summary Anesthesia Postop Eval I Summary: Anesthesia Postop Eval I: Assessment Summary Airway patent Yes 10/20/23 12:37 LENS GRINDER [email or web address] Spontaneous unlabored Yes 10/20/23 12:37 LENS GRINDER [email or web address] respirations Mental status Awake,Calm 10/20/23 12:37 LENS GRINDER [email or web address] nausea No 10/20/23 12:37 LENS GRINDER [email or web address] Vomiting No 10/20/23 12:37 LENS GRINDER [email or web address] Anesthesia Postop Eval I: Fluid Summary Crystalloid volume administer 500 10/20/23 12:37 LENS GRINDER [email or web address] (ml) Colloids volume administered ( ml) Blood Product volume administered (ml) Total IV fluid infused 500 10/20/23 12:37 LENS GRINDER [email or web address] Anesthesia Postop Eval I: Summary Notes Anesthesia Complication No 10/20/23 12:37 LENS GRINDER [email or web address] Anesthesia Complication Comment: Post-operative progress note Anesthesia: Postop Eval II Evaluation Mental status: Awake Pain Level: 0 nausea: No Vomiting: No Complications Anesthesia Complication: No
--- NOTE | 2023-10-20 13:59 | PCM.POSTANE2 ---
Anesthesia Postop Eval I Sum Postop Eval Completion status Anesthesia document: Postop Eval 1 completed: Yes Anesthesia Postop Eval I Summary Anesthesia Postop Eval I Summary: Anesthesia Postop Eval I: Assessment Summary Airway patent Yes 10/20/23 12:37 DESIGN RELEASE [email or web address] Spontaneous unlabored Yes 10/20/23 12:37 DESIGN RELEASE [email or web address] respirations Mental status Awake,Calm 10/20/23 12:37 DESIGN RELEASE [email or web address] nausea No 10/20/23 12:37 DESIGN RELEASE [email or web address] Vomiting No 10/20/23 12:37 DESIGN RELEASE [email or web address] Anesthesia Postop Eval I: Fluid Summary Crystalloid volume administer 500 10/20/23 12:37 DESIGN RELEASE [email or web address] (ml) Colloids volume administered ( ml) Blood Product volume administered (ml) Total IV fluid infused 500 10/20/23 12:37 DESIGN RELEASE [email or web address] Anesthesia Postop Eval I: Summary Notes Anesthesia Complication No 10/20/23 12:37 DESIGN RELEASE [email or web address] Anesthesia Complication Comment: Post-operative progress note Anesthesia: Postop Eval II Evaluation Mental status: Awake Pain Level: 0 nausea: No Vomiting: No Complications Anesthesia Complication: No
[2023-10-20] MEDS: Acetaminophen 325 MG Tablet 650 MG PO (19:08)
[2023-10-20] MEDS: Ceftriaxone 1 GM/50 ML BAG IV (21:15)
[2023-10-20] MEDS: MELATONIN 3 MG TABLET PO (23:08)
[2023-10-21 02:30] VITALS: BP 105/74; PULSE 57; RESP 16; TEMP 36.8; O2SAT 94
[2023-10-21] MEDS: 0.9% Normal Saline (1000mL) 1,000 ML 70 ML IV (04:24)
[2023-10-21 04:26] VITALS: BMI 17.1
[2023-10-21 07:00] LABS: Absolute Lymphocyte Count 0.57 X10^3/uL (0.83-4.51); Absolute Neutrophil Count 9.3 X10^3/uL (2.0-7.7); Basophil# 0.02 X10^3/uL; Basophil% 0.2 % (0-1); Eosinophil# 0.14 X10^3/uL; Eosinophils% 1.3 % (0-5); Hematocrit 34.5 % (40-54); Hemoglobin 11.4 g/dL (13.0-16.5); Lymphocyte # 0.57 X10^3/ul (0.83-4.51); Lymphocyte % 5.2 % (19-41); Mean Corpuscular Hgb 31.5 pg (27.0-32.0); Mean Corpuscular Volume 95.3 fL (80-94); Mean Platelet Vol. 11.2 fl (6.2-12.0); Monocyte# 0.89 X10^3/uL; Monocyte% 8.1 % (0-10); NRBC Flagged by Analyzer 0 % (0-5); Neutrophil # 9.33 X10^3/uL (2.7-7.7); Neutrophil % 84.5 % (47-70); POSITIVE DIFFERENTIAL YES; Platelet Count 141 K/mm3 (150-450); RBC Distribution Width CV 14.3 % (11.6-14.6); RBC Distribution Width SD 49.7 fl (35.1-43.9); Red Blood Count 3.62 M/mm3 (4.6-6.2)
--- NOTE | 2023-10-21 07:05 | PN.HOSP_ITS ---
Reason for Visit Reason for Visit: Diagnoses Hyperlipidemia, unspecified (10/19/23) Obstructive and reflux uropathy, unspecified (10/19/23) Calculus of kidney (10/19/23) Urinary tract infection, site not specified (10/19/23) Subjective Subjective Patient with no acute events overnight per self and per nursing report. He notes feeling near his baseline since cystoscopy and ureteral stent placement the day prior. Discussed plan of care and given his clinical improvement and preference to discharge to home amenable to transition to oral antibiotic therapy based on his culture and sensitivities with follow-up outpatient with urology and PCP. Patient denies fevers, chills, nausea, emesis, abdominal pain, chest pain or dyspnea. Objective Data Objective Data Vital Signs: Vital Signs Temp Pulse Resp BP Pulse Ox O2 Del Method 98.2 F 57 L 16 105/74 94 Room Air 10/21/23 02:30 10/21/23 02:30 10/21/23 02:30 10/21/23 02:30 10/21/23 02:30 10/21/23 02:30 Oxygen Delivery Method Room Air Weight: 115 lb 8.356 oz Body Mass Index (BMI) 17.1 Intake & Output: Intake and Output for Last 24 Hours 10/19/23 10/20/23 10/21/23 23:59 23:59 23:59 Intake Total 1050 / 1050 3254.09 / 3254.09 456.33 / 456.33 Output Total 400 / 1100 1000 / 1000 Balance 1050 / 1050 2854.09 / 2154.09 -543.67 / -543.67 Lab / Micro Data 10/21/23 06:11 10/21/23 06:11 Labs: Laboratory Results - last 24 hr 10/21/23 06:11: WBC 11.0, RBC 3.62 L, Hgb 11.4 L, Hct 34.5 L, MCV 95.3 H, MCH 31.5, MCHC 33.0, RDW Std Deviation 49.7 H, RDW Coeff of Sebastian 14.3, Plt Count 141 L, MPV 11.2, Immature Gran % (Auto) 0.700, Neut % (Auto) 84.5 H, Lymph % (Auto) 5.2 L, [place] % (Auto) 8.1, Eos % (Auto) 1.3, Baso % (Auto) 0.2, Absolute Neuts (auto) 9.3 H, Absolute Lymphs (auto) 0.57 L, Nucleated RBC % 0 Micro: Microbiology 10/19/23 17:50 Urine, Clean Catch Urine Culture - Final Escherichia coli Physical Exam Narrative Physical Examination: General: Awake, alert, oriented x 3 and cooperative, seated upright in the CA bed, notes feeling well and is eager for discharge to home. Skin: Normal color, normal turgor, no icterus, no cyanosis except occasional stage ecchymoses. HEENT: AT/NC, EOMI, PERRLA, MMM. Lungs: Mildly diminished, greater bases, appropriate effort, no rales, ronchi or wheezing. Heart: Regular rate and rhythm; no gallop, rub audible, + midsystolic click. Abdomen: Soft, NTTP, ND, mildly hyperactive BS, no discomfort with palpation of the flank bilaterally Extremities: No cyanosis, no clubbing, no marked peripheral edema, evidence of muscle and fat wasting. Neurological: Patient awake, alert, oriented as noted cognitive function intact; pupils equally reactive to light and accommodation, cranial nerves grossly normal, moving all 4 extremities, no focal deficits, strength improving, moderately globally decreased Psychiatric: Affect appears more interactive, no acute evidence of depressive or anxiety feelings. Assessment & Plan Assessment/Plan (1) Acute unilateral obstructive uropathy: (2) Acute UTI: PLAN: Plan The patient is an 82 y/o M w/ PMHx: HTN, HLD, CAD, Hx perforated appendicitis s/p partial colectomy, Chronic anemia, CKD stage III unclear subtype, Hx BL renal calculi with hydronephrosis/complicated UTI with a medullary sponge kidney who presents to the [facility] ED on 10/19/23 with history of onset right flank pain, fevers and chills starting on same day of presentation. #1. Acute Flank Pain secondary to Acute Obstructive Nephrolithiasis with 3 mm mid-right ureteral calculus with associated moderate right sided hydroureter/hydronephrosis with associated Acute Complicated E. Coli UTI complicated by Medullary sponge kidney: Admitted to [place], judiciously hydrated, maintained on IV Rocephin, OR 10/20/[address] Andrew s/p Cystoscopy and right stent placement, pain regimen PRN/anti-emetics PRN, monitor I&Os. Given clinical improvement and patient eagerness for discharge will transition from IV Rocephin to oral Keflex given sensitivities based on renal creatinine clearance with planned follow-up in 1 week with urology and close early follow-up with PCP in addition. #2. CAD: Per records patient with CAD/LAD intramyocardial bridge, will maintain on aspirin therapy once clinically appropriate, per current list does not appear to be on any statin therapy, last fill of beta-mayda atenolol was noted 01/2023, but given patient low normal BP deferred any re-addition. Encourage outpatient follow-up with cardiology. #3. 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 #4. Hypertension: Patient with low normal BP likely associate with his acute infectious presentation as noted #1, patient last noted fill for hypertensive regimen was atenolol 01/2023, given low normal BP re-addition was deferred. Encourage continued outpatient follow-up with cardiology. #5. Hyperlipidemia: Per current list does not appear to be on regimen, defer to outpatient. #6. Severe protein calorie malnutrition: Significant BMI of 16, obvious muscle and fat loss, nutrition consulted for recommendations #7. DVT prophylaxis: SCDs. Charges/Coding Visit Charges Inpatient E&M: 53854 Subs Hosp L2
[2023-10-21 07:38] LABS: ALB/GLOB Ratio 0.8 RATIO (0.9-2.4); AST(SGOT) 26 U/L (15-37); Alanine Aminotransfer ALT/SGPT 20 U/L (16-61); Albumin, Serum 2.3 g/dL (3.2-5.0); Alkaline Phosphatase 74 U/L (45-117); Anion Gap 4 (5-15); BUN 34 mg/dL (7-18); BUN/Creat Ratio 20.2 RATIO (10-20); Chloride 115 mmol/L (98-107); Creatinine, Serum 1.68 mg/dL (0.70-1.30); EST Glomerular Filtration Rate 42 mL/min (>60); Est Glom Filt Rate - Afr Amer 51 mL/min (>60); Estimated Creatinine Clearance 25.56 ml/min; Globulin 2.9 g/dL (2.2-4.2); Glucose 87 mg/dL (74-106); Potassium 4.4 mmol/L (3.5-5.1); Protein, Total 5.2 g/dL (6.4-8.2); Sodium Level 139 mmol/L (136-145)
[2023-10-21 10:14] VITALS: BP 94/75; PULSE 61; RESP 18; TEMP 36.4; O2SAT 98
[2023-10-21] MEDS: Lactobacillis Acidophilus 1 CAP PO (10:19)
--- NOTE | 2023-10-21 12:17 | DCINST_ITS ---
Discharge Instructions Diet Discharge Diet: No restrictions Activity Discharge Activity: - (Encourage return to activity slowly over the next 3-5 days. Avoid aggressive activity until cleared per Primary care and Urology.) May resume sexual activity in: 10-14 days Weight Bearing Status: Weight bearing as tolerated Dressing / Incision Call your doctor if you observe: Fever of 101 or Higher, Inability to urinate, Shortness of breath, Dizziness, Chest pain, Increased palpitations (irregular heartbeat), Calf discomfort and Uncontrolled pain Follow Up Care Test Results: Test results from this visit will be discussed in further detail at your follow- up appointment, if applicable. Discharge Plan Admission Admit Date/Time: 10/19/23 19:36 Primary Reason for Your Visit: Obstructive Nephrolithasis, Acute Complicated UTI Attending Provider: Nikole Villarreal Primary Care Provider: Raissa Rayo Consulting Providers: Rene Andrew; Roque Borrero Instructions Additional Instructions / Restrictions: ADDITIONAL FOLLOW-UP/DISCHARGE INFORMATION: #1. Acute Flank Pain secondary to Acute Obstructive Nephrolithiasis with 3 mm mid-right ureteral calculus with associated moderate right sided hydroureter/hydronephrosis with associated Acute Complicated E. Coli UTI complicated by Medullary sponge kidney: --Treated with IV rocephin with transition to oral keflex at discharged based on urine culture results for an additional 5 day regimen. --OR 10/20/[address] Andrew s/p Cystoscopy and right stent placement with plan for follow-up with Urology in 1 week. #2. CAD: --Per records patient with CAD/LAD intramyocardial bridge with restart on baby aspirin at discharge. Blood pressure low normal baseline thus held on any restart of prior noted beta mayda therapy. Recommend re-evaluation outpatient for statin needs. Discharge Orders/Prescriptions Prescriptions: New aspirin 81 mg tablet,delayed release (DR/EC) 81 mg PO DAILY Qty: 30 0RF cephalexin 500 mg capsule 500 mg PO TID Qty: 10 0RF Referrals / Follow Up: Raissa Rayo MD [Primary Care Provider] - (Follow-up within 3-5 days to review admission.) Rene Anrdew MD [Med Staff - Active Staff] - (Follow-up in the office in 1 week s/p stent placement.) Disposition Disposition (needs filled in before D/C Order can be placed): Home, Self Care
[2023-10-21 13:20] VITALS: BP 100/70; PULSE 78; RESP 16; TEMP 36.5; O2SAT 94
--- NOTE | 2023-10-21 16:35 | PCM.DC.SUM ---
Providers Date of Admission: 10/19/23 Date of Discharge: 10/21/23 Primary Care Physician: Dr. Raissa Rayo MD Consultations 10/19/23 20:24 Consult: Urology Routine Consulting Provider: Rene Andrew Reason for Consult: Right Renal Calculus and UTI. EMERGENT Consult: No MD Notified: Yes Date Notified: 10/19/23 Time Notified: 19:39 Method of Notification: ED Physician Initiated Method of Consult:: Telemedicine Comments:: contacted in ed Reason For Visit: RIGHT RENAL CALCULUS AND UTI Diagnosis Discharge Diagnosis (1) Acute unilateral obstructive uropathy: Status: Acute Code(s): N13.9 - Obstructive and reflux uropathy, unspecified (2) Acute UTI: Status: Acute Code(s): N39.0 - Urinary tract infection, site not specified Plan: DISCHARGE DIAGNOSES: #1. Acute Flank Pain secondary to Acute Obstructive Nephrolithiasis with 3 mm mid-right ureteral calculus with associated moderate right sided hydroureter/hydronephrosis with associated Acute Complicated E. Coli UTI complicated by Medullary sponge kidney #2. CAD #3. Valvular heart disease #4. Hypertension, Hx of, no longer on antihypertensive regimen, BP low normal range #5. Hyperlipidemia #6. Severe protein calorie malnutrition Medications at Discharge Home Medications aspirin 81 mg tablet,delayed release 81 mg PO DAILY #30 tabs 10/21/23 cephalexin 500 mg capsule 500 mg PO TID E. Coli UTI #10 caps 10/21/23 Hospital Course Operations - (10/20/23 cystoscopy and R stent placement per Dr. Andrew.) Procedures None Summary of Care Provided Minutes Spent on Discharge: 35 Hospital Course: The patient is an 82 y/o M w/ PMHx: HTN, HLD, CAD, Hx perforated appendicitis s/p partial colectomy, Chronic anemia, CKD stage III unclear subtype, Hx BL renal calculi with hydronephrosis/complicated UTI with a medullary sponge kidney who presented to the [facility] ED on 10/19/23 with history of onset right flank pain, fevers and chills starting on same day of presentation. Patient admitted and treated for Acute Flank Pain secondary to Acute Obstructive Nephrolithiasis with 3 mm mid-right ureteral calculus with associated moderate right sided hydroureter/hydronephrosis with associated Acute Complicated E. Coli UTI complicated by Medullary sponge kidney. Patient was admitted to [place], judiciously hydrated, maintained on IV Rocephin, OR 10/20/[address] Andrew s/p Cystoscopy and right stent placement, pain regimen PRN/anti-emetics PRN, monitor I&Os. Given clinical improvement and patient eagerness for discharge will transition from IV Rocephin to oral Keflex given sensitivities based on renal creatinine clearance with planned follow-up in 1 week with urology and close early follow-up with PCP in addition. Weight / BMI Weight Weight: 115 lb 8.356 oz Body Mass Index (BMI) 17.1 ABG / Lab / Microbiology Data 10/21/23 06:11 10/21/23 06:11 Laboratory: Laboratory Results - last 24 hr 10/21/23 06:11: WBC 11.0, RBC 3.62 L, Hgb 11.4 L, Hct 34.5 L, MCV 95.3 H, MCH 31.5, MCHC 33.0, RDW Std Deviation 49.7 H, RDW Coeff of Sebastian 14.3, Plt Count 141 L, MPV 11.2, Immature Gran % (Auto) 0.700, Neut % (Auto) 84.5 H, Lymph % (Auto) 5.2 L, [place] % (Auto) 8.1, Eos % (Auto) 1.3, Baso % (Auto) 0.2, Absolute Neuts (auto) 9.3 H, Absolute Lymphs (auto) 0.57 L, Nucleated RBC % 0, Sodium 139, Potassium 4.4, Chloride 115 H, Carbon Dioxide 20.0 L, Anion Gap 4 L, BUN 34 H, Creatinine 1.68 H, Estim Creat Clear Calc 25.56, Est GFR (MDRD) Af Amer 51 L, Est GFR (MDRD) Non-Af 42 L, BUN/Creatinine Ratio 20.2 H, Glucose 87, Calcium 8.0 L, Total Bilirubin 0.50, AST 26, ALT 20, Alkaline Phosphatase 74, Total Protein 5.2 L, Albumin 2.3 L, Globulin 2.9, Albumin/Globulin Ratio 0.8 L Microbiology: Microbiology 10/19/23 17:50 Urine, Clean Catch Urine Culture - Final Escherichia coli D/C Instructions Discharge Diet: No restrictions May resume sexual activity in: 10-14 days Weight Bearing Status: Weight bearing as tolerated Call your doctor if you observe: Fever of 101 or Higher, Inability to urinate, Shortness of breath, Dizziness, Chest pain, Increased palpitations (irregular heartbeat), Calf discomfort and Uncontrolled pain Meaningful Use Info Meaningful Use Meaningful Use Diagnoses (Choose all that apply): None applicable Ischemic Stroke Statin Dosing Therapy Reference: STATIN DOSE THERAPY REFERENCE: * Patients > 75 years receive moderate or high dose statin therapy. * Patients 75 years or YOUNGER should receive HIGH intensity statin dose unless contraindicated. You will be required to document reason for non-treatment if statin daily dose does not meet guidelines. HIGH DOSE STATIN THERAPY DAILY Atorvastatin > than or = to 40 mg Rosuvastatin > than or = to 20 mg Amlodipine + Atorvastatin > than or = to 2.5/40 mg Ezetimibe + Simvastatin 10/80 mg Simvastatin 80mg Discharge Plan Admission Admit Date/Time: 10/19/23 19:36 Primary Reason for Your Visit: Obstructive Nephrolithasis, Acute Complicated UTI Attending Provider: Nikole Villarreal Primary Care Provider: Raissa Rayo Consulting Providers: Rene Andrew; Roque Borrero Instructions Additional Instructions / Restrictions: ADDITIONAL FOLLOW-UP/DISCHARGE INFORMATION: #1. Acute Flank Pain secondary to Acute Obstructive Nephrolithiasis with 3 mm mid-right ureteral calculus with associated moderate right sided hydroureter/hydronephrosis with associated Acute Complicated E. Coli UTI complicated by Medullary sponge kidney: --Treated with IV rocephin with transition to oral keflex at discharged based on urine culture results for an additional 5 day regimen. --OR 10/20/[address] Andrew s/p Cystoscopy and right stent placement with plan for follow-up with Urology in 1 week. #2. CAD: --Per records patient with CAD/LAD intramyocardial bridge with restart on baby aspirin at discharge. Blood pressure low normal baseline thus held on any restart of prior noted beta mayda therapy. Recommend re-evaluation outpatient for statin needs. Discharge Orders/Prescriptions Prescriptions: New aspirin 81 mg tablet,delayed release (DR/EC) 81 mg PO DAILY Qty: 30 0RF cephalexin 500 mg capsule 500 mg PO TID Qty: 10 0RF Referrals / Follow Up: Raissa Rayo MD [Primary Care Provider] - (Follow-up within 3-5 days to review admission.) Rene Andrew MD [Med Staff - Active Staff] - (Follow-up in the office in 1 week s/p stent placement.) Disposition Disposition (needs filled in before D/C Order can be placed): Home, Self Care Charges/Coding Visit Charges Inpatient E&M: 04613 Disch Hosp >30min
== END 2023-10-21 14:00 | disposition home or self-care (01) | DRG 659 ==
LOC: ED 19:40 → MS3 20:02
PROVIDERS: Nurse Practitioner; Urology; Admitting Provider Internal Medicine; Emergency Provider Emergency Medicine; PCP Family Medicine; Visit Provider Family Medicine
PROC: 0T768DZ Dilation of Right Ureter with Intraluminal Device, Via Natural or Artificial Opening Endoscopic (ICD-10-PCS; CPT 52332; principal; 2023-10-20 11:50)
DX: N13.2 Hydronephrosis with renal and ureteral calculous obstruction (principal); E43 Unspecified severe protein-calorie malnutrition; N30.00 Acute cystitis without hematuria; Z68.1 Body mass index [BMI] 19.9 or less, adult; N18.30 Chronic kidney disease, stage 3 unspecified; I12.9 Hypertensive chronic kidney disease with stage 1 through stage 4 chronic kidney disease, or unspecified chronic kidney disease; E78.5 Hyperlipidemia, unspecified; I25.10 Atherosclerotic heart disease of native coronary artery without angina pectoris; B96.20 Unspecified Escherichia coli [E. coli] as the cause of diseases classified elsewhere
CPT/HCPCS: 36415; 74176; 76000; 80053; 81001; 83690; 83735; 84100; 84443; 85025; 87077; 87086; 87088; 87186; 93005; 94668; 99284; J7030; J7040; A4216; C2617; J2405

== ENCOUNTER → 2023-12-11 | Outpatient (CLI) | payer MEDICARE, OTHER, SELFPAY ==
[2023-12-11 15:24] LABS: PSA,Total- Diagnostic 0.05 ng/mL (0.0-4.0)
== END | disposition home or self-care (01) ==
LOC: LAB 14:36
PROVIDERS: PCP Family Medicine; Referring Provider Nurse Practitioner; Visit Provider Nurse Practitioner
DX: C61 Malignant neoplasm of prostate (principal)
CPT/HCPCS: 36415; 84153

== ENCOUNTER → 2024-02-12 | Outpatient (CLI) | payer MEDICARE, OTHER, SELFPAY ==
[2024-02-12 12:00] LABS: Absolute Lymphocyte Count 0.85 X10^3/uL (0.83-4.51); Absolute Neutrophil Count 3.4 X10^3/uL (2.0-7.7); Basophil# 0.04 X10^3/uL; Basophil% 0.7 % (0-1); Eosinophils% 7.4 % (0-5); Hematocrit 39.8 % (40-54); Hemoglobin 13.4 g/dL (13.0-16.5); Lymphocyte # 0.85 X10^3/ul (0.83-4.51); Lymphocyte % 15.6 % (19-41); Mean Corp Hgb Conc 33.7 g/dL (32-36); Mean Corpuscular Hgb 33.4 pg (27.0-32.0); Mean Corpuscular Volume 99.3 fL (80-94); Monocyte# 0.76 X10^3/uL; NRBC Flagged by Analyzer 0 % (0-5); Neutrophil # 3.37 X10^3/uL (2.7-7.7); Neutrophil % 61.9 % (47-70); Platelet Count 237 K/mm3 (150-450); RBC Distribution Width CV 16.7 % (11.6-14.6); RBC Distribution Width SD 61.6 fl (35.1-43.9); Red Blood Count 4.01 M/mm3 (4.6-6.2); White Blood Count 5.4 K/mm3 (4.4-11.0)
[2024-02-12 12:17] LABS: PTHIN 71.8 pg/mL (18.4-80.1)
[2024-02-12 12:20] LABS: ALB/GLOB Ratio 0.9 RATIO (0.9-2.4); AST(SGOT) 19 U/L (15-37); Alanine Aminotransfer ALT/SGPT 23 U/L (16-61); Albumin, Serum 3.3 g/dL (3.2-5.0); Alkaline Phosphatase 130 U/L (45-117); Anion Gap 8 (5-15); BUN 16 mg/dL (7-18); BUN/Creat Ratio 10.2 RATIO (10-20); Calcium,Total 8.7 mg/dL (8.5-10.1); Chloride 108 mmol/L (98-107); Cholesterol 143 mg/dL (200); Creatinine, Serum 1.57 mg/dL (0.70-1.30); EST Glomerular Filtration Rate 45 mL/min (>60); Est Glom Filt Rate - Afr Amer 55 mL/min (>60); Globulin 3.6 g/dL (2.2-4.2); Glucose 103 mg/dL (74-106); High Density Lipoprotein 50 mg/dL; Phosphorus 2.9 mg/dL (2.5-4.9); Protein, Total 6.9 g/dL (6.4-8.2); Sodium Level 137 mmol/L (136-145); Triglycerides 89 mg/dL; Very Low Density Lipoprotein 18 mg/dL (5-40); Vitamin D,25 Hydroxy 32.5 ng/mL
== END | disposition home or self-care (01) ==
LOC: BFHLAB 09:36
PROVIDERS: PCP Family Medicine; Visit Provider Family Medicine
DX: N18.32 Chronic kidney disease, stage 3b (principal); N20.0 Calculus of kidney; E78.5 Hyperlipidemia, unspecified
CPT/HCPCS: 36415; 80053; 80061; 82306; 83970; 84100; 85025

== ENCOUNTER → 2024-06-08 | Outpatient (CLI) | payer MEDICARE, OTHER, SELFPAY ==
--- NOTE | 2024-06-08 13:51 | ECHOD_ITS ---
Reason For Study Reason For Study: NONRHEUMATIC MV INSUFFICIENCY Procedure This was a 2D Doppler, Color Flow transthoracic echocardiogram. Exam performed in department. Left Ventricle Normal LV size. Mild concentric left ventricular hypertrophy. Left ventricular systolic function is normal. The left ventricular ejection fraction is 65 %. Stage 1 diastolic dysfunction. No regional wall motion abnormalities noted. Right Ventricle Normal RV size. Normal systolic function. Atria Normal left atrium. Normal right atrium. Mitral Valve Mild mitral valve prolapse. Tricuspid Valve Normal tricuspid valve. Aortic Valve Trisinus/trileaflet aortic valve. Pulmonic Valve Normal pulmonic valve. Great Vessels Normal aortic root. The pulmonary artery is normal size. Normal inferior vena cava. Pericardium/Pleural No pericardial effusion. MMode/2D Measurements & Calculations LVIDd: 3.6 cm IVSd: 1.2 cm Ao root diam: 4.0 cm LVIDs: 2.2 cm LVPWd: 1.2 cm RVDd: 2.6 cm FS: 40.3 % LAV(MOD-bp): 53.4 ml LVAd ap4: 24.0 cm2 LVAd ap2: 25.8 cm2 LAV(MOD-bp) Indexed: 32.7 ml/m2 LVLd ap4: 7.2 cm LVLd ap2: 7.5 cm LAV(MOD-sp2): 46.4 ml EDV(MOD-sp4): 66.6 ml EDV(MOD-sp2): 72.1 ml LAV(MOD-sp4): 54.7 ml EDV(sp4-el): 67.8 ml EDV(sp2-el): 75.8 ml LVAs ap4: 12.9 cm2 LVAs ap2: 12.8 cm2 LVLs ap4: 5.9 cm LVLs ap2: 5.8 cm ESV(MOD-sp4): 24.7 ml ESV(MOD-sp2): 25.6 ml ESV(sp4-el): 24.0 ml ESV(sp2-el): 24.1 ml EF(MOD-sp4): 62.9 % EF(MOD-sp2): 64.6 % EF(sp4-el): 64.5 % SV(MOD-sp4): 41.9 ml SV(MOD-sp2): 46.6 ml SV(sp4-el): 43.7 ml SI(MOD-sp4): 25.7 ml/m2 SI(MOD-sp2): 28.5 ml/m2 LA A4 area: 19.0 cm2 LA dimension(2D): 4.0 cm RA A4 area: 15.1 cm2 TAPSE: 2.9 cm Time Measurements MV dec time: 0.25 sec Doppler Measurements & Calculations MV E max guy: 45.9 cm/sec Lat Peak E' Guy: 5.6 cm/sec Med Peak E' Guy: 5.8 cm/sec MV A max guy: 105.4 cm/sec E/E' lat: 8.2 E/E' med: 7.9 MV E/A: 0.44 Ao V2 max: 94.3 cm/sec AI max guy: 333.3 cm/sec LV V1 max: 72.1 cm/sec Ao max P.6 mmHg AI max P.4 mmHg LV V1 max P.1 mmHg Ao V2 mean: 65.7 cm/sec LV V1 mean P.1 mmHg Ao mean P.9 mmHg AI dec slope: 87.9 cm/sec2 LV V1 mean: 48.9 cm/sec Ao V2 VTI: 19.8 cm AI P1/2t: 1111 msec LV V1 VTI: 17.6 cm AV (velocity ratio): 0.89 PA V2 max: 62.1 cm/sec TR max guy: 218.4 cm/sec PA V2 mean: 42.0 cm/sec TR max P.1 mmHg PA V2 VTI: 10.0 cm ECHO/Echo Complete Interpretation Summary Normal LV size. Left ventricular systolic function is normal. The left ventricular ejection fraction is 65 %. Mild mitral valve prolapse. Mild concentric left ventricular hypertrophy. Stage 1 diastolic dysfunction. Ordering Physician: Shweta Prajapati Referring Physician: Raissa Rayo Performed By: Farida Miller, CARLOS ALBERTO, RVT
== END | disposition home or self-care (01) ==
LOC: CVS 13:50
PROVIDERS: PCP Family Medicine; Referring Provider Physician Assistant Medical; Visit Provider Physician Assistant Medical
DX: I34.0 Nonrheumatic mitral (valve) insufficiency (principal)
CPT/HCPCS: 93306

== ENCOUNTER 2024-08-14 19:39 | Emergency (ER) | payer MEDICARE, OTHER, SELFPAY ==
[2024-08-14 19:40] VITALS: BP 118/87; PULSE 74; RESP 15; TEMP 36.4; O2SAT 94; BMI 17.2
--- NOTE | 2024-08-14 19:47 | EKG12_ITS ---
Test Reason : DYSRHYTHMIA Blood Pressure : */* mmHG Vent. Rate : 59 BPM Atrial Rate : 59 BPM P-R Int : 170 ms QRS Dur : 130 ms QT Int : 438 ms P-R-T Axes : 27 264 50 degrees QTcB Int : 433 ms Sinus bradycardia with Premature supraventricular complexes Right bundle branch block Abnormal ECG Confirmed by MALENA JIMÉNEZ, RAMY ([id number]), diamond wheel edger DANE SUN ([id number]) on 08/17/2024 7:39:53 AM Referred By: Confirmed By: RAMY GUY MD
--- NOTE | 2024-08-14 20:00 | RAD_ITS ---
PROCEDURE: CHEST 1 VIEW (PORTABLE) 08/14/2024 REASON FOR EXAM: CHEST PAIN TECHNIQUE: Frontal view of the chest. COMPARISON: Chest radiograph 05/13/2022. FINDINGS: Hardware: None. Heart: The heart size is normal. Lungs: Emphysema with scattered areas of scarring. No focal consolidation, pleural effusion or pneumothorax. Bones: Degenerative changes are identified within the thoracic spine. Probable prior distal right clavicle resection. RAD/Chest 1 View (Portable) IMPRESSION: COPD. No acute findings. Reading Location: [id number]
[2024-08-14 20:03] LABS: Absolute Lymphocyte Count 0.88 X10^3/uL (0.83-4.51); Absolute Neutrophil Count 5.2 X10^3/uL (2.0-7.7); Basophil# 0.04 X10^3/uL; Basophil% 0.5 % (0-1); Eosinophil# 0.24 X10^3/uL; Eosinophils% 3.2 % (0-5); Hematocrit 39.5 % (40-54); Hemoglobin 13.3 g/dL (13.0-16.5); Lymphocyte # 0.88 X10^3/ul (0.83-4.51); Lymphocyte % 11.9 % (19-41); Mean Corp Hgb Conc 33.7 g/dL (32-36); Mean Corpuscular Hgb 34.7 pg (27.0-32.0); Mean Corpuscular Volume 103.1 fL (80-94); Mean Platelet Vol. 10.3 fl (6.2-12.0); Monocyte# 1.02 X10^3/uL; Monocyte% 13.7 % (0-10); NRBC Flagged by Analyzer 0 % (0-5); Neutrophil # 5.21 X10^3/uL (2.7-7.7); Neutrophil % 70.3 % (47-70); Platelet Count 220 K/mm3 (150-450); RBC Distribution Width CV 15.2 % (11.6-14.6); RBC Distribution Width SD 58.2 fl (35.1-43.9); Red Blood Count 3.83 M/mm3 (4.6-6.2); White Blood Count 7.4 K/mm3 (4.4-11.0)
[2024-08-14 20:39] VITALS: BP 119/92; PULSE 65; RESP 14; O2SAT 99
[2024-08-14 20:43] LABS: Anion Gap 11 (5-15); BUN 32 mg/dL (4-19); BUN/Creat Ratio 19.4 RATIO (10-20); Carbon Dioxide 22.8 mmol/L (21.0-32.0); Chloride 105 mmol/L (98-108); Creatinine, Serum 1.62 mg/dL (0.70-1.20); EST Glomerular Filtration Rate 42 (>60); Estimated Creatinine Clearance 25.49 ml/min (50-250); Glucose 102 mg/dL (70-99); Potassium 4.6 mmol/L (3.3-5.1); Sodium Level 139 mmol/L (133-145); Troponin T High Sensitivity 50 ng/L (<=22)
--- OUTSIDE RECORDS SUMMARY | 2024-08-14 20:46 | XMS RPT_ITS | CCD ---
Author Organization [facility] CliniSyvt Care Team Providers Care Scientific Aide Name Role Phone Cogar MENDER HAND, Chery N Unavailable Cogar MENDER HAND, Chery N Unavailable La Madsen Unavailable Unavailable Julio Cesar Hope MD Unavailable Sia Badillo Unavailable Unavailable La Madsen Unavailable Unavailable Dr. Raissa Rayo Primary Care Provider [phone] Dr. Julio Cesar Hope Attending Provider Dr. Raissa Rayo Referring Provider [phone] NING Lim Attending Provider Dr. Sami Jones Attending Provider [phone] Dr. Raissa Rayo Primary Care Provider [phone] Dr. Raissa Rayo Referring Provider Dr. Hasmukh Longoria Attending Provider Dr. Sami Jones Other Provider Dr. Raissa Rayo Primary Care Provider [phone] Dr. Raissa Rayo Referring Provider Dr. Raissa Rayo Primary Care Provider [phone] Dr. Raissa Rayo Referring Provider [phone] Dr. Hasmukh Longoria Attending Provider Dr. Julio Cesar Hope Attending Provider [phone] Dr. Hasmukh Longoria Referring Provider [phone] Dr. Hasmukh Longoria Other Provider NING Lim Attending Provider Dr. Jammie Corbett Emergency Provider [phone] Darío, Dr. Richter Admit Provider Darío, Dr. Richter Attending Provider Darío, Dr. Richter Other Provider Dr. Raissa Rayo Primary Care Provider [phone] Dr. Raissa Rayo Referring Provider NING Lim Attending Provider Dr. Sami Jones Attending Provider Julian CHOCOLATE PACKER, JORGE Richardson Attending Provider Dr. Sami Jones Referring Provider Perri JIMÉNEZ, Dr. Haji Primary Care Provider Perri JIMÉNEZ, Dr. Haji Referring Provider [phone] Shweta Ulloa Attending Provider [phone] Shweta Ulloa Referring Provider [phone] Patrick JIMÉNEZ, Dr. Barnhart Attending Provider Raissa Rayo Primary Care Unavailable MansonAnika Attending Unavailable MansonAnika Referring Unavailable IaRaissa he Primary Care Unavailable IaRaissa he Attending Unavailable Shweta Ulloa Attending Unavail able Shweta Ulloa Referring Unavail able Cordell Rayonah Primary Care Unavailable Rene Andrew Consulting Unavailable Roque Borrero Admitting Unavailable Roque Borrero Attending Unavailable Raissa Rayo Primary Care Unavailable Roque Borrero Consulting Unavailable Nikole Villarreal Attending Unavailable Nikole Villarreal Consulting Unavailable Marshall Barba NP Attending Unavailable Raissa Rayo Primary Care Unavailable IaRaissa he Referring Unavailable Rene Andrew Consulting Unavailable Roque Borrero Admitting Unavailable Nikole Villarreal Attending Unavailable MiRaissa he Primary Care Unavailable de Shaq, Roque Consulting Unavailable Obey Nguyen Attending Unavailable Raissa Rayo Primary Care Unavailable Shweta Ulloa Attending Unavail able Raissa Rayo Referring Unavailable Raissa Rayo Primary Care Unavailable Allergies Allergy Classification Reported Allergen(s) Allergy Type Date of Onset Reaction(s) Facility (6 sources) ciprofloxacin drug allergy 1 [facility] Work Phone: (6 sources) wheat; Translations: [WHEAT] food allergy 1 [facility] Work Phone: (11 sources) Ciprofloxacin Drug Allergy 2 sweating, n/v [facility] (11 sources) Wheat preparation Drug Allergy 2 Unknown [facility] (1 source) Ciprofloxacin Drug Allergy 5 [facility] (1 source) Wheat preparation Drug Allergy 5 [facility] Medications Current Medications Medication Drug Class(es) Dates Sig (Normalized) Sig (Original) aspirin 81 mg delayed release oral tablet (2 sources) Platelet Aggregation Inhibitor, Nonsteroidal Anti-inflammatory Drug Start: 10-21-2023 End: 06-01-2024 take 1 tablet by mouth once daily as needed Aspirin 81 mg tablet,delayed release (DR/EC) Active 81 mg PO DAILY as needed June 01, 2024 1:47pm [place] (Nk) (1 source) Start: 06-02-2023 [place] (Nk) Active June 02, 2023 12:00am Completed/Discontinued Medications Medication Drug Class(es) Dates Sig (Normalized) Sig (Original) acetaminophen 500 mg oral tablet (3 sources) Start: 04-16-2022 End: 05-23-2023 take 2 tablets by mouth every six hours as needed Acetaminophen 500 mg tablet Discontinued 1000 mg PO EVERY 6 HOURS NEEDED 50 April 16, 2022 1:00am May 23, 2023 1:36pm Start: 04-16-2022 End: 05-23-2023 take 1000 mg by mouth every six hours as needed Acetaminophen Discontinued 1000 MG PO EVERY 6 HOURS NEEDED 50 April 16, 2022 1:00am May 23, 2023 1:36pm acetaminophen 325 mg / HYDROcodone bitartrate 5 mg oral tablet (20 sources) Opioid Agonist Start: 08-11-2021 End: 09-05-2021 Hydrocodone-Acetaminophen 1 TABLET tablet Discontinued 1 {tbl} PO EVERY 4 HOURS NEEDED as needed for Pain 10 August 11, 2021 September 05, 2021 9:17am Start: 08-11-2021 End: 09-05-2021 take 1 tablet by mouth every four hours as needed Hydrocodone-Acetaminophen Discontinued 1 TABLET PO EVERY 4 HOURS NEEDED 12 02August 11, 2021 September 05, 2021 9:17am Start: 08-12-2018 End: 08-14-2018 Hydrocodone-Acetaminophen 1 TABLET tablet Discontinued 1 {tbl} PO EVERY 6 HOURS NEEDED as needed for Pain 10 August 12, 2018 12:00am August 13, 2018 12:00am August 14, 2018 12:07am Start: 08-12-2018 End: 08-14-2018 take 1 tablet by mouth every six hours as needed Hydrocodone-Acetaminophen Discontinued 1 TABLET PO EVERY 6 HOURS NEEDED 10 August 12, 2018 12:00am August 14, 2018 12:07am Start: 04-07-2017 End: 05-26-2017 Hydrocodone-Acetaminophen 1 EACH tablet Discontinued 1 NMA PO EVERY 4 HOURS NEEDED as needed for Pain 20 07April 11, 2017 10:40am May 26, 2017 8:40am Start: 04-07-2017 End: 05-26-2017 Hydrocodone-Acetaminophen Di scontinued 1 EACH PO EVERY 4 HOURS NEEDED 20 07April 11, 2017 10:40am May 26, 2017 8:40am acetaminophen 325 mg / oxyCODONE hydrochloride 5 mg oral tablet (11 sources) Opioid Agonist Start: 06-22-2018 End: 06-28-2018 Oxycodone-Acetaminophen 1 TABLET tablet Discontinued 1 - 2 {tbl} PO EVERY 4 HOURS NEEDED as needed for Pain 30 08June 22, 2018 12:00am June 27, 2018 12:00am June 28, 2018 12:08am Start: 06-22-2018 End: 06-28-2018 take 1 tablet by mouth every four hours as needed Oxycodone-Acetaminophen Discontinued 1 - 2 TABLET PO EVERY 4 HOURS NEEDED 30 08June 22, 2018 12:00am June 28, 2018 12:08am [id number] 200 actuat albuterol 0.09 mg/actuat metered dose inhaler (1 source) beta2-Adrenergic Agonist Start: 08-10-2023 End: 10-19-2023 Albuterol Sulfate 90 mcg/actuation HFA aerosol inhaler Discontinued 2 NMA INHALATION EVERY 4-6 HOURS as needed for shortness of breath or wheezing 6.7 August 10, 2023 12:00am October 19, 2023 4:31pm amoxicillin 875 mg / clavulanate 125 mg oral tablet (11 sources) Penicillin-class Antibacterial Start: 06-22-2018 End: 06-29-2018 Amoxicillin-Pot Clavulanate 1 EACH tablet Discontinued 1 NMA PO TWICE A DAY June 22, 2018 12:00am June 29, 2018 9:09am Start: 06-22-2018 End: 06-29-2018 Amoxicillin-Pot Clavulanate Discontinued 1 EACH PO TWICE A DAY June 22, 2018 12:00am June 29, 2018 9:09am atenolol 25 mg oral tablet (20 sources) beta-Adrenergic Mayda Start: 09-05-2014 End: 05-23-2023 Atenolol 25 mg tablet Discontinued 12.5 mg PO DAILY 45 March 21, 2022 11:47am May 23, 2023 1:36pm Start: 09-05-2014 End: 05-23-2023 take 12.5 mg by mouth once daily Atenolol Discontinued 12.5 MG PO DAILY March 09, 2021 1:46pm March 21, 2022 11:47am Start: 06-28-2010 take 0.5 tablet by m outh once daily ATENOLOL 25 MG TABS One-half tablet by mouth daily ATENOLOL [id number] Julio Cesar Hope MD Start: 06-28-2010 take 1 tablet by kathy th once daily ATENOLOL 25 MG TABS One tablet by mouth daily ATENOLOL [id number] Julio Cesar Hope MD cefuroxime 250 mg oral tablet (12 sources) Cephalosporin Antibacterial End: 06-10-2016 CEFTIN 250 MG TABS CEFUROXIME AXETIL [id number] Sami Jones MD cephalexin 500 mg oral capsule (19 sources) Cephalosporin Antibacterial Start: 10-21-2023 End: 06-01-2024 take 1 capsule by mouth three times daily Cephalexin 500 mg capsule Discontinued 500 mg PO THREE TIMES A DAY October 21, 2023 12:00am June 01, 2024 1:47pm Start: 08-11-2021 End: 09-05-2021 take 1 capsule by mouth every six hours Cephalexin 500 MG capsule Discontinued 500 mg PO EVERY 6 HOURS August 11, 2021 12:00am September 05, 2021 9:17am Start: 04-11-2017 End: 05-26-2017 take 1 capsule by mouth every eight hours Cephalexin 500 MG capsule Discontinued 500 mg PO EVERY 8 HOURS April 11, 2017 1:00am May 26, 2017 8:39am doxycycline monohydrate 100 mg oral capsule (20 sources) Tetracycline-class Drug Start: 04-06-2017 End: 08-13-2017 Doxycycline Monohydrate 100 MG capsule Discontinued 50 mg PO DAILY May 26, 2017 12:00am August 13, 2017 3:23pm Start: 04-06-2017 End: 08-13-2017 take 50 mg by mouth once daily Doxycycline Monohydrate Discontinued 50 MG PO DAILY May 26, 2017 12:00am August 13, 2017 3:23pm 12 hr loratadine 5 mg / pseudoePHEDrine sulfate 120 mg extended release oral tablet (8 sources) alpha-Adrenergic Agonist Start: 10-23-2016 End: 12-13-2016 CLARITIN-D 12 HOUR 5-120 MG [id number] 1 tablet every 12 hours as needed LORATADINE-PSEUDOEPHEDRINE [id number] James BARCLAY Start: 10-23-2016 CLARITIN-D 12 HOUR 5-120 MG [id number] 1 tablet every 12 hours as needed LORATADINE-PSEUDOEPHEDRINE [id number] James BARCLAY meclizine hydrochloride 12.5 mg oral tablet (2 sources) Antiemetic Start: 05-14-2022 End: 05-23-2023 take 1 tablet by mouth three times daily as needed for dizziness Meclizine 12.5 mg tablet Discontinued 12.5 mg PO THREE TIMES A DAY as needed for dizziness May 14, 2022 12:00am May 23, 2023 1:36pm methylPREDNISolone 4 mg oral tablet (11 sources) Corticosteroid Start: 11-23-2018 End: 11-29-2018 take 1 tablet by mouth once Methylprednisolone (Medrol (Shamar)) 4 mg tablets,dose pack Discontinued 4 mg PO per package directions 21 07November 23, 2018 12:00am November 27, 2018 12:00am November 29, 2018 12:08am nitrofurantoin, macrocrystals 25 mg / nitrofurantoin, monohydrate 75 mg oral capsule (11 sources) Nitrofuran Antibacterial Start: 08-07-2018 End: 11-23-2018 Nitrofurantoin Monohyd/M-Cryst 100 MG capsule Discontinued 100 mg PO NEEDED as needed for BLADDER INFECTIONS August 07, 2018 12:00am November 23, 2018 1:30pm nitroglycerin 0.4 mg sublingual tablet (12 sources) Nitrate Vasodilator Start: 08-30-2014 NITROSTAT 0.4 MG SUBL 1 tablet under tongue every 5 min up to 3 X NITROGLYCERIN [id number] Shweta Prajapati PA-C oxyCODONE hydrochloride 5 mg oral tablet (3 sources) Opioid Agonist Start: 04-16-2022 End: 04-29-2022 take 5-10 mg by mouth every four hours as needed for pain Oxycodone 5 mg tablet Discontinued 5 - 10 mg PO Q4H as needed for pain 25 3 April 16, 2022 April 29, 2022 2:17pm permethrin 50 mg/ml topical cream (2 sources) Pyrethroid Start: 04-07-2023 End: 05-23-2023 Permethrin 5 % cream Discontinued 1 NMA TOPICAL Q14D 60 April 07, 2023 1:00am May 23, 2023 1:36pm apply 1/2 tube to neck and below and wash off in 8-14 hours, repeat w/ other 1/2 tube in 14 days Start: 04-07-2023 End: 05-23-2023 Permethrin Discontinued 1 AP PLIC TOPICAL Q14D 60 April 07, 2023 1:00am May 23, 2023 1:36pm apply 1/2 tube to neck and below and wash off in 8-14 hours, repeat w/ other 1/2 tube in 14 days predniSONE 10 mg oral tablet (8 sources) Start: 08-10-2023 End: 08-25-2023 Prednisone 10 mg tablet Discontinued 10 mg PO .COMPLEX 35 15 August 10, 2023 12:00am August 24, 2023 12:00am August 25, 2023 12:06am 10 mg orally; 40mg x5 days, 20mg x5 days, 10mg x5 days Start: 08-11-2021 End: 09-05-2021 take 1 tablet by mouth twice daily Prednisone 20 mg tablet Discontinued 20 mg PO TWICE A DAY August 11, 2021 12:00am September 05, 2021 9:17am simvastatin 20 mg oral tablet (20 sources) HMG-CoA Reductase Inhibitor Start: 06-28-2010 End: 09-05-2021 take 1 tablet by mouth at bedtime Simvastatin 20 MG tablet Discontinued 20 mg PO AT BEDTIME March 10, 2017 2:59pm April 07, 2017 2:25am valACYclovir 1000 mg oral tablet (9 sources) Herpesvirus Nucleoside Analog DNA Polymerase Inhibitor, Herpes Simplex Virus Nucleoside Analog DNA Polymerase Inhibitor, Herpes Zoster Virus Nucleoside Analog DNA Polymerase Inhibitor Start: 07-18-2021 End: 09-05-2021 Valacyclovir (Valtrex) 1 gram tablet Discontinued 1000 mg PO THREE TIMES A DAY July 18, 2021 12:00am September 05, 2021 9:17am Problems Active Problems Problem Classification Problem Date Documented Date Episodic/Chronic Abdominal hernia (17 sources) Unilateral recurrent inguinal hernia; Translations: [Recurrent right inguinal hernia] Onset: 6 12-27-2015 Episodic Acute bronchitis (4 sources) Acute bronchitis; Translations: [Acute bronchitis, unspecified] 05-01-2022 Episodic Blindness and vision defects (4 sources) Diplopia; Translations: [Diplopia] 05-13-2022 Episodic Cancer of prostate (1 source) Malignant neoplasm of prostate; Translations: [Malignant neoplasm of prostate] Onset: 4 Chronic Chronic kidney disease (1 source) Chronic kidney disease; Translations: [Chronic kidney disease, stage 3b] Onset: 5 Conditions associated with dizziness or vertigo (20 sources) Dizziness and giddiness; Translations: [Dizziness] Onset: 3 12-10-2012 Episodic Conduction disorders (14 sources) Right bundle branch block; Translations: [Unspecified right bundle-branch block] Onset: 5 08-12-2018 Chronic Coronary atherosclerosis and other heart disease (20 sources) Atherosclerotic heart disease of [place] coronary artery without angina pectoris; Translations: [Coronary atherosclerosis] Onset: 1 04-24-2016 Chronic Disorders of lipid metabolism (20 sources) Hyperlipidemia; Translations: [Hyperlipidemia, unspecified] Onset: 1 06-28-2010 Chronic Essential hypertension (19 sources) Essential hypertension; Translations: [Essential (primary) hypertension] Onset: 5 Chronic Comment on above: controlled on meds Heart valve disorders (20 sources) Tricuspid incompetence, non-rheumatic ; Translations: [Nonrheumatic mitral valve disorder, unspecified] Onset: 7 06-26-2016 Chronic Osteoarthritis (4 sources) Arthritis of acromioclavicular joint; Translations: [Primary osteoarthritis, unspecified shoulder] 03-13-2022 Chronic Other aftercare (1 source) Encounter for other orthopedic aftercare; Translations: [Unspecified orthopedic aftercare] 04-29-2022 Episodic Other and unspecified benign neoplasm (7 sources) History of polyp of colon; Translations: [Personal history of colonic polyps] 08-15-2021 Episodic Other and unspecified benign neoplasm (4 sources) Personal history of colonic polyps; Translations: [Personal history of colonic polyps] Episodic Other connective tissue disease (11 sources) Tendinitis of ankle; Translations: [Other enthesopathy of left foot and ankle] 11-23-2018 Episodic Other connective tissue disease (7 sources) Pain in finger; Translations: [Pain in right finger(s)] 08-19-2021 Episodic Other connective tissue disease (7 sources) Cyst of bursa; Translations: [Other bursal cyst, right shoulder] 08-15-2021 Episodic Other connective tissue disease (9 sources) Other bursal cyst, right shoulder; Translations: [Other ganglion and cyst of synovium, tendon, and bursa] Episodic Other connective tissue disease (3 sources) Synovial cyst of shoulder; Translations: [Other bursal cyst, unspecified shoulder] 03-13-2022 Episodic Other connective tissue disease (1 source) Other bursal cyst, unspecified shoulder; Translations: [Synovial cyst, unspecified] 01-11-2023 Episodic Other diseases of kidney and ureters (11 sources) Acute renal insufficiency; Translations: [Disorder of kidney and ureter, unspecified] 08-12-2018 Episodic Other diseases of kidney and ureters (9 sources) Hydronephrosis; Translations: [Hydronephrosis with renal and ureteral calculous obstruction] 08-12-2018 Episodic Other infections; including parasitic (2 sources) Infestation by Sarcoptes scabiei sebastian hominis; Translations: [Scabies] 04-07-2023 Episodic Other infections; including parasitic (1 source) Scabies; Translations: [Scabies] 04-07-2023 Episodic Other lower respiratory disease (1 source) Cough; Translations: [Cough] 08-10-2023 Episodic Other nervous system disorders (3 sources) Acute postoperative pain; Translations: [Other acute postprocedural pain] 04-16-2022 Episodic Other non-traumatic joint disorders (4 sources) Disorder of glenohumeral joint; Translations: [Other specific arthropathies, not elsewhere classified, unspecified shoulder] 01-21-2022 Chronic Comment on above: . Other non-traumatic joint disorders (3 sources) Other specific arthropathies, not elsewhere classified, unspecified shoulder; Translations: [Other specified arthropathy, shoulder region] Chronic Other screening for suspected conditions (not mental disorders or infectious disease) (11 sources) Patient encounter status; Translations: [Encounter for screening for malignant neoplasm of colon] 08-12-2018 Episodic Other skin disorders (2 sources) Mass of subcutaneous tissue; Translations: [Localized swelling, mass and lump, unspecified] 06-09-2023 Episodic Other skin disorders (2 sources) Disorder of soft tissue of lower limb; Translations: [Follicular cyst of the skin and subcutaneous tissue, unspecified] 06-09-2023 Episodic Other skin disorders (2 sources) Localized swelling, mass and lump, unspecified; Translations: [Localized superficial swelling, mass, or lump] 05-23-2023 Episodic Other skin disorders (1 source) Follicular cyst of the skin and subcutaneous tissue, unspecified; Translations: [Sebaceous cyst] 06-09-2023 Episodic Residual codes; unclassified (11 sources) Pain; Translations: [Pain, unspecified] 08-12-2018 Episodic Unclassified (3 sources) Screening for malignant neoplasm of colon ; Translations: [Encounter for screening for malignant neoplasm of colon] Onset: 6 02-07-2016 Unclassified (4 sources) Long-term drug therapy; Translations: [Other local [employer] (current) drug therapy] Onset: 1 06-28-2010 Unclassified (1 source) Acute cough; Translations: [Acute cough] Onset: Viral infection (14 sources) Herpes zoster; Translations: [Zoster without complications] Episodic Past or Other Problems Problem Classification Problem Date Documented Date Episodic/Chronic Calculus of urinary tract (2 sources) Kidney stone; Translations: [Calculus of kidney] Onset: 10-21-2023 10-29-2023 Episodic Cardiac dysrhythmias (6 sources) Palpitations; Translations: [Palpitations] Onset: 06-28-2010 06-28-2010 Episodic Genitourinary symptoms and ill-defined conditions (2 sources) Urinary tract obstruction; Translations: [Obstructive and reflux uropathy, unspecified] Onset: 10-21-2023 10-29-2023 Episodic Headache, including migraine (6 sources) Headache; Translations: [Headache] Onset: 12-10-2012 12-10-2012 Episodic Nonspecific chest pain (6 sources) Chest pain; Translations: [Chest pain, unspecified] Onset: 10-28-2011 10-28-2011 Episodic Other aftercare (2 sources) Other [place] [facility] therapy; Translations: [Other [place] [facility] [place] drug therapy] Onset: 06-28-2010 06-28-2010 Episodic Other diseases of kidney and ureters (3 sources) Hydronephrosis with renal and ureteral calculous obstruction; Translations: [Hydronephrosis with urinary obstruction due to ureteral calculus] Onset: 10-30-2023 05-22-2022 Episodic Other upper respiratory disease (6 sources) Congestion of nasal sinus; Translations: [Other specified disorders of nose and nasal sinuses] Onset: 10-23-2016 10-23-2016 Episodic Other upper respiratory infections (6 sources) Upper respiratory infection; Translations: [Acute upper respiratory infection, unspecified] Onset: 10-23-2016 10-23-2016 Episodic Unclassified (6 sources) FH: Hypertension; Translations: [Family history of ischemic heart disease and other diseases of the circulatory system] 08-30-2014 Episodic Urinary tract infections (12 sources) Urinary tract infectious disease; Translations: [Urinary tract infection, site not specified] Onset: 10-21-2023 08-12-2018 Episodic Results Test Name Value Interpretation Reference Range Facility Echo Complete 06-08-2024 Echo Complete [facility] [place] [address] Echo Complete 06/08/24 1358 MR#: [id number] Acct: [id number] Name: ADEEL POST Rep #: [id number] : [id number] From: Obey Nguyen MD Attending Dr: NING Phillips Status: REG CLI Ordering Dr: Shweta Prajapati Date: 10/25 Location: [facility] Sex: M C Admitted: Reason For Study Reason For Study: NONRHEUMATIC MV INSUFFICIENCY Procedure This was a 2D Doppler, Color Flow transthoracic echocardiogram. Exam performed in department. Left Ventricle Normal LV size. Mild concentric left ventricular hypertrophy. Left ventricular systolic function is normal. The left ventricular ejection fraction is 65 %. Stage 1 diastolic dysfunction. No regional wall motion abnormalities noted. Right Ventricle Normal RV size. Normal systolic function. Atria Normal left atrium. Normal right atrium. Mitral Valve Mild mitral valve prolapse. Tricuspid Valve Normal tricuspid valve. Aortic Valve Trisinus/trileaflet aortic valve. Pulmonic Valve Normal pulmonic valve. Great Vessels Normal aortic root. The pulmonary artery is normal size. Normal inferior vena cava. Pericardium/Pleural No pericardial effusion. MMode/2D Measurements Calculations LVIDd: 3.6 cm IVSd: 1.2 cm Ao root diam: 4.0 cm LVIDs: 2.2 cm LVPWd: 1.2 cm RVDd: 2.6 cm FS: 40.3 % LAV(MOD-bp): 53.4 ml LVAd ap4: 24.0 cm2 LVAd ap2: 25.8 cm2 LAV(MOD-bp) Indexed: 32.7 ml/m2 LVLd ap4: 7.2 cm LVLd ap2: 7.5 cm LAV(MOD-sp2): 46.4 ml EDV(MOD-sp4): 66.6 ml EDV(MOD-sp2): 72.1 ml LAV(MOD-sp4): 54.7 ml EDV(sp4-el): 67.8 ml EDV(sp2-el): 75.8 ml LVAs ap4: 12.9 cm2 LVAs ap2: 12.8 cm2 LVLs ap4: 5.9 cm LVLs ap2: 5.8 cm ESV(MOD-sp4): 24.7 ml ESV(MOD-sp2): 25.6 ml ESV(sp4-el): 24.0 ml ESV(sp2-el): 24.1 ml EF(MOD-sp4): 62.9 % EF(MOD-sp2): 64.6 % EF(sp4-el): 64.5 % SV(MOD-sp4): 41.9 ml SV(MOD-sp2): 46.6 ml SV(sp4-el): 43.7 ml SI(MOD-sp4): 25.7 ml/m2 SI(MOD-sp2): 28.5 ml/m2 LA A4 area: 19.0 cm2 LA dimension(2D): 4.0 cm RA A4 area: 15.1 cm2 TAPSE: 2.9 cm Time Measurements MV dec time: 0.25 sec Doppler Measurements Calculations MV E max vasyl: 45.9 cm/sec Lat Peak E' Vasyl: 5.6 cm/sec Med Peak E' Vasyl: 5.8 cm/sec MV A max vasyl: 105.4 cm/sec E/E' lat: 8.2 E/E' med: 7.9 MV E/A: 0.44 Ao V2 max: 94.3 cm/sec AI max vasyl: 333.3 cm/sec LV V1 max: 72.1 cm/sec Ao max P.6 mmHg AI max P.4 mmHg LV V1 max P.1 mmHg Ao V2 mean: 65.7 cm/sec LV V1 mean P.1 mmHg Ao mean P.9 mmHg AI dec slope: 87.9 cm/sec2 LV V1 mean: 48.9 cm/sec Ao V2 VTI: 19.8 cm AI P1/2t: 1111 msec LV V1 VTI: 17.6 cm AV (velocity ratio): 0.89 PA V2 max: 62.1 cm/sec TR max vasyl: 218.4 cm/sec PA V2 mean: 42.0 cm/sec TR max P.1 mmHg PA V2 VTI: 10.0 cm ECHO/Echo Complete Interpretation Summary Normal LV size. Left ventricular systolic function is normal. The left ventricular ejection fraction is 65 %. Mild mitral valve prolapse. Mild concentric left ventricular hypertrophy. Stage 1 diastolic dysfunction. Ordering Physician: Shweta Prajapati Referring Physician: Raissa Rayo Performed By: Farida Miller, APRILCS, RVT 06/08/24 1519 Date Obey Nguyen MD CC: Dr. Raissa Rayo MD; NING Phillips Date Dictated: 06/08/248 Date Transcribed: 06/08/241518 Furniture Builder: Signed Normal [facility] Echocardiogram study reportO rdered By: Obey Nguyen on 06-08-2024 Study report [facility] [address] [place] [address] Echo Complete 06/08/24 1358 MR#: [id number] Acct: [id number] Name: ADEEL POST Rep #:[id number] : [id number] From: Obey Maya Attending Dr: Shweta M Prajapati, PA Status: REG CLI Ordering Dr: Shweta Prajapati Date: 06/08/24 Location: [facility] Sex: M C Admitted: Reason For Study Reason For Study: NONRHEUMATIC MV INSUFFICIENCY Procedure This was a 2D Doppler, Color Flow transthoracic echocardiogram. Exam performed in department. Left Ventricle Normal LV size. Mild concentric left ventricular hypertrophy. Left ventricular systolic function is normal. The left ventricular ejection fraction is 65 %. Stage 1 diastolic dysfunction. No regional wall motion abnormalities noted. Right Ventricle Normal RV size. Normal systolic function. Atria Normal left atrium. Normal right atrium. Mitral Valve Mild mitral valve prolapse. Tricuspid Valve Normal tricuspid valve. Aortic Valve Trisinus/trileaflet aortic valve. Pulmonic Valve Normal pulmonic valve. Great Vessels Normal aortic root. The pulmonary artery is normal size. Normal inferior vena cava. Pericardium/Pleural No pericardial effusion. MMode/2D Measurements & Calculations LVIDd: 3.6 cm IVSd: 1.2 cm Ao root diam: 4.0 cm LVIDs: 2.2 cm LVPWd: 1.2 cm RVDd: 2.6 cm FS: 40.3 % LAV(MOD-bp): 53.4 ml LVAd ap4: 24.0 cm2 LVAd ap2: 25.8 cm2 LAV(MOD-bp) Indexed: 32.7 ml/m2 LVLd ap4: 7.2 cm LVLd ap2: 7.5 cm LAV(MOD-sp2): 46.4 ml EDV(MOD-sp4): 66.6 ml EDV(MOD-sp2): 72.1 ml LAV(MOD-sp4): 54.7 ml EDV(sp4-el): 67.8 ml EDV(sp2-el): 75.8 ml LVAs ap4: 12.9 cm2 LVAs ap2: 12.8 cm2 LVLs ap4: 5.9 cm LVLs ap2: 5.8 cm ESV(MOD-sp4): 24.7 ml ESV(MOD-sp2): 25.6 ml ESV(sp4-el): 24.0 ml ESV(sp2-el): 24.1 ml EF(MOD-sp4): 62.9 % EF(MOD-sp2): 64.6 % EF(sp4-el): 64.5 % ____ SV(MOD-sp4): 41.9 ml SV(MOD-sp2): 46.6 ml SV(sp4-el): 43.7 ml SI(MOD-sp4): 25.7 ml/m2 SI(MOD-sp2): 28.5 ml/m2 LA A4 area: 19.0 cm2 LA dimension(2D): 4.0 cm RA A4 area: 15.1 cm2 TAPSE: 2.9 cm Time Measurements MV dec time: 0.25 sec Doppler Measurements & Calculations MV E max vasyl: 45.9 cm/sec Lat Peak E' Vasyl: 5.6 cm/sec Med Peak E' Vasyl: 5.8 cm/sec MV A max vasyl: 105.4 cm/sec E/E' lat: 8.2 E/E' med: 7.9 MV E/A: 0.44 Ao V2 max: 94.3 cm/sec AI max vasyl: 333.3 cm/sec LV V1 max: 72.1 cm/sec Ao max P.6 mmHg AI max P.4 mmHg LV V1 max P.1 mmHg Ao V2 mean: 65.7 cm/sec LV V1 mean P.1 mmHg Ao mean P.9 mmHg AI dec slope: 87.9 cm/sec2 LV V1 mean: 48.9 cm/sec Ao V2 VTI: 19.8 cm AI P1/2t: 1111 msec LV V1 VTI: 17.6 cm AV (velocity ratio): 0.89 PA V2 max: 62.1 cm/sec TR max vasyl: 218.4 cm/sec PA V2 mean: 42.0 cm/sec TR max P.1 mmHg PA V2 VTI: 10.0 cm ECHO/Echo Complete Interpretation Summary Normal LV size. Left ventricular systolic function is normal. The left ventricular ejection fraction is 65 %. Mild mitral valve prolapse. Mild concentric left ventricular hypertrophy. Stage 1 diastolic dysfunction. Ordering Physician: Shweta Prajapati Referring Physician: Raissa Rayo Performed By: Farida Miller, CARLOS ALBERTO, RVT 06/08/24 7619 Date _ Obey Nguyen MD CC: Dr. Raissa Rayo MD; NING Phillips ~ Date Dictated: 06/08/24 1358 Date Transcribed: 06/08/24 151 Furniture Builder: Signed [facility] Work Phone: Cardiology Visit Reporton Cardiology Visit Report [facility]. [address] [place] [address] OFFICE VISIT Date of Service: 06/01/24 MR#: [id number] Acct: [id number] Name: ADEEL POST Rep #: [id number] : 1940 Provider: NING Gibbs Age/Sex: 83/M Location: [facility] Status: Signed HPI HPI History of Present Illness Details: This is a 83 year old white male who presents today for a cardiovascular follow-up visit. 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 From a cardiac standpoint, the patient is doing well. He denies any palpitations, chest pain, pressure or heaviness. He denies SOB, Orthopnea, and PND. He does not have bleeding issues; no blood in urine, stool or nosebleeds. He denies any decrease in energy level, myalgias, or claudication. He does not have edema, or sudden weight gain. He denies dizziness, lightheadedness, syncopal or near syncopal episode. His main concern is HAs. These are approx once a month. Intake Vital Signs 06/02/23 13:03 10/20/23 10:01 06/01/24 13:40 Height 5 ft 10 in 5 ft 8.9 in 5 ft 9 in Weight: 114 lb BMI 16.8 BP 131/91 H Blood Pressure Location Lt brachial Position Sitting Respiration 16 Pulse 56 L Pulse Source NIBP Intake Visit Reasons: 1 Y FU/PREV PFM Risk Modeler Required: No Is patient in pain?: No Allergies ciprofloxacin (From Cipro) Allergy (Verified 06/01/24 13:46) sweating, n/v wheat Adverse Reaction (Severe, Verified 06/01/24 13:46) Unknown Medications ???Medication ???Instructions ???Recorded ???Confirmed ???Type aspirin 81 mg tablet,delayed 81 mg PO DAILY PRN 06/01/24 History release Ejection fraction %: 65 Have you fallen in the past year?: No PFSH Medical History Acute unilateral obstructive uropathy Kidney stone on right side Subcutaneous mass Cyst of buttocks Scabies Acute bronchitis, unspecified Preoperative cardiovascular examination Synovial cyst of shoulder AC (acromioclavicular) joint arthritis Rotator cuff arthropathy Wears glasses Wears dentures Medullary sponge kidney History of echocardiogram Cardiology follow-up encounter History of colon polyps Shingles Essential hypertension Left inguinal hernia Perforated appendicitis Atherosclerotic heart disease of [place] coronary artery without angina pectoris Nonrheumatic mitral valve disorder Nonrheumatic tricuspid valve regurgitation History of colon polyps Acute renal insufficiency Bilateral hydronephrosis Bilateral kidney stones Intractable pain Recurrent right inguinal hernia UTI (urinary tract infection) Ureteral stone with hydronephrosis Hyperlipidemia Right bundle branch block Surgical History Hx of colonoscopy History of partial surgical removal of colon History of appendectomy History of left inguinal hernia repair ( 08/2018) history lithrotripsy for kidney stones History of prostatectomy History of right inguinal hernia repair Family History Father CAD (coronary artery disease) Hx of CABG Brother Hypertension Social History (Updated 06/01/24 @ 13:48 by Kitty Lomeli) Smoking Status: Never smoker alcohol intake: never substance use type: does not use caffeine: Yes Type: tea ROS Const Const: Positive for weakness (Occasionally) and headache(s); Negative for fatigue Eyes Eyes: Negative for change in vision ENT ENT: Positive for headache(s); Negative for dizziness or balance problems Cardio Chest Pain: No Palpitations: Yes (Occasionally) feels like its: fast Edema: None Resp Respiratory: Negative for SOB with activity, SOB at rest or SOB orthopnea SOB lying down GI GI: Negative nausea or heartburn Musc Musc: Negative for balance problems Neuro Neuro: Positive for headache(s) and weakness (Occasionally); Negative for dizziness, lightheadedness, near syncope or syncope Endo Endo: Negative for fatigue Cardiology Exam Const Appearance: cooperative, healthy appearing, comfortable, no acute distress, well developed and well groomed Nutritional Appearance: average body habitus and thin Orientation: alert, awake and oriented x3 Head Head: normal to inspection, normocephalic and atraumatic Ears: hearing grossly normal bilaterally Nose: external nose normal Face and Sinus: face symmetric Eyes Eyelids: eyelids normal Conjunctivae: conjunctivae normal Pupils: PERRL EOM: EOM intact bilaterally Neck Neck: normal visual inspection and full ROM Carotids: normal carotid upstroke Chest Chest inspection: normal inspection of the chest, symmetric chest movement and normal respiratory eff (more content not included)... Normal [facility] CBC W/Diff, Automatedon 12 Absolute Lymph 0.85 X10 3/uL Normal 0.83-4.51 [facility] Comment on above: Performed By: #### L 501.2300, L500.4050, L506.1000, L509.1000, L100.0100, L500.4100 #### [facility] [address] [place], [place], [id number] Absolute Neut 3.4 X10 3/uL Normal 2.0-7.7 [facility] Comment on above: Performed By: #### L 501.2300, L500.4050, L506.1000, L509.1000, L100.0100, L500.4100 #### [facility] [address] [place], [address] Basophils/100 WBC (Bld) 0.7 % Normal 0-1 [facility] Comment on above: Performed By: #### L 501.2300, L500.4050, L506.1000, L509.1000, L100.0100, L500.4100 #### [facility] [address] [place], [address] Eosinophils/100 WBC (Bld) 7.4 % High 0-5 [facility] Comment on above: Performed By: #### L 501.2300, L500.4050, L506.1000, L509.1000, L100.0100, L500.4100 #### [facility] [address] [place], [address] Erythrocyte distribution width (RBC) [Ratio] 16.7 % High 11.6-14.6 [facility] Comment on above: Performed By: #### L 501.2300, L500.4050, L506.1000, L509.1000, L100.0100, L500.4100 #### [facility] [address] [place], [address] Hematocrit (Bld) [Volume fraction] 39.8 % Low 40-54 [facility] Comment on above: Performed By: #### L 501.2300, L500.4050, L506.1000, L509.1000, L100.0100, L500.4100 #### [facility] [address] [place], [address] Hemoglobin (Bld) [Mass/Vol] 13.4 g/dL Normal 13.0-16.5 [facility] Comment on above: Performed By: #### L 501.2300, L500.4050, L506.1000, L509.1000, L100.0100, L500.4100 #### [facility] [address] [place], [address] IG% 0.400 Normal 0.0-0.9 [facility] Comment on above: Result Comment: IG% - Immature Granulocytes (promyelocytes, myelocytes and metamyelocytes) > 1% indicates that a LEFT SHIFT is Present. Performed By: #### L 501.2300, L500.4050, L506.1000, L509.1000, L100.0100, L500.4100 #### [facility] [address] [place], [address] Lymphocytes/100 WBC (Bld) 15.6 % Low 19-41 [facility] Comment on above: Performed By: #### L 501.2300, L500.4050, L506.1000, L509.1000, L100.0100, L500.4100 #### [facility] [address] [place], [address] MCH (RBC) [Entitic mass] 33.4 pg High 27.0-32.0 [facility] Comment on above: Performed By: #### L 501.2300, L500.4050, L506.1000, L509.1000, L100.0100, L500.4100 #### [facility] [address] [place], [address] MCHC (RBC) [Mass/Vol] 33.7 g/dL Normal 32-36 [facility] Comment on above: Performed By: #### L 501.2300, L500.4050, L506.1000, L509.1000, L100.0100, L500.4100 #### [facility] [address] [place], [address] MCV (RBC) [Entitic vol] 99.3 fL High 80-94 [facility] Comment on above: Performed By: #### L 501.2300, L500.4050, L506.1000, L509.1000, L100.0100, L500.4100 #### [facility] [address] [place], [address] Monocytes/100 WBC (Bld) 14.0 % High 0-10 [facility] Comment on above: Performed By: #### L 501.2300, L500.4050, L506.1000, L509.1000, L100.0100, L500.4100 #### [facility] [address] [place], [address] Neutrophils/100 WBC (Bld) 61.9 % Normal 47-70 [facility] Comment on above: Performed By: #### L 501.2300, L500.4050, L506.1000, L509.1000, L100.0100, L500.4100 #### [facility] [address] [place], [address] Nucleated RBC (Bld) [#/Vol] 0 10*3/uL Normal 0-5 [facility] Comment on above: Performed By: #### L 501.2300, L500.4050, L506.1000, L509.1000, L100.0100, L500.4100 #### [facility] [address] [place], [address] Platelet mean volume (Bld) [Entitic vol] 10.0 fL Normal 6.2-12.0 [facility] Comment on above: Performed By: #### L 501.2300, L500.4050, L506.1000, L509.1000, L100.0100, L500.4100 #### [facility] [address] [place], [address] Platelets (Bld) [#/Vol] 237 10*3/uL Normal 150-450 [facility] Comment on above: Performed By: #### L 501.2300, L500.4050, L506.1000, L509.1000, L100.0100, L500.4100 #### [facility] [address] [place], [address] RBC (Bld) [#/Vol] 4.01 10*6/uL Low 4.6-6.2 [facility] Comment on above: Performed By: #### L 501.2300, L500.4050, L506.1000, L509.1000, L100.0100, L500.4100 #### [facility] [address] [place], [address] RDW SD 61.6 fl High 35.1-43.9 [facility] Comment on above: Performed By: #### L 501.2300, L500.4050, L506.1000, L509.1000, L100.0100, L500.4100 #### [facility] [address] [place], [address] WBC (Bld) [#/Vol] 5.4 10*3/uL Normal 4.4-11.0 [facility] Comment on above: Performed By: #### L 501.2300, L500.4050, L506.1000, L509.1000, L100.0100, L500.4100 #### [facility] [address] [place], [address] Comprehensive Metabolic Prof [facility] 02-12-2024 Albumin [Mass/Vol] 3.3 g/dL Normal 3.2-5.0 [facility] Comment on above: Performed By: #### L 501.2300, L500.4050, L506.1000, L509.1000, L100.0100, L500.4100 #### [facility] [address] [place], [address] Albumin/Globulin [Mass ratio] 0.9 {ratio} Normal 0.9-2.4 [facility] Comment on above: Performed By: #### L 501.2300, L500.4050, L506.1000, L509.1000, L100.0100, L500.4100 #### [facility] [address] [place], [address] ALK P 130 U/L High 45-117 [facility] Comment on above: Performed By: #### L 501.2300, L500.4050, L506.1000, L509.1000, L100.0100, L500.4100 #### [facility] [address] [place], [address] ALT [Catalytic activity/Vol] 23 U/L Normal 16-61 [facility] Comment on above: Performed By: #### L 501.2300, L500.4050, L506.1000, L509.1000, L100.0100, L500.4100 #### [facility] [address] [place], [address] AST [Catalytic activity/Vol] 19 U/L Normal 15-37 [facility] Comment on above: Performed By: #### L 501.2300, L500.4050, L506.1000, L509.1000, L100.0100, L500.4100 #### [facility] [address] [place], [address] Bilirubin [Mass/Vol] 1.10 mg/dL High 0.20-1.00 [facility] Comment on above: Result Comment: For patients on eltrombopag therapy, use of Dimension [place] TBIL is not recommended. Performed By: #### L 501.2300, L500.4050, L506.1000, L509.1000, L100.0100, L500.4100 #### [facility] [address] [place], [address] BUN/CRE 10.2 RATIO Normal 10-20 [facility] Comment on above: Performed By: #### L 501.2300, L500.4050, L506.1000, L509.1000, L100.0100, L500.4100 #### [facility] [address] [place], [address] CA,Total 8.7 mg/dL Normal 8.5-10.1 [facility] Comment on above: Performed By: #### L 501.2300, L500.4050, L506.1000, L509.1000, L100.0100, L500.4100 #### [facility] [address] [place], [address] Chloride [Moles/Vol] 108 mmol/L High 98-107 [facility] Comment on above: Performed By: #### L 501.2300, L500.4050, L506.1000, L509.1000, L100.0100, L500.4100 #### [facility] [address] [place], [address] CO2 [Moles/Vol] 21.0 mmol/L Normal 21.0-32.0 [facility] Comment on above: Performed By: #### L 501.2300, L500.4050, L506.1000, L509.1000, L100.0100, L500.4100 #### [facility] [address] [place], [address] Creatinine [Mass/Vol] 1.57 mg/dL High 0.70-1.30 [facility] Comment on above: Result Comment: The validity of the calculated GFR GFRAA in patients over 70 years has not been determined. Clinical correlation is essential. Performed By: #### L 501.2300, L500.4050, L506.1000, L509.1000, L100.0100, L500.4100 #### [facility] [address] [place], [address] EST GFR - AA 55 mL/min Low >60 [facility] Comment on above: Result Comment: Afri can Nigerian GFR Calc Performed By: #### L 501.2300, L500.4050, L506.1000, L509.1000, L100.0100, L500.4100 #### [facility] [address] [place], [address] GAP 8 Normal 5-15 [facility] Comment on above: Performed By: #### L 501.2300, L500.4050, L506.1000, L509.1000, L100.0100, L500.4100 #### [facility] [address] [place], [address] GFR/1.73 sq M.predicted among non-blacks MDRD (S/P/Bld) [Vol rate/Area] 45 mL/min/{1.73_m2} Low >60 [facility] Comment on above: Result Comment: Non- GFR Calc Performed By: #### L 501.2300, L500.4050, L506.1000, L509.1000, L100.0100, L500.4100 #### [facility] [address] [place], [address] Globulin (S) [Mass/Vol] 3.6 g/dL Normal 2.2-4.2 [facility] Comment on above: Performed By: #### L 501.2300, L500.4050, L506.1000, L509.1000, L100.0100, L500.4100 #### [facility] [address] [place], [address] Glucose [Mass/Vol] 103 mg/dL Normal 74-106 [facility] Comment on above: Result Comment: Fast ing Glucose result from 100 to 125 mg/dL suggests IMPAIRED HOMEOSTASIS per A.D.A. criteria. Performed By: #### L 501.2300, L500.4050, L506.1000, L509.1000, L100.0100, L500.4100 #### [facility] [address] [place], [address] Potassium [Moles/Vol] 4.0 mmol/L Normal 3.5-5.1 [facility] Comment on above: Performed By: #### L 501.2300, L500.4050, L506.1000, L509.1000, L100.0100, L500.4100 #### [facility] [address] [place], [address] Sodium [Moles/Vol] 137 mmol/L Normal 136-145 [facility] Comment on above: Performed By: #### L 501.2300, L500.4050, L506.1000, L509.1000, L100.0100, L500.4100 #### [facility] [address] [place], [address] T PROT 6.9 g/dL Normal 6.4-8.2 [facility] Comment on above: Performed By: #### L 501.2300, L500.4050, L506.1000, L509.1000, L100.0100, L500.4100 #### [facility] [address] [place], [address] Urea nitrogen [Mass/Vol] 16 mg/dL Normal 7-18 [facility] Comment on above: Performed By: #### L 501.2300, L500.4050, L506.1000, L509.1000, L100.0100, L500.4100 #### [facility] [address] [place], [address] Lipid Profileon 02-12-2024 Cholesterol [Mass/Vol] 143 mg/dL Normal 200 [facility] Comment on above: Result Comment: <200 mg/dL Desirable 200-240 mg/dL Borderline >240 mg/dL High Risk Performed By: #### L 501.2300, L500.4050, L506.1000, L509.1000, L100.0100, L500.4100 #### [facility] [address] [place], [address] Cholesterol in HDL [Mass/Vol] 50 mg/dL Normal [facility] Comment on above: Result Comment: The drugs N-Acetylcysteine and Metamizole may falsely depress this assay. Reference Range HDL <40 mg/dL Low HDL Cholesterol HDL >or= 60 mg/dL High HDL Cholesterol Performed By: #### L 501.2300, L500.4050, L506.1000, L509.1000, L100.0100, L500.4100 #### [facility] [address] [place], [address] Cholesterol in LDL [Mass/Vol] 75 mg/dL Normal 0-130 [facility] Comment on above: Performed By: #### L 501.2300, L500.4050, L506.1000, L509.1000, L100.0100, L500.4100 #### [facility] [address] [place], [address] Cholesterol in VLDL [Mass/Vol] 18 mg/dL Normal 5-40 [facility] Comment on above: Performed By: #### L 501.2300, L500.4050, L506.1000, L509.1000, L100.0100, L500.4100 #### [facility] [address] [place], [address] Triglyceride [Mass/Vol] 89 mg/dL Normal [facility] Comment on above: Result Comment: The drugs N-Acetylcysteine and Metamizole may falsely depress this assay. Serum Triglycerides Reference Interval Normal <150 mg/dL Borderline high 150 - 199 mg/dL High 200 - 499 mg/dL Very High > or = 500 mg/dL Performed By: #### L 501.2300, L500.4050, L506.1000, L509.1000, L100.0100, L500.4100 #### [facility] [address] [place], [address] PTHINon 02-12-2024 PTH 71.8 pg/mL Normal 18.4-80.1 [facility] Comment on above: Performed By: #### L 501.2300, L500.4050, L506.1000, L509.1000, L100.0100, L500.4100 #### [facility] [address] [place], [address] Phosphoruson 02-12-2024 Phosphate [Mass/Vol] 2.9 mg/dL Normal 2.5-4.9 [facility] Comment on above: Performed By: #### L 100.0100, L500.4050 #### [facility] [address] [place], [address] Vitamin D,25 Hydroxyon 02-11 Vitamin D 25-OH 32.5 ng/mL Normal [facility] Comment on above: Result Comment: Katia min D 25(OH) Status Range Deficiency <20 ng/mL (50nmol/L) Insufficiency 20 - 30 ng/mL (50 - 75 nmol/L) Sufficiency 30 - 100 ng/mL (75 - 250 nmol/L) Toxicity >100 ng/mL (>250 nmol/L) Performed By: #### L 501.2300, L500.4050, L506.1000, L509.1000, L100.0100, L500.4100 #### [facility] [address] [place], [address] PSA,Total- Diagnosticon 10-1 0-2023 PSA, DIAGNOSTIC 0.05 ng/mL Normal 0.0-4.0 [facility] Comment on above: Result Comment: This test was performed using the TPSA assay method for the [employer] chemistry system. Values obtained with different assay methods cannot be used interchangably. When changing PSA assays in the course of monitoring a patient, additional sequential testing should be carried out to confirm baseline values. Performed By: #### L 501.9940 #### [facility] [address] [place], [address] CBC W/Diff, Automatedon 08-2 Absolute Neut Normal 2.0-7.7 [facility] Comment on above: Result Comment: Canc elled via OM: Order cancelled - Patient discharged Performed By: #### L 100.0100, L500.4050 #### [facility] [address] [place], [address] HCT Normal 40-54 [facility] Comment on above: Result Comment: Canc elled via OM: Order cancelled - Patient discharged Performed By: #### L 100.0100, L500.4050 #### [facility] [address] [place], [address] HGB Normal 13.0-16.5 [facility] Comment on above: Result Comment: Canc elled via OM: Order cancelled - Patient discharged Performed By: #### L 100.0100, L500.4050 #### [facility] [address] [place], [address] MCH Normal 27.0-32.0 [facility] Comment on above: Result Comment: Canc elled via OM: Order cancelled - Patient discharged Performed By: #### L 100.0100, L500.4050 #### [facility] [address] [place], [address] MCHC Normal 32-36 [facility] Comment on above: Result Comment: Canc elled via OM: Order cancelled - Patient discharged Performed By: #### L 100.0100, L500.4050 #### [facility] [address] [place], [address] MCV Normal 80-94 [facility] Comment on above: Result Comment: Canc elled via OM: Order cancelled - Patient discharged Performed By: #### L 100.0100, L500.4050 #### [facility] [address] [place], [address] NEUT% Normal 47-70 [facility] Comment on above: Result Comment: Canc elled via OM: Order cancelled - Patient discharged Performed By: #### L 100.0100, L500.4050 #### [facility] [address] [place], [address] PLT Normal 150-450 [facility] Comment on above: Result Comment: Canc elled via OM: Order cancelled - Patient discharged Performed By: #### L 100.0100, L500.4050 #### [facility] [address] [place], [address] RBC Normal 4.6-6.2 [facility] Comment on above: Result Comment: Canc elled via OM: Order cancelled - Patient discharged Performed By: #### L 100.0100, L500.4050 #### [facility] [address] [place], [address] RDW CV Normal 11.6-14.6 [facility] Comment on above: Result Comment: Canc elled via OM: Order cancelled - Patient discharged Performed By: #### L 100.0100, L500.4050 #### [facility] [address] [place], [address] RDW SD Normal 35.1-43.9 [facility] Comment on above: Result Comment: Canc elled via OM: Order cancelled - Patient discharged Performed By: #### L 100.0100, L500.4050 #### [facility] [address] [place], [address] WBC Normal 4.4-11.0 [facility] Comment on above: Result Comment: Canc elled via OM: Order cancelled - Patient discharged Performed By: #### L 100.0100, L500.4050 #### [facility] [address] [place], [address] Comprehensive Metabolic Prof ilon 10-27-2023 ALB Normal 3.2-5.0 [facility] Comment on above: Result Comment: Canc elled via OM: Order cancelled - Patient discharged Performed By: #### L 100.0100, L500.4050 #### [facility] [address] [place], [address] ALK P Normal 45-117 [facility] Comment on above: Result Comment: Canc elled via OM: Order cancelled - Patient discharged Performed By: #### L 100.0100, L500.4050 #### [facility] [address] [place], [address] ALT Normal 16-61 [facility] Comment on above: Result Comment: Canc elled via OM: Order cancelled - Patient discharged Performed By: #### L 100.0100, L500.4050 #### [facility] [address] [place], [address] AST Normal 15-37 [facility] Comment on above: Result Comment: Canc elled via OM: Order cancelled - Patient discharged Performed By: #### L 100.0100, L500.4050 #### [facility] [address] [place], [address] BUN Normal 7-18 [facility] Comment on above: Result Comment: Canc elled via OM: Order cancelled - Patient discharged Performed By: #### L 100.0100, L500.4050 #### [facility] [address] [place], [address] BUN/CRE Normal 10-20 [facility] Comment on above: Result Comment: Canc elled via OM: Order cancelled - Patient discharged Performed By: #### L 100.0100, L500.4050 #### [facility] [address] [place], [address] CA,Total Normal 8.5-10.1 [facility] Comment on above: Result Comment: Canc elled via OM: Order cancelled - Patient discharged Performed By: #### L 100.0100, L500.4050 #### [facility] [address] [place], [address] CL Normal 98-107 [facility] Comment on above: Result Comment: Canc elled via OM: Order cancelled - Patient discharged Performed By: #### L 100.0100, L500.4050 #### [facility] [address] [place], [address] CO2 Normal 21.0-32.0 [facility] Comment on above: Result Comment: Canc elled via OM: Order cancelled - Patient discharged Performed By: #### L 100.0100, L500.4050 #### [facility] [address] [place], [address] CREAT,SERUM Normal 0.70-1.30 [facility] Comment on above: Result Comment: Canc elled via OM: Order cancelled - Patient discharged Performed By: #### L 100.0100, L500.4050 #### [facility] [address] [place], [address] EST GFR Normal >60 [facility] Comment on above: Result Comment: Canc elled via OM: Order cancelled - Patient discharged Performed By: #### L 100.0100, L500.4050 #### [facility] [address] [place], [address] EST GFR - AA Normal >60 [facility] Comment on above: Result Comment: Canc elled via OM: Order cancelled - Patient discharged Performed By: #### L 100.0100, L500.4050 #### [facility] [address] [place], [address] GAP Normal 5-15 [facility] Comment on above: Result Comment: Canc elled via OM: Order cancelled - Patient discharged Performed By: #### L 100.0100, L500.4050 #### [facility] [address] [place], [address] GLU Normal 74-106 [facility] Comment on above: Result Comment: Canc elled via OM: Order cancelled - Patient discharged Performed By: #### L 100.0100, L500.4050 #### [facility] [address] [place], [address] Potassium Normal 3.5-5.1 [facility] Comment on above: Result Comment: Canc elled via OM: Order cancelled - Patient discharged Performed By: #### L 100.0100, L500.4050 #### [facility] [address] [place], [address] T BILI Normal 0.20-1.00 [facility] Comment on above: Result Comment: Canc elled via OM: Order cancelled - Patient discharged Performed By: #### L 100.0100, L500.4050 #### [facility] [address] [place], [address] T PROT Normal 6.4-8.2 [facility] Comment on above: Result Comment: Canc elled via OM: Order cancelled - Patient discharged Performed By: #### L 100.0100, L500.4050 #### [facility] [address] [place], [address] Comprehensive Metabolic Profil Normal 136-145 [facility] Comment on above: Result Comment: Canc elled via OM: Order cancelled - Patient discharged Performed By: #### L 100.0100, L500.4050 #### [facility] [address] [place], [address] CBC W/Diff, Automatedon 08-2 Absolute Neut Normal 2.0-7.7 [facility] Comment on above: Result Comment: Canc elled via OM: Order cancelled - Patient discharged Performed By: #### L 100.0100, L500.4050 #### [facility] [address] [place], [address] HCT Normal 40-54 [facility] Comment on above: Result Comment: Canc elled via OM: Order cancelled - Patient discharged Performed By: #### L 100.0100, L500.4050 #### [facility] [address] [place], [address] HGB Normal 13.0-16.5 [facility] Comment on above: Result Comment: Canc elled via OM: Order cancelled - Patient discharged Performed By: #### L 100.0100, L500.4050 #### [facility] [address] [place], [address] MCH Normal 27.0-32.0 [facility] Comment on above: Result Comment: Canc elled via OM: Order cancelled - Patient discharged Performed By: #### L 100.0100, L500.4050 #### [facility] [address] [place], [address] MCHC Normal 32-36 [facility] Comment on above: Result Comment: Canc elled via OM: Order cancelled - Patient discharged Performed By: #### L 100.0100, L500.4050 #### [facility] [address] [place], [address] MCV Normal 80-94 [facility] Comment on above: Result Comment: Canc elled via OM: Order cancelled - Patient discharged Performed By: #### L 100.0100, L500.4050 #### [facility] [address] [place], [address] NEUT% Normal 47-70 [facility] Comment on above: Result Comment: Canc elled via OM: Order cancelled - Patient discharged Performed By: #### L 100.0100, L500.4050 #### [facility] [address] [place], [address] PLT Normal 150-450 [facility] Comment on above: Result Comment: Canc elled via OM: Order cancelled - Patient discharged Performed By: #### L 100.0100, L500.4050 #### [facility] [address] [place], [address] RBC Normal 4.6-6.2 [facility] Comment on above: Result Comment: Canc elled via OM: Order cancelled - Patient discharged Performed By: #### L 100.0100, L500.4050 #### [facility] [address] [place], [address] RDW CV Normal 11.6-14.6 [facility] Comment on above: Result Comment: Canc elled via OM: Order cancelled - Patient discharged Performed By: #### L 100.0100, L500.4050 #### [facility] [address] [place], [address] RDW SD Normal 35.1-43.9 [facility] Comment on above: Result Comment: Canc elled via OM: Order cancelled - Patient discharged Performed By: #### L 100.0100, L500.4050 #### [facility] [address] [place], [address] WBC Normal 4.4-11.0 [facility] Comment on above: Result Comment: Canc elled via OM: Order cancelled - Patient discharged Performed By: #### L 100.0100, L500.4050 #### [facility] [address] [place], [address] Comprehensive Metabolic Prof ilon 10-26-2023 ALB Normal 3.2-5.0 [facility] Comment on above: Result Comment: Canc elled via OM: Order cancelled - Patient discharged Performed By: #### L 100.0100, L500.4050 #### [facility] [address] [place], [address] ALK P Normal 45-117 [facility] Comment on above: Result Comment: Canc elled via OM: Order cancelled - Patient discharged Performed By: #### L 100.0100, L500.4050 #### [facility] [address] [place], [address] ALT Normal 16-61 [facility] Comment on above: Result Comment: Canc elled via OM: Order cancelled - Patient discharged Performed By: #### L 100.0100, L500.4050 #### [facility] [address] [place], [address] AST Normal 15-37 [facility] Comment on above: Result Comment: Canc elled via OM: Order cancelled - Patient discharged Performed By: #### L 100.0100, L500.4050 #### [facility] [address] [place], [address] BUN Normal 7-18 [facility] Comment on above: Result Comment: Canc elled via OM: Order cancelled - Patient discharged Performed By: #### L 100.0100, L500.4050 #### [facility] [address] [place], [address] BUN/CRE Normal 10-20 [facility] Comment on above: Result Comment: Canc elled via OM: Order cancelled - Patient discharged Performed By: #### L 100.0100, L500.4050 #### [facility] [address] [place], [address] CA,Total Normal 8.5-10.1 [facility] Comment on above: Result Comment: Canc elled via OM: Order cancelled - Patient discharged Performed By: #### L 100.0100, L500.4050 #### [facility] [address] [place], [address] CL Normal 98-107 [facility] Comment on above: Result Comment: Canc elled via OM: Order cancelled - Patient discharged Performed By: #### L 100.0100, L500.4050 #### [facility] [address] [place], [address] CO2 Normal 21.0-32.0 [facility] Comment on above: Result Comment: Canc elled via OM: Order cancelled - Patient discharged Performed By: #### L 100.0100, L500.4050 #### [facility] [address] [place], [address] CREAT,SERUM Normal 0.70-1.30 [facility] Comment on above: Result Comment: Canc elled via OM: Order cancelled - Patient discharged Performed By: #### L 100.0100, L500.4050 #### [facility] [address] [place], [address] EST GFR Normal >60 [facility] Comment on above: Result Comment: Canc elled via OM: Order cancelled - Patient discharged Performed By: #### L 100.0100, L500.4050 #### [facility] [address] [place], [address] EST GFR - AA Normal >60 [facility] Comment on above: Result Comment: Canc elled via OM: Order cancelled - Patient discharged Performed By: #### L 100.0100, L500.4050 #### [facility] [address] [place], [address] GAP Normal 5-15 [facility] Comment on above: Result Comment: Canc elled via OM: Order cancelled - Patient discharged Performed By: #### L 100.0100, L500.4050 #### [facility] [address] [place], [address] GLU Normal 74-106 [facility] Comment on above: Result Comment: Canc elled via OM: Order cancelled - Patient discharged Performed By: #### L 100.0100, L500.4050 #### [facility] [address] [place], [address] Potassium Normal 3.5-5.1 [facility] Comment on above: Result Comment: Canc elled via OM: Order cancelled - Patient discharged Performed By: #### L 100.0100, L500.4050 #### [facility] [address] [place], [address] T BILI Normal 0.20-1.00 [facility] Comment on above: Result Comment: Canc elled via OM: Order cancelled - Patient discharged Performed By: #### L 100.0100, L500.4050 #### [facility] [address] [place], [address] T PROT Normal 6.4-8.2 [facility] Comment on above: Result Comment: Canc elled via OM: Order cancelled - Patient discharged Performed By: #### L 100.0100, L500.4050 #### [facility] [address] [place], [address] Comprehensive Metabolic Profil Normal 136-145 [facility] Comment on above: Result Comment: Canc elled via OM: Order cancelled - Patient discharged Performed By: #### L 100.0100, L500.4050 #### [facility] [address] [place], [address] CBC W/Diff, Automatedon 08-2 Absolute Neut Normal 2.0-7.7 [facility] Comment on above: Result Comment: Canc elled via OM: Order cancelled - Patient discharged Performed By: #### L 100.0100, L500.4050 #### [facility] [address] [place], [address] HCT Normal 40-54 [facility] Comment on above: Result Comment: Canc elled via OM: Order cancelled - Patient discharged Performed By: #### L 100.0100, L500.4050 #### [facility] [address] [place], [address] HGB Normal 13.0-16.5 [facility] Comment on above: Result Comment: Canc elled via OM: Order cancelled - Patient discharged Performed By: #### L 100.0100, L500.4050 #### [facility] [address] [place], [address] MCH Normal 27.0-32.0 [facility] Comment on above: Result Comment: Canc elled via OM: Order cancelled - Patient discharged Performed By: #### L 100.0100, L500.4050 #### [facility] [address] [place], [address] MCHC Normal 32-36 [facility] Comment on above: Result Comment: Canc elled via OM: Order cancelled - Patient discharged Performed By: #### L 100.0100, L500.4050 #### [facility] [address] [place], [address] MCV Normal 80-94 [facility] Comment on above: Result Comment: Canc elled via OM: Order cancelled - Patient discharged Performed By: #### L 100.0100, L500.4050 #### [facility] [address] [place], [address] NEUT% Normal 47-70 [facility] Comment on above: Result Comment: Canc elled via OM: Order cancelled - Patient discharged Performed By: #### L 100.0100, L500.4050 #### [facility] [address] [place], [address] PLT Normal 150-450 [facility] Comment on above: Result Comment: Canc elled via OM: Order cancelled - Patient discharged Performed By: #### L 100.0100, L500.4050 #### [facility] [address] [place], [address] RBC Normal 4.6-6.2 [facility] Comment on above: Result Comment: Canc elled via OM: Order cancelled - Patient discharged Performed By: #### L 100.0100, L500.4050 #### [facility] [address] [place], [address] RDW CV Normal 11.6-14.6 [facility] Comment on above: Result Comment: Canc elled via OM: Order cancelled - Patient discharged Performed By: #### L 100.0100, L500.4050 #### [facility] [address] [place], [address] RDW SD Normal 35.1-43.9 [facility] Comment on above: Result Comment: Canc elled via OM: Order cancelled - Patient discharged Performed By: #### L 100.0100, L500.4050 #### [facility] [address] [place], [address] WBC Normal 4.4-11.0 [facility] Comment on above: Result Comment: Canc elled via OM: Order cancelled - Patient discharged Performed By: #### L 100.0100, L500.4050 #### [facility] [address] [place], [address] Comprehensive Metabolic Prof ilon 10-25-2023 ALB Normal 3.2-5.0 [facility] Comment on above: Result Comment: Canc elled via OM: Order cancelled - Patient discharged Performed By: #### L 100.0100, L500.4050 #### [facility] [address] [place], [address] ALK P Normal 45-117 [facility] Comment on above: Result Comment: Canc elled via OM: Order cancelled - Patient discharged Performed By: #### L 100.0100, L500.4050 #### [facility] [address] [place], [address] ALT Normal 16-61 [facility] Comment on above: Result Comment: Canc elled via OM: Order cancelled - Patient discharged Performed By: #### L 100.0100, L500.4050 #### [facility] [address] [place], [address] AST Normal 15-37 [facility] Comment on above: Result Comment: Canc elled via OM: Order cancelled - Patient discharged Performed By: #### L 100.0100, L500.4050 #### [facility] [address] [place], [address] BUN Normal 7-18 [facility] Comment on above: Result Comment: Canc elled via OM: Order cancelled - Patient discharged Performed By: #### L 100.0100, L500.4050 #### [facility] [address] [place], [address] BUN/CRE Normal 10-20 [facility] Comment on above: Result Comment: Canc elled via OM: Order cancelled - Patient discharged Performed By: #### L 100.0100, L500.4050 #### [facility] [address] [place], [address] CA,Total Normal 8.5-10.1 [facility] Comment on above: Result Comment: Canc elled via OM: Order cancelled - Patient discharged Performed By: #### L 100.0100, L500.4050 #### [facility] [address] [place], [address] CL Normal 98-107 [facility] Comment on above: Result Comment: Canc elled via OM: Order cancelled - Patient discharged Performed By: #### L 100.0100, L500.4050 #### [facility] [address] [place], [address] CO2 Normal 21.0-32.0 [facility] Comment on above: Result Comment: Canc elled via OM: Order cancelled - Patient discharged Performed By: #### L 100.0100, L500.4050 #### [facility] [address] [place], [address] CREAT,SERUM Normal 0.70-1.30 [facility] Comment on above: Result Comment: Canc elled via OM: Order cancelled - Patient discharged Performed By: #### L 100.0100, L500.4050 #### [facility] [address] [place], [address] EST GFR Normal >60 [facility] Comment on above: Result Comment: Canc elled via OM: Order cancelled - Patient discharged Performed By: #### L 100.0100, L500.4050 #### [facility] [address] [place], [address] EST GFR - AA Normal >60 [facility] Comment on above: Result Comment: Canc elled via OM: Order cancelled - Patient discharged Performed By: #### L 100.0100, L500.4050 #### [facility] [address] [place], [address] GAP Normal 5-15 [facility] Comment on above: Result Comment: Canc elled via OM: Order cancelled - Patient discharged Performed By: #### L 100.0100, L500.4050 #### [facility] [address] [place], [address] GLU Normal 74-106 [facility] Comment on above: Result Comment: Canc elled via OM: Order cancelled - Patient discharged Performed By: #### L 100.0100, L500.4050 #### [facility] [address] [place], [address] Potassium Normal 3.5-5.1 [facility] Comment on above: Result Comment: Canc elled via OM: Order cancelled - Patient discharged Performed By: #### L 100.0100, L500.4050 #### [facility] [address] [place], [address] T BILI Normal 0.20-1.00 [facility] Comment on above: Result Comment: Canc elled via OM: Order cancelled - Patient discharged Performed By: #### L 100.0100, L500.4050 #### [facility] [address] [place], [address] T PROT Normal 6.4-8.2 [facility] Comment on above: Result Comment: Canc elled via OM: Order cancelled - Patient discharged Performed By: #### L 100.0100, L500.4050 #### [facility] [address] [place], [address] Comprehensive Metabolic Profil Normal 136-145 [facility] Comment on above: Result Comment: Canc elled via OM: Order cancelled - Patient discharged Performed By: #### L 100.0100, L500.4050 #### [facility] [address] [place], [address] CBC W/Diff, Automatedon 08-2 -2023 Absolute Neut Normal 2.0-7.7 [facility] Comment on above: Result Comment: Canc elled via OM: Order cancelled - Patient discharged Performed By: #### L 100.0100, L500.4050 #### [facility] [address] [place], [address] HCT Normal 40-54 [facility] Comment on above: Result Comment: Canc elled via OM: Order cancelled - Patient discharged Performed By: #### L 100.0100, L500.4050 #### [facility] [address] [place], [address] HGB Normal 13.0-16.5 [facility] Comment on above: Result Comment: Canc elled via OM: Order cancelled - Patient discharged Performed By: #### L 100.0100, L500.4050 #### [facility] [address] [place], [address] MCH Normal 27.0-32.0 [facility] Comment on above: Result Comment: Canc elled via OM: Order cancelled - Patient discharged Performed By: #### L 100.0100, L500.4050 #### [facility] [address] [place], [address] MCHC Normal 32-36 [facility] Comment on above: Result Comment: Canc elled via OM: Order cancelled - Patient discharged Performed By: #### L 100.0100, L500.4050 #### [facility] [address] [place], [address] MCV Normal 80-94 [facility] Comment on above: Result Comment: Canc elled via OM: Order cancelled - Patient discharged Performed By: #### L 100.0100, L500.4050 #### [facility] [address] [place], [address] NEUT% Normal 47-70 [facility] Comment on above: Result Comment: Canc elled via OM: Order cancelled - Patient discharged Performed By: #### L 100.0100, L500.4050 #### [facility] [address] [place], [address] PLT Normal 150-450 [facility] Comment on above: Result Comment: Canc elled via OM: Order cancelled - Patient discharged Performed By: #### L 100.0100, L500.4050 #### [facility] [address] [place], [address] RBC Normal 4.6-6.2 [facility] Comment on above: Result Comment: Canc elled via OM: Order cancelled - Patient discharged Performed By: #### L 100.0100, L500.4050 #### [facility] [address] [place], [address] RDW CV Normal 11.6-14.6 [facility] Comment on above: Result Comment: Canc elled via OM: Order cancelled - Patient discharged Performed By: #### L 100.0100, L500.4050 #### [facility] [address] [place], [address] RDW SD Normal 35.1-43.9 [facility] Comment on above: Result Comment: Canc elled via OM: Order cancelled - Patient discharged Performed By: #### L 100.0100, L500.4050 #### [facility] [address] [place], [address] WBC Normal 4.4-11.0 [facility] Comment on above: Result Comment: Canc elled via OM: Order cancelled - Patient discharged Performed By: #### L 100.0100, L500.4050 #### [facility] [address] [place], [address] Comprehensive Metabolic Prof ilon 10-24-2023 ALB Normal 3.2-5.0 [facility] Comment on above: Result Comment: Canc elled via OM: Order cancelled - Patient discharged Performed By: #### L 100.0100, L500.4050 #### [facility] [address] [place], [address] ALK P Normal 45-117 [facility] Comment on above: Result Comment: Canc elled via OM: Order cancelled - Patient discharged Performed By: #### L 100.0100, L500.4050 #### [facility] [address] [place], [address] ALT Normal 16-61 [facility] Comment on above: Result Comment: Canc elled via OM: Order cancelled - Patient discharged Performed By: #### L 100.0100, L500.4050 #### [facility] [address] [place], [address] AST Normal 15-37 [facility] Comment on above: Result Comment: Canc elled via OM: Order cancelled - Patient discharged Performed By: #### L 100.0100, L500.4050 #### [facility] [address] [place], [address] BUN Normal 7-18 [facility] Comment on above: Result Comment: Canc elled via OM: Order cancelled - Patient discharged Performed By: #### L 100.0100, L500.4050 #### [facility] [address] [place], [address] BUN/CRE Normal 10-20 [facility] Comment on above: Result Comment: Canc elled via OM: Order cancelled - Patient discharged Performed By: #### L 100.0100, L500.4050 #### [facility] [address] [place], [address] CA,Total Normal 8.5-10.1 [facility] Comment on above: Result Comment: Canc elled via OM: Order cancelled - Patient discharged Performed By: #### L 100.0100, L500.4050 #### [facility] [address] [place], [address] CL Normal 98-107 [facility] Comment on above: Result Comment: Canc elled via OM: Order cancelled - Patient discharged Performed By: #### L 100.0100, L500.4050 #### [facility] [address] [place], [address] CO2 Normal 21.0-32.0 [facility] Comment on above: Result Comment: Canc elled via OM: Order cancelled - Patient discharged Performed By: #### L 100.0100, L500.4050 #### [facility] [address] [place], [address] CREAT,SERUM Normal 0.70-1.30 [facility] Comment on above: Result Comment: Canc elled via OM: Order cancelled - Patient discharged Performed By: #### L 100.0100, L500.4050 #### [facility] [address] [place], [address] EST GFR Normal >60 [facility] Comment on above: Result Comment: Canc elled via OM: Order cancelled - Patient discharged Performed By: #### L 100.0100, L500.4050 #### [facility] [address] [place], [address] EST GFR - AA Normal >60 [facility] Comment on above: Result Comment: Canc elled via OM: Order cancelled - Patient discharged Performed By: #### L 100.0100, L500.4050 #### [facility] [address] [place], [address] GAP Normal 5-15 [facility] Comment on above: Result Comment: Canc elled via OM: Order cancelled - Patient discharged Performed By: #### L 100.0100, L500.4050 #### [facility] [address] [place], [address] GLU Normal 74-106 [facility] Comment on above: Result Comment: Canc elled via OM: Order cancelled - Patient discharged Performed By: #### L 100.0100, L500.4050 #### [facility] [address] [place], [address] Potassium Normal 3.5-5.1 [facility] Comment on above: Result Comment: Canc elled via OM: Order cancelled - Patient discharged Performed By: #### L 100.0100, L500.4050 #### [facility] [address] [place], [address] T BILI Normal 0.20-1.00 [facility] Comment on above: Result Comment: Canc elled via OM: Order cancelled - Patient discharged Performed By: #### L 100.0100, L500.4050 #### [facility] [address] [place], [address] T PROT Normal 6.4-8.2 [facility] Comment on above: Result Comment: Canc elled via OM: Order cancelled - Patient discharged Performed By: #### L 100.0100, L500.4050 #### [facility] [address] [place], [address] Comprehensive Metabolic Profil Normal 136-145 [facility] Comment on above: Result Comment: Canc elled via OM: Order cancelled - Patient discharged Performed By: #### L 100.0100, L500.4050 #### [facility] [address] [place], [address] CBC W/Diff, Automatedon 08-2 Absolute Neut Normal 2.0-7.7 [facility] Comment on above: Result Comment: Canc elled via OM: Order cancelled - Patient discharged Performed By: #### L 100.0100, L500.4050 #### [facility] [address] [place], [address] HCT Normal 40-54 [facility] Comment on above: Result Comment: Canc elled via OM: Order cancelled - Patient discharged Performed By: #### L 100.0100, L500.4050 #### [facility] [address] [place], [address] HGB Normal 13.0-16.5 [facility] Comment on above: Result Comment: Canc elled via OM: Order cancelled - Patient discharged Performed By: #### L 100.0100, L500.4050 #### [facility] [address] [place], [address] MCH Normal 27.0-32.0 [facility] Comment on above: Result Comment: Canc elled via OM: Order cancelled - Patient discharged Performed By: #### L 100.0100, L500.4050 #### [facility] [address] [place], [address] MCHC Normal 32-36 [facility] Comment on above: Result Comment: Canc elled via OM: Order cancelled - Patient discharged Performed By: #### L 100.0100, L500.4050 #### [facility] [address] [place], [address] MCV Normal 80-94 [facility] Comment on above: Result Comment: Canc elled via OM: Order cancelled - Patient discharged Performed By: #### L 100.0100, L500.4050 #### [facility] [address] [place], [address] NEUT% Normal 47-70 [facility] Comment on above: Result Comment: Canc elled via OM: Order cancelled - Patient discharged Performed By: #### L 100.0100, L500.4050 #### [facility] [address] [place], [address] PLT Normal 150-450 [facility] Comment on above: Result Comment: Canc elled via OM: Order cancelled - Patient discharged Performed By: #### L 100.0100, L500.4050 #### [facility] [address] [place], [address] RBC Normal 4.6-6.2 [facility] Comment on above: Result Comment: Canc elled via OM: Order cancelled - Patient discharged Performed By: #### L 100.0100, L500.4050 #### [facility] [address] [place], [address] RDW CV Normal 11.6-14.6 [facility] Comment on above: Result Comment: Canc elled via OM: Order cancelled - Patient discharged Performed By: #### L 100.0100, L500.4050 #### [facility] [address] [place], [address] RDW SD Normal 35.1-43.9 [facility] Comment on above: Result Comment: Canc elled via OM: Order cancelled - Patient discharged Performed By: #### L 100.0100, L500.4050 #### [facility] [address] [place], [address] WBC Normal 4.4-11.0 [facility] Comment on above: Result Comment: Canc elled via OM: Order cancelled - Patient discharged Performed By: #### L 100.0100, L500.4050 #### [facility] [address] [place], [address] Comprehensive Metabolic Prof ilon 10-23-2023 ALB Normal 3.2-5.0 [facility] Comment on above: Result Comment: Canc elled via OM: Order cancelled - Patient discharged Performed By: #### L 100.0100, L500.4050 #### [facility] [address] [place], [address] ALK P Normal 45-117 [facility] Comment on above: Result Comment: Canc elled via OM: Order cancelled - Patient discharged Performed By: #### L 100.0100, L500.4050 #### [facility] [address] [place], [address] ALT Normal 16-61 [facility] Comment on above: Result Comment: Canc elled via OM: Order cancelled - Patient discharged Performed By: #### L 100.0100, L500.4050 #### [facility] [address] [place], [address] AST Normal 15-37 [facility] Comment on above: Result Comment: Canc elled via OM: Order cancelled - Patient discharged Performed By: #### L 100.0100, L500.4050 #### [facility] [address] [place], [address] BUN Normal 7-18 [facility] Comment on above: Result Comment: Canc elled via OM: Order cancelled - Patient discharged Performed By: #### L 100.0100, L500.4050 #### [facility] [address] [place], [address] BUN/CRE Normal 10-20 [facility] Comment on above: Result Comment: Canc elled via OM: Order cancelled - Patient discharged Performed By: #### L 100.0100, L500.4050 #### [facility] [address] [place], [address] CA,Total Normal 8.5-10.1 [facility] Comment on above: Result Comment: Canc elled via OM: Order cancelled - Patient discharged Performed By: #### L 100.0100, L500.4050 #### [facility] [address] [place], [address] CL Normal 98-107 [facility] Comment on above: Result Comment: Canc elled via OM: Order cancelled - Patient discharged Performed By: #### L 100.0100, L500.4050 #### [facility] [address] [place], [address] CO2 Normal 21.0-32.0 [facility] Comment on above: Result Comment: Canc elled via OM: Order cancelled - Patient discharged Performed By: #### L 100.0100, L500.4050 #### [facility] [address] [place], [address] CREAT,SERUM Normal 0.70-1.30 [facility] Comment on above: Result Comment: Canc elled via OM: Order cancelled - Patient discharged Performed By: #### L 100.0100, L500.4050 #### [facility] [address] [place], [address] EST GFR Normal >60 [facility] Comment on above: Result Comment: Canc elled via OM: Order cancelled - Patient discharged Performed By: #### L 100.0100, L500.4050 #### [facility] [address] [place], [address] EST GFR - AA Normal >60 [facility] Comment on above: Result Comment: Canc elled via OM: Order cancelled - Patient discharged Performed By: #### L 100.0100, L500.4050 #### [facility] [address] [place], [address] GAP Normal 5-15 [facility] Comment on above: Result Comment: Canc elled via OM: Order cancelled - Patient discharged Performed By: #### L 100.0100, L500.4050 #### [facility] [address] [place], [address] GLU Normal 74-106 [facility] Comment on above: Result Comment: Canc elled via OM: Order cancelled - Patient discharged Performed By: #### L 100.0100, L500.4050 #### [facility] [address] [place], [address] Potassium Normal 3.5-5.1 [facility] Comment on above: Result Comment: Canc elled via OM: Order cancelled - Patient discharged Performed By: #### L 100.0100, L500.4050 #### [facility] [address] [place], [address] T BILI Normal 0.20-1.00 [facility] Comment on above: Result Comment: Canc elled via OM: Order cancelled - Patient discharged Performed By: #### L 100.0100, L500.4050 #### [facility] [address] [place], [address] T PROT Normal 6.4-8.2 [facility] Comment on above: Result Comment: Canc elled via OM: Order cancelled - Patient discharged Performed By: #### L 100.0100, L500.4050 #### [facility] [address] [place], [address] Comprehensive Metabolic Profil Normal 136-145 [facility] Comment on above: Result Comment: Canc elled via OM: Order cancelled - Patient discharged Performed By: #### L 100.0100, L500.4050 #### [facility] [address] [place], [address] CBC W/Diff, Automatedon 08-2 Absolute Neut Normal 2.0-7.7 [facility] Comment on above: Result Comment: Canc elled via OM: Order cancelled - Patient discharged Performed By: #### L 100.0100, L500.4050 #### [facility] [address] [place], [address] HCT Normal 40-54 [facility] Comment on above: Result Comment: Canc elled via OM: Order cancelled - Patient discharged Performed By: #### L 100.0100, L500.4050 #### [facility] [address] [place], [address] HGB Normal 13.0-16.5 [facility] Comment on above: Result Comment: Canc elled via OM: Order cancelled - Patient discharged Performed By: #### L 100.0100, L500.4050 #### [facility] [address] [place], [address] MCH Normal 27.0-32.0 [facility] Comment on above: Result Comment: Canc elled via OM: Order cancelled - Patient discharged Performed By: #### L 100.0100, L500.4050 #### [facility] [address] [place], [address] MCHC Normal 32-36 [facility] Comment on above: Result Comment: Canc elled via OM: Order cancelled - Patient discharged Performed By: #### L 100.0100, L500.4050 #### [facility] [address] [place], [address] MCV Normal 80-94 [facility] Comment on above: Result Comment: Canc elled via OM: Order cancelled - Patient discharged Performed By: #### L 100.0100, L500.4050 #### [facility] [address] [place], [address] NEUT% Normal 47-70 [facility] Comment on above: Result Comment: Canc elled via OM: Order cancelled - Patient discharged Performed By: #### L 100.0100, L500.4050 #### [facility] [address] [place], [address] PLT Normal 150-450 [facility] Comment on above: Result Comment: Canc elled via OM: Order cancelled - Patient discharged Performed By: #### L 100.0100, L500.4050 #### [facility] [address] [place], [address] RBC Normal 4.6-6.2 [facility] Comment on above: Result Comment: Canc elled via OM: Order cancelled - Patient discharged Performed By: #### L 100.0100, L500.4050 #### [facility] [address] [place], [address] RDW CV Normal 11.6-14.6 [facility] Comment on above: Result Comment: Canc elled via OM: Order cancelled - Patient discharged Performed By: #### L 100.0100, L500.4050 #### [facility] [address] [place], [address] RDW SD Normal 35.1-43.9 [facility] Comment on above: Result Comment: Canc elled via OM: Order cancelled - Patient discharged Performed By: #### L 100.0100, L500.4050 #### [facility] [address] [place], [address] WBC Normal 4.4-11.0 [facility] Comment on above: Result Comment: Canc elled via OM: Order cancelled - Patient discharged Performed By: #### L 100.0100, L500.4050 #### [facility] [address] [place], [address] Comprehensive Metabolic Prof ilon 10-22-2023 ALB Normal 3.2-5.0 [facility] Comment on above: Result Comment: Canc elled via OM: Order cancelled - Patient discharged Performed By: #### L 100.0100, L500.4050 #### [facility] [address] [place], [address] ALK P Normal 45-117 [facility] Comment on above: Result Comment: Canc elled via OM: Order cancelled - Patient discharged Performed By: #### L 100.0100, L500.4050 #### [facility] [address] [place], [address] ALT Normal 16-61 [facility] Comment on above: Result Comment: Canc elled via OM: Order cancelled - Patient discharged Performed By: #### L 100.0100, L500.4050 #### [facility] [address] [place], [address] AST Normal 15-37 [facility] Comment on above: Result Comment: Canc elled via OM: Order cancelled - Patient discharged Performed By: #### L 100.0100, L500.4050 #### [facility] [address] [place], [address] BUN Normal 7-18 [facility] Comment on above: Result Comment: Canc elled via OM: Order cancelled - Patient discharged Performed By: #### L 100.0100, L500.4050 #### [facility] [address] [place], [address] BUN/CRE Normal 10-20 [facility] Comment on above: Result Comment: Canc elled via OM: Order cancelled - Patient discharged Performed By: #### L 100.0100, L500.4050 #### [facility] [address] [place], [address] CA,Total Normal 8.5-10.1 [facility] Comment on above: Result Comment: Canc elled via OM: Order cancelled - Patient discharged Performed By: #### L 100.0100, L500.4050 #### [facility] [address] [place], [address] CL Normal 98-107 [facility] Comment on above: Result Comment: Canc elled via OM: Order cancelled - Patient discharged Performed By: #### L 100.0100, L500.4050 #### [facility] [address] [place], [address] CO2 Normal 21.0-32.0 [facility] Comment on above: Result Comment: Canc elled via OM: Order cancelled - Patient discharged Performed By: #### L 100.0100, L500.4050 #### [facility] [address] [place], [address] CREAT,SERUM Normal 0.70-1.30 [facility] Comment on above: Result Comment: Canc elled via OM: Order cancelled - Patient discharged Performed By: #### L 100.0100, L500.4050 #### [facility] [address] [place], [address] EST GFR Normal >60 [facility] Comment on above: Result Comment: Canc elled via OM: Order cancelled - Patient discharged Performed By: #### L 100.0100, L500.4050 #### [facility] [address] [place], [address] EST GFR - AA Normal >60 [facility] Comment on above: Result Comment: Canc elled via OM: Order cancelled - Patient discharged Performed By: #### L 100.0100, L500.4050 #### [facility] [address] [place], [address] GAP Normal 5-15 [facility] Comment on above: Result Comment: Canc elled via OM: Order cancelled - Patient discharged Performed By: #### L 100.0100, L500.4050 #### [facility] [address] [place], [address] GLU Normal 74-106 [facility] Comment on above: Result Comment: Canc elled via OM: Order cancelled - Patient discharged Performed By: #### L 100.0100, L500.4050 #### [facility] [address] [place], [address] Potassium Normal 3.5-5.1 [facility] Comment on above: Result Comment: Canc elled via OM: Order cancelled - Patient discharged Performed By: #### L 100.0100, L500.4050 #### [facility] [address] [place], [address] T BILI Normal 0.20-1.00 [facility] Comment on above: Result Comment: Canc elled via OM: Order cancelled - Patient discharged Performed By: #### L 100.0100, L500.4050 #### [facility] [address] [place], [address] T PROT Normal 6.4-8.2 [facility] Comment on above: Result Comment: Canc elled via OM: Order cancelled - Patient discharged Performed By: #### L 100.0100, L500.4050 #### [facility] [address] [place], [address] Comprehensive Metabolic Profil Normal 136-145 [facility] Comment on above: Result Comment: Canc elled via OM: Order cancelled - Patient discharged Performed By: #### L 100.0100, L500.4050 #### [facility] [address] [place], [address] CBC W/Diff, Automatedon 08-2 0-2024 Absolute Lymph 0.57 X10 3/uL Low 0.83-4.51 [facility] Comment on above: Performed By: #### L 100.0100, L500.4050 #### [facility] [address] [place], [address] Absolute Neut 9.3 X10 3/uL High 2.0-7.7 [facility] Comment on above: Performed By: #### L 100.0100, L500.4050 #### [facility] [address] [place], [address] Basophils/100 WBC (Bld) 0.2 % Normal 0-1 [facility] Comment on above: Performed By: #### L 100.0100, L500.4050 #### [facility] [address] [place], [address] Eosinophils/100 WBC (Bld) 1.3 % Normal 0-5 [facility] Comment on above: Performed By: #### L 100.0100, L500.4050 #### [facility] [address] [place], [address] Erythrocyte distribution width (RBC) [Ratio] 14.3 % Normal 11.6-14.6 [facility] Comment on above: Performed By: #### L 100.0100, L500.4050 #### [facility] [address] [place], [address] Hematocrit (Bld) [Volume fraction] 34.5 % Low 40-54 [facility] Comment on above: Performed By: #### L 100.0100, L500.4050 #### [facility] [address] [place], [address] Hemoglobin (Bld) [Mass/Vol] 11.4 g/dL Low 13.0-16.5 [facility] Comment on above: Performed By: #### L 100.0100, L500.4050 #### [facility] [address] [place], [address] IG% 0.700 Normal 0.0-0.9 [facility] Comment on above: Result Comment: IG% - Immature Granulocytes (promyelocytes, myelocytes and metamyelocytes) > 1% indicates that a LEFT SHIFT is Present. Performed By: #### L 100.0100, L500.4050 #### [facility] [address] [place], [address] Lymphocytes/100 WBC (Bld) 5.2 % Low 19-41 [facility] Comment on above: Performed By: #### L 100.0100, L500.4050 #### [facility] [address] [place], [address] MCH (RBC) [Entitic mass] 31.5 pg Normal 27.0-32.0 [facility] Comment on above: Performed By: #### L 100.0100, L500.4050 #### [facility] [address] [place], [address] MCHC (RBC) [Mass/Vol] 33.0 g/dL Normal 32-36 [facility] Comment on above: Performed By: #### L 100.0100, L500.4050 #### [facility] [address] [place], [address] MCV (RBC) [Entitic vol] 95.3 fL High 80-94 [facility] Comment on above: Performed By: #### L 100.0100, L500.4050 #### [facility] [address] [place], [address] Monocytes/100 WBC (Bld) 8.1 % Normal 0-10 [facility] Comment on above: Performed By: #### L 100.0100, L500.4050 #### [facility] [address] [place], [address] Neutrophils/100 WBC (Bld) 84.5 % High 47-70 [facility] Comment on above: Performed By: #### L 100.0100, L500.4050 #### [facility] [address] [place], [address] Nucleated RBC (Bld) [#/Vol] 0 10*3/uL Normal 0-5 [facility] Comment on above: Performed By: #### L 100.0100, L500.4050 #### [facility] [address] [place], [address] Platelet mean volume (Bld) [Entitic vol] 11.2 fL Normal 6.2-12.0 [facility] Comment on above: Performed By: #### L 100.0100, L500.4050 #### [facility] [address] [place], [address] Platelets (Bld) [#/Vol] 141 10*3/uL Low 150-450 [facility] Comment on above: Performed By: #### L 100.0100, L500.4050 #### [facility] [address] [place], [address] RBC (Bld) [#/Vol] 3.62 10*6/uL Low 4.6-6.2 [facility] Comment on above: Performed By: #### L 100.0100, L500.4050 #### [facility] [address] [place], [address] RDW SD 49.7 fl High 35.1-43.9 [facility] Comment on above: Performed By: #### L 100.0100, L500.4050 #### [facility] [address] [place], [address] WBC (Bld) [#/Vol] 11.0 10*3/uL Normal 4.4-11.0 [facility] Comment on above: Performed By: #### L 100.0100, L500.4050 #### [facility] [address] [place], [address] Comprehensive Metabolic Prof ilon 10-21-2023 Albumin [Mass/Vol] 2.3 g/dL Low 3.2-5.0 [facility] Comment on above: Performed By: #### L 100.0100, L500.4050 #### [facility] [address] [place], [address] Albumin/Globulin [Mass ratio] 0.8 {ratio} Low 0.9-2.4 [facility] Comment on above: Performed By: #### L 100.0100, L500.4050 #### [facility] [address] [place], [address] ALK P 74 U/L Normal 45-117 [facility] Comment on above: Performed By: #### L 100.0100, L500.4050 #### [facility] [address] [place], [address] ALT [Catalytic activity/Vol] 20 U/L Normal 16-61 [facility] Comment on above: Performed By: #### L 100.0100, L500.4050 #### [facility] [address] [place], [address] AST [Catalytic activity/Vol] 26 U/L Normal 15-37 [facility] Comment on above: Performed By: #### L 100.0100, L500.4050 #### [facility] [address] [place], [address] Bilirubin [Mass/Vol] 0.50 mg/dL Normal 0.20-1.00 [facility] Comment on above: Result Comment: For patients on eltrombopag therapy, use of Dimension [place] TBIL is not recommended. Performed By: #### L 100.0100, L500.4050 #### [facility] [address] [place], [address] BUN/CRE 20.2 RATIO High 10-20 [facility] Comment on above: Performed By: #### L 100.0100, L500.4050 #### [facility] [address] [place], [address] CA,Total 8.0 mg/dL Low 8.5-10.1 [facility] Comment on above: Performed By: #### L 100.0100, L500.4050 #### [facility] [address] [place], [address] Chloride [Moles/Vol] 115 mmol/L High 98-107 [facility] Comment on above: Performed By: #### L 100.0100, L500.4050 #### [facility] [address] [place], [address] CO2 [Moles/Vol] 20.0 mmol/L Low 21.0-32.0 [facility] Comment on above: Performed By: #### L 100.0100, L500.4050 #### [facility] [address] [place], [address] Creatinine [Mass/Vol] 1.68 mg/dL High 0.70-1.30 [facility] Comment on above: Result Comment: The validity of the calculated GFR GFRAA in patients over 70 years has not been determined. Clinical correlation is essential. Performed By: #### L 100.0100, L500.4050 #### [facility] [address] [place], [address] ECRCL 25.56 ml/min Normal [facility] Comment on above: Performed By: #### L 100.0100, L500.4050 #### [facility] [address] [place], [address] EST GFR - AA 51 mL/min Low >60 [facility] Comment on above: Result Comment: Afri can Nigerian GFR Calc Performed By: #### L 100.0100, L500.4050 #### [facility] [address] [place], [address] GAP 4 Low 5-15 [facility] Comment on above: Performed By: #### L 100.0100, L500.4050 #### [facility] [address] [place], [address] GFR/1.73 sq M.predicted among non-blacks MDRD (S/P/Bld) [Vol rate/Area] 42 mL/min/{1.73_m2} Low >60 [facility] Comment on above: Result Comment: Non- GFR Calc Performed By: #### L 100.0100, L500.4050 #### [facility] [address] [place], [address] Globulin (S) [Mass/Vol] 2.9 g/dL Normal 2.2-4.2 [facility] Comment on above: Performed By: #### L 100.0100, L500.4050 #### [facility] [address] [place], [address] Glucose [Mass/Vol] 87 mg/dL Normal 74-106 [facility] Comment on above: Performed By: #### L 100.0100, L500.4050 #### [facility] [address] [place], [address] Potassium [Moles/Vol] 4.4 mmol/L Normal 3.5-5.1 [facility] Comment on above: Performed By: #### L 100.0100, L500.4050 #### [facility] [address] [place], [address] Sodium [Moles/Vol] 139 mmol/L Normal 136-145 [facility] Comment on above: Performed By: #### L 100.0100, L500.4050 #### [facility] [address] [place], [address] T PROT 5.2 g/dL Low 6.4-8.2 [facility] Comment on above: Performed By: #### L 100.0100, L500.4050 #### [facility] [address] [place], [address] Urea nitrogen [Mass/Vol] 34 mg/dL High 7-18 [facility] Comment on above: Performed By: #### L 100.0100, L500.4050 #### [facility] [address] [place], [address] Discharge Instructionon 10-02 Discharge Instruction [facility] Medical Records Department [address] [place] [address] Instructions for Home/Discharge Instructions 10/21/23 1217 MR#: [id number] Acct: [id number] Name: ADEEL POST Rep #: [id number] : 1940 82 From: Nikole Villarreal MD PCP: Dr. Raissa Rayo MD Status:ADM IN Discharge Instructions Diet Discharge Diet: No restrictions Activity Discharge Activity: - (Encourage return to activity slowly over the next 3-5 days. Avoid aggressive activity until cleared per Primary care and Urology.) May resume sexual activity in: 10-14 days Weight Bearing Status: Weight bearing as tolerated Dressing / Incision Call your doctor if you observe: Fever of 101 or Higher, Inability to urinate, Shortness of breath, Dizziness, Chest pain, Increased palpitations (irregular heartbeat), Calf discomfort and Uncontrolled pain Follow Up Care Test Results: Test results from this visit will be discussed in further detail at your follow-up appointment, if applicable. Discharge Plan Admission Admit Date/Time: 10/19/23 19:36 Primary Reason for Your Visit: Obstructive Nephrolithasis, Acute Complicated UTI Attending Provider: Nikole Villarreal Primary Care Provider: Raissa Rayo Consulting Providers: Rene Andrew; Roque Borrero Instructions Additional Instructions / Restrictions: ADDITIONAL FOLLOW-UP/DISCHARGE INFORMATION: #1. Acute Flank Pain secondary to Acute Obstructive Nephrolithiasis with 3 mm mid-right ureteral calculus with associated moderate right sided hydroureter/hydroneph rosis with associated Acute Complicated E. Coli UTI complicated by Medullary sponge kidney: --Treated with IV rocephin with transition to oral keflex at discharged based on urine culture results for an additional 5 day regimen. --OR 10/20/[address] Andrew s/p Cystoscopy and right stent placement with plan for follow-up with Urology in 1 week. #2. CAD: --Per records patient with CAD/LAD intramyocardial bridge with restart on baby aspirin at discharge. Blood pressure low normal baseline thus held on any restart of prior noted beta mayda therapy. Recommend re-evaluation outpatient for statin needs. Discharge Orders/Prescriptions Prescriptions: New aspirin 81 mg tablet,delayed release (DR/EC) 81 mg PO DAILY Qty: 30 0RF cephalexin 500 mg capsule 500 mg PO TID Qty: 10 0RF Referrals / Follow Up: Raissa Rayo MD [Primary Care Provider] - (Follow-up within 3-5 days to review admission.) Rene Andrew MD [Med Staff - Active Staff] - (Follow-up in the office in 1 week s/p stent placement.) Disposition Disposition (needs filled in before D/C Order can be placed): Home, Self Care 10/21/23 1218 Nikole Villarreal MD CC: Dr. Roque Borrero DO; Dr. Raissa Rayo MD; Dr. Rene Andrew MD Signed [facility] Urine Cultureon 10-21-2023 [facility] Escherichia coli [place] Count 80,000-100,000 Escherichia coli: REACTION Amikacin Islt MIMI <=2 S Ampicillin Islt MIMI >=32 R Ampicillin+Sulbac Islt MIMI 16 I ceFAZolin Islt MIMI <=4 S Cefepime Islt MIMI <=0.12 S cefoTEtan Islt MIMI <=4 S cefTRIAXone Islt MIMI <=0.25 S Ciprofloxacin Islt MIMI 2 I Ertapenem Islt MIMI <=0.12 S B-Lactamase Extended Susc Islt NEG Gentamicin Islt MIMI 2 S Imipenem Islt MIMI <=0.25 S levoFLOXacin Islt MIMI 4 I Meropenem Islt MIMI <=0.25 S Nitrofurantoin Islt MIMI 128 R Pip+Tazo Islt MIMI <=4 S Tetracycline Islt MIMI 4 S Tobramycin Islt MIMI <=1 S TMP SMX Islt MIMI >=320 R Cefuroxime Islt MIMI 16 I [facility] Comment on above: Performed By: #### L 100.0100, L500.4050 #### [facility] [address] [place], [address] 12 Lead EKGon 10-20-2023 12 Lead EKG [facility] Cardiovascular Services [address] [place] [address] 12 Lead EKG 10/20/23 1400 MR#: [id number] Acct: [id number] Name: ADEEL POST Rep #: [id number] : 1940 82 From: Balbina Travis MD Attending Dr: Dr. Nikole Villarreal MD Status: DI S IN Ordering Dr: Rene Andrew MD Date: 10/20/23 Location: MS3 Sex: M C Admitted: 10/19/23 Test Reason : POST SURG Blood Pressure : / mmHG Vent. 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 Nikole Villarreal MD; Dr. Raissa Rayo MD; Dr. Rene Andrew MD Signed Normal [facility] CBC W/Diff, Automatedon 10-01 Absolute Lymph 0.44 X10 3/uL Low 0.83-4.51 [facility] Comment on above: Performed By: #### L 100.0100, L500.4050 #### [facility] [address] [place], [address] Absolute Neut 14.3 X10 3/uL High 2.0-7.7 [facility] Comment on above: Performed By: #### L 100.0100, L500.4050 #### [facility] [address] [place], [address] Basophils/100 WBC (Bld) 0.2 % Normal 0-1 [facility] Comment on above: Performed By: #### L 100.0100, L500.4050 #### [facility] [address] [place], [address] Eosinophils/100 WBC (Bld) 0.0 % Normal 0-5 [facility] Comment on above: Performed By: #### L 100.0100, L500.4050 #### [facility] [address] [place], [address] Erythrocyte distribution width (RBC) [Ratio] 13.8 % Normal 11.6-14.6 [facility] Comment on above: Performed By: #### L 100.0100, L500.4050 #### [facility] [address] [place], [address] Hematocrit (Bld) [Volume fraction] 37.7 % Low 40-54 [facility] Comment on above: Performed By: #### L 100.0100, L500.4050 #### [facility] [address] [place], [address] Hemoglobin (Bld) [Mass/Vol] 12.3 g/dL Low 13.0-16.5 [facility] Comment on above: Performed By: #### L 100.0100, L500.4050 #### [facility] [address] [place], [address] IG% 1.400 High 0.0-0.9 [facility] Comment on above: Result Comment: IG% - Immature Granulocytes (promyelocytes, myelocytes and metamyelocytes) > 1% indicates that a LEFT SHIFT is Present. Performed By: #### L 100.0100, L500.4050 #### [facility] [address] [place], [address] Lymphocytes/100 WBC (Bld) 2.7 % Low 19-41 [facility] Comment on above: Performed By: #### L 100.0100, L500.4050 #### [facility] [address] [place], [address] MCH (RBC) [Entitic mass] 31.1 pg Normal 27.0-32.0 [facility] Comment on above: Performed By: #### L 100.0100, L500.4050 #### [facility] [address] [place], [address] MCHC (RBC) [Mass/Vol] 32.6 g/dL Normal 32-36 [facility] Comment on above: Performed By: #### L 100.0100, L500.4050 #### [facility] [address] [place], [address] MCV (RBC) [Entitic vol] 95.4 fL High 80-94 [facility] Comment on above: Performed By: #### L 100.0100, L500.4050 #### [facility] [address] [place], [address] Monocytes/100 WBC (Bld) 8.0 % Normal 0-10 [facility] Comment on above: Performed By: #### L 100.0100, L500.4050 #### [facility] [address] [place], [address] Neutrophils/100 WBC (Bld) 87.7 % High 47-70 [facility] Comment on above: Performed By: #### L 100.0100, L500.4050 #### [facility] [address] [place], [address] Nucleated RBC (Bld) [#/Vol] 0 10*3/uL Normal 0-5 [facility] Comment on above: Performed By: #### L 100.0100, L500.4050 #### [facility] [address] [place], [address] Platelet mean volume (Bld) [Entitic vol] 10.9 fL Normal 6.2-12.0 [facility] Comment on above: Performed By: #### L 100.0100, L500.4050 #### [facility] [address] [place], [address] Platelets (Bld) [#/Vol] 170 10*3/uL Normal 150-450 [facility] Comment on above: Performed By: #### L 100.0100, L500.4050 #### [facility] [address] [place], [address] RBC (Bld) [#/Vol] 3.95 10*6/uL Low 4.6-6.2 [facility] Comment on above: Performed By: #### L 100.0100, L500.4050 #### [facility] [address] [place], [address] RDW SD 48.5 fl High 35.1-43.9 [facility] Comment on above: Performed By: #### L 100.0100, L500.4050 #### [facility] [address] [place], [address] WBC (Bld) [#/Vol] 16.3 10*3/uL High 4.4-11.0 [facility] Comment on above: Performed By: #### L 100.0100, L500.4050 #### [facility] [address] [place], [address] Comprehensive Metabolic Prof [facility] 10-20-2023 Albumin [Mass/Vol] 2.5 g/dL Low 3.2-5.0 [facility] Comment on above: Performed By: #### L 100.0100, L500.4050 #### [facility] [address] [place], [address] Albumin/Globulin [Mass ratio] 0.9 {ratio} Normal 0.9-2.4 [facility] Comment on above: Performed By: #### L 100.0100, L500.4050 #### [facility] [address] [place], [address] ALK P 76 U/L Normal 45-117 [facility] Comment on above: Performed By: #### L 100.0100, L500.4050 #### [facility] [address] [place], [address] ALT [Catalytic activity/Vol] 23 U/L Normal 16-61 [facility] Comment on above: Performed By: #### L 100.0100, L500.4050 #### [facility] [address] [place], [address] AST [Catalytic activity/Vol] 30 U/L Normal 15-37 [facility] Comment on above: Performed By: #### L 100.0100, L500.4050 #### [facility] [address] [place], [address] Bilirubin [Mass/Vol] 1.00 mg/dL Normal 0.20-1.00 [facility] Comment on above: Result Comment: For patients on eltrombopag therapy, use of Dimension [place] TBIL is not recommended. Performed By: #### L 100.0100, L500.4050 #### [facility] [address], [address] BUN/CRE 17.2 RATIO Normal 10-20 [facility] Comment on above: Performed By: #### L 100.0100, L500.4050 #### [facility] [address] [place], [address] CA,Total 7.7 mg/dL Low 8.5-10.1 [facility] Comment on above: Performed By: #### L 100.0100, L500.4050 #### [facility] [address] [place], [address] Chloride [Moles/Vol] 113 mmol/L High 98-107 [facility] Comment on above: Performed By: #### L 100.0100, L500.4050 #### [facility] [address] [place], [address] CO2 [Moles/Vol] 19.0 mmol/L Low 21.0-32.0 [facility] Comment on above: Performed By: #### L 100.0100, L500.4050 #### [facility] [address] [place], [address] Creatinine [Mass/Vol] 1.80 mg/dL High 0.70-1.30 [facility] Comment on above: Result Comment: The validity of the calculated GFR GFRAA in patients over 70 years has not been determined. Clinical correlation is essential. Performed By: #### L 100.0100, L500.4050 #### [facility] [address] [place], [address] ECRCL 23.63 ml/min Normal [facility] Comment on above: Performed By: #### L 100.0100, L500.4050 #### [facility] [address] [place], [address] EST GFR - AA 47 mL/min Low >60 [facility] Comment on above: Result Comment: Afri can Nigerian GFR Calc Performed By: #### L 100.0100, L500.4050 #### [facility] [address] [place], [address] GAP 6 Normal 5-15 [facility] Comment on above: Performed By: #### L 100.0100, L500.4050 #### [facility] [address] [place], [address] GFR/1.73 sq M.predicted among non-blacks MDRD (S/P/Bld) [Vol rate/Area] 39 mL/min/{1.73_m2} Low >60 [facility] Comment on above: Result Comment: Non- GFR Calc Performed By: #### L 100.0100, L500.4050 #### [facility] [address] [place], [address] Globulin (S) [Mass/Vol] 2.9 g/dL Normal 2.2-4.2 [facility] Comment on above: Performed By: #### L 100.0100, L500.4050 #### [facility] [address] [place], [address] Glucose [Mass/Vol] 92 mg/dL Normal 74-106 [facility] Comment on above: Performed By: #### L 100.0100, L500.4050 #### [facility] [address], [address] Potassium [Moles/Vol] 4.2 mmol/L Normal 3.5-5.1 [facility] Comment on above: Performed By: #### L 100.0100, L500.4050 #### [facility] [address] [place], [address] Sodium [Moles/Vol] 138 mmol/L Normal 136-145 [facility] Comment on above: Performed By: #### L 100.0100, L500.4050 #### [facility] [address] [place], [address] T PROT 5.4 g/dL Low 6.4-8.2 [facility] Comment on above: Performed By: #### L 100.0100, L500.4050 #### [facility] [address], [address] Urea nitrogen [Mass/Vol] 31 mg/dL High 7-18 [facility] Comment on above: Performed By: #### L 100.0100, L500.4050 #### [facility] [address] [place], [address] Consultation - Urologyon Consultation - Urology [facility] Medical Records Department [address] [address] Consultation - Urology 10/20/2314 MR#: [id number] Acct: [id number] Name: ADEEL POST Rep #: [id number] : 1940 82 From: Rene Andrew MD PCP: Dr. Raissa Rayo MD Status:ADM IN Location: MS3 [id number] Assessment Plan Assessment/Plan (1) Acute UTI: (2) Acute unilateral obstructive uropathy: (3) Kidney stone on right side: PLAN: Plan for cystoscopy right stent placement today, and and consent HPI Consult Data Date of Consult: 10/20/23 HPI Narrative Reason for Consultation: Right hydronephrosis and kidney stones HPI Narrative: ADEEL POST, is a 82 M who presentsTo the hospital with a urinary tract infection obstructing stones in the right ureter dilated right ureter and multiple stones inside the ureter not sure if the dilation of the ureters from the kidney stones or if it's somethinng else that causes dilation. He does a history of prostate cancer treated with radical prostatectomy in the past no evidence of recurrence. Presented the hospital fevers and chills UTI right hydronephrosis and right ureteral calculi plan for cystoscopy right stent placement today[facility] Subcutaneous mass Cyst of buttocks Scabies Acute bronchitis, unspecified Preoperative cardiovascular examination Synovial cyst of shoulder AC (acromioclavicular) joint arthritis Rotator cuff arthropathy Wears glasses Wears dentures Medullary sponge kidney History of echocardiogram Cardiology follow-up encounter History of colon polyps Shingles Essential hypertension Left inguinal hernia Perforated appendicitis Atherosclerotic heart disease of [place] coronary artery without angina pectoris Nonrheumatic mitral valve disorder Nonrheumatic tricuspid valve regurgitation History of colon polyps Acute renal insufficiency Bilateral hydronephrosis Bilateral kidney stones Intractable pain Recurrent right inguinal hernia UTI (urinary tract infection) Ureteral stone with hydronephrosis Hyperlipidemia Right bundle branch block Home Medications ???Medication ???Instructions ???Recorded ???Last Taken ???Type NK 10/19/23 Unknown History Allergy/AdvReac Type Severity Reaction Status Date / Time ciprofloxacin (From Cipro) Allergy sweating, Verified 10/19/23 16:04 n/v wheat AdvReac Severe Unknown Verified 10/19/23 16:04 Family History Father CAD (coronary artery disease) Hx of CABG Brother Hypertension Surgical History Hx of colonoscopy History of partial surgical removal of colon History of appendectomy History of left inguinal hernia repair ( 08/2018) history lithrotripsy for kidney stones History of prostatectomy History of right inguinal hernia repair Social History Smoking Status: Never smoker alcohol intake: never substance use type: does not use Physical Exam Const alert and oriented x3 General Appearance: cooperative HEENT normocephalic, head/scalp atraumatic, EAC's normal and TM's normal bilaterally Eyes PERRL and EOMs intact bilaterally Pupil: sluggish Neck no lymphadenopathy, supple and no JVD General: trachea midline Lymph Lymphatic: no lymphadenopathy noted, lymphedema and lymphadenopathy Resp normal respiratory effort, normal air movement and clear to auscultation bilaterally Cardio regular rate, regular rhythm and peripheral pulses 2+ throughout GI soft to palpation, non-tender and non-distended Extremity normal capillary refill and no clubbing, cyanosis or edema General Extremity: no tenderness to palpation of joints or extremities Skin no rashes or lesions noted General Skin Exam: turgor normal Lesions: no lesions Rashes: no rashes Neuro CN's II-XII intact bilaterally Speech: speech normal Motor Exam: strength 5/5 throughout; Negative for general weakness Psych thought process normal, cooperative and affect normal Appearance: appropriate Lab / Micro Data 10/20/23 03:49 10/20/23 03:49 Labs: Laboratory Results - last 24 hr 10/19/23 16:35: WBC 5.6, RBC 4.43 L, Hgb 13.8, Hct 42.2, MCV 95.3 H, MCH 31.2, MCHC 32.7, RDW Std Deviation 48.5 H, RDW Coeff of Sebastian 13.8, Plt Count 239, MPV 10.6, Immature Gran % (Auto) 0.200, Neut % (Auto) 64.1, Lymph % (Auto) 22.8, [place] % (Auto) 8.5, Eos % (Auto) 3.9, Baso % (Auto) 0.5, Absolute Neuts (auto) 3.6, Absolute Lymphs (auto) 1.28, Nucleated RBC % 0, Sodium 138, Potassium 4.1, C hloride 110 H, Carbon Dioxide 24.0, Anion Gap 4 L, BUN 25 H, Creatinine 1.50 H, Estim Creat Clear Calc 28.30, Est GFR (MDRD) Af Amer 58 L, Est GFR (MD (more content not included)... Normal [facility] MR/POSTOP.ANEon 10-20-2023 MR/POSTOP.[facility] Medical Records Department [address] [place] [address] Anesthesia Postop Eval I 10/20/23 1236 MR#: [id number] Acct: [id number] Name: ADEEL POST Rep #: [id number] : 1940 82 From: Aracely العراقي CRNA PCP: Dr. Raissa Rayo MD Status:ADM IN Y Race: C [facility]esthesia: Postop Eval I Current Vital Signs Temperature: 97.8 F Pulse Rate: 62 Blood Pressure: 96/66 Respiratory Rate: 18 Pulse Ox: 97 Oxygen Delivery Method: Room Air Assessment Airway patent: Yes Spontaneous unlabored respirations: Yes Mental status: Awake and Calm nausea: No Vomiting: No Anesthesia Complication: No Fluid Hydration Crystalloid volume administer (ml): 500 Total IV fluid infused: 500 Progress Note Anesthesia document: Postop Eval 1 completed: Yes 10/20/23 1237 Date Aracely العراقي CASE PREPARER AND LINER Cosigner Signature: Date CC: Signed [facility] MR/[id number] 10-20-2023 MR/POSTOPAN2 [facility] Medical Records Department [address] [place] [address] Anesthesia Postop Eval II 10/20/23 1359 MR#: [id number] Acct: [id number] Name: ADEEL POST Rep #: [id number] : 1940 82 From: Carlos Baker MD PCP: Dr. Raissa Rayo MD Status:ADM IN Y Race: C Location: MS3 [id number] Anesthesia Postop Eval I Sum Postop Eval Completion status Anesthesia document: Postop Eval 1 completed: Yes Anesthesia Postop Eval I Summary Anesthesia Postop Eval I Summary: Anesthesia Postop Eval I: Assessment Summary Airway patent Yes 10/20/23 12:37 [employer]ER [employer]ER.SKOBY Spontaneous unlabored Yes 10/20/23 12:37 [employer]PARER [employer] LINER.SKOBY respirations Mental status Awake,Calm 10/20/23 12:37 [employer]PARER [employer]ER.SKOBY nausea No 10/20/23 12:37 [employer]PARER [employer]ER.SKOBY Vomiting No 10/20/23 12:37 [employer]ER [employer]ER.SKOBY Anesthesia Postop Eval I: Fluid Summary Crystalloid volume administer 500 10/20/23 12:37 [employer]PARER [employer] LINER.SKOBY (ml) Colloids volume administered ( ml) Blood Product volume administered (ml) Total IV fluid infused 500 10/20/23 12:37 CASE PREPARER AND LINER.HYACINTHOBBrock Anesthesia Postop Eval I: Summary Notes Anesthesia Complication No 10/20/23 12:37 [employer]PARER [employer] LINER.SKOBBrock Anesthesia Complication Comment: Post-operative progress note Anesthesia: Postop Eval II Evaluation Mental status: Awake Pain Level: 0 nausea: No Vomiting: No Complications Anesthesia Complication: No 10/20/23 1359 Date Carlos Baker MD Cosigner Signature: Date CC: Signed Normal [facility] Magnesiumon 10-20-2023 Magnesium [Mass/Vol] 1.7 mg/dL Normal 1.6-2.6 [facility] Comment on above: Performed By: #### L 100.0100, L500.4050 #### [facility] [address] [place], [address] Operative Reporton 4 Operative Report [facility] Medical Records Department [address] [place] [address] Operative Report 10/20/23 1226 MR#: [id number] Acct: [id number] Name: ADEEL POST Rep #: [id number] : 1940 82 From: Rene Andrew MD PCP: Dr. Raissa Rayo MD Status:ADM IN Location: [address] Report of Operation Date of Procedure: 10/20/23 Pre-Operative Diagnosis: Obstructing right ureteral calculus and right hydronephrosis Post-Operative Diagnosis: The same plus infection Surgery/Procedure Performed:: Cystoscopy and right stent placement Description of Surgical Findings:: Patient was taken back to the operating room after induction of general anesthesia, the patient was placed in dorsolithotomy position. The urethra and genitals were prepped and draped in usual sterile fashion. Using a 21 [place] rigid cystourethroscope the entire length of the urethra was normal then went into the bladder. His prostate had been removed, urine looked very infected and cloudy. Identified the trigone the left and right ureteral orifice. I then cannulated the rigth ureteral orifice and advanced a wire up into the kidney. I then backloaded a 5 [place] open ended catheter over the wire and injected contrast to delineate the anatomy. He had severe right hydro with tortous ureter. After the retrograde was performed I then used fluoroscopic images and guidance to advanced a wire up into the kidney and over the 0.038 glidewire I advanced a 6 [place]an by 26 cm double pigtail stent. I then pulled the 0.038 Glidewire off and the stent coiled in the kidney bladder good position. The bladder was then drained. We confirmed the position of the stent by fluoroscopy. Patient anesthetic was reversed and was taken back to the PACU in good condition. Surgeon: Rene Andrew Type of Anesthesia: General Drains: stent right Estimated Blood Loss (mL): 0 Admit VTE Documentation VTE Present on Admission: No VTE Mechan Device Prophylaxis: SCD's VTE Pharm Prophylaxis ordered?: No 10/20/23 1228 Cosigner Signature (if applicable): CC: Dr. Roque Borrero DO; Dr. Raissa Rayo MD; Dr. Rene Andrew MD Signed [facility] Phosphoruson 10-20-2023 Phosphate [Mass/Vol] 3.4 mg/dL Normal 2.5-4.9 [facility] Comment on above: Performed By: #### L 100.0100, L500.4050 #### [facility] [address] [place], [address] Thyroid Stim Hormone (TSH)on 10-20-2023 TSH 1.010 uIU/mL Normal 0.358-3.740 [facility] Comment on above: Performed By: #### L 100.0100, L500.4050 #### [facility] [address] [place], [address] Abdomen/Pelvis without Conto n 10-19-2023 Abdomen/Pelvis without Cont [facility] Imaging Services [address] [place] [address] Abdomen/Pelvis without Cont MR#: [id number] Acct: [id number] Name: ADEEL POST Rep #: [id number] : 1940 M 82 From: Rambo Echevarria MD PCP: Dr. Raissa Rayo MD Status: REG ER Study: Abdomen/Pelvis without Cont Date of Exam: 10/01 10/24 Exam# [id number] Ordering Dr: Julio Cesar Bhakta CHOCOLATE PACKER-C [id number] EXAM: CT ABDOMEN AND PELVIS WITHOUT INTRAVENOUS CONTRAST CLINICAL INDICATION: Pain-right flank TECHNIQUE: Helically acquired images were obtained of the abdomen and pelvis without intravenous contrast. This CT exam was performed using one or more of the following dose reduction techniques: automated exposure control, adjustment of the mA and/or kV according to patient size, and/or use of iterative reconstruction technique. COMPARISON: 11/23/2015 FINDINGS: LOWER THORAX: Unremarkable. Lung bases are clear. No cardiomegaly. No significant pericardial effusion. ABDOMEN: LIVER: Unremarkable. Homogeneous. GALLBLADDER AND BILE DUCTS: Unremarkable. No calcified gallstones. No gallbladder distention or wall edema. No intra- or extrahepatic biliary ductal dilation. PANCREAS: Unremarkable. No focal cystic mass. SPLEEN: Unremarkable. Normal size without focal cystic or solid mass. ADRENALS: Unremarkable. No nodules. KIDNEYS AND URETERS: There is right-sided hydronephrosis and hydroureter. There is a 3 mm stone in the mid right ureter. There is a nonobstructing calyceal stone in the left kidney. Normal renal size and position. STOMACH AND BOWEL: There are postsurgical changes from a right hemicolectomy. No stomach or bowel distention. PELVIS: APPENDIX: See above. BLADDER: Unremarkable. REPRODUCTIVE: Unremarkable as visualized. No mass. ABDOMEN and PELVIS: INTRAPERITONEAL SPACE: Unremarkable. No ascites or other fluid collection. No free air. BONES/JOINTS: Unremarkable. No suspicious lytic or blastic abnormality. SOFT TISSUES: Unremarkable. No discrete abdominal or pelvic wall hernia. VASCULATURE: Unremarkable. Abdominal aorta is non-dilated. LYMPH NODES: Unremarkable. No enlarged lymph nodes. CT/Abdomen/Pelvis without Cont IMPRESSION: Obstruction of the right collecting system due to a 3 mm stone in the mid right ureter. There is moderate right-sided hydroureter and hydronephrosis. Electronically Signed: Rambo Echevarria MD at 18:03 EDT , CC: JORGE Bhakta; Dr. Raissa Rayo MD Furniture Builder: Signed Normal [facility] CBC W/Diff, Automatedon 10-01 Absolute Lymph 1.28 X10 3/uL Normal 0.83-4.51 [facility] Comment on above: Performed By: #### L 100.0100, L500.4050 #### [facility] [address] [place], [address] Absolute Neut 3.6 X10 3/uL Normal 2.0-7.7 [facility] Comment on above: Performed By: #### L 100.0100, L500.4050 #### [facility] [address] [place], [address] Basophils/100 WBC (Bld) 0.5 % Normal 0-1 [facility] Comment on above: Performed By: #### L 100.0100, L500.4050 #### [facility] [address], [address] Eosinophils/100 WBC (Bld) 3.9 % Normal 0-5 [facility] Comment on above: Performed By: #### L 100.0100, L500.4050 #### [facility] [address] [place], [address] Erythrocyte distribution width (RBC) [Ratio] 13.8 % Normal 11.6-14.6 [facility] Comment on above: Performed By: #### L 100.0100, L500.4050 #### [facility] [address] [place], [address] Hematocrit (Bld) [Volume fraction] 42.2 % Normal 40-54 [facility] Comment on above: Performed By: #### L 100.0100, L500.4050 #### [facility] [address] [place], [address] Hemoglobin (Bld) [Mass/Vol] 13.8 g/dL Normal 13.0-16.5 [facility] Comment on above: Performed By: #### L 100.0100, L500.4050 #### [facility] [address] [place], [address] IG% 0.200 Normal 0.0-0.9 [facility] Comment on above: Result Comment: IG% - Immature Granulocytes (promyelocytes, myelocytes and metamyelocytes) > 1% indicates that a LEFT SHIFT is Present. Performed By: #### L 100.0100, L500.4050 #### [facility] [address] [place], [address] Lymphocytes/100 WBC (Bld) 22.8 % Normal 19-41 [facility] Comment on above: Performed By: #### L 100.0100, L500.4050 #### [facility] [address] [place], [address] MCH (RBC) [Entitic mass] 31.2 pg Normal 27.0-32.0 [facility] Comment on above: Performed By: #### L 100.0100, L500.4050 #### [facility] [address] [place], [address] MCHC (RBC) [Mass/Vol] 32.7 g/dL Normal 32-36 [facility] Comment on above: Performed By: #### L 100.0100, L500.4050 #### [facility] [address] [place], [address] MCV (RBC) [Entitic vol] 95.3 fL High 80-94 [facility] Comment on above: Performed By: #### L 100.0100, L500.4050 #### [facility] [address] [place], [address] Monocytes/100 WBC (Bld) 8.5 % Normal 0-10 [facility] Comment on above: Performed By: #### L 100.0100, L500.4050 #### [facility] [address] [place], [address] Neutrophils/100 WBC (Bld) 64.1 % Normal 47-70 [facility] Comment on above: Performed By: #### L 100.0100, L500.4050 #### [facility] [address] [place], [address] Nucleated RBC (Bld) [#/Vol] 0 10*3/uL Normal 0-5 [facility] Comment on above: Performed By: #### L 100.0100, L500.4050 #### [facility] [address] [place], [address] Platelet mean volume (Bld) [Entitic vol] 10.6 fL Normal 6.2-12.0 [facility] Comment on above: Performed By: #### L 100.0100, L500.4050 #### [facility] [address] [place], [address] Platelets (Bld) [#/Vol] 239 10*3/uL Normal 150-450 [facility] Comment on above: Performed By: #### L 100.0100, L500.4050 #### [facility] [address] [place], [address] RBC (Bld) [#/Vol] 4.43 10*6/uL Low 4.6-6.2 [facility] Comment on above: Performed By: #### L 100.0100, L500.4050 #### [facility] [address] [place], [address] RDW SD 48.5 fl High 35.1-43.9 [facility] Comment on above: Performed By: #### L 100.0100, L500.4050 #### [facility] [address] [place], [address] WBC (Bld) [#/Vol] 5.6 10*3/uL Normal 4.4-11.0 [facility] Comment on above: Performed By: #### L 100.0100, L500.4050 #### [facility] [address] [place], [address] Comprehensive Metabolic Prof [facility] 10-19-2023 Albumin [Mass/Vol] 3.3 g/dL Normal 3.2-5.0 [facility] Comment on above: Performed By: #### L 100.0100, L500.4050 #### [facility] [address] [place], [address] Albumin/Globulin [Mass ratio] 0.9 {ratio} Normal 0.9-2.4 [facility] Comment on above: Performed By: #### L 100.0100, L500.4050 #### [facility] [address] [place], [address] ALK P 109 U/L Normal 45-117 [facility] Comment on above: Performed By: #### L 100.0100, L500.4050 #### [facility] [address] [place], [address] ALT [Catalytic activity/Vol] 23 U/L Normal 16-61 [facility] Comment on above: Performed By: #### L 100.0100, L500.4050 #### [facility] [address] [place], [address] AST [Catalytic activity/Vol] 23 U/L Normal 15-37 [facility] Comment on above: Performed By: #### L 100.0100, L500.4050 #### [facility] [address] [place], [address] Bilirubin [Mass/Vol] 0.50 mg/dL Normal 0.20-1.00 [facility] Comment on above: Result Comment: For patients on eltrombopag therapy, use of Dimension [place] TBIL is not recommended. Performed By: #### L 100.0100, L500.4050 #### [facility] [address] [place], [address] BUN/CRE 16.7 RATIO Normal 10-20 [facility] Comment on above: Performed By: #### L 100.0100, L500.4050 #### [facility] [address] [place], [address] CA,Total 8.5 mg/dL Normal 8.5-10.1 [facility] Comment on above: Performed By: #### L 100.0100, L500.4050 #### [facility] [address] [place], [address] Chloride [Moles/Vol] 110 mmol/L High 98-107 [facility] Comment on above: Performed By: #### L 100.0100, L500.4050 #### [facility] [address] [place], [address] CO2 [Moles/Vol] 24.0 mmol/L Normal 21.0-32.0 [facility] Comment on above: Performed By: #### L 100.0100, L500.4050 #### [facility] [address] [place], [address] Creatinine [Mass/Vol] 1.50 mg/dL High 0.70-1.30 [facility] Comment on above: Result Comment: The validity of the calculated GFR GFRAA in patients over 70 years has not been determined. Clinical correlation is essential. Performed By: #### L 100.0100, L500.4050 #### [facility] [address] [place], [address] ECRCL 28.30 ml/min Normal [facility] Comment on above: Performed By: #### L 100.0100, L500.4050 #### [facility] [address] [place], [address] EST GFR - AA 58 mL/min Low >60 [facility] Comment on above: Result Comment: Afri can Nigerian GFR Calc Performed By: #### L 100.0100, L500.4050 #### [facility] [address] [place], [address] GAP 4 Low 5-15 [facility] Comment on above: Performed By: #### L 100.0100, L500.4050 #### [facility] [address] [place], [address] GFR/1.73 sq M.predicted among non-blacks MDRD (S/P/Bld) [Vol rate/Area] 48 mL/min/{1.73_m2} Low >60 [facility] Comment on above: Result Comment: Non- GFR Calc Performed By: #### L 100.0100, L500.4050 #### [facility] [address] [place], [address] Globulin (S) [Mass/Vol] 3.6 g/dL Normal 2.2-4.2 [facility] Comment on above: Performed By: #### L 100.0100, L500.4050 #### [facility] [address] [place], [address] Glucose [Mass/Vol] 93 mg/dL Normal 74-106 [facility] Comment on above: Performed By: #### L 100.0100, L500.4050 #### [facility] [address] [place], [address] Potassium [Moles/Vol] 4.1 mmol/L Normal 3.5-5.1 [facility] Comment on above: Performed By: #### L 100.0100, L500.4050 #### [facility] [address] [place], [address] Sodium [Moles/Vol] 138 mmol/L Normal 136-145 [facility] Comment on above: Performed By: #### L 100.0100, L500.4050 #### [facility] [address] [place], [address] T PROT 6.9 g/dL Normal 6.4-8.2 [facility] Comment on above: Performed By: #### L 100.0100, L500.4050 #### [facility] [address] [place], [address] Urea nitrogen [Mass/Vol] 25 mg/dL High 7-18 [facility] Comment on above: Performed By: #### L 100.0100, L500.4050 #### [facility] [address] [place], [address] Emergency Department Summary on 10-19-2023 Emergency Department Summary [facility] Medical Records Department [address] [place] [address] Emergency Department Summary 10/19/23 MR#: [id number] Acct: [id number] Name: ADEEL POST Rep #: [id number] : 1940 82 From: Julio Cesar Bhakta CHOCOLATE PACKER-C PCP: Dr. Raissa Rayo MD Status:ADM IN Location: [place]3 [id number] HPI History of Present Illness Chief Complaint: Flank Pain Narrative Narrative: 82-year-old male with history of hyperlipidemia, kidney stones, sponge kidneys presenting to the emergency department with severe pain to the right flank for greater than 1 hour. Patient dates the pain is sharp in nature, made him nauseated. Patient denies any fever or chills. Patient states that the last time he had kidney stones was roughly 4 to 5 years ago. He does see Dr. Olsen. Patient denies any falls or injury. [facility] Medical History Subcutaneous mass Cyst of buttocks Scabies Acute bronchitis, unspecified Preoperative cardiovascular examination Synovial cyst of shoulder AC (acromioclavicular) joint arthritis Rotator cuff arthropathy Wears glasses Wears dentures Medullary sponge kidney History of echocardiogram Cardiology follow-up encounter History of colon polyps Shingles Essential hypertension Left inguinal hernia Perforated appendicitis Atherosclerotic heart disease of [place] coronary artery without angina pectoris Nonrheumatic mitral valve disorder Nonrheumatic tricuspid valve regurgitation History of colon polyps Acute renal insufficiency Bilateral hydronephrosis Bilateral kidney stones Intractable pain Recurrent right inguinal hernia UTI (urinary tract infection) Ureteral stone with hydronephrosis Hyperlipidemia Right bundle branch block Home Medications ???Medication ???Instructions ???Recorded ???Last Taken ???Type NK 10/19/23 Unknown History Allergy/AdvReac Type Severity Reaction Status Date / Time ciprofloxacin (From Cipro) Allergy sweating, Verified 10/19/23 16:04 n/v wheat AdvReac Severe Unknown Verified 10/19/23 16:04 Family History Father CAD (coronary artery disease) Hx of CABG Brother Hypertension Surgical History Hx of colonoscopy History of partial surgical removal of colon History of appendectomy History of left inguinal hernia repair ( 08/2018) history lithrotripsy for kidney stones History of prostatectomy History of right inguinal hernia repair Social History Smoking Status: Never smoker alcohol intake: never substance use type: does not use ROS ROS ED ROS Narrative Constitutional: Negative for fever, chills, weight loss, weakness Eyes: Negative for vision loss, vision change, double vision ENT: Negative for any sore throat, ear pain, congestion Cardiovascular: Negative for any chest pain, tightness, palpitations Respiratory: Negative for any cough, sputum production, hemoptysis, dyspnea, dyspnea on exertion, orthopnea Gastrointestinal: Negative for any abdominal pain vomiting, diarrhea, constipation, blood in stool, blood in vomit. Positive for nausea : Negative for any urinary frequency, dysuria, retention, blood in urine Muscle skeletal: Negative for any neck pain. Positive for right-sided back pain, right-sided flank pain Neurological: Negative for any headache, syncope, dizziness Skin: Negative for any rashes, itching, abrasions, lacerations Psychiatric: Negative for any depression, anxiety, stress, suicidal ideation, homicidal ideation Hematologic: Negative for any excessive bruising, easy bleeding EXAM Physical Exam Narrative Exam Narrative: Vital signs reviewed. HEET: Head normocephalic atraumatic, TMs clear bilaterally. Posterior pharynx is clear, moist mucous membranes. Nares clear bilaterally. Neck: Supple with no lymphadenopathy or tenderness. No signs of meningismus. Cardiac: Regular rate and rhythm no murmurs gallops or rubs, equal peripheral pulses bilaterally. Respiratory: Lungs clear to auscultation bilaterally. No chest tenderness. Abdomen: Soft, nontender, nondistended. No abdominal bruit or pulsatile masses. No hepatosplenomegaly Extremities: No peripheral edema, no signs of gross trauma or deformity. Active full range of motion of all extremities. Neuro: Cranial nerves II through XII intact, no focal neurological deficits. Skin: Clean dry and intact with no rash, purpura, petechiae, vesicles or pustules. Backs/flank: Positive right-sided CVA tenderness. No midline spinal tenderness, no deformity. Psych: Normal mood and affect. No SI, HI or acute psychosis. Const Vital Signs: 10/19/23 16:04 10/19/23 18:03 10/19/23 19:33 Temperature 97. (more content not included)... Normal [facility] H AND P Exam - [facility] 10-19-2023 H&P Exam - Hospitalist [facility] Medical Records Department [address] [place] [address] H P Exam - Hospitalist 10/19/231932 MR#: [id number] Acct: [id number] Name: ADEEL POST Rep #: [id number] : 1940 82 From: Roque Borrero DO PCP: Dr. Raissa Rayo MD Status:ADM IN Location: [facility] [id number] [facility] General Date of Admission: 10/19/23 Date of Service: 10/19/23 Chief Complaint: Fever, Chills and Right Flank Pain. HPI Narrative ADEEL POST, is a 82 M with a past medical history of essential hypertension, hyperlipidemia, history of perforated appendicitis, history of bilateral inguinal hernias; s/p repairs, history of colonic polyps; s/p partial colectomy, history of prostatectomy, history of appendectomy, history of nonrheumatic tricuspid valve regurgitation, history of shingles, history of scabies, osteoarthritis and history of bilateral renal calculi with hydronephrosis and UTI with a medullary sponge kidney; with subsequent lithotripsy (with last episode 5 years ago) followed by Dr. Andrew who presents to [facility] ER complaining of fever, chills and Right flank pain. Mr. Post reports his symptoms began approximately 1 hour prior to arrival with the abrupt onset of severe pain in his right flank that he describes as sharp, radiating to his groin and was not made better or worse by anything. He admits his symptoms are very similar to his previous obstructive kidney stones. He admits to nausea but he denies denies associated vomiting, diarrhea, constipation, chest pain or shortness of breath. He also denies any recent falls or traumatic injury. In the ER he was noted to have a fever of 100.7 ???F with urinalysis positive for acute cystitis; without hematuria and CT scan of the abdomen pelvis revealing obstruction of the Right collecting system due to a 3 mm stone in the mid-Right ureter with moderate Right-sided hydroureter and hydronephrosis and he was then admitted to the general medical floor for ongoing care for stay that is expected to extend beyond 2 midnights. [facility] Medical History Subcutaneous mass Cyst of buttocks Scabies Acute bronchitis, unspecified Preoperative cardiovascular examination Synovial cyst of shoulder AC (acromioclavicular) joint arthritis Rotator cuff arthropathy Wears glasses Wears dentures Medullary sponge kidney History of echocardiogram Cardiology follow-up encounter History of colon polyps Shingles Essential hypertension Left inguinal hernia Perforated appendicitis Atherosclerotic heart disease of [place] coronary artery without angina pectoris Nonrheumatic mitral valve disorder Nonrheumatic tricuspid valve regurgitation History of colon polyps Acute renal insufficiency Bilateral hydronephrosis Bilateral kidney stones Intractable pain Recurrent right inguinal hernia UTI (urinary tract infection) Ureteral stone with hydronephrosis Hyperlipidemia Right bundle branch block Home Medications ???Medication ???Instructions ???Recorded ???Last Taken ???Type NK 10/19/23 Unknown History Allergy/AdvReac Type Severity Reaction Status Date / Time ciprofloxacin (From Cipro) Allergy sweating, Verified 10/19/23 16:04 n/v wheat AdvReac Severe Unknown Verified 10/19/23 16:04 Family History Father CAD (coronary artery disease) Hx of CABG Brother Hypertension Surgical History Hx of colonoscopy History of partial surgical removal of colon History of appendectomy History of left inguinal hernia repair ( 08/2018) history lithrotripsy for kidney stones History of prostatectomy History of right inguinal hernia repair Social History Smoking Status: Never smoker alcohol intake: never substance use type: does not use Vital Signs Vital Signs Vital Signs: 10/19/23 16:04 10/19/23 18:03 Temperature 97.4 F L 100.2 F H Temperature Source Temporal Oral Pulse Rate 71 110 H Respiratory Rate 18 18 Blood Pressure 140/85 H 145/77 H Blood Pressure Mean 103 99 Pulse Ox 94 95 Oxygen Delivery Method Room Air Room Air Weight Weight: 114 lb 3.2 oz Body Mass Index (BMI) 16.8 Results Lab / Micro Data 10/19/23 16:35 10/19/23 16:35 Labs: Laboratory Results - last 24 hr 10/19/23 16:35: WBC 5.6, RBC 4.43 L, Hgb 13.8, Hct 42.2, MCV 95.3 H, MCH 31.2, MCHC 32.7, RDW Std Deviation 48.5 H, RDW Coeff of Sebastian 13.8, Plt Count 239, MPV 10.6, Immature Gran % (Auto) 0.200, Neut % (Auto) 64.1, Lymph % (Auto) 22.8, [place] % (Auto) 8.5, Eos % (Auto) 3.9, Baso % (Auto) 0.5, Absolute Neuts (auto) 3.6, Absolute Lymphs (auto (more content not included)... Normal [facility] Lipaseon 10-19-2023 Lipase [Catalytic activity/Vol] 62 U/L Normal 13-75 [facility] Comment on above: Result Comment: Bob angulo note: LIPASE revised reference range effective 22. New Lipase methodology. Expected to produce lower values than the previous assay method. NEW Reference Range: 13 - 75 U/L Performed By: #### L 100.0100, L500.4050 #### [facility] [address] [place], [address] Urinalysis, Completeon 10-18 BACTERIA 2+ /hpf Normal None Seen [facility] Comment on above: Order Comment: CLEAN CATCH Performed By: #### L 100.0100, L500.4050 #### [facility] [address] [place], [address] EPI,SQUAMOUS 0-5 SEEN Normal 0-5 [facility] Comment on above: Order Comment: CLEAN CATCH Performed By: #### L 100.0100, L500.4050 #### [facility] [address] [place], [address] WBC 10-25 SEEN Normal 0-5 [facility] Comment on above: Order Comment: CLEAN CATCH Performed By: #### L 100.0100, L500.4050 #### [facility] [address] [place], [address] Mucus Ql (Urine sed) 0 SEEN Normal [facility] Comment on above: Order Comment: CLEAN CATCH Performed By: #### L 100.0100, [id number] #### [facility] [address] [place], [address] RBC 0 SEEN Normal 0-5 [facility] Comment on above: Order Comment: CLEAN CATCH Performed By: #### L 100.0100, [id number] #### [facility] [address] [place], [address] Urgent Care Visit Reporton 0 08-10-2023 Urgent Care Visit Report [facility] [address], [address] [place], [place] [address] OFFICE VISIT Date of Service: 08/10/23 MR#: [id number] Acct: [id number] Name: ADEEL POST Rep #: [id number] : 1940 Provider: JORGE boyle Age/Sex: 82/M Location: [facility] Status: Signed Intake Vital Signs 06/02/23 13:03 08/10/23 11:59 Height 5 ft 10 in 5 ft 10 in Weight: 116 lb 115 lb 6 oz BMI 16.6 16.5 BP 124/79 H 102/66 Blood Pressure Location Lt brachial Position Sitting Respiration 18 Pulse 58 L 59 L Pulse Source Monitor Temp 98.6 F Pulse Oximetry (%) 100 95 Intake Visit Reasons: COUGH/CONGESTION Chief Complaint: cough Accompanied by: Daughter Allergies ciprofloxacin (From Cipro) Allergy (Verified 08/10/23 11:58) sweating, n/v wheat Adverse Reaction (Severe, Verified 08/10/23 11:58) Unknown Medications ???Medication ???Instructions ???Recorded ???Confirmed ???Type albuterol sulfate 90 mcg/actuation 2 puff inhalation Q4-6H PRN 08/10/23 08/10/23 Rx aerosol inhaler shortness of breath or wheezing #6.7 grams prednisone 10 mg tablet 10 mg PO .COMPLEX 15 days #35 tabs 08/10/23 08/10/23 Rx PFSH Medical History Subcutaneous mass Cyst of buttocks Scabies Acute bronchitis, unspecified Preoperative cardiovascular examination Synovial cyst of shoulder AC (acromioclavicular) joint arthritis Rotator cuff arthropathy Wears glasses Wears dentures Medullary sponge kidney History of echocardiogram Cardiology follow-up encounter History of colon polyps Shingles Essential hypertension Left inguinal hernia Perforated appendicitis Atherosclerotic heart disease of [place] coronary artery without angina pectoris Nonrheumatic mitral valve disorder Nonrheumatic tricuspid valve regurgitation History of colon polyps Acute renal insufficiency Bilateral hydronephrosis Bilateral kidney stones Intractable pain Recurrent right inguinal hernia UTI (urinary tract infection) Ureteral stone with hydronephrosis Hyperlipidemia Right bundle branch block Surgical History Hx of colonoscopy History of partial surgical removal of colon History of appendectomy History of left inguinal hernia repair ( 08/2018) history lithrotripsy for kidney stones History of prostatectomy History of right inguinal hernia repair Family History Father CAD (coronary artery disease) Hx of CABG Brother Hypertension Social History Smoking Status: Never smoker alcohol intake: never substance use type: does not use HPI HPI Chief Complaint: cough Details: ADEEL POST, is a 82 M who presents to the office today for cough, and hoarseness voice. Patient has been working on a old house tearing up carpet that has animal dander and dust. Patient tried to take a deep breath and he starts coughing. Patient states the hoarseness of his voice started today. No wheezing. ROS Const Constitutional: No body ache, chills, fatigue, fever(s), headache(s) or change in appetite Eyes Eyes: No change in vision ENT ENT: Positive for hoarseness; No ear or mastoid pain, ear discharge, ear pressure, tinnitus, dizziness/vertigo, nosebleed/epistaxis, nasal congestion, sinus pressure, sinus pain, nasal discharge, post nasal drip, headache(s), facial pain, difficulty swallowing, bad breath, lip swelling, mouth lesions, mouth pain, neck pain, sore throat, tongue swelling or throat swelling Resp Respiratory: Positive for cough; No change in phlegm color, chest congestion, hemoptysis, pain on inspiration, shortness of breath, pain with cough, stridor or wheezing Cardio Cardiology: No chest pain at rest, chest pain with exertion, shortness of breath, dyspnea on exertion or lightheadedness Gastro GI: No abdominal pain, change in bowel habits or difficulty swallowing Musc Musculoskeletal: No neck pain Neuro Neurology: No headache(s) Psych Psychiatric: No change in appetite Endo Endocrine: No fatigue Aller/Imm Allergy/Immunologic: No lip swelling, throat swelling, tongue swelling or wheezing Exam Const General: cooperative, healthy appearing, comfortable and no acute distress Orientation: alert, awake and oriented x3 HENMT Head: normal to inspection and normocephalic Ears: hearing grossly normal bilaterally, external ears normal and TM's normal bilaterally Nose: external nose normal, nares normal and no nasal discharge Face and sinus: normal facial exam and sinuses nontender Mouth: oral mucosae normal, lip normal, tongue normal, oropharynx normal and moist mucous membranes Throat: posterior oropharynx normal, to (more content not included)... Normal [facility] Absolute lymphocyte countOrd ered By: Dr. Corbett on 05-13-2022 Lymphocytes Auto (Unsp spec) [#/Vol] 1.78 10*3/uL 0.83-4.51 [facility] Basophil percentageOrdered B y: Dr. Corbett on 05-13-2022 Basophils/100 WBC (Bld) 0.6 % 0-1 [facility] Chloride [Moles/Vol] 109 mmol/L 98-107 [facility] Eosinophils/100 WBC (Bld) 4.7 % 0-5 [facility] Glucose [Mass/Vol] 105 mg/dL 74-106 [facility] Comment on above: Fasting Glucose resu lt from 100 to 125 mg/dL suggests IMPAIRED HOMEOSTASIS per A.D.A. criteria. Neutrophils (Bld) [#/Vol] 4.7 10*3/uL 2.0-7.7 [facility] Neutrophils/100 WBC (Bld) 60.1 % 47-70 [facility] Potassium [Moles/Vol] 4.1 mmol/L 3.5-5.1 [facility] Sodium [Moles/Vol] 139 mmol/L 136-145 [facility] WBC (Bld) [#/Vol] 7.8 10*3/uL 4.4-11.0 [facility] Blood erythrocytes count (nu mber/volume)Ordered By: Dr. Corbett on 05-13-2022 RBC (Bld) [#/Vol] 4.38 10*6/uL 4.6-6.2 [facility] Blood hemoglobin measurement (mass/volume)Ordered By: Dr. Corbett on 05-13-2022 Hemoglobin (Bld) [Mass/Vol] 13.5 g/dL 13.0-16.5 [facility] Blood lymphocytes/100 leukoc ytesOrdered By: Dr. Corbett on 05-13-2022 Lymphocytes/100 WBC (Bld) 22.8 % 19-41 [facility] Blood monocytes/100 leukocyt esOrdered By: Dr. Corbett on 05-13-2022 Monocytes/100 WBC (Bld) 11.4 % 0-10 [facility] Blood platelet mean volumeOr dered By: Dr. Corbett on 05-13-2022 Platelet mean volume (Bld) [Entitic vol] 9.4 fL 6.2-12.0 [facility] Determination of erythrocyte mean corpuscular volume (MCV)Ordered By: Dr. Corbett on 05-13-2022 MCV (RBC) [Entitic vol] 96.6 fL 80-94 [facility] Hematocrit Auto (Bld) [Volum e fraction]Ordered By: Dr. Corbett on 05-13-2022 Hematocrit (Bld) [Volume fraction] 42.3 % 40-54 [facility] - Chemistry and C hemistry - challengeOrdered By: Dr. Corbett on 05-13-2022 CO2 [Moles/Vol] 25.0 mmol/L 21.0-32.0 [facility] Urea nitrogen/Creatinine [Mass ratio] 8.6 mg/mg 10-20 [facility] - Chemistry and C hemistry - challengeOrdered By: Dr. Chanel on 05-13-2022 Magnesium [Mass/Vol] 2.2 mg/dL 1.6-2.6 [facility] - Hematology and Cell countsOrdered By: Dr. Corbett on 05-13-2022 Erythrocyte distribution width (RBC) [Entitic vol] 52.8 fL 35.1-43.9 [facility] Erythrocyte distribution width (RBC) [Ratio] 14.7 % 11.6-14.6 [facility] Immature granulocytes/100 WBC (Bld) 0.400 % 0.0-0.9 [facility] Comment on above: IG% - Immature Granu locytes (promyelocytes, myelocytes and metamyelocytes) > 1% indicates that a LEFT SHIFT is Present. MCH (RBC) [Entitic mass] 30.8 pg 27.0-32.0 [facility] Nucleated RBC/100 WBC (Bld) [Ratio] 0 % 0-5 [facility] MCHC Auto (RBC) [Mass/Vol]Or dered By: Dr. Corbett on 05-13-2022 MCHC (RBC) [Mass/Vol] 31.9 g/dL 32-36 [facility] No Panel InformationOrdered By: Dr. Corbett on 05-13-2022 Estimated Creatinine Clearance Calc 35.82 ml/min [facility] Estimated GFR (MDRD) Amer 57 mL/min >60 [facility] Comment on above: GFR Calc Estimated GFR (MDRD) Non-Af Amer 47 mL/min >60 [facility] Comment on above: Non- GFR Calc Troponin I High Sensitivity 5 pg/mL 3.0-78.0 [facility] Comment on above: Please Note: New Sonam t Units and Gender Specific Reference Ranges. For more information see Policy Stat Procedure [place] High Sensitivity Troponin (TNIH) and attachments. Platelets bldOrdered By: Dr. Corbett on 05-13-2022 Platelets (Bld) [#/Vol] 340 10*3/uL 150-450 [facility] Serum or plasma calcium nitin urement (mass/volume)Ordered By: Dr. Corbett on 05-13-2022 Calcium [Mass/Vol] 8.2 mg/dL 8.5-10.1 [facility] Serum or plasma creatinine m easurement (mass/volume)Ordered By: Dr. Corbett on 05-13-2022 Creatinine [Mass/Vol] 1.51 mg/dL 0.70-1.30 [facility] Comment on above: The validity of the calculated GFR & GFRAA in patients over 70 years has not been determined. Clinical correlation is essential. Serum or plasma urea nitroge n measurement (mass/volume)Ordered By: Dr. Corbett on 05-13-2022 Urea nitrogen [Mass/Vol] 13 mg/dL 7-18 [facility] Thin prep Papanicolaou smear with manual screeningOrdered By: Dr. Corbett on 05-13-2022 Thin prep Papanicolaou smear with manual screening 5 5-15 [facility] Absolute lymphocyte counton 11-21-2021 Lymphocytes Auto (Unsp spec) [#/Vol] 1.35 10*3/uL 0.83-4.51 [facility] Work Phone: Basophil percentageon 2021 Basophils/100 WBC (Bld) 0.8 % 0-1 [facility] Work Phone: Bilirubin [Mass/Vol] 0.80 mg/dL 0.20-1.00 [facility] Work Phone: Comment on above: For patients on eltr ombopag therapy, use of Dimension [place] TBIL is not recommended. Chloride [Moles/Vol] 108 mmol/L 98-107 [facility] Work Phone: Cholesterol [Mass/Vol] 158 mg/dL <200 [facility] Work Phone: Comment on above: <200 mg/dL Desirable 200-240 mg/dL Borderline >240 mg/dL High Risk Eosinophils/100 WBC (Bld) 4.1 % 0-5 [facility] Work Phone: Glucose [Mass/Vol] 85 mg/dL 74-106 [facility] Work Phone: Neutrophils (Bld) [#/Vol] 4.6 10*3/uL 2.0-7.7 [facility] Work Phone: Neutrophils/100 WBC (Bld) 64.2 % 47-70 [facility] Work Phone: [phone] Potassium [Moles/Vol] 4.8 mmol/L 3.5-5.1 [facility] Work Phone: [phone] Protein [Mass/Vol] 7.3 g/dL 6.4-8.2 [facility] Work Phone: [phone] Sodium [Moles/Vol] 140 mmol/L 136-145 [facility] Work Phone: [phone] Triglyceride [Mass/Vol] 70 mg/dL <199 [facility] Work Phone: [phone] Comment on above: The drugs N-Acetylcy steine and Metamizole may falsely depress this assay.Serum Triglycerides Reference Interval Normal <150 mg/dL Borderline high 150 - 199 mg/dL High 200 - 499 mg/dL Very High > or = 500 mg/dL WBC (Bld) [#/Vol] 7.1 10*3/uL 4.4-11.0 [facility] Work Phone: Blood erythrocytes count (nu mber/volume)on 11-21-2021 RBC (Bld) [#/Vol] 4.44 10*6/uL 4.6-6.2 [facility] Work Phone: [phone] Blood hemoglobin measurement (mass/volume)on 11-21-2021 Hemoglobin (Bld) [Mass/Vol] 14.3 g/dL 13.0-16.5 [facility] Work Phone: Blood lymphocytes/100 leukoc yteson 11-21-2021 Lymphocytes/100 WBC (Bld) 18.9 % 19-41 [facility] Work Phone: Blood monocytes/100 leukocyt eson 11-21-2021 Monocytes/100 WBC (Bld) 11.9 % 0-10 [facility] Work Phone: Blood platelet mean volumeon 11-21-2021 Platelet mean volume (Bld) [Entitic vol] 10.5 fL 6.2-12.0 [facility] Work Phone: [phone] Determination of erythrocyte mean corpuscular volume (MCV)on 11-21-2021 MCV (RBC) [Entitic vol] 98.9 fL 80-94 [facility] Work Phone: [phone] Hematocrit Auto (Bld) [Volum e fraction]on 11-21-2021 Hematocrit (Bld) [Volume fraction] 43.9 % 40-54 [facility] Work Phone: [phone] Laboratory - Chemistry and C hemistry - challengeon 11-21-2021 ALP [Catalytic activity/Vol] 89 U/L 45-117 [facility] Work Phone: [phone] ALT [Catalytic activity/Vol] 27 U/L 16-61 [facility] Work Phone: [phone] CO2 [Moles/Vol] 25.0 mmol/L 21.0-32.0 [facility] Work Phone: [phone] Globulin (S) [Mass/Vol] 3.7 g/dL 2.2-4.2 [facility] Work Phone: [phone] Urea nitrogen/Creatinine [Mass ratio] 13.3 mg/mg 10-20 [facility] Work Phone: [phone] Laboratory - Hematology and Cell countson 11-21-2021 Erythrocyte distribution width (RBC) [Entitic vol] 48.2 fL 35.1-43.9 [facility] Work Phone: [phone] Erythrocyte distribution width (RBC) [Ratio] 13.2 % 11.6-14.6 [facility] Work Phone: [phone] Immature granulocytes/100 WBC (Bld) 0.100 % 0.0-0.9 [facility] Work Phone: [phone] Comment on above: IG% - Immature Granu locytes (promyelocytes, myelocytes and metamyelocytes) > 1% indicates that a LEFT SHIFT is Present. MCH (RBC) [Entitic mass] 32.2 pg 27.0-32.0 [facility] Work Phone: Nucleated RBC/100 WBC (Bld) [Ratio] 0 % 0-5 [facility] Work Phone: MCHC Auto (RBC) [Mass/Vol]on 11-21-2021 MCHC (RBC) [Mass/Vol] 32.6 g/dL 32-36 [facility] Work Phone: No Panel Informationon 11-21 Estimated GFR (MDRD) Amer 55 mL/min >60 [facility] Work Phone: Comment on above: GFR Calc Estimated GFR (MDRD) Non-Af Amer 45 mL/min >60 [facility] Work Phone: Comment on above: Non- GFR Calc Platelets bldon 11-21-2021 Platelets (Bld) [#/Vol] 261 10*3/uL 150-450 [facility] Work Phone: [phone] Serum or plasma albumin nitin urement (mass/volume)on 11-21-2021 Albumin [Mass/Vol] 3.6 g/dL 3.2-5.0 [facility] Work Phone: Serum or plasma albumin/glob ulin mass ratioon 11-21-2021 Albumin/Globulin [Mass ratio] 1.0 {ratio} 0.9-2.4 [facility] Work Phone: Serum or plasma calcium nitin urement (mass/volume)on 11-21-2021 Calcium [Mass/Vol] 8.9 mg/dL 8.5-10.1 [facility] Work Phone: [phone] Serum or plasma cholesterol in HDL measurement (mass/volume)on 11-21-2021 Cholesterol in HDL [Mass/Vol] 46 mg/dL >40 [facility] Work Phone: Comment on above: The drugs N-Acetylcy steine and Metamizole may falsely depress this assay. Reference Range HDL <40 mg/dL Low HDL Cholesterol HDL >or= 60 mg/dL High HDL Cholesterol Serum or plasma cholesterol in VLDL measurement (mass/volume)on 11-21-2021 Cholesterol in VLDL [Mass/Vol] 14 mg/dL 5-40 [facility] Work Phone: Serum or plasma creatinine m easurement (mass/volume)on 11-21-2021 Creatinine [Mass/Vol] 1.58 mg/dL 0.70-1.30 [facility] Work Phone: Comment on above: The validity of the calculated GFR & GFRAA in patients over 70 years has not been determined. Clinical correlation is essential. Serum or plasma low density lipoprotein (LDL) cholesterol measurement (mass/volume)on 11-21-2021 Cholesterol in LDL [Mass/Vol] 98 mg/dL 0-130 [facility] Work Phone: Serum or plasma urea nitroge n measurement (mass/volume)on 11-21-2021 Urea nitrogen [Mass/Vol] 21 mg/dL 7-18 [facility] Work Phone: Thin prep Papanicolaou smear with manual screeningon 11-21-2021 Thin prep Papanicolaou smear with manual screening 22 U/L 15-37 [facility] Work Phone: Thin prep Papanicolaou smear with manual screening 7 5-15 [facility] Work Phone: No Panel Informationon 10-16 Prostate Specific Antigen Total 0.02 ng/mL 0.0-4.0 [facility] Work Phone: Comment on above: This test was perfor med using the TPSA assay method [facility]. Values obtained with differentassay methods cannot be used interchangably.When changing PSA assays in the course of monitoring apatient, additional sequential testing should be carriedout to confirm baseline values. Basophil percentageon 2021 Bilirubin [Mass/Vol] 0.90 mg/dL 0.20-1.00 [facility] Work Phone: Comment on above: For patients on eltr ombopag therapy, use of Dimension [place] TBIL is not recommended. Cholesterol [Mass/Vol] 160 mg/dL <200 [facility] Work Phone: Comment on above: <200 mg/dL Desirable 200-240 mg/dL Borderline >240 mg/dL High Risk Protein [Mass/Vol] 7.3 g/dL 6.4-8.2 [facility] Work Phone: Triglyceride [Mass/Vol] 98 mg/dL <199 [facility] Work Phone: [phone] Comment on above: The drugs N-Acetylcy steine and Metamizole may falsely depress this assay.Serum Triglycerides Reference Interval Normal <150 mg/dL Borderline high 150 - 199 mg/dL High 200 - 499 mg/dL Very High > or = 500 mg/dL Direct bilirubinon Bilirubin.direct [Mass/Vol] 0.23 mg/dL 0.00-0.30 [facility] Work Phone: [phone] Laboratory - Chemistry and C hemistry - challengeon 06-12-2021 ALP [Catalytic activity/Vol] 91 U/L 45-117 [facility] Work Phone: [phone] ALT [Catalytic activity/Vol] 23 U/L 16-61 [facility] Work Phone: [phone] Globulin (S) [Mass/Vol] 3.7 g/dL 2.2-4.2 [facility] Work Phone: [phone] Serum or plasma albumin nitin urement (mass/volume)on 06-12-2021 Albumin [Mass/Vol] 3.6 g/dL 3.2-5.0 [facility] Work Phone: [phone] Serum or plasma cholesterol in HDL measurement (mass/volume)on 06-12-2021 Cholesterol in HDL [Mass/Vol] 39 mg/dL >40 [facility] Work Phone: Comment on above: The drugs N-Acetylcy steine and Metamizole may falsely depress this assay. Reference Range HDL <40 mg/dL Low HDL Cholesterol HDL >or= 60 mg/dL High HDL Cholesterol Serum or plasma cholesterol in VLDL measurement (mass/volume)on 06-12-2021 Cholesterol in VLDL [Mass/Vol] 20 mg/dL 5-40 [facility] Work Phone: [phone] Serum or plasma low density lipoprotein (LDL) cholesterol measurement (mass/volume)on 06-12-2021 Cholesterol in LDL [Mass/Vol] 101 mg/dL 0-130 [facility] Work Phone: Thin prep Papanicolaou smear with manual screeningon 06-12-2021 Thin prep Papanicolaou smear with manual screening 23 U/L 15-37 [facility] Work Phone: Office Visit: [facility] 12-14-19 Documentation of current medications (procedure) Done Invalid Interpretation Code [facility] Work Phone: [phone] Fall risk assessment No Invalid Interpretation Code [facility] Work Phone: [phone] Protein mass conc Done Invalid Interpretation Code [facility] Work Phone: [phone] Tobacco smoking status NHIS Former smoker Invalid Interpretation Code [facility] Work Phone: [phone] Tobacco use [facility] Former smoker Invalid Interpretation Code [employer] Work Phone: [phone] Lab Report: Lipid Profileon 12-07-2016 Cholesterol in HDL mass conc 25 mg/dL Low [facility] Work Phone: [phone] Cholesterol in LDL mass conc 39 mg/dL Invalid Interpretation Code 0-130 [facility] Work Phone: [phone] Cholesterol mass conc 92 mg/dL Invalid Interpretation Code 200 [employer] Work Phone: [phone] Lipoprotein.pre-beta mass conc 28 mg/dL Invalid Interpretation Code 5-40 [facility] Work Phone: [phone] Triglyceride mass conc 141 mg/dL Invalid Interpretation Code [employer] Work Phone: [phone] Lab Report: Liver Profileon 12-07-2016 Albumin mass conc 3.4 g/dL Invalid Interpretation Code 3.4-5.0 [facility] Work Phone: [phone] Alkaline phosphatase (ALP) 165 U/L High 45-117 [facility] Work Phone: [phone] ALP enzyme act/vol (Bld) 165 U/L High 45-117 [facility] Work Phone: [phone] ALT enzyme act/vol 46 U/L Invalid Interpretation Code 12-78 [employer] Work Phone: AST enzyme act/vol 44 U/L High 15-37 [facility] Work Phone: [phone] Bilirubin mass conc 0.50 mg/dL Invalid Interpretation Code 0.20-1.00 [facility] Work Phone: [phone] Bilirubin.direct mass conc 0.11 mg/dL Invalid Interpretation Code 0.00-0.30 [facility] Work Phone: [phone] Globulin Calculated mass conc (S) 4.2 g/dL High 2.3-3.5 [facility] Work Phone: [phone] Protein mass conc 7.6 g/dL Invalid Interpretation Code 6.4-8.2 [facility] Work Phone: [phone] Office Visit: UC: wolf ibrahim estionon 10-23-2016 Documentation of current medications (procedure) Done Invalid Interpretation Code [facility] Work Phone: Protein mass conc Done Invalid Interpretation Code [facility] Work Phone: [phone] Tobacco smoking status NHIS Former smoker Invalid Interpretation Code [facility] Work Phone: [phone] Tobacco use CPHS Former smoker Invalid Interpretation Code [facility] Work Phone: Clinical Lists Update: Prelo chemical librarian 06-24-2016 Left ventricular Ejection fraction 60 % Invalid Interpretation Code [facility] Work Phone: Lab Report: Basic Metabolic Profile (BMP)on 01-18-2016 Anion gap 7 mmol/L Invalid Interpretation Code 5-15 [facility] Work Phone: Anion gap 4 molar conc 7 Invalid Interpretation Code 5-15 [facility] Work Phone: [phone] BUN/Creatinine Ratio 8.0 RATIO Low 10-20 [facility] Work Phone: Calcium 8.5 mg/dL Invalid Interpretation Code 8.5-10.1 [facility] Work Phone: Chloride 106 mmol/L Invalid Interpretation Code 98-107 [facility] Work Phone: CO2 27.0 mmol/L Invalid Interpretation Code 21.0-32.0 [facility] Work Phone: [phone] CO2 ppres (BldV) 27.0 mmol/L Invalid Interpretation Code 21.0-32.0 [facility] Work Phone: [phone] Creatinine 1.37 mg/dL High 0.70-1.30 [facility] Work Phone: [phone] eGFR (non-black) 54 mL/min/{1.73_m2} Low >60 [facility] Work Phone: [phone] eGFR (non-black) 65 mL/min/{1.73_m2} Invalid Interpretation Code >60 [facility] Work Phone: [phone] EST GFR - AA 65 mL/min Invalid Interpretation Code >60 [facility] Work Phone: [phone] Glucose 113 mg/dL High 70-110 [facility] Work Phone: [phone] Glucose mass conc 113 mg/dL High 70-110 [facility] Work Phone: [phone] Potassium 4.6 mmol/L Invalid Interpretation Code 3.5-5.1 [facility] Work Phone: [phone] Sodium 140 mmol/L Invalid Interpretation Code 136-145 [facility] Work Phone: [phone] Urea nitrogen 11 mg/dL Invalid Interpretation Code 7-18 [facility] Work Phone: [phone] Lab Report: CBC-Complete Blo od Cnt No Diffon 01-18-2016 Erythrocyte distribution width Auto Ratio (RBC) 45.0 fL High 35.1-43.9 [facility] Work Phone: [phone] Erythrocytes (RBC) 4.38 10*6/uL Low 4.6-6.2 [facility] Work Phone: [phone] Hematocrit (HCT) 38.4 % Low 40-54 [facility] Work Phone: [phone] Hemoglobin (HGB) 12.6 g/dL Low 13.0-16.5 [facility] Work Phone: [phone] MCH 28.8 pg Invalid Interpretation Code 27.0-32.0 [facility] Work Phone: [phone] MCHC 32.8 G/GL Invalid Interpretation Code 32-36 [facility] Work Phone: [phone] MCV 87.7 fL Invalid Interpretation Code 80-94 [facility] Work Phone: [phone] Platelets 336 10*3/mm3 Invalid Interpretation Code 150-450 [facility] Work Phone: [phone] PMV by Nirav-Radha 9.9 fL Invalid Interpretation Code 6.2-12.0 [facility] Work Phone: [phone] RDW SD 45.0 fL High 35.1-43.9 [facility] Work Phone: [phone] RDW-CA 14.2 % Invalid Interpretation Code 11.6-14.6 [facility] Work Phone: [phone] red blood cell distribution width, size density 45.0 fL High 35.1-43.9 [facility] Work Phone: [phone] WBC (Leukocytes) 6.2 10*3/uL Invalid Interpretation Code 4.4-11.0 [facility] Work Phone: [phone] Replaced Document: Subhash Wilsonon 09-13-2015 BUN (urea nitrogen) Sinus Rhythm -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 ABNORMAL Invalid Interpretation Code [facility] Work Phone: [phone] EKG QRS axis -119 deg Invalid Interpretation Code [facility] Work Phone: [phone] GE use only - for [employer] import when terms are not otherwise specified 437 ms Invalid Interpretation Code [facility] Work Phone: [phone] P [place] 46 deg Invalid Interpretation Code [facility] Work Phone: [phone] P wave axis, electrocardiogram 46 deg Invalid Interpretation Code [facility] Work Phone: [phone] [place] Interval 176 ms Invalid Interpretation Code [facility] Work Phone: [phone] IL interval, electrocardiogram 176 ms Invalid Interpretation Code [facility] Work Phone: [phone] Pulse (Heart Rate) 61 /min Invalid Interpretation Code [facility] Work Phone: [phone] QRS axis, electrocardiogram -119 deg Invalid Interpretation Code [facility] Work Phone: QRS Duration 146 ms Invalid Interpretation Code [facility] Work Phone: [phone] QRS duration, electrocardiogram 146 ms Invalid Interpretation Code [facility] Work Phone: QT Interval new path ms Invalid Interpretation Code [facility] Work Phone: [phone] QT interval, electrocardiogram new path ms Invalid Interpretation Code [facility] Work Phone: QTc Ross 437 ms Invalid Interpretation Code [facility] Work Phone: [phone] T [place] 43 deg Invalid Interpretation Code [facility] Work Phone: [phone] T wave axis, electrocardiogram 43 deg Invalid Interpretation Code [facility] Work Phone: Lab Report: Lipid Profileon 06-19-2015 Cholesterol 134 mg/dL Invalid Interpretation Code 200 [facility] Work Phone: HDL Cholesterol 37 mg/dL Low [facility] Work Phone: LDL Cholesterol 73 mg/dL Invalid Interpretation Code 0-130 [facility] Work Phone: Triglyceride 118 mg/dL Invalid Interpretation Code [facility] Work Phone: very low density lipoproteins 24 mg/dL Invalid Interpretation Code 5-40 [facility] Work Phone: Lab Report: Liver Profileon 06-19-2015 Alanine aminotransferase (ALT) 37 U/L Invalid Interpretation Code 12-78 [facility] Work Phone: Albumin 3.4 g/dL Invalid Interpretation Code 3.4-5.0 [facility] Work Phone: Alkaline phosphatase (ALP) 105 U/L Invalid Interpretation Code 50-136 [facility] Work Phone: Aspartate aminotransferase (AST) 29 U/L Invalid Interpretation Code 15-37 [facility] Work Phone: Bilirubin (direct) 0.17 mg/dL Invalid Interpretation Code 0.00-0.30 [facility] Work Phone: Bilirubin (total) 0.70 mg/dL Invalid Interpretation Code 0.20-1.00 [facility] Work Phone: Globulin 3.8 g/dL High 2.3-3.5 [facility] Work Phone: Protein 7.2 g/dL Invalid Interpretation Code 6.4-8.2 [facility] Work Phone: Office Visit: [facility] 08-31-19 15 cardiac risk group C Invalid Interpretation Code [facility] Work Phone: General cardiovascular disease 10Y risk [#] [place] N/A Invalid Interpretation Code [facility] Work Phone: Replaced Document: [employer] E CG Observationson 12-10-2012 Pulse (Heart Rate) 431 ms Invalid Interpretation Code [facility] Work Phone: Clinical Lists Update: Prelo chemical librarian 09-30-2012 basophils as percent of blood leukocytes, manual count 0.8 % Invalid Interpretation Code [facility] Work Phone: eosinophils as percent of blood leukocytes, manual count 3.8 % Invalid Interpretation Code [facility] Work Phone: Lymphocytes/100 leukocytes 19.1 % Invalid Interpretation Code [facility] Work Phone: Monocytes/100 leukocytes 12.0 % High [facility] Work Phone: neutrophils, band form as percent of blood leukocytes, manual count 64.1 % Invalid Interpretation Code [facility] Work Phone: Culture, urine Bacteria identified Cx Nom (U) Escherichia coli [facility] Work Phone: Vital Signs Date Time Vital Sign Value Performing Clinician Faci lity 06-01-2024 13:40-0400 Body height 175.[address] Raissa Rayo MD Work Phone: [facility] 06-01-2024 13:40-0400 Body mass index (BMI) [Ratio] 16.8 kg/m2 Dr. Raissa Rayo MD Work Phone: [facility] 06-01-2024 13:40-0400 Body weight 51.[address] Raissa Rayo MD Work Phone: [facility] 06-01-2024 13:40-0400 Diastolic blood pressure 91 mm[Hg] Dr. Raissa Rayo MD Work Phone: [facility] 06-01-2024 13:40-0400 Heart rate 56 /min Dr. Raissa Rayo MD Work Phone: [facility] 06-01-2024 13:40-0400 Respiratory rate 16 /min Dr. Raisas Rayo MD Work Phone: [facility] 06-01-2024 13:40-0400 Systolic blood pressure 131 mm[Hg] Dr. Raissa Rayo MD Work Phone: [facility] 06-02-2023 13:03-0400 Body height 177.[address] Raissa Rayo Work Phone: [facility] 06-02-2023 13:03-0400 Body mass index (BMI) [Ratio] 16.6 kg/m2 Dr. Raissa Rayo Work Phone: [facility] 06-02-2023 13:03-0400 Body weight 52.[address] Raissa Rayo Work Phone: [facility] 06-02-2023 13:03-0400 Diastolic blood pressure 79 mm[Hg] Dr. Raissa Rayo Work Phone: [facility] 06-02-2023 13:03-0400 Heart rate 58 /min Dr. Raissa Rayo Work Phone: [facility] 06-02-2023 13:03-0400 Respiratory rate 18 /min Dr. Raissa Rayo Work Phone: [facility] 06-02-2023 13:03-0400 SaO2% (BldA) [Mass fraction] 100 % Dr. Raissa Rayo Work Phone: [facility] 06-02-2023 13:03-0400 Systolic blood pressure 124 mm[Hg] Dr. Raissa Rayo Work Phone: [facility] 05-23-2023 13:35-0400 Body mass index (BMI) [Ratio] 16.5 kg/m2 Dr. Raissa Rayo Work Phone: [facility] 05-23-2023 13:35-0400 Body temperature 97.2 [degF] Dr. Raissa Rayo Work Phone: [facility] 05-23-2023 13:35-0400 Body weight 52.[address] Raissa Rayo Work Phone: [facility] 05-23-2023 13:35-0400 Diastolic blood pressure 83 mm[Hg] Dr. Raissa Rayo Work Phone: [facility] 05-23-2023 13:35-0400 Heart rate 63 /min Dr. Raissa Rayo Work Phone: [facility] 05-23-2023 13:35-0400 Respiratory rate 18 /min Dr. Raissa Rayo Work Phone: [facility] 05-23-2023 13:35-0400 SaO2% (BldA) [Mass fraction] 96 % Dr. Raissa Rayo Work Phone: [facility] 05-23-2023 13:35-0400 Systolic blood pressure 116 mm[Hg] Dr. Raissa Rayo Work Phone: [facility] 04-07-2023 14:20-0500 Body temperature 98.1 [degF] Dr. Raissa Rayo Work Phone: [facility] 04-07-2023 14:20-0500 Diastolic blood pressure 76 mm[Hg] Dr. Raissa Rayo Work Phone: [facility] 04-07-2023 14:20-0500 Heart rate 68 /min Dr. Raissa Rayo Work Phone: [facility] 04-07-2023 14:20-0500 Respiratory rate 14 /min Dr. Raissa Rayo Work Phone: [facility] 04-07-2023 14:20-0500 SaO2% (BldA) [Mass fraction] 96 % Dr. Raissa Rayo Work Phone: [facility] 04-07-2023 14:20-0500 Systolic blood pressure 112 mm[Hg] Dr. Raissa Rayo Work Phone: [facility] 05-13-2022 20:22-0400 Body temperature 98 [degF] Dr. Raissa Rayo Work Phone: [facility] 05-13-2022 20:22-0400 Diastolic blood pressure 78 mm[Hg] Dr. Raissa Rayo Work Phone: [facility] 05-13-2022 20:22-0400 Heart rate 73 /min Dr. Raissa Rayo Work Phone: [facility] 05-13-2022 20:22-0400 Respiratory rate 16 /min Dr. Raissa Rayo Work Phone: [facility] 05-13-2022 20:22-0400 SaO2% (BldA) [Mass fraction] 98 % Dr. Raissa Rayo Work Phone: [facility] 05-13-2022 20:22-0400 Systolic blood pressure 114 mm[Hg] Dr. Raissa Rayo Work Phone: [facility] 05-13-2022 16:43-0400 Body height 175.[address] Raissa Rayo Work Phone: [facility] 05-13-2022 16:43-0400 Body mass index (BMI) [Ratio] 21.1 kg/m2 Dr. Raissa Rayo Work Phone: [facility] 05-13-2022 16:43-0400 Body weight 64.[address] Raissa Rayo Work Phone: [facility] 05-01-2022 11:12-0500 Body mass index (BMI) [Ratio] 18.7 kg/m2 Dr. Raissa Rayo Work Phone: [facility] 05-01-2022 11:12-0500 Body temperature 98 [degF] Dr. Raissa Rayo Work Phone: [facility] 05-01-2022 11:12-0500 Body weight 57.[address] Raissa Rayo Work Phone: [facility] 05-01-2022 11:12-0500 Diastolic blood pressure 68 mm[Hg] Dr. Raissa Rayo Work Phone: [facility] 05-01-2022 11:12-0500 Heart rate 74 /min Dr. Raissa Rayo Work Phone: [facility] 05-01-2022 11:12-0500 Respiratory rate 14 /min Dr. Raissa Rayo Work Phone: [facility] 05-01-2022 11:12-0500 SaO2% (BldA) [Mass fraction] 93 % Dr. Raissa Rayo Work Phone: [facility] 05-01-2022 11:12-0500 Systolic blood pressure 122 mm[Hg] Dr. Raissa Rayo Work Phone: [facility] 04-16-2022 11:34-0500 Body temperature 97.7 [degF] Dr. Raissa Rayo Work Phone: [facility] 04-16-2022 11:34-0500 Diastolic blood pressure 71 mm[Hg] Dr. Raissa Rayo Work Phone: [facility] 04-16-2022 11:34-0500 Heart rate 49 /min Dr. Raissa Rayo Work Phone: [facility] 04-16-2022 11:34-0500 Respiratory rate 18 /min Dr. Raissa Rayo Work Phone: [facility] 04-16-2022 11:34-0500 SaO2% (BldA) [Mass fraction] 99 % Dr. Raissa Rayo Work Phone: [facility] 04-16-2022 11:34-0500 Systolic blood pressure 142 mm[Hg] Dr. Raissa Rayo Work Phone: [facility] 04-16-2022 09:10-0500 Inhaled oxygen flow rate 8 L/min Dr. Raissa Rayo Work Phone: [facility] 04-16-2022 06:20-0500 Body mass index (BMI) [Ratio] 19.3 kg/m2 Dr. Raissa Rayo Work Phone: [facility] 04-16-2022 06:20-0500 Body weight [address] Raissa Rayo Work Phone: [facility] 03-21-2022 10:46-0500 Body mass index (BMI) [Ratio] 18.8 kg/m2 Dr. Raissa Rayo Work Phone: [facility] 03-21-2022 10:46-0500 Body weight 59.[address] Raissa Rayo Work Phone: [facility] 03-21-2022 10:46-0500 Diastolic blood pressure 68 mm[Hg] Dr. Raissa Rayo Work Phone: [facility] 03-21-2022 10:46-0500 Heart rate 60 /min Dr. Raissa Rayo Work Phone: [facility] 03-21-2022 10:46-0500 Respiratory rate 18 /min Dr. Raissa Rayo Work Phone: [facility] 03-21-2022 10:46-0500 Systolic blood pressure 100 mm[Hg] Dr. Raissa Rayo Work Phone: [facility] 10-12-2021 08:10-0400 Body temperature 97.2 [degF] Dr. Raissa Rayo Work Phone: [facility] Work Phone: 10-12-2021 08:10-0400 Diastolic blood pressure 79 mm[Hg] Dr. Raissa Rayo Work Phone: [facility] Work Phone: 10-12-2021 08:10-0400 Heart rate 54 /min Dr. Raissa Rayo Work Phone: [facility] Work Phone: 10-12-2021 08:10-0400 Respiratory rate 16 /min Dr. Raissa Rayo Work Phone: [facility] Work Phone: 10-12-2021 08:10-0400 SaO2% (BldA) [Mass fraction] 100 % Dr. Raissa Rayo Work Phone: [facility] Work Phone: 10-12-2021 08:10-0400 Systolic blood pressure 109 mm[Hg] Dr. Raissa Rayo Work Phone: [facility] Work Phone: 10-12-2021 07:00-0400 Body height 177.[address] Raissa Rayo Work Phone: [facility] Work Phone: 10-12-2021 07:00-0400 Body mass index (BMI) [Ratio] 18.3 kg/m2 Dr. Raissa Rayo Work Phone: [facility] Work Phone: 10-12-2021 07:00-0400 Body weight 58.[address] Raissa Rayo Work Phone: [facility] Work Phone: 09-05-2021 09:16-0400 Body mass index (BMI) [Ratio] 18.8 kg/m2 Dr. Raissa Ryao Work Phone: [facility] Work Phone: 09-05-2021 09:16-0400 Body weight 59.[address] Raissa Rayo Work Phone: [facility] Work Phone: 08-15-2021 13:07-0400 Body height 177.[address] Raissa Rayo Work Phone: [facility] Work Phone: 08-15-2021 13:07-0400 Body mass index (BMI) [Ratio] 18.8 kg/m2 Dr. Raissa Rayo Work Phone: [facility] Work Phone: 08-15-2021 13:07-0400 Body temperature 97.8 [degF] Dr. Raissa Rayo Work Phone: [facility] Work Phone: 08-15-2021 13:07-0400 Body weight 59.[address] Raissa Rayo Work Phone: [facility] Work Phone: 08-15-2021 13:07-0400 Diastolic blood pressure 64 mm[Hg] Dr. Raissa Rayo Work Phone: [facility] Work Phone: 08-15-2021 13:07-0400 Heart rate 61 /min Dr. Raissa Rayo Work Phone: [facility] Work Phone: 08-15-2021 13:07-0400 Respiratory rate 16 /min Dr. Raissa Rayo Work Phone: [facility] Work Phone: 08-15-2021 13:07-0400 SaO2% (BldA) [Mass fraction] 95 % Dr. Raissa Rayo Work Phone: [facility] Work Phone: 08-15-2021 13:07-0400 Systolic blood pressure 106 mm[Hg] Dr. Raissa Rayo Work Phone: [facility] Work Phone: 08-11-2021 08:42-0400 Body mass index (BMI) [Ratio] 21.2 kg/m2 Dr. Raissa Rayo Work Phone: [facility] Work Phone: 08-11-2021 08:42-0400 Body temperature 97.9 [degF] Dr. Raissa Rayo Work Phone: [facility] Work Phone: 08-11-2021 08:42-0400 Body weight 63.[address] Raissa Rayo Work Phone: [facility] Work Phone: 08-11-2021 08:42-0400 Diastolic blood pressure 92 mm[Hg] Dr. Raissa Rayo Work Phone: [facility] Work Phone: 08-11-2021 08:42-0400 Heart rate 58 /min Dr. Raissa Rayo Work Phone: [facility] Work Phone: 08-11-2021 08:42-0400 Respiratory rate 14 /min Dr. Raissa Rayo Work Phone: [facility] Work Phone: 08-11-2021 08:42-0400 SaO2% (BldA) [Mass fraction] 95 % Dr. Raissa Rayo Work Phone: [facility] Work Phone: 08-11-2021 08:42-0400 Systolic blood pressure 112 mm[Hg] Dr. Raissa Rayo Work Phone: [facility] Work Phone: 07-18-2021 11:10-0400 Body temperature 97.8 [degF] Dr. Raissa Rayo Work Phone: [facility] Work Phone: 07-18-2021 11:10-0400 Diastolic blood pressure 74 mm[Hg] Dr. Raissa Rayo Work Phone: [facility] Work Phone: 07-18-2021 11:10-0400 Heart rate 68 /min Dr. Raissa Rayo Work Phone: [facility] Work Phone: 07-18-2021 11:10-0400 Respiratory rate 16 /min Dr. Raissa Rayo Work Phone: [facility] Work Phone: 07-18-2021 11:10-0400 SaO2% (BldA) [Mass fraction] 97 % Dr. Raissa Rayo Work Phone: [facility] Work Phone: 07-18-2021 11:10-0400 Systolic blood pressure 122 mm[Hg] Dr. Raissa Rayo Work Phone: [facility] Work Phone: 07-18-2021 11:10-0400 Body temperature 97.8 [degF] Dr. Raissa Rayo Work Phone: [facility] Work Phone: 07-18-2021 11:10-0400 Diastolic blood pressure 74 mm[Hg] Dr. Raissa Rayo Work Phone: [facility] Work Phone: 07-18-2021 11:10-0400 Heart rate 68 /min Dr. Raissa Rayo Work Phone: [facility] Work Phone: 07-18-2021 11:10-0400 Respiratory rate 16 /min Dr. Raissa Rayo Work Phone: [facility] Work Phone: 07-18-2021 11:10-0400 SaO2% (BldA) [Mass fraction] 97 % Dr. Raissa Rayo Work Phone: [facility] Work Phone: 07-18-2021 11:10-0400 Systolic blood pressure 122 mm[Hg] Dr. Raissa Rayo Work Phone: [facility] Work Phone: 06-08-2021 14:37-0400 Body weight 64.[address] Raissa Rayo Work Phone: [facility] Work Phone: 06-08-2021 14:37-0400 Diastolic blood pressure 80 mm[Hg] Dr. Raissa Rayo Work Phone: [facility] Work Phone: 06-08-2021 14:37-0400 Heart rate 52 /min Dr. Raissa Rayo Work Phone: [facility] Work Phone: 06-08-2021 14:37-0400 Respiratory rate 18 /min Dr. Raissa Rayo Work Phone: [facility] Work Phone: 06-08-2021 14:37-0400 Systolic blood pressure 126 mm[Hg] Dr. Raissa Rayo Work Phone: [facility] Work Phone: 06-08-2021 14:37-0400 Body height 177.[address] Raissa Rayo Work Phone: [facility] Work Phone: 06-08-2021 14:37-0400 Body weight 64.[address] Raissa Rayo Work Phone: [facility] Work Phone: 06-08-2021 14:37-0400 Diastolic blood pressure 80 mm[Hg] Dr. Raissa Rayo Work Phone: [facility] Work Phone: 06-08-2021 14:37-0400 Heart rate 52 /min Dr. Raissa Rayo Work Phone: [facility] Work Phone: 06-08-2021 14:37-0400 Respiratory rate 18 /min Dr. Raissa Rayo Work Phone: [facility] Work Phone: 06-08-2021 14:37-0400 Systolic blood pressure 126 mm[Hg] Dr. Raissa Rayo Work Phone: [facility] Work Phone: 08-21-2020 13:33-0400 Body mass index (BMI) [Ratio] 19.4 kg/m2 Dr. Raissa Rayo Work Phone: [facility] Work Phone: 08-21-2020 13:33-0400 Body mass index (BMI) [Ratio] 19.4 kg/m2 Dr. Raissa Rayo Work Phone: [facility] Work Phone: 12-13-2016 14:52-0400 BMI (Body Mass Index) 20.32 kg/m2 [facility] Work Phone: 12-13-2016 14:52-0400 BP Diastolic 66 mm[Hg] [facility] Work Phone: 12-13-2016 14:52-0400 BP Systolic 98 mm[Hg] [facility] Work Phone: 12-13-2016 14:52-0400 Height 177.8 cm [facility] Work Phone: 12-13-2016 14:52-0400 Pulse (Heart Rate) 64 /min [facility] Work Phone: 12-13-2016 14:52-0400 Weight 64.23 kg [facility] Work Phone: 10-23-2016 15:49-0400 BMI (Body Mass Index) 19.8 kg/m2 Chery Teenaar MENDER HAND [facility] Work Phone: 10-23-2016 15:49-0400 Body Temperature 99.9 [degF] Chery Cogar [facility] [employer] [facility] Work Phone: 10-23-2016 15:49-0400 BP Diastolic 72 mm[Hg] Chery Cogar [facility] [employer] [facility] Work Phone: 10-23-2016 15:49-0400 BP Systolic 108 mm[Hg] Chery Cogar [employer] [facility] Work Phone: 10-23-2016 15:49-0400 Height 177.8 cm Chery Cogar [employer] [facility] Work Phone: 10-23-2016 15:49-0400 Pulse (Heart Rate) 66 /min Chery Cogar [employer] [facility] Work Phone: 10-23-2016 15:49-0400 Respiratory Rate 18 /min Chery Cogar [facility] [employer] [facility] Work Phone: 10-23-2016 15:49-0400 Weight 62.6 kg Chery Christensen LPN [facility] Work Phone: 02-06-2016 15:57-0500 BSA (Body Surface Area) 1.8 m2 Chery Christensen LPN [facility] Work Phone: 12-22-2015 15:13-0400 Height 177.8 cm Chery Christensen LPN [facility] Work Phone: 12-22-2015 15:13-0400 Weight 63.64 kg Chery Christensen LPN [facility] Work Phone: 09-13-2015 14:19-0400 Heart rate 61 /min Julio Cesar Hope MD [facility] Work Phone: 12-10-2012 15:58-0400 Heart rate 431 ms Julio Cesar Hope MD [facility] Work Phone: Encounters Encounter Date Encounter Type Care Provider Facility Start: 06-08-2024 Non-patient / Non-visit Dr. Cameron JIMÉNEZ -[facility] Start: 06-08-2024 End: 06-08-[address] Raissa Rayo MD Work Phone: [facility] Work Phone: Start: 06-08-2024 End: 06-08-2024 Patient encounter procedure Shweta BARCLAY -Cardiovascular Services Work Phone: Start: 06-08-2024 End: 06-08-2024 ambulatory Shweta BARCLAY Facility:[facility] Start: 06-01-2024 End: 06-01-2024 Patient encounter procedure Shweta BARCLAY -[facility] Work Phone: Start: 06-01-2024 End: 06-01-2024 ambulatory Shweta BARCLAY Facility:[facility] Start: 02-12-2024 End: 02-12-2024 ambulatory Raissa Rayo Facility:[facility] Start: 12-11-2023 End: 12-11-2023 ambulatory Raissa Rayo Facility:[facility] Start: 10-19-2023 ambulatory Rene Andrew Faci lity:[facility] Start: 10-19-2023 End: 10-21-2023 Evaluation and management of inpatient Rene Andrew Facility:[facility] Start: 08-10-2023 End: 08-10-2023 ambulatory Marshall Selam Jameson QUIÑONES Facility:[facility] Start: 06-09-2023 End: 06-09-[address] Raissa Rayo Work Phone: [facility] Work Phone: Start: 06-09-2023 End: 06-09-[address] Raissa Rayo Work Phone: [facility] Work Phone: Start: 06-02-2023 End: 06-02-[address] Raissa Rayo Work Phone: [facility] Work Phone: Start: 05-23-2023 End: 05-23-[address] Raissa Rayo Work Phone: [facility] Work Phone: Start: 04-07-2023 End: 04-07-[address] Raissa Rayo Work Phone: [facility] Work Phone: Start: 05-13-2022 Non-patient / Non-visit Dr. Alli Rayo Work Phone: [facility] [facility] Start: 05-13-2022 Evaluation and management of inpatient Dr. Raissa Rayo Work Phone: [facility]-Progressive [facility] Unit Start: 05-13-[address] Rachael Rayo Work Phone: [facility] Work Phone: Start: 05-01-2022 End: 05-01-[address] Raissa Rayo Work Phone: [facility] Start: 04-29-2022 End: 04-29-[address] Raissa Rayo Work Phone: [facility] Start: 04-16-2022 Non-patient / Non-visit Dr. Alli Rayo Work Phone: [facility] Start: 04-16-2022 End: 04-16-2022 Admission to same day surgery center Dr. Raissa Rayo Work Phone: [facility] Start: 03-21-2022 End: 03-21-2022 Admission to same day surgery center Dr. Raissa Rayo Work Phone: [facility] Start: 03-21-2022 End: 03-21-[address] Raissa Rayo Work Phone: [facility] Start: 03-20-[address] Raissa Rayo Work Phone: [facility] Start: 03-13-2022 End: 03-13-[address] Raissa Rayo Work Phone: [facility] Start: 01-21-2022 End: 01-21-[address] Raissa Rayo Work Phone: [facility] Start: 11-21-2021 End: 11-21-[address] Raissa Rayo Work Phone: [facility] Work Phone: Start: 11-21-2021 End: 11-21-[address] Raissa Rayo Work Phone: [facility] Start: 10-16-2021 End: 10-16-[address] Raissa Rayo Work Phone: [facility]-Laboratory Start: 10-12-2021 Non-patient / Non-visit Dr. Alli Rayo Work Phone: [facility] Start: 10-12-2021 End: 10-12-2021 Admission to same day surgery center Dr. Raissa Rayo Work Phone: [facility]-Endoscopy Start: 09-05-2021 End: 09-05-[address] Raissa Rayo Work Phone: [facility] Start: 08-16-2021 End: 08-16-[address] Raissa Rayo Work Phone: [facility]-Laboratory, Specimen Start: 08-15-2021 End: 08-15-[address] Raissa Rayo Work Phone: [facility] Start: 08-11-2021 End: 08-11-2021 Emergency department patient visit Dr. Raissa Rayo Work Phone: [facility]-Emergency Department Start: 08-04-2021 End: 08-04-[address] Raissa Rayo Work Phone: [facility]-Ultrasound, [facility] Start: 08-02-2021 End: 08-02-[address] Raissa Rayo Work Phone: [facility]-Radiology, [place] Start: 07-18-2021 End: 07-18-[address] Raissa Rayo Work Phone: [facility] Start: 07-02-2021 End: 07-02-[address] [facility] Start: 06-12-2021 End: 06-12-[address] Raissa Rayo Work Phone: [facility]Laboratory Start: 06-08-2021 End: 06-08-[address] Raissa Rayo Work Phone: [facility] Start: 06-05-2021 Non-patient / Non-visit Dr. Alli Rayo Work Phone: [facility] Start: 06-05-2021 End: 06-05-[address] [facility] Procedures Date Procedure Procedure Detail Performing Clinician Start: 05-13-2022 Plain chest X-ray Dr. Raissa Rayo Work Phone: Start: 05-13-2022 CT angiography of head and neck Dr. Raissa Rayo Work Phone: Start: 05-01-2022 Plain chest X-ray Dr. Raissa Rayo Work Phone: Start: 10-12-[address] Raissa Rayo Work Phone: Start: 08-11-2021 Diagnostic radiography of finger Dr. Raissa Rayo Work Phone: Start: 08-04-[address] Raissa crespo Work Phone: Start: 08-02-2021 Plain X-ray of shoulder Dr. Raissa crespo Work Phone: Start: 12-13-2016 End: 12-13-2016 Follow Up Appt 6 months Marshall H Roof [employer] Work Phone: Start: 12-13-2016 End: 12-13-2016 PFM Marshall Doss Jameson [employer] Work Phone: Start: 11-13-2016 End: 12-09-2016 *Hepatic Function Panel Julio Cesar Hope MD Start: 11-13-2016 End: 12-09-2016 Lipid 1996 panel - Serum or Plasma Julio Cesar Hope MD Start: 06-26-2016 End: 12-13-2016 Transesophageal echocardiogram (RUSSEL) Julio Cesar Hope MD Start: 06-10-2016 End: 06-24-2016 Echocardiography Julio Cesar Hope MD Start: 06-10-2016 End: 06-10-2016 Follow Up Appt 6 months Julio Cesar Hope MD Start: 06-10-2016 End: 06-10-2016 MMM Julio Cesar Hope MD Start: 06-10-2016 End: 06-24-2016 Echocardiography Julio Cesar Hope MD Start: 06-10-2016 End: 06-10-2016 Follow Up Appt 6 months Julio Cesar Hope MD Start: 06-10-2016 End: 06-10-2016 MMM Julio Cesar Hope MD Start: 02-06-2016 Screening for malignant neoplasm of colon Screening, colon ca Julio Cesar Hope MD Start: 12-19-2015 End: 11-13-2016 *Hepatic Function Panel Julio Cesar Hope MD Start: 12-19-2015 End: 11-13-2016 Lipid 1996 panel - Serum or Plasma Julio Cesar Hope MD Start: 09-13-2015 End: 09-13-2015 Follow Up Appt 6 months Shweta dover PA-C Work Phone: Start: 09-13-2015 End: 09-13-2015 PFM Shweta Prajapati PA-C Work Phone: Start: 09-13-2015 End: 09-13-2015 Follow Up Appt 6 months Shweta dover PA-C Work Phone: Start: 09-13-2015 End: 09-13-2015 PFM Shweta Prajapati PA-C Work Phone: Start: 06-19-2015 End: 06-19-2015 *Hepatic Function Panel Julio Cesar Hope MD Start: 06-19-2015 End: 06-19-2015 Lipid 1996 panel - Serum or Plasma Julio Cesar Hope MD Start: 06-19-2015 End: 06-19-2015 *Hepatic Function Panel Julio Cesar Hope MD Start: 06-19-2015 End: 06-19-2015 Lipid panel [AGGREGATE] Julio Cesar Hope MD Start: 03-15-2015 End: 03-15-2015 Follow Up Appt 6 months Julio Cesar Hope MD Start: 03-15-2015 End: 03-15-2015 MMM Julio Cesar Hope MD Start: 03-15-2015 End: 03-15-2015 Follow Up Appt 6 months Julio Cesar Hope MD Start: 03-15-2015 End: 03-15-2015 MM Julio Cesar Hope MD Start: 12-09-2014 End: 12-19-2014 *Hepatic Function Panel Julio Cesar Hope MD Start: 12-09-2014 End: 12-19-2014 Lipid 1996 panel - Serum or Plasma Julio Cesar Hope MD Start: 12-09-2014 End: 12-19-2014 *Hepatic Function Panel Julio Cesar Hope MD Start: 12-09-2014 End: 12-19-2014 Lipid panel [AGGREGATE] Julio Cesar Hope MD Start: 08-30-2014 End: 08-31-2014 Documentation of current medications Shweta Prajapati PA-C Work Phone: Start: 08-30-2014 End: 08-30-2014 Ecg routine ecg w/least 12 lds w/i&r Shweta Prajapati PA-C Work Phone: Start: 08-30-2014 End: 08-30-2014 Follow Up Appt 6 months Shweta dover PA-C Work Phone: Start: 08-30-2014 End: 08-30-2014 PF Shweta Prajapati PA-C Work Phone: Start: 08-30-2014 End: 08-31-2014 Documentation of current medications Shweta Prajapati PA-C Work Phone: Start: 08-30-2014 End: 08-30-2014 Electrocardiogram, complete Shweta Gifford PA-C Work Phone: Start: 08-30-2014 End: 08-30-2014 Follow Up Appt 6 months Shweta dover PA-C Work Phone: Start: 08-30-2014 End: 08-30-2014 PF Shweta Prajapati PA-C Work Phone: Start: 06-06-2014 End: 06-09-2014 *Hepatic Function Panel Julio Cesar Hope MD Start: 06-06-2014 End: 06-09-2014 Lipid 1996 panel - Serum or Plasma Julio Cesar Hope MD Start: 06-06-2014 End: 06-09-2014 *Hepatic Function Panel Julio Cesar Hope MD Start: 06-06-2014 End: 06-09-2014 Lipid panel [AGGREGATE] Julio Cesar Hope MD Start: 12-15-2013 End: 06-01-2014 *Hepatic Function Panel Julio Cesar Hope MD Start: 12-15-2013 End: 12-15-2013 Follow Up Appt 6 months Julio Cesar Hope MD Start: 12-15-2013 End: 06-01-2014 Lipid 1996 panel - Serum or Plasma Julio Cesar Hope MD Start: 12-15-2013 End: 12-15-2013 MMM Julio Cesar Hope MD Start: 12-15-2013 End: 06-01-2014 *Hepatic Function Panel Julio Cesar Hope MD Start: 12-15-2013 End: 12-15-2013 Follow Up Appt 6 months Julio Cesar Hope MD Start: 12-15-2013 End: 06-01-2014 Lipid panel [AGGREGATE] Julio Cesar Hope MD Start: 12-15-2013 End: 12-15-2013 MMM Julio Cesar Hope MD Start: 12-01-2013 End: 12-06-2013 *Hepatic Function Panel Julio Cesar Hope MD Start: 12-01-2013 End: 12-06-2013 Lipid 1996 panel - Serum or Plasma Julio Cesar Hope MD Start: 12-01-2013 End: 12-06-2013 *Hepatic Function Panel Julio Cesar Hope MD Start: 12-01-2013 End: 12-06-2013 Lipid panel [AGGREGATE] Julio Cesar Hope MD Start: 06-18-2013 End: 06-18-2013 Ecg routine ecg w/least 12 lds w/i&r Julio Cesar Hope MD Start: 06-18-2013 End: 06-18-2013 Follow Up Appt 6 months Julio Cesar Hope MD Start: 06-18-2013 End: 08-11-2013 Nuclear stress test -exercise Julio Cesar Hope MD Start: 06-18-2013 End: 06-18-2013 PFM Julio Cesar Hope MD Start: 06-18-2013 End: 06-18-2013 Electrocardiogram, complete Julio Cesar ferreira MD Start: 06-18-2013 End: 06-18-2013 Follow Up Appt 6 months Julio Cesar Hope MD Start: 06-18-2013 End: 08-11-2013 Nuclear stress test -exercise uJlio Cesar Hope MD Start: 06-18-2013 End: 06-18-2013 PFM Julio Cesar Hope MD Start: 06-01-2013 End: 06-02-2013 *Hepatic Function Panel Julio Cesar Hope MD Start: 06-01-2013 End: 06-02-2013 Lipid 1996 panel - Serum or Plasma Julio Cesar Hope MD Start: 06-01-2013 End: 06-02-2013 *Hepatic Function Panel Julio Cesar Hope MD Start: 06-01-2013 End: 06-02-2013 Lipid panel [AGGREGATE] Julio Cesar Hope MD Start: 12-10-2012 End: 06-01-2014 Carotid duplex Shweta Prajapati PA-C Work Phone: Start: 12-10-2012 End: 12-10-2012 Follow Up Appt 6 months Shweta dover PA-C Work Phone: Start: 12-10-2012 End: 12-10-2012 PFM Shweta Prajapati PA-C Work Phone: Start: 12-10-2012 End: 06-01-2014 Carotid duplex Shweta Prajapati PA-C Work Phone: Start: 12-10-2012 End: 12-10-2012 Follow Up Appt 6 months Shweta dover PA-C Work Phone: Start: 12-10-2012 End: 12-10-2012 PFM Shweta Prajapati PA-C Work Phone: Start: 11-01-2012 End: 11-30-2012 *Hepatic Function Panel Julio Cesar Hope MD Start: 11-01-2012 End: 12-01-2012 Lipid 1996 panel - Serum or Plasma Julio Cesar Hope MD Start: 11-01-2012 End: 11-30-2012 *Hepatic Function Panel Julio Cesar Hope MD Start: 11-01-2012 End: 12-01-2012 Lipid panel [AGGREGATE] Julio Cesar Hope MD Start: 06-10-2012 End: 06-11-2012 Follow Up Appt 6 months Julio Cesar Hope MD Start: 06-10-2012 End: 06-11-2012 MMM Julio Cesar Hope MD Start: 06-10-2012 End: 06-11-2012 Follow Up Appt 6 months Julio Cesar Hope MD Start: 06-10-2012 End: 06-11-2012 MMM Julio Cesar Hope MD Start: 05-01-2012 End: 05-21-2012 *Hepatic Function Panel Julio Cesar Hope MD Start: 05-01-2012 End: 05-21-2012 Lipid 1996 panel - Serum or Plasma Julio Cesar Hope MD Start: 05-01-2012 End: 05-21-2012 *Hepatic Function Panel Julio Cesar Hope MD Start: 05-01-2012 End: 05-21-2012 Lipid panel [AGGREGATE] Julio Cesar Hope MD Start: 11-22-2011 End: 05-21-2012 *Hepatic Function Panel Julio Cesar Hope MD Start: 11-22-2011 End: 05-21-2012 Lipid 1996 panel - Serum or Plasma Julio Cesar Hope MD Start: 11-22-2011 End: 05-21-2012 *Hepatic Function Panel Julio Cesar Hope MD Start: 11-22-2011 End: 05-21-2012 Lipid panel [AGGREGATE] Julio Cesar Hope MD Start: 10-28-2011 End: 10-28-2011 Ecg routine ecg w/least 12 lds w/i&r Julio Cesar Hope MD Start: 10-28-2011 End: 12-10-2012 Echocardiography Julio Cesar Hope MD Start: 10-28-2011 End: 10-28-2011 Follow Up Appt 6 months Julio Cesar Hope MD Start: 10-28-2011 End: 12-10-2012 Nuclear stress test -exercise Julio Cesar Hope MD Start: 10-28-2011 End: 12-10-2012 Echocardiography Julio Cesar Hope MD Start: 10-28-2011 End: 10-28-2011 Electrocardiogram, complete Julio Cesar ferreira MD Start: 10-28-2011 End: 10-28-2011 Follow Up Appt 6 months Julio Cesar Hope MD Start: 10-28-2011 End: 12-10-2012 Nuclear stress test -exercise Julio Cesar Hope MD Start: 04-30-2011 End: 05-23-2011 *Hepatic Function Panel Julio Cesar Hope MD Start: 04-30-2011 End: 05-23-2011 Lipid 1996 panel - Serum or Plasma Julio Cesar Hope MD Start: 04-30-2011 End: 05-23-2011 *Hepatic Function Panel Julio Cesar Hope MD Start: 04-30-2011 End: 05-23-2011 Lipid panel [AGGREGATE] Julio Cesar Hope MD Urine culture Dr. aRissa salgado Work Phone: Plan of Treatment Date Care Activity Detail Author Start: 05-13-2022 Verification routine [facility] Start: 05-13-2022 Admission procedure [facility] Start: 04-16-2022 Anesthesia clavicle and scapula nos ANESTH SURGERY OF SHOULDER [facility] Start: 04-16-2022 Claviculectomy partial PARTIAL REMOVAL COLLAR BONE [facility] Start: 04-16-2022 Exc/curtg bone cyst/benign tumor clav/scapula REMOVAL OF BONE LESION [facility] Start: 04-16-2022 Patient discharge [facility] Start: 04-16-2022 Catheterization of vein [facility] Start: 04-16-2022 Following clinical pathway protocol [facility] Start: 04-16-2022 Procedure discontinued [facility] Start: 04-16-[address] [facility] Start: 04-16-2022 Vital signs measurements [facility] Start: 04-16-2022 [facility] Start: 04-16-2022 Medication education [facility] Start: 10-12-2021 Colonoscopy flx dx w/collj spec when pfrmd DIAGNOSTIC COLONOSCOPY [facility] Work Phone: Start: 10-12-2021 Patient discharge [facility] Work Phone: Start: 08-13-2017 End: 08-13-2017 Appointment Appointment [facility] Work Phone: Start: 06-09-2017 End: 12-10-2016 *Hepatic Function Panel *Hepatic Function Panel [facility] Work Phone: Start: 06-09-2017 End: 12-10-2016 Lipid panel [AGGREGATE] *Lipid Profile CC PCP [facility] Work Phone: Start: 01-21-2017 End: 12-10-2016 *Hepatic Function Panel *Hepatic Function Panel [facility] Work Phone: Start: 12-13-2016 End: 12-13-2016 Appointment Appointment [facility] Work Phone: Start: 12-13-2016 End: 12-13-2016 Follow Up Appt 6 months Follow Up Appt 6 months [facility] Work Phone: Start: 12-13-2016 End: 12-13-2016 PFM PFM [facility] Work Phone: Start: 11-13-2016 End: 12-09-2016 *Hepatic Function Panel *Hepatic Function Panel [facility] Work Phone: Start: 11-13-2016 End: 12-09-2016 Lipid panel [AGGREGATE] *Lipid Profile CC PCP [facility] Work Phone: Start: 10-23-2016 End: 10-23-2016 Appointment Appointment [facility] Work Phone: Start: 06-26-2016 End: 06-26-2016 Transesophageal echocardiogram (RUSSEL) Transesophageal echocardiogram (RUSSEL) [facility] Work Phone: Start: 06-26-2016 End: 06-26-2016 Transesophageal echocardiogram (RUSSEL) Transesophageal echocardiogram (RUSSEL) [facility] Work Phone: Start: 06-10-2016 End: 06-11-2016 Echocardiography Echocardiogram (complete) [facility] Work Phone: Start: 06-10-2016 End: 06-10-2016 Follow Up Appt 6 months Follow Up Appt 6 months [facility] Work Phone: Start: 06-10-2016 End: 06-10-2016 MMM MMM [facility] Work Phone: Start: 06-10-2016 End: 06-11-2016 Echocardiography Echocardiogram (complete) [facility] Work Phone: Start: 06-10-2016 End: 06-10-2016 Follow Up Appt 6 months Follow Up Appt 6 months [facility] Work Phone: Start: 06-10-2016 End: 06-10-2016 MMM MMM [facility] Work Phone: Start: 02-06-2016 End: 02-07-2016 Colonoscopy flx dx w/collj spec when pfrmd Colonoscopy [facility] Work Phone: Start: 02-06-2016 End: 02-07-2016 Follow-up visit Follow Up as needed [facility] Work Phone: Start: 02-06-2016 End: 02-07-2016 Primary Care Physician Primary Care Physician [facility] Work Phone: Start: 02-06-2016 End: 02-07-2016 Diagnostic colonoscopy Colonoscopy [facility] Work Phone: Start: 02-06-2016 End: 02-07-2016 Follow-up visit Follow Up as needed [facility] Work Phone: Start: 02-06-2016 End: 02-07-2016 Primary Care Physician Primary Care Physician [facility] Work Phone: Start: 12-19-2015 End: 11-13-2016 *Hepatic Function Panel *Hepatic Function Panel [facility] Work Phone: Start: 12-19-2015 End: 11-13-2016 Lipid panel [AGGREGATE] *Lipid Profile CC PCP [facility] Work Phone: Start: 12-19-2015 End: 06-21-2015 *Hepatic Function Panel *Hepatic Function Panel [facility] Work Phone: Start: 12-19-2015 End: 06-21-2015 Lipid panel [AGGREGATE] *Lipid Profile CC PCP [facility] Work Phone: Start: 09-13-2015 End: 09-13-2015 Follow Up Appt 6 months Follow Up Appt 6 months [facility] Work Phone: Start: 09-13-2015 End: 09-13-2015 PFM PFM [facility] Work Phone: Start: 09-13-2015 End: 09-13-2015 Follow Up Appt 6 months Follow Up Appt 6 months [facility] Work Phone: Start: 09-13-2015 End: 09-13-2015 PFM PFM [facility] Work Phone: Start: 06-20-2015 End: 06-19-2015 *Hepatic Function Panel *Hepatic Function Panel [facility] Work Phone: Start: 06-20-2015 End: 06-19-2015 Lipid panel [AGGREGATE] *Lipid Profile CC PCP [facility] Work Phone: Start: 06-20-2015 End: 06-19-2015 *Hepatic Function Panel *Hepatic Function Panel [facility] Work Phone: Start: 06-20-2015 End: 06-19-2015 Lipid panel [AGGREGATE] *Lipid Profile CC PCP [facility] Work Phone: Start: 03-15-2015 End: 03-15-2015 Follow Up Appt 6 months Follow Up Appt 6 months [facility] Work Phone: Start: 03-15-2015 End: 03-15-2015 MMM MM [facility] Work Phone: Start: 03-15-2015 End: 03-15-2015 Follow Up Appt 6 months Follow Up Appt 6 months [facility] Work Phone: Start: 03-15-2015 End: 03-15-2015 MMM MMM [facility] Work Phone: Start: 12-09-2014 End: 12-19-2014 *Hepatic Function Panel *Hepatic Function Panel [facility] Work Phone: Start: 12-09-2014 End: 12-19-2014 Lipid panel [AGGREGATE] *Lipid Profile CC PCP [facility] Work Phone: Start: 12-09-2014 End: 12-19-2014 *Hepatic Function Panel *Hepatic Function Panel [facility] Work Phone: Start: 12-09-2014 End: 12-19-2014 Lipid panel [AGGREGATE] *Lipid Profile CC PCP [facility] Work Phone: Start: 08-30-2014 End: 08-30-2014 Ecg routine ecg w/least 12 lds w/i&r EKG (In office) [facility] Work Phone: Start: 08-30-2014 End: 08-30-2014 Follow Up Appt 6 months Follow Up Appt 6 months [facility] Work Phone: Start: 08-30-2014 End: 08-30-2014 PFM PFM [facility] Work Phone: Start: 08-30-2014 End: 08-30-2014 Electrocardiogram, complete EKG (In office) [facility] Work Phone: Start: 08-30-2014 End: 08-30-2014 Follow Up Appt 6 months Follow Up Appt 6 months [facility] Work Phone: Start: 08-30-2014 End: 08-30-2014 PFM PFM [facility] Work Phone: Start: 06-06-2014 End: 06-09-2014 *Hepatic Function Panel *Hepatic Function Panel [facility] Work Phone: Start: 06-06-2014 End: 06-09-2014 Lipid panel [AGGREGATE] *Lipid Profile CC PCP [facility] Work Phone: Start: 06-06-2014 End: 06-09-2014 *Hepatic Function Panel *Hepatic Function Panel [facility] Work Phone: Start: 06-06-2014 End: 06-09-2014 Lipid panel [AGGREGATE] *Lipid Profile CC PCP [facility] Work Phone: Start: 12-15-2013 End: 06-01-2014 *Hepatic Function Panel *Hepatic Function Panel [facility] Work Phone: Start: 12-15-2013 End: 12-15-2013 Follow Up Appt 6 months Follow Up Appt 6 months [facility] Work Phone: Start: 12-15-2013 End: 06-01-2014 Lipid panel [AGGREGATE] *Lipid Profile CC PCP [facility] Work Phone: Start: 12-15-2013 End: 12-15-2013 MMM MMM [facility] Work Phone: Start: 12-15-2013 End: 06-01-2014 *Hepatic Function Panel *Hepatic Function Panel [facility] Work Phone: Start: 12-15-2013 End: 12-15-2013 Follow Up Appt 6 months Follow Up Appt 6 months [facility] Work Phone: Start: 12-15-2013 End: 06-01-2014 Lipid panel [AGGREGATE] *Lipid Profile CC PCP [facility] Work Phone: Start: 12-15-2013 End: 12-15-2013 MMM MMM [facility] Work Phone: Start: 12-01-2013 End: 12-06-2013 *Hepatic Function Panel *Hepatic Function Panel [facility] Work Phone: Start: 12-01-2013 End: 12-06-2013 Lipid panel [AGGREGATE] *Lipid Profile CC PCP [facility] Work Phone: Start: 12-01-2013 End: 12-06-2013 *Hepatic Function Panel *Hepatic Function Panel [facility] Work Phone: Start: 12-01-2013 End: 12-06-2013 Lipid panel [AGGREGATE] *Lipid Profile CC PCP [facility] Work Phone: Start: 06-18-2013 End: 06-18-2013 Ecg routine ecg w/least 12 lds w/i&r EKG (In office) [facility] Work Phone: Start: 06-18-2013 End: 06-18-2013 Follow Up Appt 6 months Follow Up Appt 6 months [facility] Work Phone: Start: 06-18-2013 End: 06-18-2013 Nuclear stress test -exercise Nuclear stress test -exercise [facility] Work Phone: Start: 06-18-2013 End: 06-18-2013 PFM PFM [facility] Work Phone: Start: 06-18-2013 End: 06-18-2013 Electrocardiogram, complete EKG (In office) [facility] Work Phone: Start: 06-18-2013 End: 06-18-2013 Follow Up Appt 6 months Follow Up Appt 6 months [facility] Work Phone: Start: 06-18-2013 End: 06-18-2013 Nuclear stress test -exercise Nuclear stress test -exercise [facility] Work Phone: Start: 06-18-2013 End: 06-18-2013 PFM PFM [facility] Work Phone: Start: 06-01-2013 End: 06-01-2013 *Hepatic Function Panel *Hepatic Function Panel [facility] Work Phone: Start: 06-01-2013 End: 06-01-2013 Lipid panel [AGGREGATE] *Lipid Profile CC PCP [facility] Work Phone: Start: 06-01-2013 End: 06-01-2013 *Hepatic Function Panel *Hepatic Function Panel [facility] Work Phone: Start: 06-01-2013 End: 06-01-2013 Lipid panel [AGGREGATE] *Lipid Profile CC PCP [facility] Work Phone: Start: 12-10-2012 End: 12-11-2012 Carotid duplex Carotid duplex [facility] Work Phone: Start: 12-10-2012 End: 12-10-2012 Follow Up Appt 6 months Follow Up Appt 6 months [facility] Work Phone: Start: 12-10-2012 End: 12-10-2012 PFM PFM [facility] Work Phone: Start: 12-10-2012 End: 12-11-2012 Carotid duplex Carotid duplex [facility] Work Phone: Start: 12-10-2012 End: 12-10-2012 Follow Up Appt 6 months Follow Up Appt 6 months [facility] Work Phone: Start: 12-10-2012 End: 12-10-2012 PFM PFM [facility] Work Phone: Start: 11-01-2012 End: 11-30-2012 *Hepatic Function Panel *Hepatic Function Panel [facility] Work Phone: Start: 11-01-2012 End: 12-01-2012 Lipid panel [AGGREGATE] *Lipid Profile [facility] Work Phone: Start: 11-01-2012 End: 11-30-2012 *Hepatic Function Panel *Hepatic Function Panel [facility] Work Phone: Start: 11-01-2012 End: 12-01-2012 Lipid panel [AGGREGATE] *Lipid Profile [facility] Work Phone: Start: 06-10-2012 End: 06-11-2012 Follow Up Appt 6 months Follow Up Appt 6 months [facility] Work Phone: Start: 06-10-2012 End: 06-11-2012 MMM MMM [facility] Work Phone: Start: 06-10-2012 End: 06-11-2012 Follow Up Appt 6 months Follow Up Appt 6 months [facility] Work Phone: Start: 06-10-2012 End: 06-11-2012 MMM MMM [facility] Work Phone: Start: 05-01-2012 End: 05-21-2012 *Hepatic Function Panel *Hepatic Function Panel [facility] Work Phone: Start: 05-01-2012 End: 05-21-2012 Lipid panel [AGGREGATE] *Lipid Profile [facility] Work Phone: Start: 05-01-2012 End: 05-21-2012 *Hepatic Function Panel *Hepatic Function Panel [facility] Work Phone: Start: 05-01-2012 End: 05-21-2012 Lipid panel [AGGREGATE] *Lipid Profile [facility] Work Phone: Start: 11-22-2011 End: 05-21-2012 *Hepatic Function Panel *Hepatic Function Panel [facility] Work Phone: Start: 11-22-2011 End: 05-21-2012 Lipid panel [AGGREGATE] *Lipid Profile [facility] Work Phone: Start: 11-22-2011 End: 05-21-2012 *Hepatic Function Panel *Hepatic Function Panel [facility] Work Phone: Start: 11-22-2011 End: 05-21-2012 Lipid panel [AGGREGATE] *Lipid Profile [facility] Work Phone: Start: 10-28-2011 End: 10-28-2011 Ecg routine ecg w/least 12 lds w/i&r EKG (In office) [facility] Work Phone: Start: 10-28-2011 End: 10-28-2011 Echocardiography Echocardiogram (complete) [facility] Work Phone: Start: 10-28-2011 End: 10-28-2011 Follow Up Appt 6 months Follow Up Appt 6 months [facility] Work Phone: Start: 10-28-2011 End: 10-28-2011 Nuclear stress test -exercise Nuclear stress test -exercise [facility] Work Phone: Start: 10-28-2011 End: 10-28-2011 Echocardiography Echocardiogram (complete) [facility] Work Phone: Start: 10-28-2011 End: 10-28-2011 Electrocardiogram, complete EKG (In office) [facility] Work Phone: Start: 10-28-2011 End: 10-28-2011 Follow Up Appt 6 months Follow Up Appt 6 months [facility] Work Phone: Start: 10-28-2011 End: 10-28-2011 Nuclear stress test -exercise Nuclear stress test -exercise [facility] Work Phone: Start: 04-30-2011 End: 05-23-2011 *Hepatic Function Panel *Hepatic Function Panel [facility] Work Phone: Start: 04-30-2011 End: 05-23-2011 Lipid panel [AGGREGATE] *Lipid Profile [facility] Work Phone: Start: 04-30-2011 End: 05-23-2011 *Hepatic Function Panel *Hepatic Function Panel [facility] Work Phone: Start: 04-30-2011 End: 05-23-2011 Lipid panel [AGGREGATE] *Lipid Profile [facility] Work Phone: Colonoscopy [facility] Work Phone: Patient Education [facility] Work Phone: Patient referral [facility] Work Phone: Immunizations Immunization Date Immunization Notes Care Provider [facility] 02-07-2023 Pneumococcal Vaccine PCV20 (Prevnar 20) Dr. Raissa Rayo MD Work Phone: [facility] 12-05-2022 influenza, injectabl e, quadrivalent, preservative free Dr. Raissa Rayo MD Work Phone: [facility] 12-08-2021 Covid Pfizer Bivalen t Booster Dr. Raissa Rayo MD Work Phone: [facility] 11-23-2021 influenza, injectabl e, quadrivalent, preservative free Dr. Raissa Rayo MD Work Phone: [facility] 08-24-2021 Covid (Moderna) Dr. Raissa cespedes MD Work Phone: [facility] 02-08-2021 Covid (Moderna) Dr. Raissa cespedes MD Work Phone: [facility] 05-29-2020 Covid (Moderna) Dr. Raissa cespedes Work Phone: [facility] 05-01-2020 Covid (Moderna) Dr. Raissa cespedes Work Phone: [facility] 11-01-[address] Raissa Rayo Work Phone: [facility] Payers Date Payer Category Payer Self-pay [id number] 2023 Unknown [id number] formerly [facility] [id number] 2006 Medicare [id number] Unknown [id number] 2.16.8 [id number] Unknown [id number] 2.16.8 [id number] Unknown [id number] 2.16.8 [id number] Unknown [id number] 2.16.8 [id number] Unknown [id number] 2.16.8 [id number] Unknown [id number] 2.16.8 [id number] Unknown [id number] 2.16.8 [id number] Unknown [id number] 2.16.8 [id number] Unknown [id number] 2.16.8 [id number] Unknown [id number] 2.16.8 [id number] Social History Date Type Detail Facility Start: 06-08-2021 End: 06-09-2023 Tobacco smoking status NHIS Unknown if ever smoked [facility] Start: 04-07-2017 None [facility] Start: 04-07-2017 Spouse/ Signif icant Other [facility] Start: 08-07-2018 Non-smoker [facility] Start: 1940 Sex Assigned At Male W [facility] Start: 06-01-2024 Tobacco smoking status NHIS Never smoked tobacco (finding) [facility] Start: 06-14-2024 Sex Male (finding) [facility] Medical Equipment Procedure Code Equipment Code Equipment Origin al Text Equipment Identifier Dates Cystoscopy, with retrograde pyelogram and ureteral stent insertion ([id number]) Polymeric ureteral stent [id number] FDA Start: 10-20-2023 Appendectomy, laparoscopic RELOAD, SR75 SELECTABLE FDA Start: 06-16-2018 Appendectomy, laparoscopic RELOAD, SR75 SELECTABLE FDA Start: 06-16-2018 Appendectomy, laparoscopic RELOAD, SR75 SELECTABLE FDA Start: 06-16-2018 Appendectomy, laparoscopic STAPLER,[id number] FDA Start: 06-16-2018 Appendectomy, laparoscopic RELOAD, SR75 SELECTABLE FDA Start: 06-16-2018 Appendectomy, laparoscopic RELOAD, SR75 SELECTABLE FDA Start: 06-16-2018 Appendectomy, laparoscopic RELOAD, SR75 SELECTABLE FDA Start: 06-16-2018 Appendectomy, laparoscopic STAPLER,TX60B FDA Start: 06-16-2018 Appendectomy, laparoscopic RELOAD, SR75 SELECTABLE FDA Start: 06-16-2018 Appendectomy, laparoscopic RELOAD, SR75 SELECTABLE FDA Start: 06-16-2018 Appendectomy, laparoscopic RELOAD, SR75 SELECTABLE FDA Start: 06-16-2018 Appendectomy, laparoscopic STAPLER,[id number] FDA Start: 06-16-2018 Appendectomy, laparoscopic RELOAD, SR75 SELECTABLE FDA Start: 06-16-2018 Appendectomy, laparoscopic RELOAD, SR75 SELECTABLE FDA Start: 06-16-2018 Appendectomy, laparoscopic RELOAD, SR75 SELECTABLE FDA Start: 06-16-2018 Appendectomy, laparoscopic STAPLER,TX60B FDA Start: 06-16-2018 Appendectomy, laparoscopic RELOAD, SR75 SELECTABLE FDA Start: 06-16-2018 Appendectomy, laparoscopic RELOAD, SR75 SELECTABLE FDA Start: 06-16-2018 Appendectomy, laparoscopic RELOAD, SR75 SELECTABLE FDA Start: 06-16-2018 Appendectomy, laparoscopic STAPLER,TX60B FDA Start: 06-16-2018 Appendectomy, laparoscopic RELOAD, SR75 SELECTABLE FDA Start: 06-16-2018 Appendectomy, laparoscopic RELOAD, SR75 SELECTABLE FDA Start: 06-16-2018 Appendectomy, laparoscopic RELOAD, SR75 SELECTABLE FDA Start: 06-16-2018 Appendectomy, laparoscopic STAPLER,TX60B FDA Start: 06-16-2018 Appendectomy, laparoscopic RELOAD, SR75 SELECTABLE FDA Start: 06-16-2018 Appendectomy, laparoscopic RELOAD, SR75 SELECTABLE FDA Start: 06-16-2018 Appendectomy, laparoscopic RELOAD, SR75 SELECTABLE FDA Start: 06-16-2018 Appendectomy, laparoscopic STAPLER,TX60B FDA Start: 06-16-2018 Appendectomy, laparoscopic RELOAD, SR75 SELECTABLE FDA Start: 06-16-2018 Appendectomy, laparoscopic RELOAD, SR75 SELECTABLE FDA Start: 06-16-2018 Appendectomy, laparoscopic RELOAD, SR75 SELECTABLE FDA Start: 06-16-2018 Appendectomy, laparoscopic STAPLER,TX60B FDA Start: 06-16-2018 Appendectomy, laparoscopic RELOAD, SR75 SELECTABLE FDA Start: 06-16-2018 Appendectomy, laparoscopic RELOAD, SR75 SELECTABLE FDA Start: 06-16-2018 Appendectomy, laparoscopic RELOAD, SR75 SELECTABLE FDA Start: 06-16-2018 Appendectomy, laparoscopic STAPLER,TX60B FDA Start: 06-16-2018 Appendectomy, laparoscopic RELOAD, SR75 SELECTABLE FDA Start: 06-16-2018 Appendectomy, laparoscopic RELOAD, SR75 SELECTABLE FDA Start: 06-16-2018 Appendectomy, laparoscopic RELOAD, SR75 SELECTABLE FDA Start: 06-16-2018 Appendectomy, laparoscopic STAPLER,TX60B FDA Start: 06-16-2018 Appendectomy, laparoscopic RELOAD, SR75 SELECTABLE FDA Start: 06-16-2018 Appendectomy, laparoscopic RELOAD, SR75 SELECTABLE FDA Start: 06-16-2018 Appendectomy, laparoscopic RELOAD, SR75 SELECTABLE FDA Start: 06-16-2018 Appendectomy, laparoscopic STAPLER,TX60B FDA Start: 06-16-2018 STENT,URETERAL 6 FR PIG 6X26 FDA Start: 04-07-2017 STENT,URETERAL 6 FR PIG 6X26 FDA Start: 04-07-2017 STENT,6x28 SERGEY PIG FDA Start: 04-11-2017 MESH,PERFIX FLAT PRESHAPED FDA Start: 08-12-2018 STENT,URETERAL 6 FR PIG 6X26 FDA Start: 04-07-2017 STENT,URETERAL 6 FR PIG 6X26 FDA Start: 04-07-2017 STENT,6x28 SERGEY PIG FDA Start: 04-11-2017 MESH,PERFIX FLAT PRESHAPED FDA Start: 08-12-2018 STENT,URETERAL 6 FR PIG 6X26 FDA Start: 04-07-2017 STENT,URETERAL 6 FR PIG 6X26 FDA Start: 04-07-2017 STENT,6x28 SERGEY PIG FDA Start: 04-11-2017 MESH,PERFIX FLAT PRESHAPED FDA Start: 08-12-2018 STENT,URETERAL 6 FR PIG 6X26 FDA Start: 04-07-2017 STENT,URETERAL 6 FR PIG 6X26 FDA Start: 04-07-2017 STENT,6x28 SERGEY PIG FDA Start: 04-11-2017 MESH,PERFIX FLAT PRESHAPED FDA Start: 08-12-2018 STENT,URETERAL 6 FR PIG 6X26 FDA Start: 04-07-2017 STENT,URETERAL 6 FR PIG 6X26 FDA Start: 04-07-2017 STENT,6x28 SERGEY PIG FDA Start: 04-11-2017 MESH,PERFIX FLAT PRESHAPED FDA Start: 08-12-2018 STENT,URETERAL 6 FR PIG 6X26 FDA Start: 04-07-2017 STENT,URETERAL 6 FR PIG 6X26 FDA Start: 04-07-2017 STENT,6x28 SERGEY PIG FDA Start: 04-11-2017 MESH,PERFIX FLAT PRESHAPED FDA Start: 08-12-2018 STENT,URETERAL 6 FR PIG 6X26 FDA Start: 04-07-2017 STENT,URETERAL 6 FR PIG 6X26 FDA Start: 04-07-2017 STENT,6x28 SERGEY PIG FDA Start: 04-11-2017 MESH,PERFIX FLAT PRESHAPED FDA Start: 08-12-2018 STENT,URETERAL 6 FR PIG 6X26 FDA Start: 04-07-2017 STENT,URETERAL 6 FR PIG 6X26 FDA Start: 04-07-2017 STENT,6x28 SERGEY PIG FDA Start: 04-11-2017 MESH,PERFIX FLAT PRESHAPED FDA Start: 08-12-2018 STENT,URETERAL 6 FR PIG 6X26 FDA Start: 04-07-2017 STENT,URETERAL 6 FR PIG 6X26 FDA Start: 04-07-2017 STENT,6x28 SERGEY PIG FDA Start: 04-11-2017 MESH,PERFIX FLAT PRESHAPED FDA Start: 08-12-2018 STENT,URETERAL 6 FR PIG 6X26 FDA Start: 04-07-2017 STENT,URETERAL 6 FR PIG 6X26 FDA Start: 04-07-2017 STENT,6x28 SERGEY PIG FDA Start: 04-11-2017 MESH,PERFIX FLAT PRESHAPED FDA Start: 08-12-2018 STENT,URETERAL 6 FR PIG 6X26 FDA Start: 04-07-2017 STENT,URETERAL 6 FR PIG 6X26 FDA Start: 04-07-2017 STENT,6x28 SERGEY PIG FDA Start: 04-11-2017 MESH,PERFIX FLAT PRESHAPED FDA Start: 08-12-2018 Goals Date Patient Goal Desired Activity /State Mental Status Date Assessment Result Facility 05-13-2022 Cognitive function Level Of Cons ciousness Awake;Alert;Appropriate;Follow s Commands [facility] Work Phone: 04-16-2022 Cognitive function Voice/Name [facility] Work Phone: 10-12-2021 Cognitive function Touch/Shaking [facility] Work Phone: Clinical Notes 05-13-2022 to 06-01-2024 Note Date & Type Note Facility 06-01-2024 Evaluation note Diagnosis Onset Date Resolution Atherosclerotic heart disease of [place] coronary artery without angina pectoris inactive June 01, 2024 1:18pm Essential hypertension inactive Ap 2024 1:18pm Hyperlipidemia inactive June 01, 2024 1:18pm Nonrheumatic mitral valve disorder inactive June 01, 2024 1:18pm Right bundle branch block inactive June 01, 2024 1:18pm [facility] Work Phone: 1(502) 207-789708-20-2024 [facility] Medical Records Department [address] [place] [address] Discharge Summary 10/21/23 1635 MR#: [id number] Acct: [id number] Name: ADEEL POST Rep #: [id number] : 1940 82 From: Nikole Villarreal MD PCP: Dr. Raissa Rayo MD Status:DIS IN [facility] Prov[facility] Date of Admission: 10/19/23 Date of Discharge: 10/21/23 Primary Care Physician: Dr. Raissa Rayo MD Consultations 10/19/23 20:24 Consult: Urology Routine Consulting Provider: Rene Andrew Reason for Consult: Right Renal Calculus and UTI. EMERGENT Consult: No MD Notified: Yes Date Notified: 10/19/23 Time Notified: 19:39 Method of Notification: ED Physician Initiated Method of Consult:: Telemedicine Comments:: contacted in ed Reason For Visit: RIGHT RENAL CALCULUS AND UTI Diagnosis Discharge Diagnosis (1) Acute unilateral obstructive uropathy: Status: Acute Code(s): N13.9 - Obstructive and reflux uropathy, unspecified (2) Acute UTI: Status: Acute Code(s): N39.0 - Urinary tract infection, site not specified Plan: DISCHARGE DIAGNOSES: #1. Acute Flank Pain secondary to Acute Obstructive Nephrolithiasis with 3 mm mid-right ureteral calculus with associated moderate right sided hydroureter/hydronephrosis with associated Acute Complicated E. Coli UTI complicated by Medullary sponge kidney #2. CAD #3. Valvular heart disease #4. Hypertension, Hx of, no longer on antihypertensive regimen, BP low normal range #5. Hyperlipidemia #6. Severe protein calorie malnutrition Medications at Discharge Home Medications aspirin 81 mg tablet,delayed release 81 mg PO DAILY #30 tabs 10/21/23 cephalexin 500 mg capsule 500 mg PO TID E. Coli UTI #10 caps 10/21/23 Hospital Course Operations - (10/20/23 cystoscopy and R stent placement per Dr. Andrew.) Procedures None Summary of Care Provided Minutes Spent on Discharge: 35 Hospital Course: The patient is an 82 y/o M w/ PMHx: HTN, HLD, CAD, Hx perforated appendicitis s/p partial colectomy, Chronic anemia, CKD stage III unclear subtype, Hx BL renal calculi with hydronephrosis/complicated UTI with a medullary sponge kidney who presented to the [facility] ED on 10/19/23 with history of onset right flank pain, fevers and chills starting on same day of presentation. Patient admitted and treated for Acute Flank Pain secondary to Acute Obstructive Nephrolithiasis with 3 mm mid-right ureteral calculus with associated moderate right sided hydroureter/hydronephrosis with associated Acute Complicated E. Coli UTI complicated by Medullary sponge kidney. Patient was admitted to [place], judiciously hydrated, maintained on IV Rocephin, OR 10/20/[address] Andrew s/p Cystoscopy and right stent placement, pain regimen PRN/anti-emetics PRN, monitor I Os. Given clinical improvement and patient eagerness for discharge will transition from IV Rocephin to oral Keflex given sensitivities based on renal creatinine clearance with planned follow-up in 1 week with urology and close early follow-up with PCP in addition. Weight / BMI Weight Weight: 115 lb 8.356 oz Body Mass Index (BMI) 17.1 ABG / Lab / Microbiology Data 10/21/23 06:11 10/21/23 06:11 Laboratory: Laboratory Results - last 24 hr 10/21/23 06:11: WBC 11.0, RBC 3.62 L, Hgb 11.4 L, Hct 34.5 L, MCV 95.3 H, MCH 31.5, MCHC 33.0, RDW Std Deviation 49.7 H, RDW Coeff of Sebastian 14.3, Plt Count 141 L, MPV 11.2, Immature Gran % (Auto) 0.700, Neut % (Auto) 84.5 H, Lymph % (Auto) 5.2 L, Brazos % (Auto) 8.1, Eos % (Auto) 1.3, Baso % (Auto) 0.2, Absolute Neuts (auto) 9.3 H, Absolute Lymphs (auto) 0.57 L, Nucleated RBC % 0, Sodium 139, Potassium 4.4, Chloride 115 H, Carbon Dioxide 20.0 L, Anion Gap 4 L, BUN 34 H, Creatinine 1.68 H, Estim Creat Clear Calc 25.56, Est GFR (MDRD) Af Amer 51 L, Est GFR (MDRD) Non-Af 42 L, B UN/Creatinine Ratio 20.2 H, Glucose 87, Calcium 8.0 L, Total Bilirubin 0.50, AST 26, ALT 20, Alkaline Phosphatase 74, Total Protein 5.2 L, Albumin 2.3 L, Globulin 2.9, Albumin/Globulin Ratio 0.8 L Microbiology: Microbiology 10/19/23 17:50 Urine, Clean Catch Urine Culture - Final Escherichia coli D/C Instructions Discharge Diet: No restrictions May resume sexual activity in: 10-14 days Weight Bearing Status: Weight bearing as tolerated Call your doctor if you observe: Fever of 101 or Higher, Inability to urinate, Shortness of breath, Dizziness, Chest pain, Increased palpitations (irregular heartbeat), Calf discomfort and Uncontrolled pain Meaningful Use Info Meaningful Use Meaningful Use Diagnoses (Choose all that apply): None applicable Ischemic Stroke Statin Dosing Therapy Reference: STATIN DOSE THERAPY REFERENCE: * Patients > 75 years receive moderate or high dose statin therapy. * Patients 75 years or YOUNGER should receive HIGH intensity statin dose unles (more content not included)...[facility]03-13-[address] Corbett [facility] May 13, 2022 8:58pm Note Date/Time May 13, 2022 5:1 7pm [facility] Medical Records Department [address] [place] [id number] Emergency Department Summary 05/13/22 MR#: [id number] Acct: [id number] Name: ADEEL POST Rep #:[id number] : 1940 81 From: Jammie Corbett MD PCP: Dr. Raissa Rayo MD Status:ADM MAN Location: [place] [address] HPI History of Present Illness Chief Complaint: Dizziness Informant: patient Onset/Context/Timing Onset: Today Narrative Narrative: Patient reports having several brief episodes that were concerning today at home. He initially noted double vision from his right eye. He states he was seeing 2 objects in his right eye [id number]. He took his glasses off but this did not change his symptoms. This lasted only a minute or so and then resolved. At the same time he was slightly diaphoretic. He states a short timelater he was sitting at the table doing a puzzle when he broke out in a sweat and became vertiginous. He states the dizziness seemed to improve but in the squat he became nauseated and vomited once. He states at this time he feels pretty much back to baseline. [facility] Medical History Acute bronchitis, unspecified Acute renal insufficiency Atherosclerotic heart disease of [place] coronary artery without angina pectoris Bilateral hydronephrosis Bilateral kidney stones Cardiology follow-up encounter Essential hypertension History of colon polyps History of echocardiogram Hyperlipidemia Intractable pain Left inguinal hernia Medullary sponge kidney Nonrheumatic mitral valve disorder Nonrheumatic tricuspid valve regurgitation Perforated appendicitis Preoperative cardiovascular examination Recurrent right inguinal hernia Right bundle branch block Shingles Ureteral stone with hydronephrosis UTI (urinary tract infection) Wears dentures Wears glasses Home Medications atenolol 25 mg tablet 12.5 mg PO DAILY heart rate #45 tabs 03/21/22 [Rx Last Taken 04/16/22 05:05] acetaminophen 500 mg tablet 1,000 mg PO Q6H PRN #50 tabs 04/16/22 [Rx Last Taken Unknown] azithromycin 250 mg tablet 250 mg PO QDAY #6 tabs 05/01/22 [Rx Last Taken Unknown] benzonatate 150 mg capsule 150 mg PO TID PRN cough #20 caps 05/01/22 [Rx Last Taken Unknown] Allergy/AdvReac Type Severity Reaction Status Date / Time ciprofloxacin [From Cipro] Allergy sweating, Verified 05/13/22 16:45 n/v wheat AdvReac Severe Unknown Verified 05/13/22 16:45 Family History Father CAD (coronary artery disease) Hx of CABG Brother Hypertension Surgical History history lithrotripsy for kidney stones History of appendectomy History of left inguinal hernia repair (~08/2018) History of partial surgical removal of colon History of prostatectomy History of right inguinal hernia repair Hx of colonoscopy Social History Smoking Status: Never smoker alcohol intake: never substance use type: does not use ROS ROS ED Constitutional Constitutional ED: Denies chills or fever(s) Eyes Eyes: Reports change in vision; Denies discharge from eye(s) ENT ENT ED: Denies discharge from eye(s), rhinorrhea or sore throat Cardiovascular Cardiovascular: Denies chest pain or palpitations Respiratory/Chest Respiratory/Chest: Denies cough or dyspnea Gastrointestinal Gastrointestinal: Reports nausea and vomiting; Denies abdominal pain or diarrhea Genitourinary Genitourinary ED: Denies dysuria Musculoskeletal Musculoskeletal: Denies back pain or extremity pain Integumentary Denies Abrasions or rash Neurologic Neurologic: Reports other Details: Vertigo ; Denies headache(s) or weakness Psychiatric Psychiatric: Denies anxiety or depression Endocrine Endocrinology: Denies polydipsia or polyuria Allergic/Immunologic Allergic/Immunologic ED: Denies lip swelling or urticaria EXAM Physical Exam Const Vital Signs: 05/13/22 16:43 05/13/22 16:53 Temperature 96.2 F L Temperature Source Temporal Pulse Rate 52 L Respiratory Rate 16 Respiratory Pattern Normal Blood Pressure 126/80 H Blood Pressure Mean 95 Pulse Ox 97 Oxygen Delivery Method Room Air Positive well nourished and well developed General Appearance ED: well developed HEENT Reports normocephalic and head/scalp atraumatic Eyes PERRL and EOMs intact bilaterally Neck supple Chest Wall inspection of chest normal and palpation of chest normal Resp normal respiratory effort and clear to auscultation bilaterally Cardio regular rhythm Rate: bradycardia GI normal to inspection, nondistended, normoactive bowel sounds Palpation: soft Extremity normal to inspection Neuro oriented x3 and no sensory deficits noted Neuro Narrative: NIH equals 0 at 17:15 Sensorium / Orientation: alert Motor Exam: strength 5/5 throughout Psych mental status grossly normal Skin no rashes or lesions noted MDM MDM MDM Narrative Medical decision making narrative: Patient placed on secured entrance monitor to observe for arrhythmia. Lab work obtained to evaluate for leukocytosis, anemia, electrolyte derangement. Troponin obtained to evaluate for cardiac ischemia. EKG obtained. Chest x-ray ordered to evaluate for cardiac silhouette size or any acute lung pathology. CTA of thehead and neck obtained given his intermittent neuro symptoms. History & Record Review Discussion w/independent historian: EMS personnel, Patient and Family Lab Data Attestation: I reviewed the patient's lab results. Labs: Laboratory Results - last 24 hr 05/13/22 05/13/22 16:50 16:50 WBC 7.8 RBC 4.38 L Hgb 13.5 Hct 42.3 MCV 96.6 H MCH 30.8 MCHC 31.9 L RDW Std Deviation 52.8 H RDW Coeff of Sebastian 14.7 H Plt Count 340 MPV 9.4 Immature Gran % (Auto) 0.400 Neut % (Auto) 60.1 Lymph % (Auto) 22.8 Brazos % (Auto) 11.4 H Eos % (Auto) 4.7 Baso % (Auto) 0.6 Absolute Neuts (auto) 4.7 Absolute Lymphs (auto) 1.78 Nucleated RBC % 0 Sodium 139 Potassium 4.1 Chloride 109 H Carbon Dioxide 25.0 Anion Gap 5 BUN 13 Creatinine 1.51 H Estim Creat Clear Calc 35.82 Est GFR (MDRD) Af Amer 57 L Est GFR (MDRD) Non-Af 47 L BUN/Creatinine Ratio 8.6 L Glucose 105 Calcium 8.2 L Troponin I High Sens 5 Radiography Chest X-Ray - ED: 1 View, Read by ED Physician and Chronic Changes Diagnostic Testing: Clinical Impression(s) from Imaging Studies Head/Neck CTA 05/13/22 17:12 IMPRESSION: 1. There are no acute findings of the [place] without a demonstrated aneurysm or hemodynamically significant stenosis. ALL ABOVE CRITERIA BY NASCET. 2. There are no acute findings of the right and left internal carotid artery. ALL ABOVE CRITERIA BY NASCET. 3. 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 Electronically Signed: Chinmay Cook MD at 19:10 EDT , ADDENDUM: 05/13/22 1934 IMPRESSION: undefined Chest X-Ray 05/13/22 18:20 IMPRESSION: No radiographic evidence of acute cardiopulmonary disease. Electronically Signed: Chinmay Cook MD at 18:50 EDT , EKG Initial EKG: Attestation: I personally reviewed and interpreted this EKG as follows: Interpretation: Sinus Bradycardia (Sinus bradycardia at 48 bpm. Right bundle branch block present.) Differential Diagnosis Chest pain/SOB: ACS ACS: Positive for no evidence of ACS based on cardiac biomarkers and EKG without ischemia Differential Diagnosis: CVA Why less likely: Symptoms currently resolved. Management Discussion w/another healthcare provider: Hospitalist Treatment and Re-Evaluation :: CBC is unremarkable. Chemistry studies are normal other than a creatinine of 1.51. Troponin is normal at 5. EKG reveals no acute ischemia. Patient is bradycardic but this is consistent with his prior visits as well. He has a known right bundle branch block that is unchanged on today's visit. Chest x-rayper my interpretation reveals chronic changes with no acute findings. Radiologyinterpretation is reviewed and agrees. CTA of the head and neck reveals microvascular disease with no acute abnormalities. Patient did have multiple neurologic symptoms including double vision and vertigo associated with diaphoresis and vomiting. I think it is appropriate to observe him overnight for full TIA work-up. I will speak with the hospitalist. Discharge Plan Triage Chief Complaint: Dizziness ED Provider: Jammie Corbett Dx/Rx/DC Orders Clinical Impression: Vertigo, Double vision Prescriptions: No Action atenolol 25 mg tablet 12.5 mg PO DAILY Qty: 45 4RF azithromycin 250 mg tablet 250 mg PO QDAY Qty: 6 0RF Rx Instructions: 2 tablets today, then 1 tablet daily on days 2 through 5 benzonatate 150 mg capsule 150 mg PO TID PRN (Reason: cough) Qty: 20 0RF acetaminophen [acetaminophen] 500 mg tablet 1,000 mg PO Q6H PRN Qty: 50 0RF Primary Care Provider: Raissa Rayo Referrals: Raissa Rayo MD [Primary Care Provider] - Disposition Disposition: Acute Care Hospital [facility] What to do if you have Problems For any increased pain, shortness of breath, bleeding, nausea or vomiting, chestpain, or any unexpected problems, contact your Primary Care Provider. Call [facility] ([phone]) or report to the closest Emergency Room. Call 911 if necessary. 05/13/222057 <Electronically signed by Jammie Corbett MD> Cosigner Signature (if applicable): CC: Dr. Raissa Rayo MD ~ Signed [facility] Work Phone: Evaluation note* Diagnosis Onset Date Resolution Status Atherosclerotic heart diseas e of [place] coronary artery without angina pectoris chronic Essential hypertension chron ic Hyperlipidemia chronic Nonrheumatic mitral valve disorder chronic Nonrheumatic tricuspid valve regurgitation chronic [facility] Work Phone: Evaluation note* Diagnosis Onset Date Resolution Status Atherosclerotic heart diseas [place] of [place] coronary artery without angina pectoris chronic Essential hypertension chron ic Hyperlipidemia chronic Nonrheumatic mitral valve disorder chronic Nonrheumatic tricuspid valve regurgitation chronic Shingles acute [facility] Work Phone: Evaluation note* Diagnosis Onset Date Resolution Status Atherosclerotic heart diseas [place] of [place] coronary artery without angina pectoris chronic Essential hypertension chron ic Hyperlipidemia chronic Nonrheumatic mitral valve disorder chronic Nonrheumatic tricuspid valve regurgitation chronic Shingles acute History of colon polyps acut e Other bursal cyst, right shoulder acute [facility] Work Phone: Evaluation note* Diagnosis Onset Date Resolution Status Shingles acute History of colon polyps acut e Other bursal cyst, right shoulder acute Other bursal cyst, right shoulder acute [facility] Work Phone: Evaluation note* Diagnosis Onset Date Resolution Status History of colon polyps acut e Other bursal cyst, right shoulder acute Other bursal cyst, right shoulder acute Other bursal cyst, right shoulder acute Rotator cuff arthropathy acu te [facility] Work Phone: Evaluation note* Diagnosis Onset Date Resolution Status Other bursal cyst, right shoulder acute Rotator cuff arthropathy acu te AC (acromioclavicular) joint arthritis acute Rotator cuff arthropathy acu te Synovial cyst of shoulder ac daren Preoperative cardiovascular examination acute Right bundle branch block ac daren Atherosclerotic heart diseas [place] of [place] coronary artery without angina pectoris chronic Essential hypertension chron ic Nonrheumatic mitral valve disorder chronic Orthopedic aftercare noneact naren Acute bronchitis, unspecified acute Double vision acute Vertigo acute [facility] Work Phone: Evaluation note* Diagnosis Onset Date Resolution Status Scabies acute Subcutaneous mass acute Hyperlipidemia acute Cyst of buttocks acute Subcutaneous mass acute [facility] Work Phone: History and physical note Author Dr. Chanel [facility] May 13, 2022 8:47pm Note Date/Time May 13, 2022 8:4 7pm [facility] Medical Records Department [facility] [place] [address] H&P Exam - Hospitalist 05/13/222024 MR#: [id number] Acct: [id number] Name: ADEEL POST Rep #:[id number] : 1940 81 From: Rober Maya PCP: Dr. Raissa Rayo MD Status:ADM MAN Location: [address] Date of Admission: 05/13/22 Date of Service: 05/13/22 Chief Complaint: Dizziness, diaphoresis and Diplopia afternoon today. HPI Narrative ADEEL POST, shashank a 81 M is brought to ED by EMS for dizziness, diplopia and diaphoresis today afternoon. This happened around 4 PM while doing puzzle. Patient said he was seeing 2 objects from right eye and he took off his glasses but he was still seeing to objects. He has transient diplopia for last 4 to 5 months as per but this was more symptomatic. He also felt dizzy lightheaded and feeling like to pass out but did not pass out. He was diaphoretic. Patient has URI about 2 weeks ago and went to urgent care and was given Z-Shamar. This is almost resolved with minimal and occasional cough during the night as per the . The patient denies chest pain pressure or tightness or shortness of breath. Patient was also nauseated and threw up once in the ambulance. In ED he is backto normal baseline. Vitals in the ED shows bradycardia heart rate 52 BP normal. His baseline heart rate is also lower side. Most recent 73 beats per twelve-lead EKG shows sinus bradycardia at 48 spiperone, RBBB QTc 444 ms. Previous EKG in June 2018 shows normal sinus rhythm at 90 beats minute, RBBB. 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 He said he never had a stroke or neurological deficit. [facility] Medical History Acute bronchitis, unspecified Acute renal insufficiency Atherosclerotic heart disease of [place] coronary artery without angina pectoris Bilateral hydronephrosis Bilateral kidney stones Cardiology follow-up encounter Essential hypertension History of colon polyps History of echocardiogram Hyperlipidemia Intractable pain Left inguinal hernia Medullary sponge kidney Nonrheumatic mitral valve disorder Nonrheumatic tricuspid valve regurgitation Perforated appendicitis Preoperative cardiovascular examination Recurrent right inguinal hernia Right bundle branch block Shingles Ureteral stone with hydronephrosis UTI (urinary tract infection) Wears dentures Wears glasses Home Medications atenolol 25 mg tablet 12.5 mg PO DAILY heart rate #45 tabs 03/21/22 [Rx Last Taken 04/16/22 05:05] acetaminophen 500 mg tablet 1,000 mg PO Q6H PRN #50 tabs 04/16/22 [Rx Last Taken Unknown] Allergy/AdvReac Type Severity Reaction Status Date / Time ciprofloxacin [From Cipro] Allergy sweating, Verified 05/13/22 16:45 n/v wheat AdvReac Severe Unknown Verified 05/13/22 16:45 Family History Father CAD (coronary artery disease) Hx of CABG Brother Hypertension Surgical History history lithrotripsy for kidney stones History of appendectomy History of left inguinal hernia repair (~08/2018) History of partial surgical removal of colon History of prostatectomy History of right inguinal hernia repair Hx of colonoscopy Social History Smoking Status: Never smoker alcohol intake: never substance use type: does not use ROS ROS Narrative Constitutional: As mentioned in HPI, dizzy lightheaded. HEENT: Mild short lasting vertigo. Reports systems reviewed and no addt'l complaints, except as documented Respiratory/Chest: Denies chest pain, shortness of breath at rest or with exertion Gastrointestinal: Denies coffee ground emesis, hematemesis. No abdominal pain or GI bleed. Genitourinary: Denies burning urination or new urinary tract symptoms. He states his urine is always dark because he has [place] monitor kidney disease. Musculoskeletal: Chronic bilateral knees and hips joint pain/degenerative arthritis and limited range of motion Neurologic: Denies seizure-like activity. No focal weakness numbness tingling, loss of balance or gait disorder skin: No ulcer. No rash Endocrinology: Reports systems reviewed and no addt'l complaints, except as documented Hematologic/Lymphatic: Reports systems reviewed and no addt'l complaints, exceptas documented Rest 14 ROS are negative except as mentioned in HPI Vital Signs Vital Signs Vital Signs: 05/13/22 16:43 05/13/22 16:53 05/13/22 20:22 Temperature 96.2 F L 98 F Temperature Source Temporal Temporal Pulse Rate 52 L 73 Respiratory Rate 16 16 Respiratory Pattern Normal Blood Pressure 126/80 H 114/78 Blood Pressure Mean 95 90 Pulse Ox 97 98 Oxygen Delivery Method Room Air Room Air Weight Weight: 143 lb 1.28 oz Body Mass Index (BMI) 21.1 Physical Exam Narrative Physical exam General: Alert, Oriented x3, Cooperative HEENT: Atraumatic, PERRLA, EOMI, Normocephalic Oral: No Gingival or Mucosal Lesions/ Ulcerations Neck: Supple, No JVD, Negative Carotid Bruits Lungs: Air entry diminished in bilateral lung bases. No crepitation/rhonchi Cardiovascular: Regular rate, Regular Rhythm, Normal S1, Normal S2, No murmurs Abdomen: Bowel Sounds Present, Soft, Non Tender, Non-Distended : No renal angle tenderness. No suprapubic tenderness. Extremities: No edema, Capillary Refill Less than 3 Seconds Skin: No rashes, No breakdown Musculoskeletal: No Tenderness to Palpation of Joints or Extremities, muscle strength 5/5 at major joints. ROM intact. Had recent ganglion cyst removal on right shoulder by Dr. Longoria. Surgical scar well-healed. Neurological: Cranial nerves II-XII grossly intact, DTR 2+/4 and Symmetrical, Neuro grossly intact Psych/Mental Status: Normal Affect, Appropriate. Results Lab / Micro Data Result Diagrams: 05/13/22 16:50 05/13/22 16:50 Labs: Laboratory Results - last 24 hr 05/13/22 16:50: WBC 7.8, RBC 4.38 L, Hgb 13.5, Hct 42.3, MCV 96.6 H, MCH 30.8, MCHC 31.9 L, RDW Std Deviation 52.8 H, RDW Coeff of [place] 14.7 H, Plt Count 340, MPV 9.4, Immature Gran % (Auto) 0.400, Neut % (Auto) 60.1, Lymph % (Auto) 22.8, [place] % (Auto) 11.4 H, Eos % (Auto) 4.7, Baso % (Auto) 0.6, Absolute Neuts (auto)4.7, Absolute Lymphs (auto) 1.78, Nucleated RBC % 0 05/13/22 16:50: Sodium 139, Potassium 4.1, Chloride 109 H, Carbon Dioxide 25.0, Anion Gap 5, BUN 13, Creatinine 1.51 H, Estim Creat Clear Calc 35.82, Est GFR (MDRD) Af Amer 57 L, Est GFR (MDRD) Non-Af 47 L, BUN/Creatinine Ratio 8.6 L, Glucose 105, Calcium 8.2 L, Troponin I High Sens 5 Radiology Impression Head/Neck CTA 05/13/22 17:12 IMPRESSION: 1. There are no acute findings of the [place] without a demonstrated aneurysm or hemodynamically significant stenosis. ALL ABOVE CRITERIA BY NASCET. 2. There are no acute findings of the right and left internal carotid artery. ALL ABOVE CRITERIA BY NASCET. 3. 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 Electronically Signed: Chinmay Cook MD at 19:10 EDT , ADDENDUM: 05/13/22 1934 IMPRESSION: undefined Chest X-Ray 05/13/22 18:20 IMPRESSION: No radiographic evidence of acute cardiopulmonary disease. Electronically Signed: Chinmay Cook MD at 18:50 EDT , Assessment & Plan Assessment/Plan (1) Vertigo: (2) Double vision: PLAN: Plan This 81-year-old gentleman who is being admitted for evaluation of near syncope symptoms and diplopia. 1. Near syncope and diplopia most likely peripheral vertigo, BPPV, rule out stroke: Patient is being admitted in PCU. The patient had CTA head and neck which did not show acute findings of [place] without demonstrated aneurysm or hemodynamically significant stenosis. No acute findings of right and left ICA. Follow stroke protocol with MRI brain without contrast. NIH stroke scale, PT OT speech/swallow evaluation, BP and glucose control as per stroke protocol. If MRI brain is positive for stroke, can do limited echo for bubble contrast study. 2. Atherosclerotic heart disease without angina, chronic RBBB, chronic mild to moderate nonrheumatic MR and TR: Patient had echo in June 2021 reported EF 65%,1-2+ eccentric MR, 1-2+ eccentric TR, RVSP 26 mmHg with no evidence for diastolic dysfunction. LA mildly enlargement. Patient follows Dr. Hope last seen in March,. Home medications reconciliation done. 3. Recent synovial cyst of right shoulder excision.Patient had excision of right shoulder on April 2022. It is well-healed. 4. Hypertension and dyslipidemia: Home medication reconciliation done. 5. Other multiple chronic comorbidities include history of medullary sponge kidney, nonoperative small aneurysm of brain as per history, bilateral kidney stones:Although patient states he had an EGD which was bleeding in 2003 but it is not reported in today's CTA head and neck. Reported no aneurysm or hemodynamically significant history. DVT prophylaxis: Heparin 5000 subcutaneous twice daily. Living will/advanced directive/end of life care: Patient does not have living will or advanced directive. Patient does not have designated power of senior office support assistant sosa for health. After discussion of benefits/risks procedures involved with full code, DNR CC arrest and DNR CC, the patient, his and daughter opted for full code. Patient does want artificial life support including intubation, tube feed, ventilator and/chest compression, central venous catheter, vasopressor and DC shock if needed Total time spent in [id number] encounter in discussion of advanced directive 17 minutes. Clinical Impression(s) from Imaging Studies Head/Neck CTA 05/13/22 17:12 IMPRESSION: 1. There are no acute findings of the [place] without a demonstrated aneurysm or hemodynamically significant stenosis. ALL ABOVE CRITERIA BY NASCET. 2. There are no acute findings of the right and left internal carotid artery. ALL ABOVE CRITERIA BY NASCET. 3. 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 Electronically Signed: Chinmay Cook MD at 19:10 EDT , ADDENDUM: 05/13/221933 IMPRESSION: undefined Chest X-Ray 05/13/22 18:20 IMPRESSION: No radiographic evidence of acute cardiopulmonary disease. Charges/Coding Visit Charges Inpatient E&M: 84755 Init Hosp L3 Procedures Hospitalists Procedures: 55117 Advncd Care Plan 30 Min 05/13/222046 <Electronically signed by Rober Chanel MD> Cosigner Signature (if applicable): CC: Dr. Raissa Rayo MD; Dr. Rober Chanel MD~ Signed [facility] Work Phone: Reason for referral (narrative)No reason for referral information availableWSelect Medical [facility] Work Phone: Chief Complaint and Reason for Visit Chief Complaint Atherosclerotic hear t disease of [place] coronary 9 m fu INT LABS Reason for Visit Atherosclerotic hear t disease of [place] coronary artery without angina pectoris Essential hypertension Hyperlipidemia Nonrheumatic mitral valve disorder Nonrheumatic tricuspid valve regurgitation Chief Complaint Atherosclerotic hear t disease of [place] coronary 9 m fu INT LABS DIZZINESS Reason for Visit Atherosclerotic hear t disease of [place] coronary artery without angina pectoris Essential hypertension Hyperlipidemia Nonrheumatic mitral valve disorder Nonrheumatic tricuspid valve regurgitation Chief Complaint Atherosclerotic hear t disease of [place] coronary 9 m fu INT LABS DIZZINESS RASH/LEFT FLANK NEW LUMP OVER AC JOINT NEW LUMP OVER R AC JT Reason for Visit Atherosclerotic hear t disease of [place] coronary artery without angina pectoris Essential hypertension Hyperlipidemia Nonrheumatic mitral valve disorder Nonrheumatic tricuspid valve regurgitation Shingles Chief Complaint Atherosclerotic hear t disease of [place] coronary 9 m fu INT LABS DIZZINESS RASH/LEFT FLANK NEW LUMP OVER AC JOINT NEW LUMP OVER R AC JT right 4th finger CYST RIGHT SHOULDER Reason for Visit Atherosclerotic hear t disease of [place] coronary artery without angina pectoris Essential hypertension Hyperlipidemia Nonrheumatic mitral valve disorder Nonrheumatic tricuspid valve regurgitation Shingles History of colon polyps Other bursal cyst, right shoulder Chief Complaint DIZZINESS RASH/LEFT FLANK NEW LUMP OVER AC JOINT NEW LUMP OVER R AC JT right 4th finger CYST RIGHT SHOULDER RIGHT SHOULDER Reason for Visit Shingles History of colon polyps Other bursal cyst, right shoulder Other bursal cyst, right shoulder Chief Complaint NEW LUMP OVER AC EDWARD NT NEW LUMP OVER R AC JT right 4th finger CYST RIGHT SHOULDER RIGHT SHOULDER RIGHT SHOULDER Reason for Visit History of colon thierno yps Other bursal cyst, right shoulder Other bursal cyst, right shoulder Other bursal cyst, right shoulder Rotator cuff arthropathy Chief Complaint RIGHT SHOULDER RIGHT SHOULDER 9 M FU RT SHOULDER OPEN EXC OF CYST DISTAL CLAVICLE EXCIS RT SHOULDER OPEN EXC OF CYST DISTAL CLAVICLE EXCIS right shoulder CHEST CONGESTION/SINUS PRESSURE/COUGH xray TIA TIA (cardiology) Reason for Visit Other bursal cyst, r ight shoulder Rotator cuff arthropathy AC (acromioclavicular) joint arthritis Rotator cuff arthropathy Synovial cyst of shoulder Preoperative cardiovascular examination 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 Essential hypertension Nonrheumatic mitral valve disorder Orthopedic aftercare Acute bronchitis, unspecified Double vision Vertigo Chief Complaint CONCERN FOR SHINGLES Cyst on right lower buttock 1 Y FU/PREV PFM Excision of Cyst on right lower buttock R BUTTOCK MASS Reason for Visit Scabies Subcutaneous mass Hyperlipidemia Cyst of buttocks Subcutaneous mass Chief Complaint Admit Date 1 Y FU/PREV PFM June 01, 2024 1:18 pm MURMUR June 08, 2024 1:49 pm Reason for Visit Admit Date Atherosclerotic heart diseas e of [place] coronary artery without angina pectoris June 01, 2024 1:18pm Essential hypertension June 01, 2024 1 :18pm Hyperlipidemia June 01, 2024 1:18 pm Nonrheumatic mitral valve disorder June 01, 2024 1:18pm Right bundle branch block June 01 1:18pm Family History No Family History Records Found Relationship Condition Age at Onset Recorded Date/T kelley father Coronary artery disease Unknown History of coronary artery bypass surgery Unknown brother Hypertension Unknown Advance Directives No Advanced Directives Records Found Advance Directive Response Recorded Date/ Time Advance Directives No January 4:25pm Living Will No August 07, 2018 1 0:00am Power of Punchboard Assembler No August 07, 2018 10:00am Advance Directive Response Recorded Date/ Time Advance Directives No January 4:25pm Living Will No August 11, 2021 9:10am Power of Punchboard Assembler No August 11 9:10am Advance Directive Response Recorded Date/ Time Advance Directives No January 4:25pm Living Will No October 09, 2021 1:39pm Power of Punchboard Assembler No October 09 1:39pm Advance Directive Response Recorded Date/ Time Advance Directives No January 4:25pm Living Will No May 13, 2022 4:53pm Power of Punchboard Assembler No May 13 4:53pm Advance Directive Response Recorded Date/ Time Advance Directives No January 4:25pm Living Will No May 13, 2022 9:11pm Power of Punchboard Assembler No May 13 9:11pm Advance Directive Response Recorded Date/ Time Living Will No October 18 8:47pm Do you have a Healthcare Power of Punchboard Assembler? No October 19, 2023 8:47pm Advance Directives No January 4:25pm Summary Purpose Additional Source Comments Goals (unrecognized section and content) Goals may be documented in a n alternate sectionGoals may be documented in an alternate sectionGoals may be documented in an alternate sectionGoals may be documented in an alternate sectionGoals may be documented in an alternate sectionGoals may be documented in an alternate sectionGoals may be documented in an alternate section Care Teams (unrecognized sec tion and content) Team Status: Active Member Role Status Dates Dr. Raissa Rayo MD Family Provider Active Dr. Raissa Rayo MD Primary Care Provider Active Team Status: Inactive Member Role Status Dates Dr. Raissa Rayo MD Primary Care Provider, Referrin g Provider Active Dr. Julio Cesar Hope MD Attending Provider Active Team Status: Inactive Member Role Status Dates Dr. Raissa Rayo MD Primary Care Provider, Referrin g Provider Active Dr. Hasmukh Longoria DO Attending Provider Active Team Status: Active Member Role Status Dates Dr. Raissa Rayo MD Primary Care Provider Active Dr. Hasmukh Longoria DO Attending Provid er, Referring Provider, Other Provider Active Team Status: Inactive Member Role Status Dates Dr. Raissa Rayo MD Primary Care Provider, Referrin g Provider Active NING Ivory Attending Provider Active Team Status: Inactive Member Role Status Dates Dr. Raissa Rayo MD Primary Care Provider Active James BARCLAY PA Attending Provider Active Team Status: Active Member Role Status Dates Dr. Raissa Rayo MD Primary Care Provider Active Dr. Jammie Corbett MD Emergency Provider Active Dr. Rober Chanel MD Admit Provider, A ttending Provider, Other Provider Active Team Status: Inactive Member Role Status Dates Dr. Raissa Rayo MD Primary Care Provider Active Dr. Hasmukh Longoria DO Attending Provider, Referring Provider Active Team Status: Active Member Role Status Dates Dr. Raissa Rayo MD Primary Care Provider Active Dr. Jammie Corbett MD Emergency Provider Active Dr. Rober Chanel MD Admit Provider, Attending Provi joshua Active Team Status: Inactive Member Role Status Dates Dr. Raissa Rayo MD Primary Care Provider, Referrin g Provider Active Debra Jordan CHOCOLATE PACKER, CHOCOLATE PACKER-C Attending Provider Active Team Status: Inactive Member Role Status Dates Dr. Raissa Rayo MD Primary Care Provider, Referrin g Provider Active Dr. Sami Jones MD Attending Provider Active Team Status: Inactive Member Role Status Dates Dr. Raissa Rayo MD Primary Care Provider Active Dr. Sami Jones MD Attending Provider, Referr ing Provider Active Team Status: Active Member Role Status Dates Dr. Raissa Rayo MD Primary Care Provider Active Team Status: Inactive Member Role Status Dates Dr. Raissa Rayo MD Primary Care Provider Active Start: June 01, 2024 End: June 01, 2024 Dr. Raissa Rayo MD Referring Provider Active Start: June 01, 2024 End: June 01, 2024 NING Ferguson Attending Provider Active Start: June 01, 2024 End: June 01, 2024 Team Status: Inactive Member Role Status Dates Dr. Raissa Rayo MD Primary Care Provider Active Start: June 08, 2024 End: June 08, 2024 NING Ferguson Attending Provider Active Start: June 08, 2024 End: June 08, 2024 NING Ferguson Referring Provider Active Start: June 08, 2024 End: June 08, 2024 Team Status: Active Member Role Status Dates Dr. Raissa Rayo MD Primary Care Provider Active Start: June 08, 2024 Dr. Obey Nguyen MD Attending Provider Active S tart: June 08, 2024 (unrecognized sect ion and content) No Status Records Found INFORMATION SOURCE (unrecogn ized section and content) DATE CREATED AUTHOR 06/16/2024 [facility] FOR RECORDS PERTAINING TO PATIENTS WHO ARE OR HAVE BEEN ENROLLED IN A CHEMICAL DEPENDENCY/SUBSTANCEABUSE PROGRAM, SOME INFORMATION MAY BE OMITTED. This clinical summary was aggregated from multiple sources. Caution should be exercised in using it in the provision of clinical care. This summary normalizes information from multiple sources, and as a consequence, information in this document may materially change the coding, format and clinical context of patient data. In addition, data may be omitted in some cases. CLINICAL DECISIONS SHOULD BE BASED ON THE PRIMARY CLINICAL RECORDS. [facility] [employer] [facility]. provides no warranty or guarantee of the accuracy or completeness of information in this document.
[2024-08-14 21:00] VITALS: BP 118/86; PULSE 64; RESP 15; O2SAT 97
[2024-08-14 22:00] VITALS: BP 115/90; PULSE 65; RESP 19; O2SAT 96
[2024-08-14] MEDS: Acetaminophen 500 MG Tablet 1000 MG PO (22:18)
--- NOTE | 2024-08-14 22:34 | ED.VIS.CHEST ---
HPI History of Present Illness Chief Complaint: Chest Pain Informant: patient and family Narrative Narrative: 83-year-old male has been having pain in the left chest closer to the axilla for the past 6 hours or so. Patient is not sure what he was doing when it started, he thinks he was just sitting or relaxing. He says it seems to get worse when he does certain movements. Since he has been's laying resting right now in the ER waiting for a physician, it has not been bothering him. Denies any other associated symptoms such as dyspnea, palpitations, syncope or near syncope, nausea or vomiting. He has no radiation into his arm or anywhere else. He was helping to lift his couple days ago because she fell, but no other injuries or falls. Has had this happen before and I thought it was musculoskeletal but they want to make sure that it is not anything cardiac related. [facility] Medical History Acute unilateral obstructive uropathy Kidney stone on right side Subcutaneous mass Cyst of buttocks Scabies Acute bronchitis, unspecified Preoperative cardiovascular examination Synovial cyst of shoulder AC (acromioclavicular) joint arthritis Rotator cuff arthropathy Wears glasses Wears dentures Medullary sponge kidney History of echocardiogram Cardiology follow-up encounter History of colon polyps Shingles Essential hypertension Left inguinal hernia Perforated appendicitis Atherosclerotic heart disease of [place] coronary artery without angina pectoris Nonrheumatic mitral valve disorder Nonrheumatic tricuspid valve regurgitation History of colon polyps Acute renal insufficiency Bilateral hydronephrosis Bilateral kidney stones Intractable pain Recurrent right inguinal hernia UTI (urinary tract infection) Ureteral stone with hydronephrosis Hyperlipidemia Right bundle branch block Home Medications ?Medication ?Instructions ?Recorded ?Last Taken ?Type aspirin 81 mg tablet,delayed 81 mg PO DAILY PRN heart health 06/01/24 Unknown History release Allergy/AdvReac Type Severity Reaction Status Date / Time ciprofloxacin (From Cipro) Allergy sweating, Verified 08/14/24 19:40 n/v wheat AdvReac Severe Unknown Verified 08/14/24 19:40 Family History Father CAD (coronary artery disease) Hx of CABG Brother Hypertension Surgical History Hx of colonoscopy History of partial surgical removal of colon History of appendectomy History of left inguinal hernia repair (~08/2018) history lithrotripsy for kidney stones History of prostatectomy History of right inguinal hernia repair Social History (Updated 06/01/24 @ 13:48 by Kitty Lomeli) Smoking Status: Former smoker alcohol intake: never substance use type: does not use caffeine: Yes Type: tea ROS ROS ED Constitutional Constitutional ED: Denies chills or fever(s) Eyes Eyes: Denies change in vision or diplopia ENT ENT ED: Denies rhinorrhea or sore throat Cardiovascular Cardiovascular: Reports as per HPI and chest pain; Denies fatigue, flutter in chest, leg edema, orthopnea, palpitations, radiating jaw, neck or arm pain or syncope Respiratory/Chest Respiratory/Chest: Denies cough, dyspnea or orthopnea Gastrointestinal Gastrointestinal: Denies abdominal pain, diarrhea, nausea or vomiting Genitourinary Genitourinary ED: Denies dysuria or hematuria Musculoskeletal Musculoskeletal: Denies back pain or neck pain Integumentary Denies abscess or rash Neurologic Neurologic: Denies headache(s), paresthesias or weakness Psychiatric Psychiatric: Denies anxiety or suicidal thoughts EXAM Physical Exam Const Vital Signs: 08/14/24 19:40 08/14/24 19:53 08/14/24 19:55 Temperature 97.6 F L Temperature Source Oral Pulse Rate 74 Respiratory Rate 15 Respiratory Effort Normal Non-Labored Blood Pressure 118/87 H Blood Pressure Mean 97 Pulse Ox 94 Oxygen Delivery Method Room Air Room Air 08/14/24 20:39 08/14/24 21:00 08/14/24 22:00 Temperature Temperature Source Pulse Rate 65 64 65 Respiratory Rate 14 15 19 H Respiratory Effort Blood Pressure 119/92 H 118/86 H 115/90 H Blood Pressure Mean 101 96 98 Pulse Ox 99 97 96 Oxygen Delivery Method Room Air Room Air Room Air Positive well nourished, well developed and cachectic General Appearance ED: well developed, cachectic and NAD Nutritional Appearance: cachectic HEENT Reports moist mucous membranes normocephalic and atraumatic Eyes PERRL and EOMs intact bilaterally Neck full ROM and supple Chest Wall inspection of chest normal Chest Narrative: Tender in the left lateral upper chest wall multiple ribs and intercostal spaces, no crepitance, no step-off and the patient is very thin I can feel each individual rib. Normal appearing no rash. Resp normal respiratory effort and clear to auscultation bilaterally Cardio regular rate, regular rhythm and no murmurs Rate: other Other Details: Occasional irregularity GI non-tender and non-distended Auscultation: normoactive bowel sounds Palpation: soft Back/Spine no CVA tenderness General Back: other FROM Extremity normal to inspection General Extremety ED: Negative for edema, pulses abnormal or tenderness General Extremity: Negative for edema or pulses abnormal Neuro oriented x3, CN's II-XII intact bilaterally and no sensory deficits noted Sensorium / Orientation: awake and alert Motor Exam: strength 5/5 throughout Psych mental status grossly normal Skin no rashes or lesions noted and no wounds Heart Score History: Slightly/Non-Suspicious ECG: Nonspecific Repolarization Age: >/= 65 years Risk Factors: No Risk Factors Troponin: </= Normal Limit Score: 3 MDM MDM MDM Narrative Medical decision making narrative: With sitting patient has a discomfort, and it is reproducible with palpation. 1 view chest x-ray my interpretation is negative for pneumothorax, acute pulmonary process, pleural effusion, or obvious displaced rib fracture although we did not do a rib series. I do not think we have to, he has multiple ribs/levels that are tender including intercostal spaces so I think this is probably a muscle strain, and for that reason I think 1 view chest is enough. His troponin is 50 this may be due to his renal insufficiency which appears to be chronic, and EKG shows nothing acute and I do not think this is cardiac. He was given Tylenol and his troponin was repeated, it is lower. This is reassuring. His vital signs are normal. Comfortable letting him go home and treat this as a strain with supportive care and follow-up as needed he is comfortable with that plan as well. Lab Data Attestation: I reviewed the patient's lab results. Labs: Laboratory Results - last 24 hr 08/14/24 08/14/24 19:53 22:12 WBC 7.4 RBC 3.83 L Hgb 13.3 Hct 39.5 L MCV 103.1 H MCH 34.7 H MCHC 33.7 RDW Std Deviation 58.2 H RDW Coeff of Sebastian 15.2 H Plt Count 220 MPV 10.3 Immature Gran % (Auto) 0.400 Neut % (Auto) 70.3 H Lymph % (Auto) 11.9 L Imperial % (Auto) 13.7 H Eos % (Auto) 3.2 Baso % (Auto) 0.5 Absolute Neuts (auto) 5.2 Absolute Lymphs (auto) 0.88 Nucleated RBC % 0 Sodium 139 Potassium 4.6 Chloride 105 Carbon Dioxide 22.8 Anion Gap 11 BUN 32 H Creatinine 1.62 H Estim Creat Clear Calc 25.49 L Est GFR (MDRD) Non-Af 42 L BUN/Creatinine Ratio 19.4 Glucose 102 H Calcium 9.0 Troponin T High Sens 50 H Troponin T Hi Sens 2 Hr 42 H Radiography Diagnostic Testing: Clinical Impression(s) from Imaging Studies Chest X-Ray 08/14/24 20:00 IMPRESSION: COPD. No acute findings. Reading Location: [id number] Rhythm Strip Rhythm Strip: Sinus Rhythm Rate: 60 Ectopy: PAC(s) EKG Initial EKG: Attestation: I personally reviewed and interpreted this EKG as follows: Interpretation: Sinus Rhythm, No Acute Injury Pattern and RBBB Prior EKG tracings: available for review Prior: Unchanged Discharge Plan Triage Chief Complaint: Chest Pain ED Provider: Charli Feliciano Dx/Rx/DC Orders Clinical Impression: Chest wall muscle strain Instructions: ED Chest Wall Strain Prescriptions: No Action aspirin 81 mg tablet,delayed release (DR/EC) 81 mg PO DAILY PRN (Reason: heart health) Primary Care Provider: Raissa Rayo Referrals: Raissa Rayo MD [Primary Care Provider] - 1 Week if not improving Print Language: Honduran Disposition Disposition: Home, Self Care
[2024-08-14 22:48] LABS: Troponin T High Sens 2 HR 42 ng/L (<=22)
[2024-08-14 23:00] VITALS: BP 119/83; PULSE 65; RESP 19; O2SAT 97
[2024-08-14 23:18] VITALS: BP 114/89; PULSE 72; RESP 20; TEMP 36.6; O2SAT 97
== END 2024-08-14 23:30 | disposition home or self-care (01) ==
PROVIDERS: Emergency Provider Emergency Medicine; PCP Family Medicine; Visit Provider Emergency Medicine
DX: S29.011A Strain of muscle and tendon of front wall of thorax, initial encounter (principal); X58.XXXA Exposure to other specified factors, initial encounter; I12.9 Hypertensive chronic kidney disease with stage 1 through stage 4 chronic kidney disease, or unspecified chronic kidney disease; N18.9 Chronic kidney disease, unspecified; I25.10 Atherosclerotic heart disease of native coronary artery without angina pectoris; I45.10 Unspecified right bundle-branch block; Z79.82 Long term (current) use of aspirin; Z90.49 Acquired absence of other specified parts of digestive tract; Z87.891 Personal history of nicotine dependence
CPT/HCPCS: 71045; 80048; 84484; 85025; 93005; 99284; A4216

== ENCOUNTER → 2024-09-27 | Outpatient (CLI) | payer MEDICARE, OTHER, SELFPAY ==
--- NOTE | 2024-09-27 15:06 | RAD_ITS ---
PROCEDURE: FOOT MIN 3 VIEWS 09/27/2024 REASON FOR EXAM: PAIN Heel pain. No history of trauma. TECHNIQUE: FOOT MIN 3 VIEWS COMPARISON: None FINDINGS: Bones: A spur is seen at the insertion of the Achilles tendon. Small plantar spur. No fracture is seen. Joints: Normal alignment. Joint spaces preserved. No arthropathic features. Soft tissues: Soft tissue swelling. Other: RAD/Foot min 3 Views IMPRESSION: Calcaneal spurs. Soft tissue swelling. Reading Location: [id number]
--- NOTE | 2024-09-27 15:06 | RAD_ITS ---
PROCEDURE: FOOT MIN 3 VIEWS 09/27/2024 REASON FOR EXAM: PAIN Plantar pain. TECHNIQUE: FOOT MIN 3 VIEWS COMPARISON: None FINDINGS: Bones: Deformity of the 2nd metatarsal suggestive of old injury and healing. Joints: Degenerative changes of the 1st metacarpophalangeal joint. Soft tissues: Mild soft tissue swelling. Other: RAD/Foot min 3 Views IMPRESSION: Deformity of the 2nd metatarsal suggestive of old injury and healing. No acute abnormality is seen. Reading Location: [id number]
== END | disposition home or self-care (01) ==
LOC: MTRAD 15:06
PROVIDERS: PCP Family Medicine; Referring Provider Physician Assistant; Visit Provider Physician Assistant
DX: M79.672 Pain in left foot (principal); M79.671 Pain in right foot
CPT/HCPCS: 73630

== ENCOUNTER → 2024-10-20 | Outpatient (CLI) | payer MEDICARE, OTHER, SELFPAY ==
--- NOTE | 2024-10-20 12:36 | RAD_ITS ---
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 There is moderate osteoarthritis of the radiocarpal articulation. Soft tissue swelling is present at the 4th proximal phalanx. Osteopenia is noted. There are no visible atherosclerotic calcifications. 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 There is moderate osteoarthritis of the radiocarpal articulation. Soft tissue swelling is present at the 4th proximal phalanx. Reading Location: [id number]
== END | disposition home or self-care (01) ==
LOC: MTRAD 12:34
PROVIDERS: PCP Family Medicine; Referring Provider Family Medicine; Visit Provider Family Medicine
DX: M79.644 Pain in right finger(s) (principal)
CPT/HCPCS: 73130

== ENCOUNTER → 2024-12-13 | Outpatient (CLI) | payer MEDICARE, OTHER, SELFPAY ==
[2024-12-13 13:12] LABS: PSA,Total- Diagnostic 0.05 ng/mL (0.00-4.00)
== END | disposition home or self-care (01) ==
LOC: LAB 11:36
PROVIDERS: PCP Family Medicine; Referring Provider Urology; Visit Provider Urology
DX: C61 Malignant neoplasm of prostate (principal)
CPT/HCPCS: 36415; 84153

== ENCOUNTER → 2025-02-15 | Outpatient (CLI) | payer MEDICARE, OTHER, SELFPAY ==
[2025-02-15 15:18] LABS: Hematocrit 43.1 % (40-54); Hemoglobin 14.2 g/dL (13.0-16.5); Immature Granulocytes Count 0.020 X10^3/uL (0.0-0.0); Mean Corp Hgb Conc 32.9 g/dL (32-36); Mean Corpuscular Volume 95.6 fL (80-94); Mean Platelet Vol. 10.6 fl (6.2-12.0); NRBC Flagged by Analyzer 0 % (0-5); Platelet Count 202 K/mm3 (150-450); RBC Distribution Width CV 15.3 % (11.6-14.6); RBC Distribution Width SD 54.4 fl (35.1-43.9); Red Blood Count 4.51 M/mm3 (4.6-6.2); White Blood Count 5.8 K/mm3 (4.4-11.0)
[2025-02-15 15:45] LABS: PTHIN 90 pg/mL (11-61)
[2025-02-15 16:04] LABS: AST(SGOT) 25 U/L (<=37); Alanine Aminotransfer ALT/SGPT 19 U/L (<=46); Albumin, Serum 3.5 g/dL (3.4-4.8); Alkaline Phosphatase 116 U/L (40-129); Anion Gap 10 (5-15); BUN 16 mg/dL (4-19); BUN/Creat Ratio 10.7 RATIO (10-20); Calcium,Total 8.5 mg/dL (7.6-11.0); Carbon Dioxide 24.2 mmol/L (21.0-32.0); Chloride 106 mmol/L (98-108); Cholesterol 156 mg/dL (<=200); Globulin 2.6 g/dL (2.2-4.2); Glucose 95 mg/dL (70-99); Low Density Lipoprotein Calc. 83 mg/dL; Potassium 4.3 mmol/L (3.3-5.1); Triglycerides 68 mg/dL; Very Low Density Lipoprotein 14 mg/dL (5-40); Vitamin D,25 Hydroxy 28.0 ng/mL (30-100); cholesterol:hdl ratio screen 2.63
== END | disposition home or self-care (01) ==
LOC: BFHLAB 13:31
PROVIDERS: PCP Family Medicine; Visit Provider Family Medicine
DX: N18.32 Chronic kidney disease, stage 3b (principal); N20.0 Calculus of kidney; E78.5 Hyperlipidemia, unspecified
CPT/HCPCS: 36415; 80053; 80061; 82306; 83970; 84100; 85025